=== PATIENT | female | born 1950 | race Caucasian/White ===

== ENCOUNTER 2019-08-09 09:20 | Outpatient (CLI) | payer MEDICARE, SELFPAY ==
[2019-08-09 09:38] LABS: Basophils Absolute Auto 0.03 K/mm3 (0.00-0.10); Basophils Percent Auto 0.5 % (0.0-1.0); Eosinophils Percent Auto 3.5 % (1.0-6.0); Hematocrit 44.1 % (35.0-42.0); Hemoglobin 14.9 g/dL (11.7-13.8); Immature Granulocyte Absolute 0.01 K/mm3 (0.00-0.00); Immature Granulocyte Percent A 0.2 % (0.0-0.0); Lymphocytes Absolute Auto 1.32 K/mm3 (1.10-4.50); Lymphocytes Percent Auto 23.1 % (18.0-42.0); Mean Corpuscular HGB Conc 33.8 g/dL (32.0-36.0); Mean Corpuscular Hemoglobin 31.4 pg (27.0-31.0); Mean Platelet Volume 10.7 fl (9.2-11.8); Monocytes Absolute Auto 0.48 K/mm3 (0.10-0.90); Monocytes Percent Auto 8.4 % (2.0-11.0); Neutrophils Absolute Auto 3.7 K/mm3 (1.7-7.2); Neutrophils Percent Auto 64.3 % (50.0-70.0); Platelet Count Result 196 K/mm3 (150-420); Red Blood Count 4.74 M/mm3 (4.20-5.40); Red Cell Distribution Width 12.4 % (11.6-14.4); White Blood Count 5.7 K/mm3 (4.8-10.8)
[2019-08-09 10:41] LABS: Hemoglobin A1C 6.8 % (<5.7)
[2019-08-09 10:43] LABS: Alanine Aminotransferase 29 U/L (14-59); Albumin Level 3.7 g/dL (3.4-5.0); Alkaline Phosphatase 60 U/L (46-116); Anion Gap 13.5 mmol/L (7-16); Aspartate Amino Transferase 19 U/L (15-37); Bilirubin,Total 0.6 mg/dL (0.00-1.00); Blood Urea Nitrogen 28 mg/dL (7-18); Calcium 10.7 mg/dL (8.5-10.1); Carbon Dioxide 28 mmol/L (21-32); Chloride 104 mmol/L (98-108); Cholesterol 241 mg/dL (0-200); Estimated Glomerular Filt Rate > 60; Glucose 186 mg/dL (70-99); HDL Direct 49 mg/dL (40-60); LDL Cholesterol Calculated 151 mg/dL (<130); Osmolality Calculated 302 mOsm/kg (285-295); Potassium 4.5 mmol/L (3.5-5.1); Sodium 141 mmol/L (136-145); Thyroid Stimulating Hormone 1.72 uIU/mL (0.36-3.74); Total Protein 7.3 g/dL (6.4-8.2); Triglycerides 206 mg/dL (0-150)
[2019-08-09 11:09] LABS: Add Urine Microscopic? YES; Appearance Urine Clear (Clear); Bilirubin Urine Negative (Negative); Blood Urine Negative (Negative); Color Urine Yellow (Yellow); Glucose Urine UA Negative (Negative); Ketones Urine Negative (Negative); Leukocyte Esterase Ur 2+ (Negative); Nitrate Urine Positive (Negative); Protein Urine Negative (Negative); Specific Grav Ur 1.025 (1.010-1.020); Urobilinogen Urine 0.2 mg/dL (0.2-1.0)
[2019-08-09 11:15] LABS: RBC Urine 0-2 /hpf (0-2); Squamous Epithelial Cell Urine Rare /hpf (Few); WBC Urine 31-50 /hpf (0-3)
[2019-08-09 11:16] LABS: Bacteria Urine 4+ /hpf
== END 2019-08-09 09:21 | disposition home or self-care (01) ==
PROVIDERS: PCP Internal Medicine; Visit Provider Internal Medicine
DX: E78.2 Mixed hyperlipidemia (principal); E11.9 Type 2 diabetes mellitus without complications
CPT/HCPCS: 36415; 80053; 80061; 81001; 83036; 84443; 85025

== ENCOUNTER 2020-01-22 08:45 | Outpatient (CLI) | payer MEDICARE, SELFPAY ==
[2020-01-22 08:57] LABS: Basophils Absolute Auto 0.04 K/mm3 (0.00-0.10); Basophils Percent Auto 0.8 % (0.0-1.0); Eosinophils Absolute Auto 0.17 K/mm3 (0.02-0.50); Eosinophils Percent Auto 3.3 % (1.0-6.0); Hematocrit 42.6 % (35.0-42.0); Hemoglobin 14.2 g/dL (11.7-13.8); Immature Granulocyte Absolute 0.02 K/mm3 (0.00-0.00); Immature Granulocyte Percent A 0.4 % (0.0-0.0); Lymphocytes Absolute Auto 1.36 K/mm3 (1.10-4.50); Lymphocytes Percent Auto 26.1 % (18.0-42.0); Mean Corpuscular HGB Conc 33.3 g/dL (32.0-36.0); Mean Corpuscular Hemoglobin 30.9 pg (27.0-31.0); Mean Corpuscular Volume 92.8 fL (78.0-102.0); Mean Platelet Volume 11.2 fl (9.2-11.8); Monocytes Absolute Auto 0.51 K/mm3 (0.10-0.90); Monocytes Percent Auto 9.8 % (2.0-11.0); Neutrophils Absolute Auto 3.1 K/mm3 (1.7-7.2); Neutrophils Percent Auto 59.6 % (50.0-70.0); Platelet Count Result 203 K/mm3 (150-420); Red Blood Count 4.59 M/mm3 (4.20-5.40); Red Cell Distribution Width 12.4 % (11.6-14.4); White Blood Count 5.2 K/mm3 (4.8-10.8)
[2020-01-22 09:28] LABS: Hemoglobin A1C 7.9 % (<5.7)
[2020-01-22 10:19] LABS: Alanine Aminotransferase 21 U/L (14-59); Albumin Level 3.8 g/dL (3.4-5.0); Alkaline Phosphatase 71 U/L (46-116); Anion Gap 8 mmol/L (8-16); Aspartate Amino Transferase 21 U/L (15-37); Bilirubin,Total 0.6 mg/dL (0.00-1.00); Blood Urea Nitrogen 20 mg/dL (7-18); Calcium 10.8 mg/dL (8.5-10.1); Carbon Dioxide 28 mmol/L (21-32); Chloride 104 mmol/L (98-108); Cholesterol 227 mg/dL (0-200); Estimated Glomerular Filt Rate > 60; Glucose 206 mg/dL (70-99); HDL Direct 52 mg/dL (40-60); LDL Cholesterol Calculated 143 mg/dL (<130); Osmolality Calculated 298 mOsm/kg (285-295); Potassium 4.1 mmol/L (3.5-5.1); Sodium 140 mmol/L (136-145); Thyroid Stimulating Hormone 1.81 uIU/mL (0.36-3.74); Total Protein 8.1 g/dL (6.4-8.2); Triglycerides 158 mg/dL (0-150)
[2020-01-22 11:26] LABS: Creatinine Urine 192.17 mg/dL (40-278); MALB Creatinine Ratio 39.2 mg/g (0-30); Microalbumin Urine Random 75.4 mg/L
== END 2020-01-22 08:46 | disposition home or self-care (01) ==
LOC: CHSLAB 08:47
PROVIDERS: PCP Internal Medicine; Visit Provider Internal Medicine
DX: E78.5 Hyperlipidemia, unspecified (principal); E11.9 Type 2 diabetes mellitus without complications; I10 Essential (primary) hypertension
CPT/HCPCS: 36415; 80053; 80061; 82043; 83036; 84443; 85025

== ENCOUNTER 2020-06-13 09:00 | Outpatient (CLI) | payer MEDICARE, SELFPAY ==
[2020-06-13 09:16] LABS: Basophils Absolute Auto 0.05 K/mm3 (0.00-0.10); Basophils Percent Auto 0.9 % (0.0-1.0); Eosinophils Absolute Auto 0.16 K/mm3 (0.02-0.50); Eosinophils Percent Auto 2.8 % (1.0-6.0); Hematocrit 43.2 % (35.0-42.0); Hemoglobin 14.3 g/dL (11.7-13.8); Immature Granulocyte Absolute 0.01 K/mm3 (0.00-0.00); Immature Granulocyte Percent A 0.2 % (0.0-0.0); Lymphocytes Absolute Auto 1.21 K/mm3 (1.10-4.50); Lymphocytes Percent Auto 21.2 % (18.0-42.0); Mean Corpuscular HGB Conc 33.1 g/dL (32.0-36.0); Mean Corpuscular Hemoglobin 30.3 pg (27.0-31.0); Mean Corpuscular Volume 91.5 fL (78.0-102.0); Mean Platelet Volume 11.2 fl (9.2-11.8); Monocytes Absolute Auto 0.44 K/mm3 (0.10-0.90); Monocytes Percent Auto 7.7 % (2.0-11.0); Neutrophils Absolute Auto 3.9 K/mm3 (1.7-7.2); Neutrophils Percent Auto 67.2 % (50.0-70.0); Platelet Count Result 201 K/mm3 (150-420); Red Blood Count 4.72 M/mm3 (4.20-5.40); Red Cell Distribution Width 12.5 % (11.6-14.4); White Blood Count 5.7 K/mm3 (4.8-10.8)
[2020-06-13 09:26] LABS: Hemoglobin A1C 7.8 % (<5.7)
[2020-06-13 10:07] LABS: Alanine Aminotransferase 27 U/L (14-59); Albumin Level 3.8 g/dL (3.4-5.0); Alkaline Phosphatase 84 U/L (46-116); Anion Gap 9 mmol/L (8-16); Aspartate Amino Transferase 13 U/L (15-37); Bilirubin,Total 0.5 mg/dL (0.00-1.00); Blood Urea Nitrogen 24 mg/dL (7-18); Calcium 10.5 mg/dL (8.5-10.1); Carbon Dioxide 25 mmol/L (21-32); Chloride 103 mmol/L (98-108); Cholesterol 196 mg/dL (0-200); Estimated Glomerular Filt Rate 59; Glucose 251 mg/dL (70-99); HDL Direct 53 mg/dL (40-60); LDL Cholesterol Calculated 119 mg/dL (<130); Osmolality Calculated 296 mOsm/kg (285-295); Potassium 4.2 mmol/L (3.5-5.1); Sodium 137 mmol/L (136-145); Total Protein 7.3 g/dL (6.4-8.2); Triglycerides 122 mg/dL (0-150)
== END 2020-06-13 09:01 | disposition home or self-care (01) ==
PROVIDERS: PCP Internal Medicine; Visit Provider Internal Medicine
DX: E11.9 Type 2 diabetes mellitus without complications (principal); I10 Essential (primary) hypertension
CPT/HCPCS: 36415; 80053; 80061; 83036; 85025

== ENCOUNTER 2020-06-24 15:24 | Outpatient (CLI) | payer MEDICARE, SELFPAY ==
--- NOTE | ~2020-06-24 | US_ITS ---
EXAMINATION: US arterial ankle brachial ind DATE: 06/24/2020 16:06 INDICATION: Peripheral arterial disease. Diabetes. Hyperlipidemia. Hypertension. TECHNIQUE: Segmental pressures and plethysmographic and Doppler waveforms of the brachial and lower e xtremity arteries were obtained. COMPARISON: None. FINDINGS: Right and left brachial artery pressures of 152 mm Hg and 148 mm Hg, respectively, are concordant (no rmal difference <= 30 mmHg). The right ankle-brachial index (BREEZY) is 1.09 (normal >= 0.9-1.0 Arterial Doppler waveforms are biphas ic. The left BREEZY is 1.22. Arterial Doppler waveforms are biphasic. IMPRESSION: Normal bilateral BREEZY Reviewed, dictated and finalized at [facility]. Reviewed, dictated and finalized at location [facility]. IMPRESSION: Normal bilateral BREEZY
== END 2020-06-24 15:25 | disposition home or self-care (01) ==
LOC: CHSIMG 15:26
PROVIDERS: PCP Internal Medicine; Visit Provider Internal Medicine
DX: I73.9 Peripheral vascular disease, unspecified (principal)
CPT/HCPCS: 93922

== ENCOUNTER 2020-12-19 08:33 | Outpatient (CLI) | payer MEDICARE, SELFPAY ==
[2020-12-19 08:45] LABS: Basophils Absolute Auto 0.04 K/mm3 (0.00-0.10); Basophils Percent Auto 0.6 % (0.0-1.0); Eosinophils Absolute Auto 0.19 K/mm3 (0.02-0.50); Hemoglobin 14.5 g/dL (11.7-13.8); Immature Granulocyte Absolute 0.01 K/mm3 (0.00-0.00); Immature Granulocyte Percent A 0.2 % (0.0-0.0); Lymphocytes Absolute Auto 1.45 K/mm3 (1.10-4.50); Lymphocytes Percent Auto 22.8 % (18.0-42.0); Mean Corpuscular Hemoglobin 30.7 pg (27.0-31.0); Mean Platelet Volume 11.2 fl (9.2-11.8); Monocytes Absolute Auto 0.48 K/mm3 (0.10-0.90); Monocytes Percent Auto 7.5 % (2.0-11.0); Neutrophils Absolute Auto 4.2 K/mm3 (1.7-7.2); Neutrophils Percent Auto 65.9 % (50.0-70.0); Platelet Count Result 206 K/mm3 (150-420); Red Blood Count 4.73 M/mm3 (4.20-5.40); Red Cell Distribution Width 12.9 % (11.6-14.4); White Blood Count 6.4 K/mm3 (4.8-10.8)
[2020-12-19 08:54] LABS: Hemoglobin A1C 7.8 % (<5.7)
[2020-12-19 10:09] LABS: Alanine Aminotransferase 27 U/L (14-59); Alkaline Phosphatase 61 U/L (46-116); Anion Gap 8 mmol/L (8-16); Aspartate Amino Transferase 14 U/L (15-37); Bilirubin,Total 0.7 mg/dL (0.00-1.00); Blood Urea Nitrogen 21 mg/dL (7-18); Carbon Dioxide 29 mmol/L (21-32); Chloride 105 mmol/L (98-108); Cholesterol 216 mg/dL (0-200); Estimated Glomerular Filt Rate > 60; Glucose 176 mg/dL (70-99); HDL Direct 52 mg/dL (40-60); LDL Cholesterol Calculated 132 mg/dL (<130); Osmolality Calculated 301 mOsm/kg (285-295); Potassium 4.4 mmol/L (3.5-5.1); Sodium 142 mmol/L (136-145); Thyroid Stimulating Hormone 1.23 uIU/mL (0.36-3.74); Total Protein 7.6 g/dL (6.4-8.2); Triglycerides 160 mg/dL (0-150)
== END 2020-12-19 08:34 | disposition home or self-care (01) ==
LOC: CHSLAB 08:35
PROVIDERS: PCP Internal Medicine; Visit Provider Internal Medicine
DX: E11.9 Type 2 diabetes mellitus without complications (principal); E78.5 Hyperlipidemia, unspecified
CPT/HCPCS: 36415; 80053; 80061; 83036; 84443; 85025

== ENCOUNTER 2020-12-25 14:10 | Outpatient (CLI) | payer MEDICARE, SELFPAY ==
--- NOTE | ~2020-12-25 | XR_ITS ---
EXAMINATION: XR hand LT min 3V INDICATION: Left hand pain, initial encounter TECHNIQUE: Three views of the left hand are obtained. COMPARISON: None available FINDINGS: There is an acute, traumatic, closed, oblique fracture in the distal shaft of the fifth met acarpal. There is one shaft width of lateral displacement of the distal fracture fragment. No additio nal acute osseous abnormality is identified. There is mild polyarticular osteoarthritis. Soft tissue swelling surrounds the fracture. IMPRESSION: 1. Acute fracture in the distal shaft of the fifth metacarpal. Reviewed, dictated and finalized at location [facility].
== END 2020-12-25 14:11 | disposition home or self-care (01) ==
LOC: CHSIMG 14:48
PROVIDERS: PCP Internal Medicine; Visit Provider Internal Medicine
DX: S69.92XA Unspecified injury of left wrist, hand and finger(s), initial encounter (principal); S62.357A Nondisplaced fracture of shaft of fifth metacarpal bone, left hand, initial encounter for closed fracture
CPT/HCPCS: 73130

== ENCOUNTER 2021-06-17 10:01 | Outpatient (CLI) | payer MEDICARE, SELFPAY ==
[2021-06-17 10:18] LABS: Basophils Absolute Auto 0.04 K/mm3 (0.00-0.10); Basophils Percent Auto 0.7 % (0.0-1.0); Eosinophils Absolute Auto 0.18 K/mm3 (0.02-0.50); Eosinophils Percent Auto 2.9 % (1.0-6.0); Hematocrit 42.5 % (35.0-42.0); Immature Granulocyte Absolute 0.02 K/mm3 (0.00-0.00); Immature Granulocyte Percent A 0.3 % (0.0-0.0); Lymphocytes Absolute Auto 1.27 K/mm3 (1.10-4.50); Lymphocytes Percent Auto 20.7 % (18.0-42.0); Mean Corpuscular HGB Conc 32.9 g/dL (32.0-36.0); Mean Corpuscular Hemoglobin 30.7 pg (27.0-31.0); Mean Corpuscular Volume 93.2 fL (78.0-102.0); Mean Platelet Volume 11.4 fl (9.2-11.8); Monocytes Absolute Auto 0.45 K/mm3 (0.10-0.90); Monocytes Percent Auto 7.3 % (2.0-11.0); Neutrophils Absolute Auto 4.2 K/mm3 (1.7-7.2); Neutrophils Percent Auto 68.1 % (50.0-70.0); Platelet Count Result 207 K/mm3 (150-420); Red Blood Count 4.56 M/mm3 (4.20-5.40); Red Cell Distribution Width 12.6 % (11.6-14.4); White Blood Count 6.1 K/mm3 (4.8-10.8)
[2021-06-17 10:45] LABS: Hemoglobin A1C 8.6 % (<5.7)
[2021-06-17 10:59] LABS: Alanine Aminotransferase 19 U/L (14-59); Albumin Level 3.7 g/dL (3.4-5.0); Alkaline Phosphatase 72 U/L (46-116); Anion Gap 11 mmol/L (8-16); Aspartate Amino Transferase 13 U/L (15-37); Bilirubin,Total 0.4 mg/dL (0.00-1.00); Blood Urea Nitrogen 27 mg/dL (7-18); Calcium 10.3 mg/dL (8.5-10.1); Carbon Dioxide 26 mmol/L (21-32); Chloride 104 mmol/L (98-108); Cholesterol 203 mg/dL (0-200); Estimated Glomerular Filt Rate 54; Glucose 214 mg/dL (70-99); HDL Direct 46 mg/dL (40-60); LDL Cholesterol Calculated 119 mg/dL (<130); Osmolality Calculated 303 mOsm/kg (285-295); Potassium 4.5 mmol/L (3.5-5.1); Sodium 141 mmol/L (136-145); Total Protein 7.2 g/dL (6.4-8.2); Triglycerides 190 mg/dL (0-150)
== END 2021-06-17 10:02 | disposition home or self-care (01) ==
LOC: CHSLAB 10:03
PROVIDERS: PCP Internal Medicine; Visit Provider Internal Medicine
DX: E78.5 Hyperlipidemia, unspecified (principal); I10 Essential (primary) hypertension; E11.9 Type 2 diabetes mellitus without complications
CPT/HCPCS: 36415; 80053; 80061; 83036; 84443; 85025

== ENCOUNTER 2023-07-04 04:48 | Inpatient (IN) | payer MEDICARE, SELFPAY ==
[2023-07-04] VITALS (13 sets, daily range): BP systolic 105–188; BP diastolic 49–117; PULSE 74–118; RESP 16–24; TEMP 36.4–37.1; O2SAT 94–99; BMI 22.4
--- NOTE | ~2023-07-04 | CT_ITS ---
EXAMINATION: CT brain wo con DATE: 07/04/2023 15:48 INDICATION: AMS . TECHNIQUE: Computed tomography (CT) of the head was performed without intravenous contrast. The mA wa s adjusted according to patient size. Iterative reconstruction technique was employed. The dose-lengt h product was 1286.33 mGy-cm. COMPARISON: None. FINDINGS: No acute intracranial hemorrhage or extra-axial fluid collection. No hydrocephalus, mass, or herniation. No acute ischemic infarct. Unremarkable dural venous sinus attenuation. No acute osseous abnormality. The aerated spaces are clear. Moderate atrophy and chronic white matter change. Atherosclerotic intracranial calcification. Bilater al lens replacements. IMPRESSION: No acute intracranial process. Reviewed, dictated and finalized at location [facility].
--- NOTE | ~2023-07-04 | XR_ITS ---
XR chest 1V portable 07/04/2023 05:27 Indication: Confusion Procedure: AP portable chest Comparison: No prior studies for comparison. Findings: Heart size normal. No focal air space disease, pulmonary edema, pleural effusion or suspect ed pneumothorax. No acute osseous abnormality. Impression: 1: No acute cardiopulmonary disease. Reviewed, dictated and finalized at location [facility]. Impression: 1: No acute cardiopulmonary disease.
--- NOTE | 2023-07-04 05:11 | ED.GENADULT ---
HPI - General Adult General Chief complaint: Altered Mental Status <Vahid Jones MD - Last Filed: 08/04/23 13:32> Stated complaint: Altered Mental Status <Vahid Jones MD - Last Filed: 08/04/23 13:32> Time Seen by Provider: 07/04/23 04:50 <Vahid Jones MD - Last Filed: 08/04/23 13:32> Source: family and EMS <Vahid Jones MD - Last Filed: 08/04/23 13:32> Mode of arrival: EMS <Vahid Jones MD - Last Filed: 08/04/23 13:32> Limitations: altered mental status <Vahid Jones MD - Last Filed: 08/04/23 13:32> History of Present Illness HPI narrative: Patient is a 72-year-old female with significant past medical history that presents today for confusion. Patient presents by EMS, EMS went to her house and was called by the because of confusion. He states this is not her normal mental status that she is more coherent. Currently she is very confused and has altered mental status. EMS states that her urine smelled very foul in the entire house smelled like urine. The states that she is normally more with it than this but history of last few days. He states she has not had any medical care in a while now. He is not sure the last time that she saw a physician. She does have a history of diabetes as well. Patient will need to be placed in four-point restraints soft restraints, she is pulling out her IV lines. <Vahid Jones MD - Last Filed: 08/04/23 13:32> Onset (ago): day(s) <Vahid Jones MD - Last Filed: 08/04/23 13:32> Relieving factors: none <Vahid Jones MD - Last Filed: 08/04/23 13:32> Exacerbating factors: none <Vahid Jones MD - Last Filed: 08/04/23 13:32> Associated symptoms: confusion <Vahid Jones MD - Last Filed: 08/04/23 13:32> Treatments prior to arrival: none <Vahid Jones MD - Last Filed: 08/04/23 13:32> Related Data Home medications: Home Medications Medication Instructions Recorded Confirmed duloxetine 30 mg capsule,delayed 30 mg PO DAILY 07/04/23 07/04/23 release glimepiride 2 mg tablet 2 - 4 mg PO BID 07/04/23 07/04/23 irbesartan 150 mg tablet 150 mg PO HS 07/04/23 07/04/23 meloxicam 15 mg tablet 15 mg PO DAILY 07/04/23 07/04/23 metformin 1,000 mg tablet,extended 1,000 mg PO QPM 07/04/23 07/04/23 release 24hr (osmotic) oxybutynin chloride 5 mg tablet 5 mg PO HS 07/04/23 07/04/23 oxybutynin chloride 5 mg tablet 10 mg PO DAILY 07/04/23 07/04/23 pravastatin 20 mg tablet 20 mg PO HS 07/04/23 07/04/23 <Vahid Jones MD - Last Filed: 08/04/23 13:32> Allergies/adverse reactions: Allergies Allergy/AdvReac Type Severity Reaction Status Date / Time No Known Allergies Allergy Verified 07/07/23 09:13 <Vahid Jones MD - Last Filed: 08/04/23 13:32> Review of Systems Review of Systems: ROS unobtainable: Yes unobtainable due to mental status <Vahid Jones MD - Last Filed: 08/04/23 13:32> Constitutional: Constitutional: Reports as per HPI <Vahid Jones MD - Last Filed: 08/04/23 13:32> Eyes: Eyes: Reports as per HPI <Vahid Jones MD - Last Filed: 08/04/23 13:32> ENT: Reports as per HPI <Vahid Jones MD - Last Filed: 08/04/23 13:32> Cardiovascular: Cardiovascular: Reports as per HPI <Vahid Jones MD - Last Filed: 08/04/23 13:32> Respiratory: Respiratory: Reports as per HPI <Vahid Jones MD - Last Filed: 08/04/23 13:32> Gastrointestinal: Gastrointestinal: Reports as per HPI <Vahid Jones MD - Last Filed: 08/04/23 13:32> Genitourinary: Genitourinary: Reports as per HPI <Vahid Jones MD - Last Filed: 08/04/23 13:32> Musculoskeletal: Musculoskeletal: Reports as per HPI <Vahid Jones MD - Last Filed: 08/04/23 13:32> Integumentary/Breasts: Skin/Breast: Reports as per HPI <Vahid Jones MD - Last Filed: 08/04/23 13:32> Neurologic: Reports as per HPI <Vahid Jones MD - Last Filed: 08/04/23 13:32> Ps
--- NOTE | 2023-07-04 05:15 | ECG_ITS ---
Measurements Intervals [place] Rate: 79 P: 73 MI: 130 QRS: 24 QRSD: 78 T: 48 QT: 379 QTc: 435 Interpretive Statements SINUS RHYTHM BASELINE ARTIFACT- I, II, III, AVR, AVL, AVF, V1-V6 NORMAL ECG NO PREVIOUS ECG AVAILABLE FOR COMPARISON Electronically Signed On 07-04-2023 7:52:41 CDT by Curtis Frederick D.O.
[2023-07-04 05:38] LABS: Basophils Absolute Auto 0.04 K/mm3 (0.00-0.10); Basophils Percent Auto 0.3 % (0.0-1.0); Eosinophils Absolute Auto 0.01 K/mm3 (0.02-0.50); Eosinophils Percent Auto 0.1 % (1.0-6.0); Hematocrit 40.7 % (35.0-42.0); Hemoglobin 13.4 g/dL (11.7-13.8); Immature Granulocyte Absolute 0.03 K/mm3 (0.00-0.00); Immature Granulocyte Percent A 0.3 % (0.0-0.0); Lymphocytes Absolute Auto 0.71 K/mm3 (1.10-4.50); Lymphocytes Percent Auto 6.2 % (18.0-42.0); Mean Corpuscular HGB Conc 32.9 g/dL (32-36); Mean Corpuscular Hemoglobin 29.5 pg (27.0-31.0); Mean Corpuscular Volume 89.5 fL (78.0-102.0); Mean Platelet Volume 11.2 fl (9.2-11.8); Monocytes Absolute Auto 0.91 K/mm3 (0.10-0.90); Neutrophils Absolute Auto 9.73 K/mm3 (1.70-7.20); Neutrophils Percent Auto 85.1 % (50.0-70.0); Platelet Count Result 306 K/mm3 (150-420); Red Blood Count 4.55 M/mm3 (4.20-5.40); Red Cell Distribution Width 12.7 % (11.6-14.4); White Blood Count 11.4 K/mm3 (4.8-10.8)
[2023-07-04 05:40] LABS: Bilirubin Urine Negative (Negative); Blood Urine 2+ (Negative); Color Urine Light Yellow (Yellow); Glucose Urine UA 1+ (Negative); Ketones Urine 1+ (Negative); Leukocyte Esterase Ur Trace LEU/UL (Negative); Nitrate Urine Negative (Negative); Protein Urine 2+ (Negative); Specific Grav Ur 1.025 (1.010-1.020); pH Urine 7.5 (5.0-8.0)
[2023-07-04] MEDS: LORazepam INJ (*CRX) 2 MG/ML VIAL IV PUSH (05:40)
[2023-07-04 05:45] LABS: Glucose Point of Care 224 mg/dl (65-105)
[2023-07-04 05:47] LABS: Add Urine Microscopic? YES; Appearance Urine Cloudy (Clear); Squamous Epithelial Cell Urine Occasional /hpf (Few)
[2023-07-04 05:48] LABS: Bacteria Urine 4+ /hpf
[2023-07-04 05:54] LABS: Alanine Aminotransferase 21 U/L (14-59); Albumin Level 3.8 g/dL (3.4-5.0); Alkaline Phosphatase 82 U/L (46-116); Anion Gap 12 mmol/L (8-16); Aspartate Amino Transferase 30 U/L (15-37); Bilirubin,Total 0.9 mg/dL (0.00-1.00); Blood Urea Nitrogen 21 mg/dL (7-18); Calcium 10.7 mg/dL (8.5-10.1); Carbon Dioxide 28 mmol/L (21-32); Chloride 101 mmol/L (98-108); Estimated Glomerular Filt Rate 39; Glucose 231 mg/dL (70-99); Osmolality Calculated 302 mOsm/kg (285-295); Potassium 3.8 mmol/L (3.5-5.1); Sodium 141 mmol/L (136-145); Total Protein 7.7 g/dL (6.4-8.2)
--- NOTE | 2023-07-04 06:00 | PC.NURSE ---
Pt continues to remain under close observation, she has restraint in place to her Rt wrist because she wants to pull at lines and tubing. Pt repositioned in bed, catheter in place draining to gravity, IVF continue to infuse. Elevated BP addressed by ERP Dr Jones.
[2023-07-04] MEDS: SODIUM CHLORIDE 0.9% IV 1,000 ML 999 ML IV CONT (06:15)
[2023-07-04] MEDS: LABETALOL HCL INJ 100 MG/20 ML VIAL 20 MG IV PUSH (06:57)
--- NOTE | 2023-07-04 07:16 | PC.NURSE ---
Report to Vera Romero
[2023-07-04] MEDS: PIPERACILLN/TAZ 3.375GM/NS50ML 3.375 GM/50 ML BAG IVPB (07:28)
--- NOTE | 2023-07-04 07:56 | PC.NURSE ---
0755 right wrist soft restraint released pt resting quietly pt going upstairs for admission nurse to nurse report given
--- NOTE | 2023-07-04 08:10 | ADMGEN ---
This patient, Praveena Michael, was admitted to 2nd Floor Room 206-1. Patient disoriented, unable to orient to floor. Family left from ER. Patient has ID bracelet on and bed alarms activated. Call bed Information on how to activate the Rapid Response Team has been discussed. Patient/Family are encouraged to report perceived risks to care and to ask questions if they do not understand what they are told or what they should do.
--- NOTE | 2023-07-04 08:10 | ADMGEN ---
Addendum entered by Heidi Perry RN 07/04/23 08:32: Patient alert to self only. Will responds to question at times, does not always respond appropriatly. Original Note: This patient, Praveena Michael, was admitted to 2nd Floor Room 206-1 with UTI/AMS. Patient disoriented, unable to orient to policy and procedures. Family left from ER. ID bracelet on, bed alarms activated, call medellin at side. Patient placed in room 206 to monitor closely. Patient resting quietly in bed at this time, patient does fidget some when care being given but settles down quickly.
--- NOTE | 2023-07-04 13:36 | PM.IMHP ---
H&P: HPI History of Present Illness Date/Time: 07/04/23 13:36 Chief Complaint: altered mental status Narrative: This is a 72-year-old female with a significant past medical history of hypertension, hyperlipidemia, type 2 DM, depression who presented to the hospital for evaluation of altered mental status. History of presenting symptoms has been obtained through the EMR as patient is still quite confused and there is no family at the bedside. EMS was called last night by her due to her increased confusion. He stated that she is normally alert oriented x4 and over the past few days she has been getting more and more confused. is not a good historian on her medical care. He states that she has not been to the doctor in quite some time and he is usually not involved with her medical problems. Workup in the hospital included a chest x-ray which was negative for any acute cardiopulmonary disease. Labs were obtained and showed a white blood cell count of 11.4, BUN 21, creatinine 1.32, EGFR 39, serum osmolarity 302, calcium 10.7. UA was obtained which shown a specific gravity of 1.025, 2+ urine protein, 1+ urine glucose, 1+ urine ketones, 2+ urine blood, trace leukocytes, 11-20 urine RBCs, 10-15 urine wbc's, 4+ bacteria. Blood and urine cultures were obtained and are pending. EKG was performed showing normal sinus rhythm with a rate of 79, QTC 435. Patient was given 2 L of normal saline, Ativan, labetalol, Zosyn and Rocephin while in the ED. while in the ED patient was picking and pulling at her lines and very restless is why she received the Ativan. They also placed her in 4 point restraints due to the agitation however she is now much more calm and restraints were discontinued. on exam patient is minimally interactive. She will open her eyes to voice and will follow some simple commands but then drifts right back off to sleep. Review of systems is postponed at this time. She does have is noted to bilateral feet, appears fungal. Patient initially meeting sepsis criteria due to increased respiratory rate, increased heart rate, and known source of infection. Review of Systems Review of Systems: ROS unobtainable: Yes unobtainable due to mental status PMFSH Past Medical History Medical History (Updated 07/04/23 @ 15:07 by Sivan Puentes, CHAIR MENDER) Depression Hyperlipidemia Hypertension Overactive bladder Type 2 diabetes mellitus Social History Social History Alcohol intake: never Substance use: never Spiritual care concerns: No Comments unable to obtain surgical history, family history, social history due to her altered mental status. Will try an update as her mental status improves Meds Home Medications and Allergies Home Medications Medication Instructions Recorded Confirmed Type duloxetine 30 mg capsule,delayed 30 mg PO DAILY 07/04/23 07/04/23 History release glimepiride 2 mg tablet 2 - 4 mg PO BID 07/04/23 07/04/23 History irbesartan 150 mg tablet 150 mg PO HS 07/04/23 07/04/23 History meloxicam 15 mg tablet 15 mg PO DAILY 07/04/23 07/04/23 History metformin 1,000 mg tablet,extended 1,000 mg PO QPM 07/04/23 07/04/23 History release 24hr (osmotic) oxybutynin chloride 5 mg tablet 5 mg PO HS 07/04/23 07/04/23 History oxybutynin chloride 5 mg tablet 10 mg PO DAILY 07/04/23 07/04/23 History pravastatin 20 mg tablet 20 mg PO HS 07/04/23 07/04/23 History Allergies Allergy/AdvReac Type Severity Reaction Status Date / Time No Known Allergies Allergy Verified 07/04/23 05:27 Vital Signs Vital Signs - 24 hr 07/04/23 05:17 07/04/23 05:10 07/04/23 04:50 Temperature Pulse Rate 118 H 110 H Respiratory Rate 24 H 18 Blood Pressure 188/117 H Pulse Oximetry 98 96 Oxygen Delivery 07/04/23 04:50 07/04/23 07:10 07/04/23 07:15 Temperature 98.8 F Pulse Rate 110 H 76 74 Respiratory Rate 20 20 Blood Pressure 188/117 H 178/
[2023-07-04 16:52] LABS: Glucose Point of Care 120 mg/dl (65-105)
[2023-07-04] MEDS: PRAVASTATIN SODIUM 20 MG TABLET PO (20:44)
[2023-07-04] MEDS: oxyBUTYnin CHLORIDE 5 MG TABLET PO (20:44)
[2023-07-04] MEDS: IRBESARTAN 150 MG TABLET PO (20:44)
[2023-07-04 20:48] LABS: Glucose Point of Care 111 mg/dl (65-105)
[2023-07-05] VITALS: BP 126/53; PULSE 78; RESP 16; TEMP 36.6; O2SAT 96
--- NOTE | 2023-07-05 01:28 | PC.NURSE ---
Patient resting quietly. Awakens easily when her name is called. Answering questions appropriately. Able to state where she was and year. Call light and belonginings within reach.
--- NOTE | 2023-07-05 01:52 | PC.NURSE ---
Patient alert and cooperative. No threat to self or others made. No attempts to get out of bed.
--- NOTE | 2023-07-05 02:09 | PC.NURSE ---
Resting quietly. Mcdonald cath intact. Call light and belongings within reach.
[2023-07-05] MEDS: ACETAMINOPHEN 325 MG TABLET 650 MG PO ×3 (04:47→20:49)
[2023-07-05 06:09] LABS: Basophils Absolute Auto 0.05 K/mm3 (0.00-0.10); Basophils Percent Auto 0.7 % (0.0-1.0); Eosinophils Percent Auto 2.8 % (1.0-6.0); Hematocrit 33.9 % (35.0-42.0); Hemoglobin 10.8 g/dL (11.7-13.8); Immature Granulocyte Absolute 0.02 K/mm3 (0.00-0.00); Immature Granulocyte Percent A 0.3 % (0.0-0.0); Lymphocytes Absolute Auto 1.14 K/mm3 (1.10-4.50); Lymphocytes Percent Auto 15.7 % (18.0-42.0); Mean Corpuscular HGB Conc 31.9 g/dL (32-36); Mean Corpuscular Hemoglobin 29.2 pg (27.0-31.0); Mean Corpuscular Volume 91.6 fL (78.0-102.0); Mean Platelet Volume 11.2 fl (9.2-11.8); Monocytes Absolute Auto 0.54 K/mm3 (0.10-0.90); Monocytes Percent Auto 7.4 % (2.0-11.0); Neutrophils Absolute Auto 5.31 K/mm3 (1.70-7.20); Neutrophils Percent Auto 73.1 % (50.0-70.0); Platelet Count Result 233 K/mm3 (150-420); Red Cell Distribution Width 13.1 % (11.6-14.4); White Blood Count 7.3 K/mm3 (4.8-10.8)
[2023-07-05 06:21] LABS: Hemoglobin A1C 6.5 % (<5.7)
[2023-07-05 06:32] LABS: Alanine Aminotransferase 27 U/L (14-59); Albumin Level 3.1 g/dL (3.4-5.0); Alkaline Phosphatase 58 U/L (46-116); Anion Gap 10 mmol/L (8-16); Aspartate Amino Transferase 32 U/L (15-37); Bilirubin,Total 0.8 mg/dL (0.00-1.00); Blood Urea Nitrogen 20 mg/dL (7-18); Calcium 9.7 mg/dL (8.5-10.1); Carbon Dioxide 27 mmol/L (21-32); Chloride 105 mmol/L (98-108); Estimated CRCL calculation 33 ml/min; Estimated Glomerular Filt Rate 47; Glucose 145 mg/dL (70-99); Magnesium 1.7 mg/dL (1.8-2.4); Osmolality Calculated 299 mOsm/kg (285-295); Potassium 3.4 mmol/L (3.5-5.1); Sodium 142 mmol/L (136-145); Thyroid Stimulating Hormone 0.88 uIU/mL (0.36-3.74); Total Protein 6.4 g/dL (6.4-8.2)
[2023-07-05 07:40] VITALS: BP 144/59; PULSE 73; RESP 16; TEMP 36.2; O2SAT 97
--- NOTE | 2023-07-05 07:48 | P.PNIM_ITS ---
Progress Note: A&P Assessment and Plan (1) Sepsis: Qualifiers: Sepsis acute organ dysfunction status: unspecified Sepsis type: sepsis due to unspecified organism Qualified Code(s): A41.9 - Sepsis, unspecified o rganism Code(s): A41.9 - Sepsis, unspecified organism Status: Acute Assessment and Plan: 07/04/23: * patient initially meeting sepsis criteria with Altered mental status,tachycardia, tachypnea, and known source of infection/ UTI. * sepsis likely due to urinary tract infection * blood and urine cultures were obtained and are pending * patient was given a dose of Zosyn and Rocephin in the ED. we will DC the Zosyn and continue with Rocephin while awaiting cultures * chest x-ray was negative for any acute cardiopulmonary process * white blood cell count 11.4 * vital signs are stable, she is afebrile, she is currently on room air 07/05/23: * white blood cell count down to 7.3 * head CT was negative for any acute intracranial process * blood cultures are showing no growth to date * urine culture still pending * continue with Rocephin * she remains afebrile, currently on room air, vital signs are stable (2) Acute UTI: Code(s): N39.0 - Urinary tract infection, site not specified Status: Acute Assessment and Plan: 07/04/23: * UA showing a urine specific gravity of 1.025, 2+ urine protein, 1+ urine glucose, 1+ urine ketones, 2+ urine blood, trace leukocytes, 11-20 urine RBCs, 10-15 urine wbc's, 4+ urine bacteria * urine culture was obtained and is pending * continue with Rocephin 07/05/23: * urine culture still pending * blood culture showing no growth today * continue with Rocephin (3) RANGEL (acute kidney injury): Code(s): N17.9 - Acute kidney failure, unspecified Status: Acute Assessment and Plan: 07/04/23: * creatinine increased to 1.32, baseline creatinine 1.0 * EGFR 39, baseline EGFR 54 07/05/23: * creatinine 1.14, EGFR 47 * continue to trend (4) Altered mental status: Code(s): R41.82 - Altered mental status, unspecified Status: Acute Assessment and Plan: 07/04/23: * patient remains confused which is likely due to her sepsis and urinary tract infection * continue neuro checks * patient was agitated and restless pulling at lines, she was placed in wrist restraints and given Ativan 2 times while in the ED * now that she is more calm we will go ahead and get a CT of her head to rule out any other issues * patient does have history of falls however was not certain if she hit her head or not 07/05/23: * head CT negative for any acute intracranial process, only showed age-related changes * continue neuro checks * continue Mcdonald catheter today while she is still confused, will DC Mcdonald catheter tomorrow (5) Depression: Code(s): F32.A - Depression, unspecified Status: Acute Assessment and Plan: 07/04/23: * continue Cymbalta 07/05/23: * continue with current treatment plan (6) Type 2 diabetes mellitus: Code(s): E11.9 - Type 2 diabetes mellitus without complications Status: Acute Assessment and Plan: 07/04/23: * blood glucose ranging 224-231 * last hemoglobin A1c on 06/17/2021 was 8.6, we will repeat hemoglobin A1c in the morning * Accu-Cheks AC and HS * hypoglycemic protocol in place * continue sliding scale insulin, moderate dose * will hold glimepiride and metformin 07/05/23: * Blood sugars ranging 111-145 * hemoglobin A1c 6.5
--- NOTE | 2023-07-05 07:48 | PM.IMPN ---
Progress Note: A&P Assessment and Plan (1) Sepsis: Qualifiers: Sepsis acute organ dysfunction status: unspecified Sepsis type: sepsis due to unspecified organism Qualified Code(s): A41.9 - Sepsis, unspecified organism Code(s): A41.9 - Sepsis, unspecified organism Status: Acute Assessment and Plan: 07/04/23: patient initially meeting sepsis criteria with Altered mental status,tachycardia, tachypnea, and known source of infection/ UTI. sepsis likely due to urinary tract infection blood and urine cultures were obtained and are pending patient was given a dose of Zosyn and Rocephin in the ED. we will DC the Zosyn and continue with Rocephin while awaiting cultures chest x-ray was negative for any acute cardiopulmonary process white blood cell count 11.4 vital signs are stable, she is afebrile, she is currently on room air 07/05/23: white blood cell count down to 7.[address] was negative for any acute intracranial process blood cultures are showing no growth to date urine culture still pending continue with Rocephin she remains afebrile, currently on room air, vital signs are stable (2) Acute UTI: Code(s): N39.0 - Urinary tract infection, site not specified Status: Acute Assessment and Plan: 07/04/23: UA showing a urine specific gravity of 1.025, 2+ urine protein, 1+ urine glucose, 1+ urine ketones, 2+ urine blood, trace leukocytes, 11-20 urine RBCs, 10-15 urine wbc's, 4+ urine bacteria urine culture was obtained and is pending continue with Rocephin 07/05/23: urine culture still pending blood culture showing no growth today continue with Rocephin (3) RANGEL (acute kidney injury): Code(s): N17.9 - Acute kidney failure, unspecified Status: Acute Assessment and Plan: 07/04/23: creatinine increased to 1.32, baseline creatinine 1.0 EGFR 39, baseline EGFR 54 07/05/23: creatinine 1.14, EGFR 47 continue to trend (4) Altered mental status: Code(s): R41.82 - Altered mental status, unspecified Status: Acute Assessment and Plan: 07/04/23: patient remains confused which is likely due to her sepsis and urinary tract infection continue neuro checks patient was agitated and restless pulling at lines, she was placed in wrist restraints and given Ativan 2 times while in the ED now that she is more calm we will go ahead and get a CT of her head to rule out any other issues patient does have history of falls however was not certain if she hit her head or not 07/05/23: head CT negative for any acute intracranial process, only showed age-related changes continue neuro checks continue Mcdonald catheter today while she is still confused, will DC Mcdonald catheter tomorrow (5) Depression: Code(s): F32.A - Depression, unspecified Status: Acute Assessment and Plan: 07/04/23: continue Cymbalta 07/05/23: continue with current treatment plan (6) Type 2 diabetes mellitus: Code(s): E11.9 - Type 2 diabetes mellitus without complications Status: Acute Assessment and Plan: 07/04/23: blood glucose ranging 224-231 last hemoglobin A1c on 06/17/2021 was 8.6, we will repeat hemoglobin A1c in the morning Accu-Cheks AC and HS hypoglycemic protocol in place continue sliding scale insulin, moderate dose will hold glimepiride and metformin 07/05/23: Blood sugars ranging 111-145 hemoglobin A1c 6.5 continue with current treatment plan (7) Hyperlipidemia: Code(s): E78.5 - Hyperlipidemia, unspecified Status: Acute Assessment and Plan: 07/04/23: continue pravastatin 07/05/23: continue with current treatment plan (8) Hypertension: Code(s): I10 - Essential (primary) hypertension Status: Acute Assessment and Plan: 07/04/23: blood pressure ranging 125/64 to 140/73 continue Avapro 150 mg at night 07/05/23: con
[2023-07-05 08:25] VITALS: O2SAT 97
--- NOTE | 2023-07-05 10:06 | PC.NURSE ---
Patient changed to IP.
[2023-07-05] MEDS: ENOXAPARIN 40 MG/0.4 ML SYRINGE SUB-Q (10:11)
[2023-07-05] MEDS: POTASSIUM CHLORIDE 20 MEQ ER TABLET 40 MEQ PO (10:11)
[2023-07-05] MEDS: oxyBUTYnin CHLORIDE 5 MG TABLET 10 MG PO (10:12)
[2023-07-05] MEDS: DULoxetine HCL 30 MG CAPSULE.DR PO (10:12)
[2023-07-05] MEDS: MAGNESIUM SULF 2 GM/WATER 50ML 2 GM/50 ML BAG IVPB (10:25)
[2023-07-05 12:05] LABS: Glucose Point of Care 181 mg/dl (65-105)
[2023-07-05 16:00] VITALS: BP 130/64; PULSE 74; RESP 18; TEMP 36.4; O2SAT 97
[2023-07-05] MEDS: DICLOFENAC SODIUM 1% 100 GM GEL (*BKC) 1 APPLIC TOPICAL ×2 (16:58→20:47)
[2023-07-05] MEDS: INSULIN HUMAN LISPRO (*BKC) 1,000 UNITS/10 ML VIAL SUB-Q (16:59)
[2023-07-05] MEDS: IRBESARTAN 150 MG TABLET PO (20:48)
[2023-07-05] MEDS: PRAVASTATIN SODIUM 20 MG TABLET PO (20:48)
[2023-07-05] MEDS: oxyBUTYnin CHLORIDE 5 MG TABLET PO (20:50)
--- NOTE | 2023-07-05 20:53 | PC.NURSE ---
Patient stated she needed some medication for depression. Told her she has dulexetine scheduled for morning. Her responses to the [place] indicated the need for hand-outs on suicide prevention. Gave her the brochure [employer], [employer] that are used in [employer] at [facility], and a suicide prevention handout.
[2023-07-05 21:07] LABS: Glucose Point of Care 167 mg/dl (65-105)
[2023-07-06] VITALS: BP 130/69; PULSE 84; RESP 16; TEMP 36.4; O2SAT 98
--- NOTE | 2023-07-06 00:43 | PC.NURSE ---
Entered patients room to alarm sounding. Patient stated she needed to use the bathroom. Asked if she needed to have a bm, and stated no. She stated she needed to pee. This nurse reminded her that she has a catheter. She was ok with that and this nurse helped patient get comfortable in bed. Also noted that patient is having a very hard time sleeping and states she has a hard time sleeping at home often. Was made aware that she had the issue of not being able to sleep the previous night also.
[2023-07-06] MEDS: MIRTAZAPINE 7.5 MG TABLET PO ×2 (01:48→20:53)
--- NOTE | 2023-07-06 04:33 | PC.NURSE ---
Patient was seated in a chair near the bed when the shift began. Patient had visited with her family ( and two sons) today. Patient was concerned about receiving her home medications, and specifically asked about her depression medication and the baclofen she receives at bedtime. PATIENT ASSESSMENT COORDINATOR scheduled the antidepressant for tomorrow morning, and did not order baclofen, as she was concerned about the patient's mental status. Patient took her medications with applesauce, and went to bed shortly after HS medications. Patient had a difficult time going to sleep, and tossed and turned in bed. PATIENT ASSESSMENT COORDINATOR was notified, and ordered a one time dose of 7.5 mg of mirtazapine in an effort to help her go to sleep. Patient was able to sleep after the mirtazapine was given. Patient's wang is still patent and draining, with stat-lock attached. Patient's urine is dark, and she has low output. Vitals are WNL.
[2023-07-06 05:45] LABS: Basophils Absolute Auto 0.05 K/mm3 (0.00-0.10); Basophils Percent Auto 0.8 % (0.0-1.0); Eosinophils Absolute Auto 0.27 K/mm3 (0.02-0.50); Eosinophils Percent Auto 4.4 % (1.0-6.0); Hematocrit 34.9 % (35.0-42.0); Hemoglobin 11.1 g/dL (11.7-13.8); Immature Granulocyte Absolute 0.02 K/mm3 (0.00-0.00); Immature Granulocyte Percent A 0.3 % (0.0-0.0); Lymphocytes Absolute Auto 1.55 K/mm3 (1.10-4.50); Lymphocytes Percent Auto 25.4 % (18.0-42.0); Mean Corpuscular HGB Conc 31.8 g/dL (32-36); Mean Corpuscular Hemoglobin 29.4 pg (27.0-31.0); Mean Corpuscular Volume 92.6 fL (78.0-102.0); Mean Platelet Volume 12.1 fl (9.2-11.8); Monocytes Absolute Auto 0.51 K/mm3 (0.10-0.90); Monocytes Percent Auto 8.3 % (2.0-11.0); Neutrophils Absolute Auto 3.71 K/mm3 (1.70-7.20); Neutrophils Percent Auto 60.8 % (50.0-70.0); Platelet Count Result 229 K/mm3 (150-420); Red Blood Count 3.77 M/mm3 (4.20-5.40); Red Cell Distribution Width 13.1 % (11.6-14.4); White Blood Count 6.1 K/mm3 (4.8-10.8)
[2023-07-06 06:05] LABS: Alanine Aminotransferase 23 U/L (14-59); Albumin Level 2.9 g/dL (3.4-5.0); Alkaline Phosphatase 64 U/L (46-116); Anion Gap 9 mmol/L (8-16); Aspartate Amino Transferase 29 U/L (15-37); Bilirubin,Total 0.5 mg/dL (0.00-1.00); Blood Urea Nitrogen 20 mg/dL (7-18); Calcium 9.7 mg/dL (8.5-10.1); Carbon Dioxide 26 mmol/L (21-32); Chloride 107 mmol/L (98-108); Estimated CRCL calculation 34 ml/min; Estimated Glomerular Filt Rate 48; Glucose 143 mg/dL (70-99); Osmolality Calculated 298 mOsm/kg (285-295); Potassium 3.9 mmol/L (3.5-5.1); Sodium 142 mmol/L (136-145); Total Protein 6.2 g/dL (6.4-8.2)
[2023-07-06 08:00] VITALS: BP 148/76; PULSE 70; RESP 18; TEMP 36.1; O2SAT 96
[2023-07-06 08:07] LABS: Glucose Point of Care 109 mg/dl (65-105)
[2023-07-06] MEDS: oxyBUTYnin CHLORIDE 5 MG TABLET 10 MG PO (09:11)
[2023-07-06] MEDS: DICLOFENAC SODIUM 1% 100 GM GEL (*BKC) 1 APPLIC TOPICAL ×4 (09:12→20:53)
[2023-07-06] MEDS: ENOXAPARIN 40 MG/0.4 ML SYRINGE SUB-Q (09:12)
[2023-07-06] MEDS: DULoxetine HCL 30 MG CAPSULE.DR PO (09:12)
--- NOTE | 2023-07-06 09:33 | P.PNIM_ITS ---
Progress Note: A&P Assessment and Plan (1) Sepsis: Qualifiers: Sepsis acute organ dysfunction status: unspecified Sepsis type: sepsis due to unspecified organism Qualified Code(s): A41.9 - Sepsis, unspecified o rganism Code(s): A41.9 - Sepsis, unspecified organism Status: Acute Assessment and Plan: 07/04/23: * patient initially meeting sepsis criteria with Altered mental status,tachycardia, tachypnea, and known source of infection/ UTI. * sepsis likely due to urinary tract infection * blood and urine cultures were obtained and are pending * patient was given a dose of Zosyn and Rocephin in the ED. we will DC the Zosyn and continue with Rocephin while awaiting cultures * chest x-ray was negative for any acute cardiopulmonary process * white blood cell count 11.4 * vital signs are stable, she is afebrile, she is currently on room air 07/05/23: * white blood cell count down to 7.3 * head CT was negative for any acute intracranial process * blood cultures are showing no growth to date * urine culture still pending * continue with Rocephin * she remains afebrile, currently on room air, vital signs are stable 07/06/2023: * blood culture showing no growth on preliminary read * urine culture showing Gram-negative bacilli isolated on preliminary read. We will await final read and sensitivities. * Continue with Rocephin (2) Acute UTI: Code(s): N39.0 - Urinary tract infection, site not specified Status: Acute Assessment and Plan: 07/04/23: * UA showing a urine specific gravity of 1.025, 2+ urine protein, 1+ urine glucose, 1+ urine ketones, 2+ urine blood, trace leukocytes, 11-20 urine RBCs, 10-15 urine wbc's, 4+ urine bacteria * urine culture was obtained and is pending * continue with Rocephin 07/05/23: * urine culture still pending * blood culture showing no growth today * continue with Rocephin 07/06/2023: * urine culture showing Gram-negative bacilli isolated on preliminary read. We will weight on final culture and sensitivities. * Blood culture showing no growth to date on preliminary read * continue with Rocephin (3) RANGEL (acute kidney injury): Code(s): N17.9 - Acute kidney failure, unspecified Status: Acute Assessment and Plan: 07/04/23: * creatinine increased to 1.32, baseline creatinine 1.0 * EGFR 39, baseline EGFR 54 07/05/23: * creatinine 1.14, EGFR 47 * continue to trend 07/06/2023: * creatinine 1.12, EGFR 48 * continue to trend (4) Altered mental status: Code(s): R41.82 - Altered mental status, unspecified Status: Acute Assessment and Plan: 07/04/23: * patient remains confused which is likely due to her sepsis and urinary tract infection * continue neuro checks * patient was agitated and restless pulling at lines, she was placed in wrist restraints and given Ativan 2 times while in the ED * now that she is more calm we will go ahead and get a CT of her head to rule out any other issues * patient does have history of falls however was not certain if she hit her head or not 07/05/23: * head CT negative for any acute intracranial process, only showed age-related changes * continue neuro checks * continue Mcdonald catheter today while she is still confused, will DC Mcdonald catheter tomorrow 07/06/2023: * continue neuro checks * patient is alert and oriented x3 * will continue to hold baclofen as she is not having any muscle spasms or pain. the use of this medication can
--- NOTE | 2023-07-06 09:33 | PM.IMPN ---
Progress Note: A&P Assessment and Plan (1) Sepsis: Qualifiers: Sepsis acute organ dysfunction status: unspecified Sepsis type: sepsis due to unspecified organism Qualified Code(s): A41.9 - Sepsis, unspecified organism Code(s): A41.9 - Sepsis, unspecified organism Status: Acute Assessment and Plan: 07/04/23: patient initially meeting sepsis criteria with Altered mental status,tachycardia, tachypnea, and known source of infection/ UTI. sepsis likely due to urinary tract infection blood and urine cultures were obtained and are pending patient was given a dose of Zosyn and Rocephin in the ED. we will DC the Zosyn and continue with Rocephin while awaiting cultures chest x-ray was negative for any acute cardiopulmonary process white blood cell count 11.4 vital signs are stable, she is afebrile, she is currently on room air 07/05/23: white blood cell count down to 7.[address] was negative for any acute intracranial process blood cultures are showing no growth to date urine culture still pending continue with Rocephin she remains afebrile, currently on room air, vital signs are stable 07/06/2023: blood culture showing no growth on preliminary read urine culture showing Gram-negative bacilli isolated on preliminary read. We will await final read and sensitivities. Continue with Rocephin (2) Acute UTI: Code(s): N39.0 - Urinary tract infection, site not specified Status: Acute Assessment and Plan: 07/04/23: UA showing a urine specific gravity of 1.025, 2+ urine protein, 1+ urine glucose, 1+ urine ketones, 2+ urine blood, trace leukocytes, 11-20 urine RBCs, 10-15 urine wbc's, 4+ urine bacteria urine culture was obtained and is pending continue with Rocephin 07/05/23: urine culture still pending blood culture showing no growth today continue with Rocephin 07/06/2023: urine culture showing Gram-negative bacilli isolated on preliminary read. We will weight on final culture and sensitivities. Blood culture showing no growth to date on preliminary read continue with Rocephin (3) RANGEL (acute kidney injury): Code(s): N17.9 - Acute kidney failure, unspecified Status: Acute Assessment and Plan: 07/04/23: creatinine increased to 1.32, baseline creatinine 1.0 EGFR 39, baseline EGFR 54 07/05/23: creatinine 1.14, EGFR 47 continue to trend 07/06/2023: creatinine 1.12, EGFR 48 continue to trend (4) Altered mental status: Code(s): R41.82 - Altered mental status, unspecified Status: Acute Assessment and Plan: 07/04/23: patient remains confused which is likely due to her sepsis and urinary tract infection continue neuro checks patient was agitated and restless pulling at lines, she was placed in wrist restraints and given Ativan 2 times while in the ED now that she is more calm we will go ahead and get a CT of her head to rule out any other issues patient does have history of falls however was not certain if she hit her head or not 07/05/23: head CT negative for any acute intracranial process, only showed age-related changes continue neuro checks continue Mcdonald catheter today while she is still confused, will DC Mcdonald catheter tomorrow 07/06/2023: continue neuro checks patient is alert and oriented x3 will continue to hold baclofen as she is not having any muscle spasms or pain. the use of this medication can increase confusion. DC Mcdonald catheter (5) Depression: Code(s): F32.A - Depression, unspecified Status: Acute Assessment and Plan: 07/04/23: continue Cymbalta 07/05/23: continue with current treatment plan (6) Type 2 diabetes mellitus: Code(s): E11.9 - Type 2 diabetes mellitus without complications Status: Acute Assessment and Plan: 07/04/23: blood glucose ranging 224-231 last hemoglobin A1c on
[2023-07-06 12:00] LABS: Glucose Point of Care 179 mg/dl (65-105)
[2023-07-06 15:27] VITALS: BP 161/79; PULSE 91; RESP 16; TEMP 36.4; O2SAT 94
--- NOTE | 2023-07-06 15:31 | PC.NURSE ---
and family are in room visiting, pt sitting up at bedside, no needs at this time, call light in reach
[2023-07-06 16:37] LABS: Glucose Point of Care 202 mg/dl (65-105)
[2023-07-06] MEDS: INSULIN HUMAN LISPRO (*BKC) 1,000 UNITS/10 ML VIAL SUB-Q (16:56)
[2023-07-06] MEDS: amLODIPine BESYLATE 5 MG TABLET PO (19:03)
[2023-07-06] MEDS: PRAVASTATIN SODIUM 20 MG TABLET PO (20:53)
[2023-07-06] MEDS: oxyBUTYnin CHLORIDE 5 MG TABLET PO (20:54)
[2023-07-06] MEDS: IRBESARTAN 150 MG TABLET PO (20:54)
[2023-07-06 21:11] LABS: Glucose Point of Care 126 mg/dl (65-105)
[2023-07-07] VITALS: BP 136/67; PULSE 85; RESP 16; TEMP 36.6; O2SAT 98
[2023-07-07] MEDS: ACETAMINOPHEN 325 MG TABLET 650 MG PO (01:58)
--- NOTE | 2023-07-07 05:08 | PC.NURSE ---
Patient was resting in bed, watching TV at the beginning of the shift. She stated she was not having any pain, and had recently used the commode. Patient speaks in a very slow, and slightly slurred voice. She is able to communicate effectively with nursing staff, given the time to do so. Patient took her medications with apple sauce, and her blood sugar was 126 at HS. Patient's vitals were WNL. Patient's foleyw as discontinued today, and she was able to urinate with no difficulty. Patient has a UTI, with Klebsiella Oxytoca found in her urine. Blood culture has not had any growth to date. Patient had a great deal of difficulty falling asleep, even though she had mirtazipine 7.5 PO at HS. Patient did not fall asleep until after 0300. Patient was confused, and attempted to get out of bed numerous times, for various reasons. Patient was incontinent one time, and used the commode 2 times. Patient is sometimes able to transfer with GB, WW, and assist of one, but frequently needs to use the Erlinda Stedy.
--- NOTE | 2023-07-07 05:28 | PC.NURSE ---
lab staff in room with pt for daily draw at this time. pt tolerated well.
[2023-07-07 05:59] LABS: Basophils Absolute Auto 0.06 K/mm3 (0.00-0.10); Eosinophils Absolute Auto 0.29 K/mm3 (0.02-0.50); Eosinophils Percent Auto 5.1 % (1.0-6.0); Hematocrit 34.7 % (35.0-42.0); Hemoglobin 10.8 g/dL (11.7-13.8); Immature Granulocyte Absolute 0.01 K/mm3 (0.00-0.00); Immature Granulocyte Percent A 0.2 % (0.0-0.0); Lymphocytes Absolute Auto 1.66 K/mm3 (1.10-4.50); Mean Corpuscular HGB Conc 31.1 g/dL (32-36); Mean Corpuscular Hemoglobin 29.5 pg (27.0-31.0); Mean Corpuscular Volume 94.8 fL (78.0-102.0); Mean Platelet Volume 12.2 fl (9.2-11.8); Monocytes Absolute Auto 0.47 K/mm3 (0.10-0.90); Monocytes Percent Auto 8.2 % (2.0-11.0); Neutrophils Absolute Auto 3.24 K/mm3 (1.70-7.20); Neutrophils Percent Auto 56.5 % (50.0-70.0); Platelet Count Result 232 K/mm3 (150-420); Red Blood Count 3.66 M/mm3 (4.20-5.40); Red Cell Distribution Width 13.1 % (11.6-14.4); White Blood Count 5.7 K/mm3 (4.8-10.8)
[2023-07-07 06:24] LABS: Alanine Aminotransferase 21 U/L (14-59); Albumin Level 2.9 g/dL (3.4-5.0); Alkaline Phosphatase 72 U/L (46-116); Anion Gap 8 mmol/L (4-12); Aspartate Amino Transferase 21 U/L (15-37); Bilirubin,Total 0.4 mg/dL (0.00-1.00); Blood Urea Nitrogen 19 mg/dL (7-18); Calcium 10.2 mg/dL (8.5-10.1); Carbon Dioxide 27 mmol/L (21-32); Chloride 106 mmol/L (98-108); Estimated CRCL calculation 38 ml/min; Estimated Glomerular Filt Rate 55; Glucose 147 mg/dL (70-99); Osmolality Calculated 297 mOsm/kg (285-295); Potassium 4.3 mmol/L (3.5-5.1); Sodium 141 mmol/L (136-145); Total Protein 5.8 g/dL (6.4-8.2)
[2023-07-07 07:18] LABS: Glucose Point of Care 118 mg/dl (65-105)
[2023-07-07 07:37] VITALS: BP 150/74; PULSE 84; RESP 18; TEMP 36.9; O2SAT 95
[2023-07-07] MEDS: amLODIPine BESYLATE 5 MG TABLET PO (08:26)
[2023-07-07] MEDS: DULoxetine HCL 30 MG CAPSULE.DR PO (08:26)
[2023-07-07] MEDS: ENOXAPARIN 40 MG/0.4 ML SYRINGE SUB-Q (08:26)
[2023-07-07] MEDS: oxyBUTYnin CHLORIDE 5 MG TABLET 10 MG PO (08:26)
[2023-07-07] MEDS: DICLOFENAC SODIUM 1% 100 GM GEL (*BKC) 1 APPLIC TOPICAL ×4 (08:27→20:48)
--- NOTE | 2023-07-07 09:57 | PM.IMPN ---
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 Status: Acute Assessment and Plan: - we will treat symptom - Ensure that patient is getting her Baclofen - encourage fluid intake (3) Hypertension: Code(s): I10 - Essential (primary) hypertension Status: Acute Assessment and Plan: - monitor vitals and give oral medication - continue home medication - Give home medication (4) Type 2 diabetes mellitus: Code(s): E11.9 - Type 2 diabetes mellitus without complications Status: Acute Assessment and Plan: - continue to monitor blood sugars - address per insulin sliding scale (5) Acute UTI: Code(s): N39.0 - Urinary tract infection, site not specified Status: Acute Assessment and Plan: - Change from IV antibiotic to oral antibioitic - encourage oral intake - monitor labs - monitor vitals (6) Sepsis: Qualifiers: Sepsis acute organ dysfunction status: unspecified Sepsis type: sepsis due to unspecified organism Qualified Code(s): A41.9 - Sepsis, unspecified organism Code(s): A41.9 - Sepsis, unspecified organism Status: Acute Assessment and Plan: - resolved (7) Weak: Code(s): R53.1 - Weakness Status: Acute Assessment and Plan: - Physical therapy -OCCupational therapy - Use walker and 1 assist Subjective Date/time seen: 07/07/23 09:57 Interval history: Spoke with Infectious disease Pharmacist and we will switch patient from IV antibioitics to oral and see how she tolerates the medication. Patient has been afebrile and we will monitor labs in the morning. Patient is afebrile and her WBC are wnl. She is not drinking enough fluids at this time. She has been encouraged to increase her intake. Patient is not ambulating well and will need to go to a long-term on discharge. We will continue to monitor to ensure that there are no adverse reaction and have therapy see her today. I would anticipate that she would need more therapy on discharge. Exam Narrative: General: In no acute distress Head: atraumatic, no encephalopathy Eyes: EOMI, PERRLA, sclera clear ENT: moist mucous membranes, nasal passages clear Neck: supple, no JVD, no adenopathy, trachea midline Cardiac: Normal S1 and S2. RRR, No murmur, gallops or friction rubs, peripheral pulses intact. Respiratory: Lungs clear to auscultation, no adventitious lung sounds, currently on room air Gastrointestinal: soft, non-distended, non-tender, normoactive bowel sounds. : catheter in place draining clear yellow urine Extremities: moves all extremities well, no edema, weakness on the left upper extremity left lower extremity Skin: bilateral feet with redness and warmth Neuro: Alert to voice And oriented x2, she is able to tell me that she is at [facility] and that the president is Dannie bailey however she is confused with date year and time. Psych: More interactive today with eye contact. Objective Data Vital Signs Vital Signs: Vital Signs - 24 hr 07/06/23 15:27 07/07/23 00:00 07/07/23 07:37 Temperature 97.5 F L 97.8 F 98.4 F Pulse Rate 91 85 84 Respiratory Rate 16 16 18 Blood Pressure 161/79 H 136/67 150/74 H Pulse Oximetry 94 98 95 Oxygen Delivery Room Air Room Air Room Air Intake/Output Intake/Output: Intake & Output 07/04/23 07/05/23 07/06/23 07/07/23 23:59 23:59 23:59 23:59 Intake Total 1440 970 815 930 Output Total 616 161 6422 Balance 940 670 -535 930 Meds/Results Medications: Active Medications Generic Name Dose Route Start Last Admin Trade Name Freq PRN Reason Stop Dose Admin Acetaminophen 650 mg 07/04/23 10:59 07/07/23 01:58 Acetaminophen 325 Mg Tablet PO 650 mg Q4H PRN Administr
[2023-07-07] MEDS: AMOXICILLIN/CLAVULANATE K 875-125 MG TAB 1 TABLET PO ×2 (10:43→20:46)
[2023-07-07 11:21] LABS: Glucose Point of Care 154 mg/dl (65-105)
[2023-07-07] MEDS: BACLOFEN 10 MG TABLET PO ×2 (14:05→21:00)
[2023-07-07 15:46] VITALS: BP 145/78; PULSE 86; RESP 18; O2SAT 96
[2023-07-07 16:48] LABS: Glucose Point of Care 152 mg/dl (65-105)
[2023-07-07] MEDS: PRAVASTATIN SODIUM 20 MG TABLET PO (20:45)
[2023-07-07] MEDS: IRBESARTAN 150 MG TABLET PO (20:45)
[2023-07-07 20:46] LABS: Glucose Point of Care 207 mg/dl (65-105)
[2023-07-07] MEDS: MIRTAZAPINE 7.5 MG TABLET PO (20:46)
[2023-07-07] MEDS: oxyBUTYnin CHLORIDE 5 MG TABLET PO (20:47)
[2023-07-08] VITALS: BP 153/74; PULSE 65; RESP 20; TEMP 36.4; O2SAT 95
[2023-07-08] MEDS: BACLOFEN 10 MG TABLET PO (05:01)
[2023-07-08 05:33] LABS: Basophils Absolute Auto 0.05 K/mm3 (0.00-0.10); Basophils Percent Auto 0.9 % (0.0-1.0); Eosinophils Absolute Auto 0.32 K/mm3 (0.02-0.50); Hematocrit 38.2 % (35.0-42.0); Hemoglobin 11.4 g/dL (11.7-13.8); Immature Granulocyte Absolute 0.01 K/mm3 (0.00-0.00); Immature Granulocyte Percent A 0.2 % (0.0-0.0); Lymphocytes Absolute Auto 1.74 K/mm3 (1.10-4.50); Lymphocytes Percent Auto 32.5 % (18.0-42.0); Mean Corpuscular HGB Conc 29.8 g/dL (32-36); Mean Corpuscular Hemoglobin 28.5 pg (27.0-31.0); Mean Corpuscular Volume 95.5 fL (78.0-102.0); Mean Platelet Volume 11.9 fl (9.2-11.8); Monocytes Absolute Auto 0.51 K/mm3 (0.10-0.90); Monocytes Percent Auto 9.5 % (2.0-11.0); Neutrophils Absolute Auto 2.73 K/mm3 (1.70-7.20); Neutrophils Percent Auto 50.9 % (50.0-70.0); Platelet Count Result 257 K/mm3 (150-420); Red Cell Distribution Width 13.3 % (11.6-14.4); White Blood Count 5.4 K/mm3 (4.8-10.8)
[2023-07-08 05:49] LABS: Alanine Aminotransferase 23 U/L (14-59); Albumin Level 2.8 g/dL (3.4-5.0); Alkaline Phosphatase 67 U/L (46-116); Anion Gap 7 mmol/L (4-12); Aspartate Amino Transferase 21 U/L (15-37); Bilirubin,Total 0.4 mg/dL (0.00-1.00); Blood Urea Nitrogen 19 mg/dL (7-18); Calcium 10.1 mg/dL (8.5-10.1); Carbon Dioxide 29 mmol/L (21-32); Chloride 107 mmol/L (98-108); Estimated CRCL calculation 35 ml/min; Estimated Glomerular Filt Rate 49; Glucose 146 mg/dL (70-99); Osmolality Calculated 301 mOsm/kg (285-295); Sodium 143 mmol/L (136-145)
[2023-07-08 08:00] VITALS: BP 143/77; PULSE 82; RESP 16; TEMP 36.2; O2SAT 96
[2023-07-08] MEDS: DICLOFENAC SODIUM 1% 100 GM GEL (*BKC) 1 APPLIC TOPICAL ×2 (09:48→12:05)
[2023-07-08] MEDS: ENOXAPARIN 40 MG/0.4 ML SYRINGE SUB-Q (09:48)
[2023-07-08] MEDS: oxyBUTYnin CHLORIDE 5 MG TABLET 10 MG PO (09:49)
[2023-07-08] MEDS: DULoxetine HCL 30 MG CAPSULE.DR PO (09:49)
[2023-07-08] MEDS: amLODIPine BESYLATE 5 MG TABLET PO (09:49)
[2023-07-08] MEDS: AMOXICILLIN/CLAVULANATE K 875-125 MG TAB 1 TABLET PO (09:49)
--- NOTE | 2023-07-08 09:49 | PM.DS ---
DS: Admitting Diagnosis Discharge Date 07/08/23 Admitting Diagnosis Sepsis RANGEL AMS Acute UTI depression type 2 DM hyperlipidemia hypertension overactive bladder DS: Discharge Diagnosis Discharge Diagnosis (1) Sepsis: Qualifiers: Sepsis acute organ dysfunction status: unspecified Sepsis type: sepsis due to unspecified organism Qualified Code(s): A41.9 - Sepsis, unspecified organism Code(s): A41.9 - Sepsis, unspecified organism Status: Acute (2) Acute UTI: Code(s): N39.0 - Urinary tract infection, site not specified Status: Acute (3) RANGEL (acute kidney injury): Code(s): N17.9 - Acute kidney failure, unspecified Status: Acute (4) Altered mental status: Code(s): R41.82 - Altered mental status, unspecified Status: Acute (5) Depression: Code(s): F32.A - Depression, unspecified Status: Acute (6) Type 2 diabetes mellitus: Code(s): E11.9 - Type 2 diabetes mellitus without complications Status: Acute (7) Hyperlipidemia: Code(s): E78.5 - Hyperlipidemia, unspecified Status: Acute (8) Hypertension: Code(s): I10 - Essential (primary) hypertension Status: Acute (9) Overactive bladder: Code(s): N32.81 - Overactive bladder Status: Acute (10) 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 History of presenting symptoms has been obtained through the EMR as patient is still quite confused and there is no family at the bedside.? EMS was called last night by her due to her increased confusion.? He stated that she is normally alert oriented x4 and over the past few days she has been getting more and more confused.? is not? a good historian on her medical care.? He states that she has not been to the doctor in quite some time and he is usually not involved with her medical problems. Workup in the hospital included a chest x-ray which was negative for any acute cardiopulmonary disease.? Labs were obtained and showed a white blood cell count of 11.4, BUN 21, creatinine 1.32, EGFR 39, serum osmolarity 302, calcium 10.7.? UA was obtained which shown a specific gravity of 1.025, 2+ urine protein, 1+ urine glucose, 1+ urine ketones, 2+ urine blood, trace leukocytes, 11-20 urine RBCs, 10-15 urine wbc's, 4+ bacteria.? Blood and urine cultures were obtained and are pending.? EKG was performed showing normal sinus rhythm with a rate of 79, QTC 435.? Patient was given 2 L of normal saline, Ativan, labetalol, Zosyn and Rocephin while in the ED. while in the ED patient was picking and pulling at her lines and very restless is why she received the Ativan.? They also placed her in 4 point restraints due to the agitation however she is now much more calm and restraints were discontinued.? on exam patient is minimally interactive.? She will open her eyes to voice and will follow some simple commands but then drifts right back off to sleep.? Review of systems is postponed at this time.? She does have is noted to bilateral feet, appears fungal. Patient initially meeting sepsis criteria due to increased respiratory rate, increased heart rate, and known source of infection. 07/05/23: On examination today patient is alert and oriented x2, lying in the bed.? She is able to tell me that she has had [facility] and that the president is Dannie bailey, ? However she was confused with the month or the the year.? She denies an
[2023-07-08 12:01] LABS: Glucose Point of Care 221 mg/dl (65-105)
[2023-07-08] MEDS: INSULIN HUMAN LISPRO (*BKC) 1,000 UNITS/10 ML VIAL SUB-Q (12:04)
--- NOTE | 2023-07-08 15:19 | PC.NURSE ---
Pt transported by [facility] staff via wheelchair to [facility].
--- NOTE | 2023-07-13 07:52 | PC.NURSE ---
No questions regarding dc instructions per [facility]
== END 2023-07-08 13:35 | DRG 872 ==
LOC: CHSED 07:20 → CHS2ND 07-05 08:52
PROVIDERS: Family Medicine; Nurse Practitioner Acute Care; Admitting Provider Internal Medicine; Emergency Provider Emergency Medicine; PCP Internal Medicine; Visit Provider Internal Medicine
DX: A41.9 Sepsis, unspecified organism (principal); N39.0 Urinary tract infection, site not specified; N17.9 Acute kidney failure, unspecified; G12.23 Primary lateral sclerosis; I10 Essential (primary) hypertension; E78.5 Hyperlipidemia, unspecified; E11.9 Type 2 diabetes mellitus without complications; N32.81 Overactive bladder; G47.00 Insomnia, unspecified; F32.A Depression, unspecified
CPT/HCPCS: 36415; 70450; 71045; 80053; 81001; 82948; 83036; 83605; 83735; 84443; 85025; 87040; 87077; 87086; 87088; 87186; 93005; 96361; 96365; 96375; 97110; 97161; 97162; 97166; 97530; 97535; 99285; A9270; G0378; J0696; J1650; J1815; J2060; J2543; J3475; J7030

== ENCOUNTER 2023-08-05 12:26 | Outpatient (CLI) | payer OTHER, MEDICARE, SELFPAY ==
--- NOTE | ~2023-08-05 | US_ITS ---
EXAMINATION: US soft tissue lower back DATE: 08/05/2023 12:52 INDICATION: Soft tissue mass of lumbar region. TECHNIQUE: Multiple grayscale and Doppler ultrasound images of the lower back were obtained. COMPARISON: MR spine MRI 06/18/2012 FINDINGS: There is a sacral decubitus ulcer. No drainable fluid is identified. IMPRESSION: 1. Sacral decubitus ulcer. No drainable fluid identified. Reviewed, dictated and finalized at location E.
== END 2023-08-05 12:27 | disposition home or self-care (01) ==
LOC: CHSIMG 12:27
PROVIDERS: PCP Internal Medicine; Visit Provider Internal Medicine
DX: R22.9 Localized swelling, mass and lump, unspecified (principal); L89.159 Pressure ulcer of sacral region, unspecified stage
CPT/HCPCS: 76705

== ENCOUNTER 2023-08-09 06:40 | Outpatient (NON) | payer OTHER, MEDICARE, SELFPAY ==
[2023-08-09 07:24] LABS: Basophils Absolute Auto 0.06 K/mm3 (0.00-0.10); Basophils Percent Auto 0.7 % (0.0-1.0); Hematocrit 32.9 % (35.0-42.0); Hemoglobin 10.4 g/dL (11.7-13.8); Immature Granulocyte Absolute 0.09 K/mm3 (0.00-0.00); Immature Granulocyte Percent A 1.1 % (0.0-0.0); Lymphocytes Absolute Auto 1.57 K/mm3 (1.10-4.50); Lymphocytes Percent Auto 18.4 % (18.0-42.0); Mean Corpuscular HGB Conc 31.6 g/dL (32-36); Mean Corpuscular Hemoglobin 29.6 pg (27.0-31.0); Mean Corpuscular Volume 93.7 fL (78.0-102.0); Mean Platelet Volume 11.5 fl (9.2-11.8); Monocytes Absolute Auto 0.79 K/mm3 (0.10-0.90); Monocytes Percent Auto 9.3 % (2.0-11.0); Neutrophils Absolute Auto 5.43 K/mm3 (1.70-7.20); Neutrophils Percent Auto 63.5 % (50.0-70.0); Platelet Count Result 365 K/mm3 (150-420); Red Blood Count 3.51 M/mm3 (4.20-5.40); Red Cell Distribution Width 13.7 % (11.6-14.4); White Blood Count 8.5 K/mm3 (4.8-10.8)
[2023-08-09 07:42] LABS: Alanine Aminotransferase 34 U/L (14-59); Albumin Level 2.8 g/dL (3.4-5.0); Alkaline Phosphatase 84 U/L (46-116); Anion Gap 9 mmol/L (4-12); Aspartate Amino Transferase 19 U/L (15-37); Bilirubin,Total 0.2 mg/dL (0.00-1.00); Blood Urea Nitrogen 33 mg/dL (7-18); Calcium 10.1 mg/dL (8.5-10.1); Carbon Dioxide 28 mmol/L (21-32); Chloride 103 mmol/L (98-108); Estimated Glomerular Filt Rate 32; Glucose 162 mg/dL (70-99); Osmolality Calculated 301 mOsm/kg (285-295); Potassium 4.8 mmol/L (3.5-5.1); Sodium 140 mmol/L (136-145); Total Protein 6.2 g/dL (6.4-8.2)
== END 2023-08-09 06:41 | disposition home or self-care (01) ==
LOC: CHSLAB 06:43
PROVIDERS: Visit Provider Nurse Practitioner Family
DX: D72.829 Elevated white blood cell count, unspecified (principal); E87.1 Hypo-osmolality and hyponatremia; L89.159 Pressure ulcer of sacral region, unspecified stage
CPT/HCPCS: 36415; 80053; 85025

== ENCOUNTER 2023-11-04 10:08 | Outpatient (CLI) | payer MEDICARE, SELFPAY ==
[2023-11-04 10:31] LABS: Hematocrit 37.1 % (35.0-42.0); Mean Corpuscular HGB Conc 32.3 g/dL (32-36); Mean Corpuscular Hemoglobin 29.3 pg (27.0-31.0); Mean Corpuscular Volume 90.7 fL (78.0-102.0); Mean Platelet Volume 10.7 fl (9.2-11.8); Platelet Count Result 265 K/mm3 (150-420); Red Blood Count 4.09 M/mm3 (4.20-5.40); Red Cell Distribution Width 13.7 % (11.6-14.4); White Blood Count 6.9 K/mm3 (4.8-10.8)
[2023-11-04 10:40] LABS: Hemoglobin A1C 7.5 % (<5.7)
[2023-11-04 11:04] LABS: Alanine Aminotransferase 19 U/L (14-59); Albumin Level 3.6 g/dL (3.4-5.0); Alkaline Phosphatase 76 U/L (46-116); Anion Gap 10 mmol/L (4-12); Aspartate Amino Transferase 18 U/L (15-37); Bilirubin,Total 0.4 mg/dL (0.00-1.00); Blood Urea Nitrogen 32 mg/dL (7-18); Calcium 10.4 mg/dL (8.5-10.1); Carbon Dioxide 25 mmol/L (21-32); Chloride 103 mmol/L (98-108); Estimated Glomerular Filt Rate 33; Glucose 123 mg/dL (70-99); Osmolality Calculated 293 mOsm/kg (285-295); Phosphorus 3.7 mg/dL (2.6-4.7); Potassium 4.5 mmol/L (3.5-5.1); Sodium 138 mmol/L (136-145); Total Protein 7.4 g/dL (6.4-8.2)
[2023-11-05 14:13] LABS: Parathyroid Intact 80 pg/mL (16-77)
[2023-11-06 04:10] LABS: Vitamin D 25 Hydroxy 31 ng/mL (30-100)
== END 2023-11-04 10:09 | disposition home or self-care (01) ==
LOC: CHSLAB 10:10
PROVIDERS: PCP Internal Medicine; Visit Provider Internal Medicine
DX: I10 Essential (primary) hypertension (principal); E11.9 Type 2 diabetes mellitus without complications; M62.81 Muscle weakness (generalized); G12.23 Primary lateral sclerosis; Z79.899 Other long term (current) drug therapy
CPT/HCPCS: 36415; 80053; 82306; 83036; 83735; 83970; 84100; 85027

== ENCOUNTER 2024-10-26 07:48 | Outpatient (CLI) | payer MEDICARE, SELFPAY ==
--- NOTE | ~2024-10-26 | US_ITS ---
US soft tissue buttock RT 10/26/2024 08:08 Indication: Palpable abnormality Midline superior to tailbone. Pain. Procedure: High-resolution Limited ultrasound of the right buttocks soft tissues Comparison: Ultrasound dated 08/04/ Findings: There is a complex hypoechoic area of soft tissue measuring 2.8 x 2.8 x 1.7 cm with interna l vascularity. This soft tissue extends to the skin surface. Impression: 1: Complex hypoechoic soft tissue described above, midline superior to the tailbone in the area of pa lpable concern. Findings compatible with abscess with cellulitis cannot exclude underlying fistula. N eoplasm is less favored, although not excluded. Also considered is foreign body reaction granuloma. M RI may be useful for better tissue characterization and extent. Consider aspiration. Reviewed, dictated and finalized at location A. Impression: 1: Complex hypoechoic soft tissue described above, midline superior to the tail bone in the area of palpable concern. Findings compatible with abscess with mary alice lulitis cannot exclude underlying fistula. Neoplasm is less favored, although n ot excluded. Also considered is foreign body reaction granuloma. MRI may be use ful for better tissue characterization and extent. Consider aspiration.
--- OUTSIDE RECORDS SUMMARY | 2024-10-26 07:52 | XMS_ITS | Clinical Summary ---
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 Gender Identity Not on file Sexual Orientation Not on file Plan of Treatment Health Maintenance Due Date Last Done Comments Colorectal Cancer Screening Colonoscopy (10 Years) 1948 Hepatitis C 1966 DTaP, Tdap and Td Vaccines ( 1 - Tdap) 12/29/1967 Pneumococcal Vaccine: 50+ Ye ars (1 of 1 - PCV) 1998 Zoster Vaccines (1 of 2) 1998 Dexa Scan (General) 2013 COVID-19 Vaccine ( - 2023-2 5 season) 2023 RSV Immunization or 60+ Years (1 - 1-dose 75+ series) 12/29/2023 Meningococcal B Vaccine Aged Out No l onger eligible based on patient's age to complete this topic Meningococcal Vaccine Aged Out No lesli unique eligible based on patient's age to complete this topic RSV Immunizations Under 20 Months Aged Out No longer eligible based on patient's age to complete this topic
--- OUTSIDE RECORDS SUMMARY | 2024-10-26 07:52 | XMS_ITS | Referral Summary ---
Author Organization [facility] Address [address] [place] [address] Care Team Providers Care Mash Tub Cooker Name Role Phone Yoav Mosley MD Primary Care Provider [phone] Allergies Active Allergy Reactions Criticality Noted Date Comments Lisinopril Medications carbidopa-levod opa (SINEMET) 25-100 mg per tabletIndicatio ns:Parkinsonism TAKE 2 TABLETS 3 TIMES DAILY. 09/03/2016 Active magnesium gluconate 200 mg tabletIndicatio ns:hypomagnesem ia TAKE 1 TABLET DAILY. Active meloxicam (MOBIC) 15 mg tablet TAKE 1 TABLET DAILY. Active metFORMIN (GLUCOPHAGE) 500 mg tablet TAKE 1 TABLET EVERY EVENING. Active oxybutynin (DITROPAN) 5 mg tablet TAKE 1 TABLET TWICE DAILY. Active oxyCODONE-aceta minophen (PERCOCET) 5-325 mg per tabletIndicatio ns:Pain TAKE 1 TABLET BY MOUTH 4 TIMES DAILY. 0 02/04/2018 Active b complex vitamins capsule TAKE 1 CAPSULE DAILY. Active cholecalciferol (VITAMIN D-3) 2,000 unit capsule TAKE 1 CAPSULE EVERY EVENING. Active naproxen (ALEVE) 220 mg tablet TAKE 1 TABLET DIRECTED. Active TRUE METRIX GLUCOSE TEST STRIP strip USE TO TEST BS BID 0 10/14/2018 Active TRUE METRIX GLUCOSE METER misc USE TO TEST BS 0 10/14/2018 Active glimepiride (AMARYL) 2 mg tablet TK 1 TO 2 TS PO BID 0 10/14/2018 Active ULTRA THIN LANCETS 30 gauge misc USE TO TEST BS BID 0 10/14/[address] (CYMBALTA) 60 mg capsule 09/04/2018 Active pravastatin (PRAVACHOL) 20 mg tablet 09/22/2018 Active irbesartan (AVAPRO) 150 mg tablet 03/03/2019 Active baclofen (LIORESAL) 20 mg tabletIndicatio ns:Primary lateral sclerosis (HCC) TAKE 1 TABLET BY MOUTH 3 TIMES DAILY 90 tablet 02/11/2021 Active Active Problems Problem Noted Date Diagnosed Date Primary lateral sclerosis 11/04/2018 Hypertension 04/01/2012 Diabetes mellitus 04/01/2012 Social History Tobacco Use Types Packs/Day Years Used Date Smoking Tobacco: Never Personal Safety Answer Date Recorded Getting School Help Needed Not on file 06/25 Comments Unknown Sex and Gender Information Value Date Recorded Sex Assigned at Not on file 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 Gender Identity Not on file Sexual Orientation Not on file Last Filed Vital Signs Vital Sign Reading Time Taken Comments Blood Pressure 140/84 10/31/2019 1:21 PM CDT Pulse 108 10/31/2019 1:21 PM CDT Temperature - - Respiratory Rate - - Oxygen Saturation - - Inhaled Oxygen Concentration - - Weight 76.7 kg (169 lb) 10/31/2019 1:21 PM CDT Height 167.6 cm (5' 6) 10/31/2019 1:21 PM CDT Body Mass Index 27.28 10/31/2019 1:21 PM CDT Plan of Treatment Not on [place] [address] [facility] MEDICARE [facility] Address: [address] [place] [address] Care Teams Mash Tub Cooker Relationship Specialty Start Date End Date Yoav Mosley MD PCP - General 08/06/16
--- OUTSIDE RECORDS SUMMARY | 2024-10-26 07:52 | XMS_ITS ---
Author Organization [facility] Care Team Providers Care Media Planner / Buyer Name Role Phone Leslie Amador Unavailable Unavailable Cristiano Garcia Unavailable Unavailable Yoav Mosley Unavailable Unavailable Allergies and adverse reactions No Known Allergies Care Team Name Role Address Phone Organization Dates Yoav Mosley PCP [address] [place], [address], [place] States (Office): : [facility] 07/08/2023 - 08/16/2023 Leslie Amador [place], [address], [place] (Cell): [facility] 07/08/2023 - 08/16/2023 Cristiano Garcia [address], [place], [address], [place] (Office): [facility] 07/08/2023 - 08/16/2023 Immunizations Immunization Status Vaccine Details Vaccine Code CodeSystem Date Notes TB 1 Step Mantoux (PPD) completed tuberculin skin test; unspecified formulation lotNumber: [id number] expiry: 08/07/2026 Given 0.1 ml Left Forearm intradermally 98 CVX created date: 08/08/2023 consent date: 08/08/2023 administere d date: 08/05/2023 TB 1 Step Mantoux (PPD) completed tuberculin skin test; unspecified formulation lotNumber: [id number] expiry: 07/11/2026 Mfg: Tubersol Purified Protein Given 0.1 ml Left Forearm intradermally 98 CVX created date: 08/06/2023 consent date: 08/06/2023 administere d date: 08/04/2023 Prevnar 20 completed Pneumococcal conjugate vaccine 20-valent (PCV20), polysaccharide ACE752 conjugate, adjuvant, preservative free lotNumber: [id number] expiry: 10/09/2024 Given 0.5 ml Left Deltoid intramuscularly 216 CVX created date: 07/29/2023 consent date: 07/29/2023 administere d date: 07/29/2023 Mental Status Section Date Assessment Total Score Description 08/16/2023 CAM 0 No delirium ind icated 07/14/2023 BIMS 10 moderate cognit yaneli impairment CAM 0 No delirium ind icated PHQ-9 08 mild depression Problems Problem # Description Date of onset Resolved Date Code CodeSystem Concern Status 1 ALTERED MENTAL STATUS, UNSPECIFIED 07/08/[address] active 2 DEPRESSION, UNSPECIFIED 07/08/[address] active 3 ESSENTIAL (PRIMARY) HYPERTENSION 07/08/[address] active 4 HYPERLIPIDEMIA, UNSPECIFIED 07/08/[address] active 5 OVERACTIVE BLADDER 07/08/2023 954328568 SNOMED C T active 6 SEPSIS, UNSPECIFIED ORGANISM 07/08/[address] active 7 TYPE 2 DIABETES MELLITUS WITHOUT COMPLICATIONS 07/08/[address] active 8 URINARY TRACT INFECTION, SITE NOT SPECIFIED 07/08/[address] active Reason for Referral No Reasons for Referral Entered Social History Social History Observation Description Start Date End Date Code Code System Current Smoking Status Tobacco smoking consumption unknown 431525725 SNOMED CT Sex Assigned At Female 1950 85212-0 [facility] Gender Identity Vital Signs Code Code System Vitals Name Values and Units Timing Information 9279-1 LOINC Respiratory Rate Value=20.0 Units=/m in 08/16/2023 8462-4 LOINC Blood Pressure-Diastolic Value=76 Un its=mmHg 08/16/2023 8480-6 LOINC Blood Pressure-Systolic Gqhce=271 Un its=mmHg 08/16/2023 8310-5 [facility] Body Temperature Value=98.1 Units= F 08/16/2023 8867-4 [facility] Heart rate Value=68.0 Units=/min 09/2023 49377-9 [facility] O2 % BldC Oximetry Value=97.0 Units= % 08/16/2023 70815-1 [facility] Pain Level Value=0.0 08/16/2023 94798-3 [facility] Weight Lpxpn=461.0 Units=Lbs 8302-2 [facility] Height Value=65.0 Units=Inches 07/08/2023
--- OUTSIDE RECORDS SUMMARY | 2024-10-26 07:52 | XMS_ITS | Clinical Summary ---
Author Organization [facility] Address [address] [place] [address] Care Team Providers Care Supervisor Sanding Name Role Phone Yoav Mosley MD Primary Care Provider [phone] Allergies Active Allergy Reactions Criticality Noted Date [...] sclerosis 11/04/2018 Hypertension 04/01/2012 Diabetes mellitus 04/01/2012 Surgical History Surgery Date Site/Laterality Comments BREAST LUMPECTOMY Medical History Medical History Date Comments Hypertension Hyperlipidemia Cancer (HCC) Diabetes mellitus (HCC) Family History Medical History Relation Name Comments Stroke Father Diabetes Mother Relation Name Status Comments Father Mother Social History Tobacco Use Types Packs/Day Years Used Date Smoking Tobacco: Never Personal Safety Answer Date Recorded Getting School Help Needed Not on file 06/25 Comments Unknown Sex and Gender Information Value Date Recorded Sex Assigned at Not on file 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
== END 2024-10-26 07:49 | disposition home or self-care (01) ==
LOC: CHSIMG 07:50
PROVIDERS: PCP Internal Medicine; Visit Provider Internal Medicine
DX: E11.9 Type 2 diabetes mellitus without complications (principal); N18.30 Chronic kidney disease, stage 3 unspecified; E83.52 Hypercalcemia; R22.41 Localized swelling, mass and lump, right lower limb
CPT/HCPCS: 76705

== ENCOUNTER 2024-11-14 15:47 | Inpatient (IN) | payer MEDICARE, SELFPAY ==
--- NOTE | ~2024-11-14 | CT_ITS ---
CLINICAL INDICATION: Right buttock wound in a patient with diabetes and primary lateral sclerosis whi ch manifests as left lower extremity weakness. COMPARISON: None. Secondary to technical difficulties, no prior imaging could be used for comparison. TECHNIQUE: Multiple contiguous axial images of the abdomen and pelvis were performed following the ad ministration of with 100 mL Omnipaque-350 intravenous contrast The dose-length product (DLP) was 336.09 mGy-cm. Automated exposure control and iterative reconstruction technique were employed. FINDINGS/OBSERVATIONS: Visualized lower thorax: Trace right basilar atelectasis. The remainder of the bilateral lung de santiago are clear. The heart is of normal size, without pericardial effusion. Liver: The liver demonstrates homogeneous enhancement and is not enlarged. Gallbladder and biliary system: The gallbladder is only minimally distended, and otherwise unremarkable. Pancreas: The pancreas enhances homogeneously without ductal dilatation. Spleen: The spleen enhances homogeneously and is not enlarged . Kidneys: Subcentimeter focus of fluid attenuation within the upper pole of the left kidney, too small to characterize. The remainder of the bilateral kidneys otherwise enhance symmetrically without hydronephrosis or angelica l calculi. Adrenal glands: Unremarkable. Gastrointestinal tract: Adjacent to the rectum is a rim-enhancing fluid collection measuring 4 x 3.5 x 3.6 cm. Along the late ral margin of this collection is the tip of a lead which originates in the superficial soft tissues o f the right buttock and extends through the neural foramen of S2 prior to ending in the left hemipelv is. Induration of the adjacent soft tissues surrounding this transmitter and to the right of the altamirano slator are without a discrete rim-enhancing fluid collection. Appendix: The air-filled appendix is of normal caliber (axial series, images 100 through 117) Vasculature: Unremarkable. Lymph nodes: No pathologically enlarged or morphologically suspicious lymph nodes within the retroperitoneum or at the root of the mesentery. Pelvic structures: The bladder is only minimally distended, and otherwise unremarkable. The uterus is anteverted and anteflexed. Body wall and musculoskeletal: Bilateral fat-containing inguinal hernias. Age-appropriate degenerative disease within the lower thoracic and lumbosacral spines. IMPRESSION: Rim-enhancing fluid collection within the left hemipelvis, likely related to the stimulator device wi thin the soft tissues of the right buttock, as detailed above. Reviewed, dictated and finalized at location A. IMPRESSION: Rim-enhancing fluid collection within the left hemipelvis, likely related to th e stimulator device within the soft tissues of the right buttock, as detailed makenzie nixon.
--- NOTE | ~2024-11-14 | CT_ITS ---
EXAMINATION: CT abdomen pelvis w con DATE: 11/22/2024 11:50 INDICATION: Pelvic abscess follow-up TECHNIQUE: Computed tomography (CT) of the abdomen and pelvis was performed with 100 mL Omnipaque-350 intravenous contrast. Automated exposure control and iterative reconstruction technique were employe d. The dose-length product was 1313.76 mGy-cm. COMPARISON: 11/14/2024 FINDINGS: Small right pleural effusion. Linear and bandlike discoid atelectasis in the basilar right middle and lower lobes. Visualized portion of the left lower lung is clear with no pleural effusion. Heart size is normal. No pericardial or pleural effusion. Liver, gallbladder, spleen, pancreas, right kidney an d bilateral adrenal glands are normal. 1.4 cm left renal cyst. Bladder, anteverted uterus and bilater al ovaries are unremarkable. 5.5 cm ball of stool at the rectum. Small bowel and appendix are normal. Left transgluteal pelvic abscess drainage catheter to the left of the stool-filled rectum with interv al decompression of the previously seen abscess at this location. There are couple additional small p eripherally enhancing abscesses in the pelvis, one slightly anterior to the drain along the anterior margin of rectum and small amount of gas and fluid measuring 2.0 x 1.4 cm. A second slightly more ant erior and on the right slightly inferior to the right ovary measures 2.3 x 1.6 cm and finally there i s a third 1.9 x 1.5 cm collection more cephalad anterior to L5-S1. No pathologically enlarged abdomin al or pelvic lymphadenopathy. Interval explantation of a prior left sacral nerve root stimulator with small amount of gas and likely some packing material at the residual subcutaneous cavity for the exp ansion device at the right buttock as well as a second suggesting some ulceration posterior to the sa roshan. Mild lumbar levocurvature with moderate spondylosis. IMPRESSION: 1. Interval decompression of a prior left perirectal abscess cavity post placement of a left transglu teal retains abscess drain. There are 3 additional small abscesses in the pelvis, likely communicatin g to the initial abscess cavity, which are not readily amenable to additional percutaneous drainage d ue to both their locations and small size. 2. Interval explantation of the prior left sacral nerve root stimulator. 3. Small right pleural effusion. Reviewed, dictated and finalized at location A. IMPRESSION: 1. Interval decompression of a prior left perirectal abscess cavity post placem ent of a left transgluteal retains abscess drain. There are 3 additional small abscesses in the pelvis, likely communicating to the initial abscess cavity, wh ich are not readily amenable to additional percutaneous drainage due to both th eir locations and small size. 2. Interval explantation of the prior left sacral nerve root stimulator. 3. Small right pleural effusion.
--- NOTE | ~2024-11-14 | CT_ITS ---
EXAMINATION: CT guide absc cath placement DATE: 11/16/2024 11:04 INDICATION: Perirectal abscess TECHNIQUE: The procedure including the risks and benefits was discussed with the patient and the hamlet ent's son and power of patent prosecution attorney. Risks discussed included bleeding and infection. The patient underst ood the risks and benefits and agreed to proceed. The patient was confirmed to be receiving appropria te antibiotic coverage. The skin overlying the medial aspect of the left buttock was prepped and yari ped in usual sterile fashion. Conscious sedation was provided with 1 mg Versed and 100 mcg fentanyl I V. Anesthetic was administered with 1% lidocaine subcutaneously. Utilizing CT guidance an 18-gauge t rochar needle was inserted left presacral fluid collection. The inner stylette was removed and a J-wi re advanced into the fluid collection with position confirmed by CT. Needle was removed and utilizing Seldinger technique the tract was serially dilated over the wire to 9 Fr. A 8.5 Fr pigtail catheter was then placed and the loop formed and locked with position confirmed by CT. The catheter was stitch ed to the skin with suture. Antibiotic ointment and a sterile dressing were applied. The dose-length product was 545.47 mGy-cm. There were no immediate complications. FINDINGS: CT images demonstrate the catheter within the left presacral abscess cavity. 10 mL of purul ent appearing opaque pinkish hazel-colored fluid was aspirated for testing. A sacral nerve root stimula tor seen extending to the left S3 neural foramen with the distal tip positioned along the posterior m argin of the abscess cavity cephalad to the drainage catheter. IMPRESSION: 1. Successful CT-guided left presacral abscess drainage. 2. 10 mL fluid was sent for aerobic and anaerobic cultures. 3. The catheter will be managed by Dr. Kemp. Reviewed, dictated and finalized at location A.
--- NOTE | ~2024-11-14 | XR_ITS ---
CHEST RADIOGRAPH CLINICAL HISTORY: sepsis . COMPARISON: 07/04/2023 TECHNIQUE: Single portable view of the chest. FINDINGS The cardiomediastinal silhouette is unremarkable. The lungs are clear. IMPRESSION: No focal infiltrate or effusion. Reviewed, dictated and finalized at location A.
[2024-11-14 15:48] VITALS: BP 129/67; PULSE 86; RESP 14; TEMP 36.4; O2SAT 100
--- OUTSIDE RECORDS SUMMARY | 2024-11-14 15:49 | XMS_ITS | Clinical Summary ---
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
--- OUTSIDE RECORDS SUMMARY | 2024-11-14 15:49 | XMS_ITS | Clinical Summary ---
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
--- OUTSIDE RECORDS SUMMARY | 2024-11-14 15:50 | XMS_ITS | Referral Summary ---
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
[2024-11-14 16:00] VITALS: BP 118/80; PULSE 85; RESP 18; TEMP 36.7; O2SAT 98
--- NOTE | 2024-11-14 16:16 | ECG_ITS ---
Test Date: 2024-11-14 16:32:10 Measurements Intervals [place] Rate: 74 P: 66 SD: 125 QRS: 2 QRSD: 82 T: 37 QT: 395 QTc: 440 Interpretive Statements SINUS RHYTHM POSSIBLE LEFT ATRIAL ENLARGEMENT CONSIDER INFERIOR INFARCT, AGE INDETERMINATE BASELINE ARTIFACT- I, II, III, AVR, AVL, AVF, V1-V6 ABNORMAL ECG No previous ECG available for comparison Electronically Signed On 11-14-2024 17:31:56 CDT by Curtis Frederick D.O.
[2024-11-14 16:20] LABS: Hematocrit 45.3 % (37.0-47.0); Hemoglobin 14.7 g/dL (12.0-15.0); Immature Granulocyte Percent A 0.5 % (0-0.5); Lymphocytes Absolute Auto 1.10 K/mm3 (0.9-3.2); Mean Corpuscular HGB Conc 32.5 g/dl (32-36); Mean Corpuscular Hemoglobin 29.2 pg (26-34); Mean Corpuscular Volume 89.9 fl (80-100); Nucleated Red Blood Cells Absolute Auto 0.000 K/mm3 (0.0-0.012); Nucleated Red Blood Cells Perc 0.0 % (0.0-0.2); Platelet Count Result 321 k/mm3 (150-375); Red Blood Count 5.04 M/mm3 (4.2-5.4); White Blood Count 11.6 K/mm3 (4.5-10.0)
[2024-11-14 16:42] LABS: Alanine Aminotransferase 17 U/L (6-35); Albumin Level 4.1 g/dL (3.5-5.1); Alkaline Phosphatase 140 U/L (38-126); Anion Gap 14 mmol/L (4-12); Aspartate Amino Transferase 24 U/L (14-36); Bilirubin,Total 0.6 mg/dL (0.2-1.3); Blood Urea Nitrogen 26 mg/dL (7-17); Calcium 11.1 mg/dL (8.4-10.2); Carbon Dioxide 20 mmol/L (22-30); Chloride 94 mmol/L (98-107); Estimated CRCL calculation 32 ml/min; Estimated Glomerular Filt Rate 41; Glucose 517 mg/dL (65-110); Potassium 4.3 mmol/L (3.4-5.0); Sodium 128 mmol/L (137-145); Total Protein 8.5 g/dL (6.3-8.2)
[2024-11-14 16:56] LABS: INR 1.0; Partial Thromboplastin Time 26.4 Seconds (22.3-36.8); Prothrombin Time 13.2 Seconds (11.1-14.7)
--- NOTE | 2024-11-14 17:00 | PC.NURSE ---
Multiple staff members unable to obtain 2nd set of blood cultures. CHELY Morton notified and phlebotomy called to bedside.
--- NOTE | 2024-11-14 17:14 | PC.NURSE ---
Pt. has round abcess to R. hip. Red and hazel drainage from site. Pt. bottom, perineal area, and labia are red with red circular dots. White d/c in vagina. Pt. denies any pain or itching. States she does not treat the rash with any medication.
--- OUTSIDE RECORDS SUMMARY | 2024-11-14 17:16 | XMS_ITS | Clinical Summary ---
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
--- OUTSIDE RECORDS SUMMARY | 2024-11-14 17:17 | XMS_ITS | Clinical Summary ---
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 TRADITIONAL MEDICARE [facility] Care Teams Chief Payroll Clerk Relationship Specialty Start Date End Date Yoav Mosley MD PCP - General 08/06/16
--- OUTSIDE RECORDS SUMMARY | 2024-11-14 17:17 | XMS_ITS | Referral Summary ---
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
[2024-11-14 17:20] VITALS: BP 123/64; PULSE 73; RESP 20; O2SAT 98
--- NOTE | 2024-11-14 17:25 | PC.NURSE ---
Pt. to CT.
[2024-11-14 17:44] LABS: Add Urine Microscopic? YES; Appearance Urine Cloudy (Clear); Glucose Urine UA 3+ mg/dL (Negative); Leukocyte Esterase Ur Negative LEU/UL (Negative); Need Manual Microscopic Reviewed; Nitrate Urine Negative (Negative); Non Pathogenic Casts 0-2; Specific Grav Ur 1.037 (1.001-1.035)
--- NOTE | 2024-11-14 19:23 | ED_ITS ---
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 Patient reports that is painful lump about 3 weeks ago and has been getting larger and starting to drain purulent fluid. Patient lives at home with her . She is bedbound. She is denying fevers, headache, neck pain chest pain difficulty breathing abdominal pain urinary symptoms. Related Data Home Medications ?Medication ?Instructions ?Recorded ?Confirmed ?Last Taken ?Type duloxetine 30 mg capsule,delayed 30 mg PO DAILY 07/04/23 11/14/24 Unknown History release glimepiride 2 mg tablet 2 - 4 mg PO BID 07/04/23 11/14/24 Unknown History irbesartan 150 mg tablet 150 mg PO HS 07/04/23 11/14/24 Unknown History meloxicam 15 mg tablet 15 mg PO DAILY 07/04/23 11/14/24 Unknown History metformin 1,000 mg tablet,extended 1,000 mg PO QPM 07/04/23 11/14/24 Unknown History release 24hr (osmotic) oxybutynin chloride 5 mg tablet 5 mg PO HS 07/04/23 11/14/24 Unknown History oxybutynin chloride 5 mg tablet 10 mg PO DAILY 07/04/23 11/14/24 Unknown History pravastatin 20 mg tablet 20 mg PO HS 07/04/23 11/14/24 Unknown History Allergies Allergy/AdvReac Type Severity Reaction Status Date / Time No Known Allergies Allergy Verified 11/14/24 16:00 [facility] Past Medical History Medical History Insomnia Primary lateral sclerosis Overactive bladder Hypertension Depression Type 2 diabetes mellitus Hyperlipidemia Social History Social History Smoking status: Never smoker Alcohol intake: never Substance use: never Spiritual care concerns: No Exam 2 Narrative: APPEARANCE: No apparent distress. Head: atraumatic. EYES: EOMI, NOSE: Atraumatic NECK: Trachea midline RESPIRATORY: No increased rate of breathing, clear to auscultation CARDIOVASCULAR: RRR, no peripheral edema +2 pulses in all extremities ABDOMINAL: Non-distended MUSCULOSKELETAl: No obvious deformities NEURO: Alert, upper motor neuron deficits the upper lower extremities including spasticity, weakness. Sensation intact SKIN:: Two draining wounds, 1 over the right buttocks and 1 over the left glute/sacral area, candidal infection of the glutes/groin/vulva PSYCHIATRIC: Normal affect Course Vital Signs Vital signs: Vital Signs Temperature 97.6 F 11/14/24 15:48 Pulse Rate 86 11/14/24 15:48 Respiratory Rate 14 11/14/24 15:48 Blood Pressure 129/67 11/14/24 15:48 Pulse Oximetry 100 11/14/24 15:48 Temperature 98.1 F 11/14/24 16:00 Pulse Rate 87 11/14/24 19:53 Respiratory Rate 20 11/14/24 19:53 Blood Pressure 128/94 H 11/14/24 19:53 Pulse Oximetry 100 11/14/24 19:53 Oxygen Delivery Room Air 11/14/24 16:00 Medical Decision Making [facility] Narrative Medical decision making narrative: -Course: 73-year-old female presenting to ED with 2 wounds draining purulent fluid.. Full sepsis workup obtained. Wound cultures obtained. CT abdomen pelvis showed a perirectal abscess that comes in contact with the lead from her bladder stimulator. The 2 draining wounds correspond with her bladder generator and part of the lead going near the gluteal cleft. It is unclear if the bladder stimulator seeded the perirectal abscess or the other way around. Neither the patient nor her know who installed but it appears to have been at least 20 years ago. Case has been discussed with Urology and General surgery. Patient will be made NPO at midnight. Patient has been given 30 cc/kilogram fluid bolus and started on broad-spectrum antibiotics. Miconazole for her yeast infection. Patient will be admitted the hospital management. -DDX includes but is not limited to: Abscess, and checking her stimulator, perirectal abscess, Vital Signs Vital Signs: Vital Signs Temperature 97.6 F 11/14/24 15:48 Pulse Rate 86 11/14/24 15:48 Respiratory Rate 14 11/14/24 15:48 Blood Pressure 129/67 11/14/24 15:48 Pulse Oximetry 100 11/14/24 15:48 Temperature 98.1 F 11/14/24 16:00 Pulse Rate 87 11/14/24 19:53 Respiratory Rate 20 11/14/24 19:53 Blood Pressure 128/94 H 11/14/24 19:53 Pulse Oximetry 100 11/14/24 19:53 Oxygen Delivery Room Air 11/14/24 16:00 Lab Data 11/14/24 16:13 11/14/24 16:13 Labs: Lab Results 11/14/24 11/14/24 11/14/24 Range/Units 16:13 17:23 20:56 WBC 11.6 H (4.5-10.0) K/mm3 RBC 5.04 (4.2-5.4) M/mm3 Hgb 14.7 (12.0-15.0) g/dL Hct 45.3 (37.0-47.0) % MCV 89.9 (80-100) fl MCH 29.2 (26-34) pg MCHC 32.5 (32-36) g/dl RDW 13.3 (11.5-14.5) % Plt Count 321 (150-375) k/mm3 MPV 12.6 H (7.4-10.4) fl Immature Gran % (Auto) 0.5 (0-0.5) % Neut % (Auto) 84.1 H (45.5-73.1) % Lymph % (Auto) 9.5 L (18.3-44.2) % [place] % (Auto) 5.1 (2.6-8.5) % Eos % (Auto) 0.3 (0-4.4) % Baso % (Auto) 0.5 (0.2-1.2) % Lymph # (Auto) 1.10 (0.9-3.2) K/mm3 [place] # (Auto) 0.6 (0.1-0.6) K/mm3 Eos # (Auto) 0.0 (0-0.3) K/mm3 Baso # (Auto) 0.1 (0.0-0.1) K/mm3 Abs Immat Gran (auto) 0.06 H (0.00-0.031) K/mm3 Absolute Neuts (auto) 9.7 H (1.3-6.7) K/mm3 Absolute Nucleated RBC 0.000 (0.0-0.012) K/mm3 Nucleated RBC % 0.0 (0.0-0.2) % PT 13.2 (11.1-14.7) Seconds INR 1.0 APTT 26.4 (22.3-36.8) Seconds Sodium 128 L (137-145) mmol/L Potassium 4.3 (3.4-5.0) mmol/L Chloride 94 L (98-107) mmol/L Carbon Dioxide 20 L (22-30) mmol/L Anion Gap 14 H (4-12) mmol/L BUN 26 H (7-17) mg/dL Creatinine 1.27 H (0.7-1.0) mg/dL Estim Creat Clear Calc 32 ml/min Estimated GFR 41 L (59 - ) Glucose 517 H* (65-110) mg/dL POC Capillary Glucose 320 H (65-105) mg/dl Lactic Acid 1.4 (0.7-2.0) mmol/L Calcium 11.1 H (8.4-10.2) mg/dL Total Bilirubin 0.6 (0.2-1.3) mg/dL AST 24 (14-36) U/L ALT 17 (6-35) U/L Alkaline Phosphatase 140 H (38-126) U/L Total Protein 8.5 H (6.3-8.2) g/dL Albumin 4.1 (3.5-5.1) g/dL Urine Color Yellow (Yellow) Urine Appearance Cloudy H (Clear) Urine pH 5.5 (5.0-9.0) Ur Specific [place] 1.037 H (1.001-1.035) Urine Protein Negative (Negative) mg/dL Urine Glucose (UA) 3+ H (Negative) mg/dL Urine Ketones Trace H (Negative) mg/dL Ur Blood (Man) Negative (Negative) Urine Nitrate Negative (Negative) Urine Bilirubin Negative (Negative) Urine Urobilinogen 0.2 (<2.0) mg/dL Add Ur Microanalysis Reviewed Leukocyte Esterase Rfl Negative (Negative) JESSICA/UL Urine RBC 0-2 (0-2) /hpf Urine WBC 6-10 H (0-3) /hpf Ur Squamous Epith Cells None seen (Few) /hpf Urine Bacteria 4+ H /hpf Urine Casts 0-2 Discharge Plan Discharge Clinical Impression: Abscess, perirectal, Infection associated with urinary electronic stimulator device Patient Disposition: Still a Patient Condition: Stable Patient Language: [place] Leonean Prescriptions: No Action meloxicam 15 mg Tablet 15 mg PO DAILY glimepiride 2 mg Tablet 2 - 4 mg PO BID pravastatin 20 mg Tablet 20 mg PO HS irbesartan 150 mg Tablet 150 mg PO HS oxybutynin chloride 5 mg Tablet 5 mg PO HS oxybutynin chloride 5 mg Tablet 10 mg PO DAILY metformin 1,000 mg Tablet Extended Release 24 Hr 1,000 mg PO QPM duloxetine 30 mg Capsule,Delayed Release(Dr/Ec) 30 mg PO DAILY mirtazapine [Remeron] 15 mg Tablet 7.5 mg PO HS Qty: 30 0RF amoxicillin-pot clavulanate 875-125 mg tablet 1 tablet PO Q12H Qty: 10 0RF amlodipine [Norvasc] 5 mg Tablet 5 mg PO QAM Qty: 30 0RF Follow-up/Referrals: Yoav Mosley MD [Primary Care Provider] -
[2024-11-14 19:53] VITALS: BP 128/94; PULSE 87; RESP 20; O2SAT 100
--- NOTE | 2024-11-14 19:53 | PC.NURSE ---
Pt. and pt. updated by Dr. Villegas at bedside.
[2024-11-14] MEDS: SODIUM CHLORIDE 0.9% IV 1,000 ML 999 ML IV CONT (19:55)
[2024-11-14] MEDS: PIPERACILLIN/TAZOBACTAM SOD 3.375 GM in SODIUM CHLORIDE 0.9% IV 50 ML 100 ML IVPB (19:59)
--- NOTE | 2024-11-14 21:04 | P.HP_ITS ---
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 Per provider note the patient developed painful lump about 3 weeks ago that had been getting larger and had started to drain purulent fluid. She cannot and that recall exactly when the wound started but she states it is been there for a long time. She denies having any fevers or chills. She reports that her appetite is stable. Her primary care physician had referred the patient to Dr. Call for evaluation. In the office the patient was noted to have a 5.5 cm to deep tunneling wound on the right buttock draining robi purulence. Patient was afebrile on arrival to the ER and was not tachycardic or tachypneic. She reports that she sleeps in a recliner and can ambulate a short distance with her walker. Her provides the majority of her care. She is able to ambulate minimally with a walker. Patient's glucoses were noted to be markedly elevated in the ER. The patient does not check her blood glucoses at home in his non compliant with her diabetic regimen according to nursing staff. Patient does have a stimulator present in the right buttock but she cannot recall when it was placed or what the reason for the stimulator is. Despite being alert oriented x3 the patient is a poor historian. She has a rash to her groin as she reports has been there for a very long time. She reports that does itch mildly. ER Labs also demonstrated a mild leukocytosis and stable creatinine. Urine demonstrated 3+ good close trace ketones elevated specific gravity and 4+ bacteria. Patient had a stat CT of the abdomen and pelvis which demonstrated rim enhancing fluid collection within the left hemipelvis likely related to the patient's stimulator wire from her bladder stimulator in the right buttock. There is noted skin ulceration the imaging overlying the stimulator site. The patient was treated with 30 mL/kilos fluid bolus normal saline and started on Zosyn and vancomycin after blood cultures urine cultures and wound cultures were obtained Review of Systems 2 Review of Systems: She reports that she has a bowel movement every 2 or 3 days and denies hematochezia or melena. She has chronic urinary incontinence. [facility] Past Medical History Medical History (Updated 11/14/24 @ 21:35 by Rylie Tuttle DO) Chronic kidney disease, stage 3b With baseline creatinine around 1.5 since 2023 Bilateral inguinal hernia Fat containing Insomnia Primary lateral sclerosis Overactive bladder Hypertension Depression Type 2 diabetes mellitus Hyperlipidemia Surgical History Surgical History (Updated 11/15/24 @ 00:25 by Rylie Tuttle DO) Status post cataract extraction of both eyes with insertion of intraocular lens S/P implantation of urinary electronic stimulator device Family History Family History (Updated 11/15/24 @ 00:23 by Rylie Tuttle DO) Other Unknown family medical history Social History Social History (Updated 11/15/24 @ 00:23 by Rylie Tuttle DO) Social History: Patient has been for 32 years. She has 2 sons. She is a lifelong nonsmoker and does not drink alcohol. She is a retired banker. They have a small terrier at home. Code status: DNR/DNI Surrogate decision maker: Smoking status: Never smoker Alcohol intake: never Substance use: never Lack of Transportation: No Lack of Food: Never True Current Housing: I Have Housing Concerned About Future Housing: No Difficulty Paying Gas/Electric Bills: No Difficulty Paying for Meds: No Currently Unemployed: No Education: High School Diploma/GED Difficulty w/ Childcare or Family Care: No Spiritual care concerns: No Meds Home Medications and Allergies Home Medications ?Medication ?Instructions ?Recorded ?Confirmed ?Type duloxetine 30 mg capsule,delayed 30 mg PO DAILY 07/04/23 11/14/24 History release glimepiride 2 mg tablet 2 - 4 mg PO BID 07/04/23 11/14/24 History irbesartan 150 mg tablet 150 mg PO HS 07/04/23 11/14/24 History oxybutynin chloride 5 mg tablet 5 mg PO HS 07/04/23 11/14/24 History oxybutynin chloride 5 mg tablet 10 mg PO DAILY 07/04/23 11/14/24 History pravastatin 20 mg tablet 20 mg PO HS 07/04/23 11/14/24 History amlodipine 5 mg tablet (Norvasc) 5 mg PO QAM #30 tabs 07/08/23 11/14/24 Rx mirtazapine 15 mg tablet (Remeron) 7.5 mg (1/2 x 15 mg) PO HS #30 tabs 07/08/23 11/14/24 Rx famotidine 40 mg tablet 40 mg PO DAILY 11/14/24 11/14/24 History metformin 500 mg tablet,extended 1,000 mg PO DAILY 11/14/24 11/14/24 History release 24 hr Allergies Allergy/AdvReac Type Severity Reaction Status Date / Time No Known Allergies Allergy Verified 11/14/24 16:00 Vital Signs Vital Signs - 24 hr 11/14/24 15:48 11/14/24 16:00 11/14/24 17:20 Temperature 97.6 F 98.1 F Pulse Rate 86 85 73 Respiratory Rate 14 18 20 Blood Pressure 129/67 118/80 123/64 Pulse Oximetry 100 98 98 Oxygen Delivery Room Air 11/14/24 19:53 Temperature Pulse Rate 87 Respiratory Rate 20 Blood Pressure 128/94 H Pulse Oximetry 100 Oxygen Delivery Exam 2 Narrative: Weight 67.2 kg BMI 23.9 Const: Other: Chronically ill-appearing, debilitated but well-nourished HENMT: Other: Mucous membranes are moist, good dentition, no oral pharyngeal erythema Eyes: Other: No scleral icterus, no conjunctival pallor, bilateral lens implants noted Neck: Other: No lymphadenopathy, no JVD Resp: Other: Clear to auscultation bilaterally, no increased work of breathing Cardio: Other: Regular rate, regular rhythm, 2+ bilateral radial and pedal pulses, no JVD, no murmur GI: Other: Soft, nontender, nondistended, normoactive bowel sounds : Other: Pure wick catheter in place, erythematous moist rash in the groin and inguinal folds Back/Spine/Pelvis: Other: Erythema to the right lateral buttock about the size of a softball with 2 open ulcerations that tunnel please see nursing documentation for measurements and positioning, at the time my evaluation wounds or only draining serosanguineous fluid Skin: Other: Generalized pallor, non jaundice, Neuro: Other: Alert oriented times 4, speech is slow delayed but not slurred, difficulty with fine motor control Extrem: Other: No clubbing, no cyanosis, edema nonpitting to lower extremities Psych: Other: Appropriate mood and affect, pleasant and cooperative, judgment and insight intact H&P: Results Labs Labs: Laboratory Tests 11/14/24 16:13 11/14/24 16:13 11/14/24 11/14/24 11/14/24 16:13 17:23 20:56 WBC 11.6 H RBC 5.04 Hgb 14.7 Hct 45.3 MCV 89.9 MCH 29.2 MCHC 32.5 RDW 13.3 Plt Count 321 MPV 12.6 H Immature Gran % (Auto) 0.5 Neut % (Auto) 84.1 H Lymph % (Auto) 9.5 L Candler % (Auto) 5.1 Eos % (Auto) 0.3 Baso % (Auto) 0.5 Lymph # (Auto) 1.10 Candler # (Auto) 0.6 Eos # (Auto) 0.0 Baso # (Auto) 0.1 Abs Immat Gran (auto) 0.06 H Absolute Neuts (auto) 9.7 H Absolute Nucleated RBC 0.000 Nucleated RBC % 0.0 PT 13.2 INR 1.0 APTT 26.4 Sodium 128 L Potassium 4.3 Chloride 94 L Carbon Dioxide 20 L Anion Gap 14 H BUN 26 H Creatinine 1.27 H Estim Creat Clear Calc 32 Estimated GFR 41 L Glucose 517 H* POC Capillary Glucose 320 H Lactic Acid 1.4 Calcium 11.1 H Total Bilirubin 0.6 AST 24 ALT 17 Alkaline Phosphatase 140 H Total Protein 8.5 H Albumin 4.1 Urine Color Yellow Urine Appearance Cloudy H Urine pH 5.5 Ur Specific Makanda 1.037 H Urine Protein Negative Urine Glucose (UA) 3+ H Urine Ketones Trace H Ur Blood (Man) Negative Urine Nitrate Negative Urine Bilirubin Negative Urine Urobilinogen 0.2 Add Ur Microanalysis Reviewed Leukocyte Esterase Rfl Negative Urine RBC 0-2 Urine WBC 6-10 H Ur Squamous Epith Cells None seen Urine Bacteria 4+ H Urine Casts 0-2 Impressions Chest X-Ray 11/14/24 16:42 IMPRESSION: No focal infiltrate or effusion. Abdomen/Pelvis CT 11/14/24 18:20 IMPRESSION: Rim-enhancing fluid collection within the left hemipelvis, likely related to the stimulator device within the soft tissues of the right buttock, as detailed above. EKG:Test Date: 2024-11-14 16:32:10 Measurements Intervals Pioneer Rate: 74 P: 66 MS: 125 QRS: 2 QRSD: 82 T: 37 QT: 395 QTc: 440 Interpretive Statements SINUS RHYTHM POSSIBLE LEFT ATRIAL ENLARGEMENT CONSIDER INFERIOR INFARCT, AGE INDETERMINATE BASELINE ARTIFACT- I, II, III, AVR, AVL, AVF, V1-V6 ABNORMAL ECG No previous ECG available for comparison Assessment and Plan Assessment and plan (1) Infection associated with urinary electronic stimulator device: Code(s): T83.590A - Infection and inflammatory reaction due to implanted urinary neurostimulation device, initial encounter Status: Acute (2) Abscess, perirectal: Code(s): K61.1 - Rectal abscess Status: Acute (3) Abscess of right buttock: Code(s): L02.31 - Cutaneous abscess of buttock Status: Acute (4) Primary lateral sclerosis: Code(s): G12.23 - Primary lateral sclerosis Status: Acute (5) Type 2 diabetes mellitus with hyperglycemia, without long-term current use of insulin: Code(s): E11.65 - Type 2 diabetes mellitus with hyperglycemia Status: Acute (6) Pseudohyponatremia: Code(s): R79.89 - Other specified abnormal findings of blood chemistry Status: Acute (7) Dehydration: Code(s): E86.0 - Dehydration Status: Acute (8) Candidiasis of perineum: Code(s): B37.49 - Other urogenital candidiasis Status: Acute Plan Patient has perirectal abscess an open wound to the right buttock. Is unclear if the patient's infection started with a perirectal abscess that then tunneled out along the guidewire of the bladder stimulator in subsequently opening subcutaneously in the right buttock or if the patient may have developed a decubitus ulcer in the right buttock that then tunneled downward and infected the hardware subsequently creating a perirectal abscess. Locally the patient does not meet 6 to this criteria and is hemodynamically stable. Blood cultures, urine culture and wound cultures have been obtained in the ER. Patient been started empiric antibiotic therapy with Zosyn and vancomycin. General surgery and Urology have been consulted from the ER. The patient is markedly hyperglycemic with history of diabetes not on insulin at home. Patient's glucoses decreased from the 500s down to 300 with IV fluid hydration. Will place patient on a high-dose sliding scale insulin with Accu-Cheks and hypoglycemia protocol as needed. Will check A1c with a.m. labs. Patient does have some pseudo hyponatremia due to hyperglycemia. Patient does also appear to be dehydrated/intervascular volume depleted given that she has ketones in her urine elevated specific gravity and hypercalcemia. This may be playing a component in the patient's hyponatremia as well. Will continue maintenance IV fluids and repeat electrolyte panel in a.m. given the patient's degree of candidiasis and buttock wounds with abscess patient would benefit from catheter to reduce contamination of wound. Will trial pure wick. The patient's postvoid residual was 88. MEDICAL DECISION MAKING NARRATIVE -Spoke with the ED provider in detail regarding patient's evaluation, workup and management -Patient seen and examined at bedside -Collaborated with patient's nurse at the bedside in detail and addressed all concerns -Labs, electrolytes, radiology, investigations and test results reviewed -ED/Consult/Nursing/Ancilliary notes on the chart reviewed and appreciated -Spoke with patient/family at the bedside plan. Plan was discussed and all are in agreement. Quality VTE Prophylaxis VTE prophylaxis: pharmacologic ordered (Lovenox 40 mg subQ daily.) Hospitalist [facility] Advance Care Plan I have confirmed that the patient's Advanced Care Plan is present, code status is documented, or surrogate decision maker is listed in patient medical record.: Yes Medication Reconciliation I have utilized all available resources to obtain, update and review the patients current medications (includes all prescriptions, OTC, herbals, cannabis, and nutritional supplements).: Yes
[2024-11-14 21:40] VITALS: BP 144/66; PULSE 77; RESP 13; O2SAT 99
[2024-11-14] MEDS: VANCOMYCIN 1,250 MG/NS 250 ML 1,250 MG/250 ML BAG 166.67 MG IVPB (21:42)
--- NOTE | 2024-11-14 22:00 | PC.NURSE ---
1st liter of ordered bolus still infusing. Pt. is a difficulty stick and only has 1 IV in her R. AC. Pt. Pt. continuously bends arm. This RN reminds pt. to keep arm straight.
--- NOTE | 2024-11-14 22:32 | PC.NURSE ---
at bedside given pt. room number. Pt. states he is going home and will return tomorrow.
[2024-11-14 22:35] VITALS: BMI 25.3
--- NOTE | 2024-11-14 22:36 | ADMGEN ---
This patient, Praveena Michael, was admitted to Medical Room 258-. Patient/family oriented to hospital policies and general routines including ID bracelet, bed and alarms, visiting hours, pain management, procedures, bathroom and other care routines, personal items, smoking policy, room service/diet, and visiting hours. Information on how to activate the Rapid Response Team has been discussed. Patient/Family are encouraged to report perceived risks to care and to ask questions if they do not understand what they are told or what they should do.
[2024-11-14 22:49] VITALS: BP 117/57; PULSE 84; RESP 20; TEMP 36.7; O2SAT 98
[2024-11-14] MEDS: HYDROcodone/acetaminophen (*CRX) 5-325 MG TABLET 1 TAB PO (22:57)
[2024-11-15] MEDS: INSULIN ASPART (*BKC) 100 UNITS/ML SUB-Q ×2 (00:29→18:31)
[2024-11-15] MEDS: SODIUM CHLORIDE 0.9% IV 1,000 ML 999 ML IV CONT (00:29)
[2024-11-15] MEDS: PIPERACILLIN/TAZOBACTAM SOD 2.25 GM in SODIUM CHLORIDE 0.9% IV 50 ML 100 ML IVPB ×4 (01:32→20:35)
[2024-11-15] MEDS: SODIUM CHLORIDE 0.9% IV 100 ML 999 ML IV CONT (02:34)
[2024-11-15] MEDS: SODIUM CHLORIDE 0.9% IV 1,000 ML 100 ML IV CONT (02:46)
[2024-11-15 04:50] VITALS: BP 102/52; PULSE 70; RESP 20; TEMP 36.2; O2SAT 94
[2024-11-15 05:05] LABS: Hematocrit 37.2 % (37.0-47.0); Hemoglobin 11.5 g/dL (12.0-15.0); Immature Granulocyte Percent A 0.3 % (0-0.5); Lymphocytes Absolute Auto 2.13 K/mm3 (0.9-3.2); Mean Corpuscular HGB Conc 30.9 g/dl (32-36); Mean Corpuscular Hemoglobin 29.0 pg (26-34); Mean Corpuscular Volume 93.7 fl (80-100); Nucleated Red Blood Cells Absolute Auto 0.000 K/mm3 (0.0-0.012); Nucleated Red Blood Cells Perc 0.0 % (0.0-0.2); Platelet Count Result 283 k/mm3 (150-375); Red Blood Count 3.97 M/mm3 (4.2-5.4); White Blood Count 11.9 K/mm3 (4.5-10.0)
[2024-11-15 05:26] LABS: Hemoglobin A1C 13.8 % (<5.7)
[2024-11-15 05:43] LABS: Anion Gap 6 mmol/L (4-12); Blood Urea Nitrogen 20 mg/dL (7-17); CRP 4.6 mg/dL (<1.0); Calcium 9.7 mg/dL (8.4-10.2); Carbon Dioxide 24 mmol/L (22-30); Chloride 105 mmol/L (98-107); Estimated CRCL calculation 34 ml/min; Estimated Glomerular Filt Rate 45; Glucose 127 mg/dL (65-110); Potassium 3.5 mmol/L (3.4-5.0); Sodium 135 mmol/L (137-145)
--- NOTE | 2024-11-15 08:43 | P.PNIM_ITS ---
Progress Note: A&P Assessment and Plan (1) Infection associated with urinary electronic stimulator device: Code(s): T83.590A - Infection and inflammatory reaction due to implanted urinary neurostimulation device, initial encounter Status: Acute Assessment and Plan: Is unclear if the patient's infection started with a perirectal abscess that then tunneled out along the guidewire of the bladder stimulator in subsequently opening subcutaneously in the right buttock or if the patient may have developed a decubitus ulcer in the right buttock that then tunneled downward and infected the hardware subsequently creating a perirectal abscess. Blood cultures pending Wound cultures pending Antibiotics: Zosyn and vancomycin started on 11/14 CT abdomen/pelvis: Rim-enhancing fluid collection within the left hemipelvis, likely related to the stimulator device within the soft tissues of the right buttock General surgery consulted Removal of bladder stimulator, will need wound debridement/drainage, cont local wound care and abx for now, may also need perc drainage Urology consulted Continue broad-spectrum antibiotics Discuss with IR, percutaneous drainage of abscess will be performed today. W Will subsequently move forward with InterStim explant, tentatively scheduled for 11/17/2024. (2) Abscess, perirectal: Code(s): K61.1 - Rectal abscess Status: Acute Assessment and Plan: See plan above (3) Urinary tract infection: Code(s): N39.0 - Urinary tract infection, site not specified Status: Acute Assessment and Plan: - UA: cloudy appearance with elevated specific gravity, 3+ glucose, trace ketones, negative nitrates, negative leukocytes, 6-10 WBC, 4+ bacteria and no squamous cells. - UC obtained on 11/14: pending - previous micro reviewed klebsiella oxytoca 07/04/23 resistant to keflex - started on zosyn and vancomycin for cocurrent abscess (4) Candidiasis of perineum: Code(s): B37.49 - Other urogenital candidiasis Status: Acute Assessment and Plan: Continue fluconazole 100 mg daily, started on 11/15 Continue antifungal barrier cream and keep area dry (5) Pseudohyponatremia: Code(s): R79.89 - Other specified abnormal findings of blood chemistry Status: Acute Assessment and Plan: Patient with pseudo hyponatremia due to hyperglycemia on admission. Patient does also appear to be dehydrated/intervascular volume depleted given that she has ketones in her urine elevated specific gravity and hypercalcemia. This may be playing a component in the patient's hyponatremia as well. Continue maintenance IV fluids 100 ml/hr Na 135 on am labs (6) Type 2 diabetes mellitus with hyperglycemia, without long-term current use of insulin: Code(s): E11.65 - Type 2 diabetes mellitus with hyperglycemia Status: Acute Assessment and Plan: The patient was markedly hyperglycemic on admission with history of diabetes not on insulin at home. Patient's glucoses decreased from the 500s down to 300 with IV fluid hydration. - hypoglycemia protocol - POC blood glucose ACHS - home medication - metformin 1000 mg daily, glimepiride 2-4 mg BID - correct regimen ordered - high dose SSI - A1C 13.8 Random glucose elevated at 517 on admission. Remains elevated on am labs at 127 and 177 at lunch. Will start on a low dose lantus of 11 units. 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 Patient is pleasant lying comfortably in bed. She endorses slight discomfort to her buttock region but has no other complaints denying any chest pain, palpitations, nausea/vomiting, abdominal pain, or UTI like symptoms. Review of Systems Review of Systems: All systems reviewed & are unremarkable except as noted in HPI and below Exam Narrative: AF General: well nourished, well-developed female in no acute respiratory distress who is nontoxic appearing, lying semi recumbent in bed. HEENT: Normocephalic. Atraumatic. Pupils equal round reactive to light. Extraocular movement intact. Sclera clear and anicteric. Nares patent. No oral lesions. Moist mucous membranes. Tongue is midline. Palate isabel symmetrically. No facial asymmetry. Neck: Neck was supple. No dominant adenopathy, thyromegaly or masses. 2+ carotid upstrokes without bruits. Chest: Lungs are clear to auscultation bilaterlly. No wheezes or crackles. CV: Heart was regular rate and rhythm. S1-S2. No murmurs, gallops, or rubs. Abd: Abdomen was soft. Nontender. Nondistended. Postive bowel sounds. No organomegaly or masses. Ext: No clubbing, cyanosis, or edema. 2+ DP pulses bilaterally. Neuro: Patient is alert and oriented x4. Strenth is 5/5 in both upper and lower extremities. Cranial nerves 2-12 are intact. Speech is clear. Psych: Normal nood and affect. Patient is pleasant and cooperative. Skin: Warm and dry. No rashes noted. Objective Data Vital Signs Vital Signs: Vital Signs - 24 hr 11/14/24 15:48 11/14/24 16:00 11/14/24 17:20 Temperature 97.6 F 98.1 F Pulse Rate 86 85 73 Respiratory Rate 14 18 20 Blood Pressure 129/67 118/80 123/64 Pulse Oximetry 100 98 98 Oxygen Delivery Room Air 11/14/24 19:53 11/14/24 21:40 11/14/24 22:49 Temperature 98.1 F Pulse Rate 87 77 84 Respiratory Rate 20 13 20 Blood Pressure 128/94 H 144/66 H 117/57 L Pulse Oximetry 100 99 98 Oxygen Delivery 11/15/24 04:50 Temperature 97.2 F L Pulse Rate 70 Respiratory Rate 20 Blood Pressure 102/52 L Pulse Oximetry 94 Oxygen Delivery Intake/Output Intake/Output: Intake & Output 11/12/24 11/13/24 11/14/24 11/15/24 23:59 23:59 23:59 23:59 Intake Total 50 200 Output Total 250 0 Balance -200 200 Meds/Results Medications: Active Medications Generic Name Dose Route Start Last Admin Trade Name Freq PRN Reason Stop Dose Admin Acetaminophen 500 mg 11/14/24 22:47 Acetaminophen 500 Mg Tablet PO Q4H PRN Mild Pain (1-3) or Fever Hydrocodone Bitart/Acetaminophen 1 tab 11/14/24 22:47 11/14/24 22:57 Hydrocodone/Acetaminophen (*Crx) 5-325 Mg Tablet PO 1 tab Q6H PRN Administration Pain Rated 4-10 Amlodipine Besylate 5 mg 11/15/24 09:00 Amlodipine Besylate 5 Mg Tablet PO QAM [facility] [place] Dextrose 12.5 gm 11/14/24 21:03 Dextrose 50% 25 Gm/50 Ml Syringe IV PUSH PRN PRN Hypoglycemia Protocol Duloxetine HCl 30 mg 11/15/24 09:00 Duloxetine Hcl 30 Mg Capsule.Dr PO DAILY [facility] Enoxaparin Sodium 40 mg 11/15/24 09:00 Enoxaparin 40 Mg/0.4 Ml Syringe SUB-Q DAILY [facility] [place] Famotidine 40 mg 11/15/24 09:00 Famotidine 20 Mg Tablet PO DAILY [facility] [place] Fluconazole 100 mg 11/15/24 09:00 Fluconazole 100 Mg Tablet PO QAM [facility] [place] Glucagon 1 mg 11/14/24 21:03 Glucagon For Inj 1 Mg Vial IM PRN PRN Hypoglycemia Protocol Glucose 15 gm 11/14/24 21:03 Glucose Oral Gel 15 Gm Of Glucse In 37.5 Gm Tube PO PRN PRN Hypoglycemia Protocol Piperacillin Sod/Tazobactam 50 mls @ 100 mls/hr 11/15/24 02:00 11/15/24 01:32 Sod 2.25 gm/ Sodium Chloride IVPB 100 mls/hr Q6H [facility] Administration Dextrose 1,000 mls @ 100 mls/hr 11/14/24 21:03 Dextrose 5% 1,000 Ml IVPB PRN PRN Hypoglycemia Protocol Vancomycin HCl 1,250 mg in 250 mls @ 166.667 mls/hr 11/16/24 09:00 Vancomycin 1,250 Mg/Ns 250 Ml IVPB Q36H [facility] Sodium Chloride 1,000 mls @ 100 mls/hr 11/15/24 00:25 11/15/24 02:46 Normal Saline Iv IV CONT 11/15/24 10:24 100 mls/hr .Q10H [facility] Administration Insulin Aspart 4 - 8 units 11/15/24 00:00 11/15/24 00:29 Insulin Aspart (*Bkc) 100 Units/Ml SUB-Q 5 units Q6HR [facility] Administration Protocol Irbesartan 150 mg 11/15/24 21:00 Irbesartan [address] [facility] Miconazole Nitrate 1 applic 11/15/24 09:00 Miconazole Nitrate 2% Cream 30 Gm Tube TOPICAL Q12HR [facility] [place] Mirtazapine 7.5 mg 11/15/24 21:00 Mirtazapine 7.5 Mg Tablet PO HS [facility] [place] Miscellaneous Information 0 each 11/14/24 22:00 Miconazole Cream- Please Indicate Application Site: XX 12/14/24 21:59 CLARIFY [facility] [place] Morphine Sulfate 2 mg 11/14/24 22:47 Morphine Sulfate (*Crx) 2 Mg/Ml Inj IV PUSH Q4H PRN Breakthrough Pain Oxybutynin Chloride 5 mg 11/15/24 00:20 11/15/24 00:29 Oxybutynin Chloride 5 Mg Tablet PO 5 mg HS [facility] Administration Oxybutynin Chloride 10 mg 11/15/24 09:00 Oxybutynin Chloride 5 Mg Tablet PO DAILY [facility] [place] Radiology Results: ITS Impressions Chest X-Ray 11/14/24 16:42 IMPRESSION: No focal infiltrate or effusion. Abdomen/Pelvis CT 11/14/24 18:20 IMPRESSION: Rim-enhancing fluid collection within the left hemipelvis, likely related to the stimulator device within the soft tissues of the right buttock, as detailed above. Labs Labs: Laboratory Results - last 24 hr 11/14/24 11/14/24 11/14/24 16:13 17:23 20:56 WBC 11.6 H RBC 5.04 Hgb 14.7 Hct 45.3 MCV 89.9 MCH 29.2 MCHC 32.5 RDW 13.3 Plt Count 321 MPV 12.6 H Immature Gran % (Auto) 0.5 Neut % (Auto) 84.1 H Lymph % (Auto) 9.5 L [place] % (Auto) 5.1 Eos % (Auto) 0.3 Baso % (Auto) 0.5 Lymph # (Auto) 1.10 [place] # (Auto) 0.6 Eos # (Auto) 0.0 Baso # (Auto) 0.1 Abs Immat Gran (auto) 0.06 H Absolute Neuts (auto) 9.7 H Absolute Nucleated RBC 0.000 Nucleated RBC % 0.0 PT 13.2 INR 1.0 APTT 26.4 Sodium 128 L Potassium 4.3 Chloride 94 L Carbon Dioxide 20 L Anion Gap 14 H BUN 26 H Creatinine 1.27 H Estim Creat Clear Calc 32 Estimated GFR 41 L Glucose 517 H* POC Capillary Glucose 320 H Hemoglobin A1c Lactic Acid 1.4 Calcium 11.1 H Total Bilirubin 0.6 AST 24 ALT 17 Alkaline Phosphatase 140 H C-Reactive Protein Total Protein 8.5 H Albumin 4.1 Urine Color Yellow Urine Appearance Cloudy H Urine pH 5.5 Ur Specific [place] 1.037 H Urine Protein Negative Urine Glucose (UA) 3+ H Urine Ketones Trace H Ur Blood (Man) Negative Urine Nitrate Negative Urine Bilirubin Negative Urine Urobilinogen 0.2 Add Ur Microanalysis Reviewed Leukocyte Esterase Rfl Negative Urine RBC 0-2 Urine WBC 6-10 H Ur Squamous Epith Cells None seen Urine Bacteria 4+ H Urine Casts 0-2 11/14/24 11/14/24 11/15/24 21:45 22:46 04:24 WBC 11.9 H RBC 3.97 L Hgb 11.5 L D Hct 37.2 MCV 93.7 MCH 29.0 MCHC 30.9 L RDW 13.3 Plt Count 283 MPV 12.9 H Immature Gran % (Auto) 0.3 Neut % (Auto) 72.7 Lymph % (Auto) 17.9 L [place] % (Auto) 7.4 Eos % (Auto) 1.2 Baso % (Auto) 0.5 Lymph # (Auto) 2.13 Fleming # (Auto) 0.9 H Eos # (Auto) 0.1 Baso # (Auto) 0.1 Abs Immat Gran (auto) 0.04 H Absolute Neuts (auto) 8.6 H Absolute Nucleated RBC 0.000 Nucleated RBC % 0.0 PT INR APTT Sodium 135 L Potassium 3.5 Chloride 105 Carbon Dioxide 24 Anion Gap 6 BUN 20 H Creatinine 1.18 H Estim Creat Clear Calc 34 Estimated GFR 45 L Glucose 127 H POC Capillary Glucose 331 H 290 H Hemoglobin A1c 13.8 H Lactic Acid Calcium 9.7 Total Bilirubin AST ALT Alkaline Phosphatase C-Reactive Protein 4.6 H Total Protein Albumin Urine Color Urine Appearance Urine pH Ur Specific [place] Urine Protein Urine Glucose (UA) Urine Ketones Ur Blood (Man) Urine Nitrate Urine Bilirubin Urine Urobilinogen Add Ur Microanalysis Leukocyte Esterase Rfl Urine RBC Urine WBC Ur Squamous Epith Cells Urine Bacteria Urine Casts 11/15/24 06:14 WBC RBC Hgb Hct MCV MCH MCHC RDW Plt Count MPV Immature Gran % (Auto) Neut % (Auto) Lymph % (Auto) [place] % (Auto) Eos % (Auto) Baso % (Auto) Lymph # (Auto) [place] # (Auto) Eos # (Auto) Baso # (Auto) Abs Immat Gran (auto) Absolute Neuts (auto) Absolute Nucleated RBC Nucleated RBC % PT INR APTT Sodium Potassium Chloride Carbon Dioxide Anion Gap BUN Creatinine Estim Creat Clear Calc Estimated GFR Glucose POC Capillary Glucose 99 Hemoglobin A1c Lactic Acid Calcium Total Bilirubin AST ALT Alkaline Phosphatase C-Reactive Protein Total Protein Albumin Urine Color Urine Appearance Urine pH Ur Specific [place] Urine Protein Urine Glucose (UA) Urine Ketones Ur Blood (Man) Urine Nitrate Urine Bilirubin Urine Urobilinogen Add Ur Microanalysis Leukocyte Esterase Rfl Urine RBC Urine WBC Ur Squamous Epith Cells Urine Bacteria Urine Casts Quality VTE Prophylaxis VTE prophylaxis: pharmacologic ordered (Lovenox 40 mg subQ daily.)
[2024-11-15] MEDS: MICONAZOLE NITRATE 2% CREAM 30 GM TUBE 1 APPLIC TOPICAL ×2 (09:07→20:35)
[2024-11-15 09:55] VITALS: O2SAT 95
--- NOTE | 2024-11-15 10:03 | P.CONGS_ITS ---
Assessment and Plan Assessment and plan (1) Abscess, perirectal: Code(s): K61.1 - Rectal abscess Status: Acute Assessment and Plan: * Patient appears to have an infected bladder stimulator with purulent drainage coming from 3 small wounds on the right and left buttocks that tunnel towards the device. CT scan also shows a 4 cm abscess in the left hemipelvis situated between the rectum and the tip of the lead to the stimulator. Continue broad- spectrum IV antibiotics. Will keep her NPO for now. She will need the implanted device removed and the abscess drained, but will discuss the case with Dr. Kemp and Urology to decide on next steps for surgical management. (2) Infection associated with urinary electronic stimulator device: Code(s): T83.590A - Infection and inflammatory reaction due to implanted urinary neurostimulation device, initial encounter Status: Acute Assessment and Plan: * Her implanted device is suspected to be a bladder stimulator. Urology consulted. Dr. Kemp will call and speak with Urology to coordinate care. (3) Type 2 diabetes mellitus with hyperglycemia, without long-term current use of insulin: Code(s): E11.65 - Type 2 diabetes mellitus with hyperglycemia Status: Acute Assessment and Plan: * Uncontrolled diabetic. Hgb A1C 13.8. Management per Hospitalist. Glycemic control will be imperative in the setting of her infection and to promote eventually healing. (4) Dehydration: Code(s): E86.0 - Dehydration Status: Acute Assessment and Plan: * Continue IV fluids, improving, trend labs (5) Candidiasis of perineum: Code(s): B37.49 - Other urogenital candidiasis Status: Acute Assessment and Plan: * Continue antifungal barrier cream and keep area dry. Currently the pure wick seems to be keeping her clean without any urine soiling this area, but may need to consider a catheter if there are issues with urinary incontinence. (6) Decreased functional mobility: Code(s): R26.89 - Other abnormalities of gait and mobility Status: Acute Assessment and Plan: * Decreased mobility d/t primary lateral sclerosis. Patient is able to slowly ambulate with a walker, but is reportedly immobile throughout the day. She spends all day in her recliner or her bed. Plan I have discussed the patient's case and plan of care with Dr. Kemp. History of Present Illness Consult details Consult date: 08/06/25 Reason for consult: other ( Perirectal abscess) Requesting physician: Rylie Tuttle DO Narrative: This is a 73-year-old woman with a history of overactive bladder with bladder stimulator, type 2 DM, significant decreased mobility d/t primary lateral sclerosis, and multiple other medical problems, who was seen in office by Dr. Kemp yesterday as a new patient referred by her PCP for evaluation of a right buttock wound. Patient is a poor historian. She was initially unaware of what device was implanted in her buttock. She was unable to provide any medical history or significant contributing information when asking her details of her history. Therefore, majority of the information is obtained by review of the EMR. She is apparently noticed swelling and drainage for the past 3 weeks. She is typically confined to the bed and spends most of the day in her recliner. She lives with her , who reportedly is her caregiver. When evaluated in the office yesterday, she was directed to the ED for concerns of an acute active infection of the implanted device. In the ED, [place] [address], sodium 128, chloride 94, carbon dioxide 20, anion gap 14, glucose 517, lactic acid 1.4, BUN 26, creatinine 1.27. Hemoglobin A1c 13.8. Chest x-ray negative. CT scan of the abdomen and pelvis showed a rim enhancing fluid collection within the left hemipelvis measuring 4 x 3.5 x 3.6 cm and is position between the rectum and the tip of the lead from the implanted device. There was also induration of the adjacent soft tissue surrounding the transmitter without discrete rim enhancing fluid collection. She was admitted to the hospitalist service. Started on IV Zosyn and Vancomycin. They found that the implanted device is likely a bladder stimulator. Urology has thus been consulted. Review of Systems 2 Review of Systems: All systems reviewed & are unremarkable except as noted in HPI and below PMFSH Past Medical History Medical History Chronic kidney disease, stage 3b With baseline creatinine around 1.5 since 2023 Bilateral inguinal hernia Fat containing Insomnia Primary lateral sclerosis Overactive bladder Hypertension Depression Type 2 diabetes mellitus Hyperlipidemia Surgical History Surgical History Status post cataract extraction of both eyes with insertion of intraocular lens S/P implantation of urinary electronic stimulator device Family History Family History Other Unknown family medical history Social History Social History Social History: Patient has been for 32 years. She has 2 sons. She is a lifelong nonsmoker and does not drink alcohol. She is a retired banker. They have a small terrier at home. Code status: DNR/DNI Surrogate decision maker: Smoking status: Never smoker Alcohol intake: never Substance use: never Lack of Transportation: No Lack of Food: Never True Current Housing: I Have Housing Concerned About Future Housing: No Difficulty Paying Gas/Electric Bills: No Difficulty Paying for Meds: No Currently Unemployed: No Education: High School Diploma/GED Difficulty w/ Childcare or Family Care: No Spiritual care concerns: No Meds Home Medications and Allergies Home Medications ?Medication ?Instructions ?Recorded ?Confirmed ?Type duloxetine 30 mg capsule,delayed 30 mg PO DAILY 07/04/23 11/14/24 History release glimepiride 2 mg tablet 2 - 4 mg PO BID 07/04/23 11/14/24 History irbesartan 150 mg tablet 150 mg PO HS 07/04/23 11/14/24 History oxybutynin chloride 5 mg tablet 5 mg PO HS 07/04/23 11/14/24 History oxybutynin chloride 5 mg tablet 10 mg PO DAILY 07/04/23 11/14/24 History pravastatin 20 mg tablet 20 mg PO HS 07/04/23 11/14/24 History amlodipine 5 mg tablet (Norvasc) 5 mg PO QAM #30 tabs 07/08/23 11/14/24 Rx mirtazapine 15 mg tablet (Remeron) 7.5 mg (1/2 x 15 mg) PO HS #30 tabs 07/08/23 11/14/24 Rx famotidine 40 mg tablet 40 mg PO DAILY 11/14/24 11/14/24 History metformin 500 mg tablet,extended 1,000 mg PO DAILY 11/14/24 11/14/24 History release 24 hr Allergies Allergy/AdvReac Type Severity Reaction Status Date / Time No Known Allergies Allergy Verified 11/14/24 16:00 Vital Signs Vital Signs - 24 hr 11/14/24 15:48 11/14/24 16:00 11/14/24 17:20 Temperature 97.6 F 98.1 F Pulse Rate 86 85 73 Respiratory Rate 14 18 20 Blood Pressure 129/67 118/80 123/64 Pulse Oximetry 100 98 98 Oxygen Delivery Room Air 11/14/24 19:53 11/14/24 21:40 11/14/24 22:49 Temperature 98.1 F Pulse Rate 87 77 84 Respiratory Rate 20 13 20 Blood Pressure 128/94 H 144/66 H 117/57 L Pulse Oximetry 100 99 98 Oxygen Delivery 11/15/24 04:50 11/15/24 09:55 Temperature 97.2 F L Pulse Rate 70 Respiratory Rate 20 Blood Pressure 102/52 L Pulse Oximetry 94 95 Oxygen Delivery Room Air Exam 2 Const: General: no acute distress and ill appearing chronically Nutritional Appearance: average body habitus Orientation/consciousness: patient oriented x3 HENMT: Head: normocephalic and atraumatic Ears: hearing grossly normal bilaterally Eyes: General: appearance normal, both eyes and all related structures P upils: Equal, round and reactive pupils present Neck: Neck: normal visual inspection and full ROM Resp: Effort & Inspection: no respiratory distress Auscultation: clear to auscultation bilaterally Cardio: Rate: regular rate Rhythm: regular rhythm Heart sounds: S1 normal heart sound present and S2 normal heart sound present GI: Inspection: non-distended GI Palp: Yes Soft to palpation, No Tenderness to palpation present (GI), No Guarding due to palpation present (GI), Yes No hepatosplenomegaly present and No Rebound tenderness present Auscultation: n ormal bowel sounds Back/Spine/Pelvis: Back/spine/pelvis image: 1. Small 0.5 x 0.5 cm wound that initially appears dry with a hazel soft eschar, upon probing this immediately drained thick yellow/hazel purulent drainage and tunneled about 9 cm medially towards the other wounds 2. Wounds 2 and 3 are small circular ope n wounds with surrounding erythema and a skin bridge between the two that is fluctuant and thin, when probed coming from wound #3 it tunnels to the wound #2 and medially towards the implanted device. These wounds have erythema and induration around them and are very tender with purulent drainage coming from both openings. 3. Skin: Other: Severe erythema and maceration of her bilateral groin and labia majora, with appearance consistent with nmoi dermatitis Neuro: General: moves all extremities (weak but moves extremities equal bilaterally) and no focal motor deficits Speech: Other speech findings present (Neuro) (slightly delayed but normal) Gait exam (Neuro): Unable to assess gait Extrem: General: pedal edema bilaterally (with small scabs noted to bilateral dorsal feet) non-pitting and 1+ Psych: Insight: Fair insight present (Psych) Judgement: Fair judgement present (Psych) Results Labs 11/15/24 04:24 11/15/24 04:24 Labs: Abnormal lab results 11/14/24 11/14/24 11/14/24 Range/Units 16:13 17:23 20:56 WBC 11.6 H (4.5-10.0) K/mm3 RBC (4.2-5.4) M/mm3 Hgb (12.0-15.0) g/dL MCHC (32-36) g/dl MPV 12.6 H (7.4-10.4) fl Neut % (Auto) 84.1 H (45.5-73.1) % Lymph % (Auto) 9.5 L (18.3-44.2) % [place] # (Auto) (0.1-0.6) K/mm3 Abs Immat Gran (auto) 0.06 H (0.00-0.031) K/mm3 Absolute Neuts (auto) 9.7 H (1.3-6.7) K/mm3 Sodium 128 L (137-145) mmol/L Chloride 94 L (98-107) mmol/L Carbon Dioxide 20 L (22-30) mmol/L Anion Gap 14 H (4-12) mmol/L BUN 26 H (7-17) mg/dL Creatinine 1.27 H (0.7-1.0) mg/dL Estimated GFR 41 L (59 - ) Glucose 517 H* (65-110) mg/dL POC Capillary Glucose 320 H (65-105) mg/dl Hemoglobin A1c (<5.7) % Calcium 11.1 H (8.4-10.2) mg/dL Alkaline Phosphatase 140 H (38-126) U/L C-Reactive Protein (<1.0) mg/dL Total Protein 8.5 H (6.3-8.2) g/dL Urine Appearance Cloudy H (Clear) Ur Specific [place] 1.037 H (1.001-1.035) Urine Glucose (UA) 3+ H (Negative) mg/dL Urine Ketones Trace H (Negative) mg/dL Urine WBC 6-10 H (0-3) /hpf Urine Bacteria 4+ H /hpf 11/14/24 11/14/24 11/15/24 Range/Units 21:45 22:46 04:24 WBC 11.9 H (4.5-10.0) K/mm3 RBC 3.97 L (4.2-5.4) M/mm3 Hgb 11.5 L D (12.0-15.0) g/dL MCHC 30.9 L (32-36) g/dl MPV 12.9 H (7.4-10.4) fl Neut % (Auto) (45.5-73.1) % Lymph % (Auto) 17.9 L (18.3-44.2) % [place] # (Auto) 0.9 H (0.1-0.6) K/mm3 Abs Immat Gran (auto) 0.04 H (0.00-0.031) K/mm3 Absolute Neuts (auto) 8.6 H (1.3-6.7) K/mm3 Sodium 135 L (137-145) mmol/L Chloride (98-107) mmol/L Carbon Dioxide (22-30) mmol/L Anion Gap (4-12) mmol/L BUN 20 H (7-17) mg/dL Creatinine 1.18 H (0.7-1.0) mg/dL Estimated GFR 45 L (59 - ) Glucose 127 H (65-110) mg/dL POC Capillary Glucose 331 H 290 H (65-105) mg/dl Hemoglobin A1c 13.8 H (<5.7) % Calcium (8.4-10.2) mg/dL Alkaline Phosphatase (38-126) U/L C-Reactive Protein 4.6 H (<1.0) mg/dL Total Protein (6.3-8.2) g/dL Urine Appearance (Clear) Ur Specific [place] (1.001-1.035) Urine Glucose (UA) (Negative) mg/dL Urine Ketones (Negative) mg/dL Urine WBC (0-3) /hpf Urine Bacteria /hpf Diabetes panel 11/14/24 11/15/24 Range/Units 16:13 04:24 Sodium 128 L 135 L (137-145) mmol/L Potassium 4.3 3.5 (3.4-5.0) mmol/L Chloride 94 L 105 (98-107) mmol/L Carbon Dioxide 20 L 24 (22-30) mmol/L BUN 26 H 20 H (7-17) mg/dL Creatinine 1.27 H 1.18 H (0.7-1.0) mg/dL Glucose 517 H* 127 H (65-110) mg/dL Hemoglobin A1c 13.8 H (<5.7) % Calcium 11.1 H 9.7 (8.4-10.2) mg/dL AST 24 (14-36) U/L ALT 17 (6-35) U/L Alkaline Phosphatase 140 H (38-126) U/L Total Protein 8.5 H (6.3-8.2) g/dL Albumin 4.1 (3.5-5.1) g/dL Calcium panel 11/14/24 11/15/24 Range/Units 16:13 04:24 Calcium 11.1 H 9.7 (8.4-10.2) mg/dL Albumin 4.1 (3.5-5.1) g/dL Pituitary panel 11/14/24 11/15/24 Range/Units 16:13 04:24 Sodium 128 L 135 L (137-145) mmol/L Potassium 4.3 3.5 (3.4-5.0) mmol/L Chloride 94 L 105 (98-107) mmol/L Carbon Dioxide 20 L 24 (22-30) mmol/L BUN 26 H 20 H (7-17) mg/dL Creatinine 1.27 H 1.18 H (0.7-1.0) mg/dL Glucose 517 H* 127 H (65-110) mg/dL Calcium 11.1 H 9.7 (8.4-10.2) mg/dL Adrenal panel 11/14/24 11/15/24 Range/Units 16:13 04:24 Sodium 128 L 135 L (137-145) mmol/L Potassium 4.3 3.5 (3.4-5.0) mmol/L Chloride 94 L 105 (98-107) mmol/L Carbon Dioxide 20 L 24 (22-30) mmol/L BUN 26 H 20 H (7-17) mg/dL Creatinine 1.27 H 1.18 H (0.7-1.0) mg/dL Glucose 517 H* 127 H (65-110) mg/dL Calcium 11.1 H 9.7 (8.4-10.2) mg/dL Total Bilirubin 0.6 (0.2-1.3) mg/dL AST 24 (14-36) U/L ALT 17 (6-35) U/L Alkaline Phosphatase 140 H (38-126) U/L Total Protein 8.5 H (6.3-8.2) g/dL Albumin 4.1 (3.5-5.1) g/dL All other labs normal. Imaging Additional studies: ITS Impressions Chest X-Ray 11/14/24 16:42 IMPRESSION: No focal infiltrate or effusion. Abdomen/Pelvis CT 11/14/24 18:20 IMPRESSION: Rim-enhancing fluid collection within the left hemipelvis, likely related to the stimulator device within the soft tissues of the right buttock, as detailed above.
--- NOTE | 2024-11-15 13:38 | WPDURCON ---
Assessment and Plan Assessment and plan (1) Abscess, perirectal: Code(s): K61.1 - Rectal abscess Status: Acute Plan 73 year old frail lady with history of implanted InterStim in 2013. She was last seen in our office in 2015. She appears to have an infected InterStim device with associated perirectal 4 cm abscess case discussed with Dr. Kemp and Dr. Dillard. -- Continue broad-spectrum antibiotics -- Discuss with Interventional Radiology, percutaneous drainage of abscess will be performed today. will subsequently move forward with InterStim explant, tentatively scheduled for 11/17/2024. Urology Consult Note HPI Date Seen: 11/15/24 Requesting Physician: Rylie Tuttle DO Primary Care Provider: Yoav Msoley MD Consult Narrative Narrative: This is a 73-year-old woman with a history of overactive bladder with Interstim placed in 2013. She has type 2 DM, significant decreased mobility d/t primary lateral sclerosis, and multiple other medical problems, who was seen in office by Dr. Kemp yesterday as a new patient referred by her PCP for evaluation of a right buttock wound. Patient is a poor historian. Patient sent to ER for evaluation from the clinic. CT scan of the abdomen and pelvis showed a rim enhancing fluid collection within the left hemipelvis measuring 4 x 3.5 x 3.6 cm and is position between the rectum and the tip of the lead from the implanted device. There was also induration of the adjacent soft tissue surrounding the transmitter without discrete rim enhancing fluid collection. She was admitted to the hospitalist service. Started on IV Zosyn and Vancomycin. [facility] Past Medical History Medical History Chronic kidney disease, stage 3b With baseline creatinine around 1.5 since 2023 Bilateral inguinal hernia Fat containing Insomnia Primary lateral sclerosis Overactive bladder Hypertension Depression Type 2 diabetes mellitus Hyperlipidemia Surgical History Surgical History Status post cataract extraction of both eyes with insertion of intraocular lens S/P implantation of urinary electronic stimulator device Family History Family History Other Unknown family medical history Social History Social History Social History: Patient has been for 32 years. She has 2 sons. She is a lifelong nonsmoker and does not drink alcohol. She is a retired banker. They have a small terrier at home. Code status: DNR/DNI Surrogate decision maker: Smoking status: Never smoker Alcohol intake: never Substance use: never Lack of Transportation: No Lack of Food: Never True Current Housing: I Have Housing Concerned About Future Housing: No Difficulty Paying Gas/Electric Bills: No Difficulty Paying for Meds: No Currently Unemployed: No Education: High School Diploma/GED Difficulty w/ Childcare or Family Care: No Spiritual care concerns: No Meds Home Medications and Allergies Home Medications ?Medication ?Instructions ?Recorded ?Confirmed ?Type duloxetine 30 mg capsule,delayed 30 mg PO DAILY 07/04/23 11/14/24 History release glimepiride 2 mg tablet 2 - 4 mg PO BID 07/04/23 11/14/24 History irbesartan 150 mg tablet 150 mg PO HS 07/04/23 11/14/24 History oxybutynin chloride 5 mg tablet 5 mg PO HS 07/04/23 11/14/24 History oxybutynin chloride 5 mg tablet 10 mg PO DAILY 07/04/23 11/14/24 History pravastatin 20 mg tablet 20 mg PO HS 07/04/23 11/14/24 History amlodipine 5 mg tablet (Norvasc) 5 mg PO QAM #30 tabs 07/08/23 11/14/24 Rx mirtazapine 15 mg tablet (Remeron) 7.5 mg (1/2 x 15 mg) PO HS #30 tabs 07/08/23 11/14/24 Rx famotidine 40 mg tablet 40 mg PO DAILY 11/14/24 11/14/24 History metformin 500 mg tablet,extended 1,000 mg PO DAILY 11/14/24 11/14/24 History release 24 hr Allergies Allergy/AdvReac Type Severity Reaction Status Date / Time No Known Allergies Allergy Verified 11/14/24 16:00 Vital Signs Vital Signs - 24 hr 11/14/24 15:48 11/14/24 16:00 11/14/24 17:20 Temperature 36.4 C 36.7 C Pulse Rate 86 85 73 Respiratory Rate 14 18 20 Blood Pressure 129/67 118/80 123/64 Pulse Oximetry 100 98 98 Oxygen Delivery Room Air 11/14/24 19:53 11/14/24 21:40 11/14/24 22:49 Temperature 36.7 C Pulse Rate 87 77 84 Respiratory Rate 20 13 20 Blood Pressure 128/94 H 144/66 H 117/57 L Pulse Oximetry 100 99 98 Oxygen Delivery 11/15/24 04:50 11/15/24 09:55 Temperature 36.2 C L Pulse Rate 70 Respiratory Rate 20 Blood Pressure 102/52 L Pulse Oximetry 94 95 Oxygen Delivery Room Air Exam Narrative: patient is awake and alert. She has in no acute distress. Her breathing is unlabored. Abdomen soft nontender nondistended. There are 2 open wounds in the low back corresponding to areas on CT scan at area of InterStim battery and lead are Results Labs 11/15/24 04:24 11/15/24 04:24 Labs: Short CBC 11/14/24 11/15/24 Range/Units 16:13 04:24 WBC 11.6 H 11.9 H (4.5-10.0) K/mm3 Hgb 14.7 11.5 L D (12.0-15.0) g/dL Hct 45.3 37.2 (37.0-47.0) % Plt Count 321 283 (150-375) k/mm3 BMP 11/14/24 11/15/24 16:13 04:24 Sodium 128 L 135 L Potassium 4.3 3.5 Chloride 94 L 105 Carbon Dioxide 20 L 24 BUN 26 H 20 H Creatinine 1.27 H 1.18 H Glucose 517 H* 127 H Calcium 11.1 H 9.7 Liver Function 11/14/24 Range/Units 16:13 Total Bilirubin 0.6 (0.2-1.3) mg/dL AST 24 (14-36) U/L ALT 17 (6-35) U/L Alkaline Phosphatase 140 H (38-126) U/L Albumin 4.1 (3.5-5.1) g/dL Urine 11/14/24 Range/Units 17:23 Urine Color Yellow (Yellow) Urine Appearance Cloudy H (Clear) Urine pH 5.5 (5.0-9.0) Ur Specific [place] 1.037 H (1.001-1.035) Urine Protein Negative (Negative) mg/dL Urine Glucose (UA) 3+ H (Negative) mg/dL
[2024-11-15 14:00] VITALS: BP 127/71; PULSE 94; RESP 17; TEMP 36.4; O2SAT 98
[2024-11-15] MEDS: MORPHINE SULFATE (*CRX) 2 MG/ML INJ IV PUSH ×2 (14:04→20:36)
--- NOTE | 2024-11-15 14:38 | PC.NURSE ---
Pt taken to CT for guided drain placement with sedation. Pt unable to answer questions. tissue recovery technician came to floor to seek assistance from floor staff RE: Consent. recently left hospital while she was gone to the procedure for couple of hours. Attempt to call , no answer. Attempted to call son, Jayjay, also no answer. Procedure held for now.
--- NOTE | 2024-11-15 15:25 | PC.NURSE ---
Notified Peggy Hanley that radiology unable to perform drain placement d/t patient can't answer orientation questions & also unable to reach or son by phone to obtain consent.
--- NOTE | 2024-11-15 15:39 | PC.NURSE ---
Reached son Daniel by phone. He will drive to his father's house to ask him to call the hospital in order to provide consent for patient procedure, as she is unable to give consent.
[2024-11-15 16:00] VITALS: BP 128/68; PULSE 94; RESP 17; TEMP 36.4; O2SAT 98
--- NOTE | 2024-11-15 16:25 | PC.NURSE ---
Per Rosie Hanley, scottay to hold Lovenox for today in anticipation of invasive procedure tomorrow morning.
--- NOTE | 2024-11-15 16:26 | PC.NURSE ---
Notified CT department that patient's family was finally reached after at least 10 phone calls to obtain consent for the CT guided abscess catheter placement left pelvis by Dr Young. Son, Jarett, listed in the chart states he will bring POA paperwork & he also gave consent for the procedure as patient's was unable to be reached by his home telephone & he wasn't home when the son drove there to have him call the hospital. states they can do the procedure tomorrow at 0900.
[2024-11-15] MEDS: INSULIN GLARGINE (*BKC) 100 UNITS/ML 11 UNITS SUB-Q (20:35)
[2024-11-15] MEDS: IRBESARTAN 150 MG TABLET PO (20:35)
[2024-11-15] MEDS: MIRTAZAPINE 7.5 MG TABLET PO (20:35)
[2024-11-15 21:15] VITALS: BP 133/55; PULSE 102; RESP 10; TEMP 36.8; O2SAT 97
[2024-11-15] MEDS: [UNRECOGNIZED DRUG - OTHER] XX (22:03)
[2024-11-15] MEDS: MICONAZOLE XX (22:03)
[2024-11-16] VITALS (18 sets, daily range): BP systolic 108–171; BP diastolic 53–115; PULSE 83–111; RESP 11–18; TEMP 36.5–36.9; O2SAT 94–100
[2024-11-16] MEDS: INSULIN ASPART (*BKC) 100 UNITS/ML SUB-Q ×3 (00:13→17:29)
[2024-11-16] MEDS: PIPERACILLIN/TAZOBACTAM SOD 2.25 GM in SODIUM CHLORIDE 0.9% IV 50 ML 100 ML IVPB ×4 (02:25→20:25)
[2024-11-16 05:45] LABS: Estimated CRCL calculation 30 ml/min; Estimated Glomerular Filt Rate 39
--- NOTE | 2024-11-16 06:49 | P.PNUR_ITS ---
Progress Note: A&P Assessment and Plan (1) Infection associated with urinary electronic stimulator device: Code(s): T83.590A - Infection and inflammatory reaction due to implanted urinary neurostimulation device, initial encounter Status: Acute (2) Abscess, perirectal: Code(s): K61.1 - Rectal abscess Status: Acute Assessment and Plan: See plan above (3) Urinary tract infection: Code(s): N39.0 - Urinary tract infection, site not specified Status: Acute Assessment and Plan: * Placement pelvic drain deferred until today d/t radiology scheduling. * Removal infected InterStim tomorrow Time Spent With Patient Time with patient: 25 - 35 minutes Subjective Subjective Date/Time Seen: 11/16/24 06:49 Interval history: Seems confused - ? baseline. Comfortable, no complaints Review of Systems Review of Systems: ROS unobtainable: Yes unobtainable due to mental status Exam Const: General: no acute distress Resp: Effort & Inspection: normal respiratory effort GI: Inspection: non-distended GI Palp: No abdominal tenderness and No Guarding due to palpation present (GI) Auscultation: normal bowel sounds Objective Data Vital Signs Vital Signs: Vital Signs - 24 hr 11/15/24 08:00 11/15/24 09:55 11/15/24 14:00 Temperature 97.6 F Pulse Rate 94 Respiratory Rate 17 Blood Pressure 127/71 Pulse Oximetry 95 98 Oxygen Delivery Room Air Room Air 11/15/24 16:00 11/15/24 20:30 11/15/24 21:15 Temperature 97.6 F 98.2 F Pulse Rate 94 102 H Respiratory Rate 17 10 L Blood Pressure 128/68 133/55 L Pulse Oximetry 98 97 Oxygen Delivery Room Air 11/16/24 05:00 Temperature 98.4 F Pulse Rate 95 Respiratory Rate 16 Blood Pressure 108/97 H Pulse Oximetry 100 Oxygen Delivery Intake/Output Intake/Output: Intake & Output 11/13/24 11/14/24 11/15/24 11/16/24 23:59 23:59 23:59 23:59 Intake Total 50 820 Output Total 250 250 200 Balance -200 570 -200 Meds/Results Medications: Active Medications Generic Name Dose Route Start Last Admin Trade Name Freq PRN Reason Stop Dose Admin Acetaminophen 500 mg 11/14/24 22:47 Acetaminophen 500 Mg Tablet PO Q4H PRN Mild Pain (1-3) or Fever Hydrocodone Bitart/Acetaminophen 1 tab 11/14/24 22:47 11/14/24 22:57 Hydrocodone/Acetaminophen (*Crx) 5-325 Mg Tablet PO 1 tab Q6H PRN Administration Pain Rated 4-10 Amlodipine Besylate 5 mg 11/15/24 09:00 11/15/24 16:08 Amlodipine Besylate 5 Mg Tablet PO Not Given QAM [facility] Dextrose 12.5 gm 11/14/24 21:03 Dextrose 50% 25 Gm/50 Ml Syringe IV PUSH PRN PRN Hypoglycemia Protocol Duloxetine HCl 30 mg 11/15/24 09:00 11/15/24 16:08 Duloxetine Hcl 30 Mg Capsule.Dr PO Not Given DAILY [facility] Enoxaparin Sodium 40 mg 11/15/24 09:00 11/15/24 16:34 Enoxaparin 40 Mg/0.4 Ml Syringe SUB-Q Not Given DAILY [facility] Famotidine 40 mg 11/15/24 09:00 11/15/24 16:09 Famotidine 20 Mg Tablet PO Not Given DAILY [facility] Fluconazole 100 mg 11/15/24 09:00 11/15/24 16:09 Fluconazole 100 Mg Tablet PO Not Given QAM [facility] Glucagon 1 mg 11/14/24 21:03 Glucagon For Inj 1 Mg Vial IM PRN PRN Hypoglycemia Protocol Glucose 15 gm 11/14/24 21:03 Glucose Oral Gel 15 Gm Of Glucse In 37.5 Gm Tube PO PRN PRN Hypoglycemia Protocol Piperacillin Sod/Tazobactam 50 mls @ 100 mls/hr 11/15/24 02:00 11/16/24 02:25 Sod 2.25 gm/ Sodium Chloride IVPB 100 mls/hr Q6H [facility] Administration Dextrose 1,000 mls @ 100 mls/hr 11/14/24 21:03 Dextrose 5% 1,000 Ml IVPB PRN PRN Hypoglycemia Protocol Vancomycin HCl 1,250 mg in 250 mls @ 166.667 mls/hr 11/16/24 09:00 Vancomycin 1,250 Mg/Ns 250 Ml IVPB Q36H [facility] Insulin Aspart 4 - 8 units 11/15/24 00:00 11/16/24 06:32 Insulin Aspart (*Bkc) 100 Units/Ml SUB-Q 4 units Q6HR [facility] Administration Protocol Insulin Glargine 11 units 11/15/24 21:00 11/15/24 20:35 Insulin Glargine (*Bkc) 100 Units/Ml 0.15 units/kg (11 units) 11 units SUB-Q Administration HS [facility] Irbesartan 150 mg 11/15/24 21:00 11/15/24 20:35 Irbesartan 150 Mg Tablet PO 150 mg HS [facility] Administration Miconazole Nitrate 1 applic 11/15/24 09:00 11/15/24 20:35 Miconazole Nitrate 2% Cream 30 Gm Tube TOPICAL 1 applic Q12HR [facility] Administration Mirtazapine 7.5 mg 11/15/24 21:00 11/15/24 20:35 Mirtazapine 7.5 Mg Tablet PO 7.5 mg HS [facility] Administration Miscellaneous Information 0 each 11/14/24 22:00 11/15/24 22:03 Miconazole Cream- Please Indicate Application Site: XX 12/14/24 21:59 1 each CLARIFY [facility] Administration Morphine Sulfate 2 mg 11/14/24 22:47 11/15/24 20:36 Morphine Sulfate (*Crx) 2 Mg/Ml Inj IV PUSH 2 mg Q4H PRN Administration Breakthrough Pain Oxybutynin Chloride 5 mg 11/15/24 00:20 11/15/24 20:35 Oxybutynin Chloride 5 Mg Tablet PO 5 mg HS [facility] Administration Oxybutynin Chloride 10 mg 11/15/24 09:00 11/15/24 16:09 Oxybutynin Chloride 5 Mg Tablet PO Not Given DAILY [facility] Radiology Results: ITS Impressions Chest X-Ray 11/14/24 16:42 IMPRESSION: No focal infiltrate or effusion. Abdomen/Pelvis CT 11/14/24 18:20 IMPRESSION: Rim-enhancing fluid collection within the left hemipelvis, likely related to the stimulator device within the soft tissues of the right buttock, as detailed above. Labs Labs: Laboratory Results - last 24 hr 11/15/24 11/15/24 11/16/24 12:03 16:51 00:00 Creatinine Estim Creat Clear Calc Estimated GFR POC Capillary Glucose 177 H 214 H 278 H 11/16/24 11/16/24 04:32 05:59 Creatinine 1.34 H Estim Creat Clear Calc 30 Estimated GFR 39 L POC Capillary Glucose 208 H
--- NOTE | 2024-11-16 07:10 | P.PNIM_ITS ---
Progress Note: A&P Assessment and Plan (1) Infection associated with urinary electronic stimulator device: Code(s): T83.590A - Infection and inflammatory reaction due to implanted urinary neurostimulation device, initial encounter Status: Acute Assessment and Plan: Is unclear if the patient's infection started with a perirectal abscess that then tunneled out along the guidewire of the bladder stimulator in subsequently opening subcutaneously in the right buttock or if the patient may have developed a decubitus ulcer in the right buttock that then tunneled downward and infected the hardware subsequently creating a perirectal abscess. Blood cultures pending Wound cultures: preliminary gram stain - mod wbc with many gram positive cocci and few gram negative rods Antibiotics: Zosyn and vancomycin started on 11/14 CT abdomen/pelvis: Rim-enhancing fluid collection within the left hemipelvis, likely related to the stimulator device within the soft tissues of the right buttock General surgery consulted Removal of bladder stimulator, will need wound debridement/drainage, cont local wound care and abx for now, may also need perc drainage Urology consulted Continue broad-spectrum antibiotics S/p drain placement per IR on 11/16 InterStim explant, scheduled for 11/17/2024. (2) Abscess, perirectal: Code(s): K61.1 - Rectal abscess Status: Acute Assessment and Plan: See plan above (3) Urinary tract infection: Code(s): N39.0 - Urinary tract infection, site not specified Status: Acute Assessment and Plan: - UA: cloudy appearance with elevated specific gravity, 3+ glucose, trace ketones, negative nitrates, negative leukocytes, 6-10 WBC, 4+ bacteria and no squamous cells. - UC obtained on 11/14: pending - previous micro reviewed klebsiella oxytoca 07/04/23 resistant to keflex - started on zosyn and vancomycin for cocurrent abscess (4) Candidiasis of perineum: Code(s): B37.49 - Other urogenital candidiasis Status: Acute Assessment and Plan: Continue fluconazole 100 mg daily, started on 11/15 Continue antifungal barrier cream and keep area dry (5) Pseudohyponatremia: Code(s): R79.89 - Other specified abnormal findings of blood chemistry Status: Acute Assessment and Plan: Patient with pseudo hyponatremia due to hyperglycemia on admission. Patient does also appear to be dehydrated/intervascular volume depleted given that she has ketones in her urine elevated specific gravity and hypercalcemia. This may be playing a component in the patient's hyponatremia as well. Resolved. (6) Type 2 diabetes mellitus with hyperglycemia, without long-term current use of insulin: Code(s): E11.65 - Type 2 diabetes mellitus with hyperglycemia Status: Acute Assessment and Plan: The patient was markedly hyperglycemic on admission with history of diabetes not on insulin at home. Patient's glucoses decreased from the 500s down to 300 with IV fluid hydration. - hypoglycemia protocol - POC blood glucose ACHS - home medication - metformin 1000 mg daily, glimepiride 2-4 mg BID - correct regimen ordered - high dose SSI - A1C 13.8 Random glucose elevated at 517 on admission. Remains elevated on am labs and POC glucose despite started low dose lantus 11 units. Increased lantus to 14 units. Prior to discharge patient will require diabetes education given new insulin requirement (7) Hypertension: Code(s): I10 - Essential (primary) hypertension Status: Acute Assessment and Plan: Chronic, continue home medication - irbesartan 150 mg daily - amlodipine 5 mg daily - blood pressure stable, continue to monitor Time Spent With Patient Time with patient: 25 - 35 minutes Subjective Date/time seen: 11/16/24 07:10 Interval history: 73-year-old female with a past medical medical history of depression, essential hypertension, overactive bladder with bladder stimulator, type 2 diabetes mellitus, chronic kidney disease stage 3 and 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 Patient is pleasant lying comfortably in bed. Upon assessment patient had just returned to her room following drain placement. She endorsed slight tenderness/discomfort in relation to the drain insertion side and the wounds to the right buttock. She had no other complaints denying chest pain, palpitations, shortness of breath, nausea/vomiting and abdominal pain. Review of Systems Review of Systems: All systems reviewed & are unremarkable except as noted in HPI and below Exam Narrative: AF HR 108 RR 17 Spo2 99 BP 161/83 General: female in no acute respiratory distress who is nontoxic appearing, lying semi recumbent in bed. HEENT: Normocephalic. Atraumatic. Extraocular movement intact. Sclera clear and anicteric. No facial asymmetry. Chest: Lungs are clear to auscultation bilaterally. No wheezes or crackles. CV: Heart was regular rate and rhythm. Abd: Abdomen was soft. Nontender. Nondistended. Positive bowel sounds. Ext: No clubbing, cyanosis, or edema. DP pulses bilaterally. Neuro: Patient is alert. Speech is clear. Skin: Small wound with slight purulent drainage to the left upper buttock and two small wounds to the right upper buttock with erythema surrounding and purulent drainage. Drain placed to left buttock region, slight bloody drainage. Objective Data Vital Signs Vital Signs: Vital Signs - 24 hr 11/15/24 08:00 11/15/24 09:55 11/15/24 14:00 Temperature 97.6 F Pulse Rate 94 Respiratory Rate 17 Blood Pressure 127/71 Pulse Oximetry 95 98 Oxygen Delivery Room Air Room Air 11/15/24 16:00 11/15/24 20:30 11/15/24 21:15 Temperature 97.6 F 98.2 F Pulse Rate 94 102 H Respiratory Rate 17 10 L Blood Pressure 128/68 133/55 L Pulse Oximetry 98 97 Oxygen Delivery Room Air 11/16/24 05:00 Temperature 98.4 F Pulse Rate 95 Respiratory Rate 16 Blood Pressure 108/97 H Pulse Oximetry 100 Oxygen Delivery Intake/Output Intake/Output: Intake & Output 11/13/24 11/14/24 11/15/24 11/16/24 23:59 23:59 23:59 23:59 Intake Total 50 820 Output Total 250 250 200 Balance -200 570 -200 Meds/Results Medications: Active Medications Generic Name Dose Route Start Last Admin Trade Name Freq PRN Reason Stop Dose Admin Acetaminophen 500 mg 11/14/24 22:47 Acetaminophen 500 Mg Tablet PO Q4H PRN Mild Pain (1-3) or Fever Hydrocodone Bitart/Acetaminophen 1 tab 11/14/24 22:47 11/14/24 22:57 Hydrocodone/Acetaminophen (*Crx) 5-325 Mg Tablet PO 1 tab Q6H PRN Administration Pain Rated 4-10 Amlodipine Besylate 5 mg 11/15/24 09:00 11/15/24 16:08 Amlodipine Besylate 5 Mg Tablet PO Not Given QAM [facility] Dextrose 12.5 gm 11/14/24 21:03 Dextrose 50% 25 Gm/50 Ml Syringe IV PUSH PRN PRN Hypoglycemia Protocol Duloxetine HCl 30 mg 11/15/24 09:00 11/15/24 16:08 Duloxetine Hcl 30 Mg Capsule.Dr PO Not Given DAILY [facility] Enoxaparin Sodium 40 mg 11/15/24 09:00 11/15/24 16:34 Enoxaparin 40 Mg/0.4 Ml Syringe SUB-Q Not Given DAILY [facility] Famotidine 40 mg 11/15/24 09:00 11/15/24 16:09 Famotidine 20 Mg Tablet PO Not Given DAILY [facility] Fluconazole 100 mg 11/15/24 09:00 11/15/24 16:09 Fluconazole 100 Mg Tablet PO Not Given QAM [facility] Glucagon 1 mg 11/14/24 21:03 Glucagon For Inj 1 Mg Vial IM PRN PRN Hypoglycemia Protocol Glucose 15 gm 11/14/24 21:03 Glucose Oral Gel 15 Gm Of Glucse In 37.5 Gm Tube PO PRN PRN Hypoglycemia Protocol Piperacillin Sod/Tazobactam 50 mls @ 100 mls/hr 11/15/24 02:00 11/16/24 02:25 Sod 2.25 gm/ Sodium Chloride IVPB 100 mls/hr Q6H [facility] Administration Dextrose 1,000 mls @ 100 mls/hr 11/14/24 21:03 Dextrose 5% 1,000 Ml IVPB PRN PRN Hypoglycemia Protocol Vancomycin HCl 1,250 mg in 250 mls @ 166.667 mls/hr 11/16/24 09:00 Vancomycin 1,250 Mg/Ns 250 Ml IVPB Q36H [facility] Insulin Aspart 4 - 8 units 11/15/24 00:00 11/16/24 06:32 Insulin Aspart (*Bkc) 100 Units/Ml SUB-Q 4 units Q6HR [facility] Administration Protocol Insulin Glargine 11 units 11/15/24 21:00 11/15/24 20:35 Insulin Glargine (*Bkc) 100 Units/Ml 0.15 units/kg (11 units) 11 units SUB-Q Administration HS [facility] Irbesartan 150 mg 11/15/24 21:00 11/15/24 20:35 Irbesartan 150 Mg Tablet PO 150 mg HS [facility] Administration Miconazole Nitrate 1 applic 11/15/24 09:00 11/15/24 20:35 Miconazole Nitrate 2% Cream 30 Gm Tube TOPICAL 1 applic Q12HR [facility] Administration Mirtazapine 7.5 mg 11/15/24 21:00 11/15/24 20:35 Mirtazapine 7.5 Mg Tablet PO 7.5 mg HS [facility] Administration Miscellaneous Information 0 each 11/14/24 22:00 11/15/24 22:03 Miconazole Cream- Please Indicate Application Site: XX 12/14/24 21:59 1 each CLARIFY [facility] Administration Morphine Sulfate 2 mg 11/14/24 22:47 11/15/24 20:36 Morphine Sulfate (*Crx) 2 Mg/Ml Inj IV PUSH 2 mg Q4H PRN Administration Breakthrough Pain Oxybutynin Chloride 5 mg 11/15/24 00:20 11/15/24 20:35 Oxybutynin Chloride 5 Mg Tablet PO 5 mg HS [facility] Administration Oxybutynin Chloride 10 mg 11/15/24 09:00 11/15/24 16:09 Oxybutynin Chloride 5 Mg Tablet PO Not Given DAILY [facility] Radiology Results: ITS Impressions Chest X-Ray 11/14/24 16:42 IMPRESSION: No focal infiltrate or effusion. Abdomen/Pelvis CT 11/14/24 18:20 IMPRESSION: Rim-enhancing fluid collection within the left hemipelvis, likely related to the stimulator device within the soft tissues of the right buttock, as detailed above. Labs Labs: Laboratory Results - last 24 hr 11/15/24 11/15/24 11/16/24 12:03 16:51 00:00 Creatinine Estim Creat Clear Calc Estimated GFR POC Capillary Glucose 177 H 214 H 278 H 11/16/24 11/16/24 04:32 05:59 Creatinine 1.34 H Estim Creat Clear Calc 30 Estimated GFR 39 L POC Capillary Glucose 208 H Quality VTE Prophylaxis VTE prophylaxis: pharmacologic ordered (Lovenox 40 mg subQ daily.)
[2024-11-16 07:40] LABS: Hematocrit 38.4 % (37.0-47.0); Hemoglobin 12.1 g/dL (12.0-15.0); Mean Corpuscular HGB Conc 31.5 g/dl (32-36); Mean Corpuscular Hemoglobin 29.2 pg (26-34); Mean Corpuscular Volume 92.5 fl (80-100); Platelet Count Result 270 k/mm3 (150-375); Red Blood Count 4.15 M/mm3 (4.2-5.4); White Blood Count 11.7 K/mm3 (4.5-10.0)
[2024-11-16 07:43] LABS: Alanine Aminotransferase 14 U/L (6-35); Albumin Level 3.0 g/dL (3.5-5.1); Alkaline Phosphatase 98 U/L (38-126); Anion Gap 9 mmol/L (4-12); Aspartate Amino Transferase 24 U/L (14-36); Bilirubin,Total 0.3 mg/dL (0.2-1.3); Blood Urea Nitrogen 16 mg/dL (7-17); Calcium 9.6 mg/dL (8.4-10.2); Carbon Dioxide 20 mmol/L (22-30); Chloride 107 mmol/L (98-107); Glucose 205 mg/dL (65-110); Potassium 3.3 mmol/L (3.4-5.0); Sodium 136 mmol/L (137-145); Total Protein 6.4 g/dL (6.3-8.2)
[2024-11-16] MEDS: FLUCONAZOLE 100 MG TABLET PO (08:51)
[2024-11-16] MEDS: FAMOTIDINE 20 MG TABLET 40 MG PO (08:51)
[2024-11-16] MEDS: ENOXAPARIN 40 MG/0.4 ML SYRINGE SUB-Q (08:52)
[2024-11-16] MEDS: MICONAZOLE NITRATE 2% CREAM 30 GM TUBE 1 APPLIC TOPICAL ×2 (08:55→20:25)
--- NOTE | 2024-11-16 09:48 | WPDMODSED ---
Moderate Sedation Note-Pt Data Patient Data Diagnosis: pelvic abscess Present Complaint: pelvic abscess Procedure to be performed/Plan: percutaneous abscess drain placement Allergies Allergy/AdvReac Type Severity Reaction Status Date / Time No Known Allergies Allergy Verified 11/14/24 16:00 Home Medications ?Medication ?Instructions ?Recorded ?Confirmed ?Type duloxetine 30 mg capsule,delayed 30 mg PO DAILY 07/04/23 11/14/24 History release glimepiride 2 mg tablet 2 - 4 mg PO BID 07/04/23 11/14/24 History irbesartan 150 mg tablet 150 mg PO HS 07/04/23 11/14/24 History oxybutynin chloride 5 mg tablet 5 mg PO HS 07/04/23 11/14/24 History oxybutynin chloride 5 mg tablet 10 mg PO DAILY 07/04/23 11/14/24 History pravastatin 20 mg tablet 20 mg PO HS 07/04/23 11/14/24 History amlodipine 5 mg tablet (Norvasc) 5 mg PO QAM #30 tabs 07/08/23 11/14/24 Rx mirtazapine 15 mg tablet (Remeron) 7.5 mg (1/2 x 15 mg) PO HS #30 tabs 07/08/23 11/14/24 Rx famotidine 40 mg tablet 40 mg PO DAILY 11/14/24 11/14/24 History metformin 500 mg tablet,extended 1,000 mg PO DAILY 11/14/24 11/14/24 History release 24 hr Current Medications: Active Medications Acetaminophen (Acetaminophen 500 Mg Tablet) 500 mg PO Q4H PRN PRN Reason: Mild Pain (1-3) or Fever Hydrocodone Bitart/Acetaminophen (Hydrocodone/Acetaminophen (*Crx) 5-325 Mg Tablet) 1 tab PO Q6H PRN PRN Reason: Pain Rated 4-10 Last Admin: 11/14/24 22:57 Dose: 1 tab Amlodipine Besylate (Amlodipine Besylate 5 Mg Tablet) 5 mg PO QAM [facility] Last Admin: 11/16/24 08:51 Dose: 5 mg Dextrose (Dextrose 50% 25 Gm/50 Ml Syringe) 12.5 gm IV PUSH PRN PRN; Protocol PRN Reason: Hypoglycemia Duloxetine HCl (Duloxetine Hcl 30 Mg Capsule.Dr) 30 mg PO DAILY [facility] Last Admin: 11/16/24 08:51 Dose: 30 mg Enoxaparin Sodium (Enoxaparin 40 Mg/0.4 Ml Syringe) 40 mg SUB-Q DAILY [facility] Last Admin: 11/16/24 08:52 Dose: 40 mg Famotidine (Famotidine 20 Mg Tablet) 40 mg PO DAILY [facility] Last Admin: 11/16/24 08:51 Dose: 40 mg Fluconazole (Fluconazole 100 Mg Tablet) 100 mg PO QAM [facility] Last Admin: 11/16/24 08:51 Dose: 100 mg Glucagon (Glucagon For Inj 1 Mg Vial) 1 mg IM PRN PRN; Protocol PRN Reason: Hypoglycemia Glucose (Glucose Oral Gel 15 Gm Of Glucse In 37.5 Gm Tube) 15 gm PO PRN PRN; Protocol PRN Reason: Hypoglycemia Piperacillin Sod/Tazobactam (Sod 2.25 gm/ Sodium Chloride) 50 mls @ 100 mls/hr IVPB Q6H [facility] Last Admin: 11/16/24 08:52 Dose: 100 mls/hr Dextrose (Dextrose 5% 1,000 Ml) 1,000 mls @ 100 mls/hr IVPB PRN PRN; Protocol PRN Reason: Hypoglycemia Vancomycin HCl (Vancomycin 1,250 Mg/Ns 250 Ml) 1,250 mg in 250 mls @ 166.667 mls/hr IVPB Q36H [facility] Insulin Aspart (Insulin Aspart (*Bkc) 100 Units/Ml) 4 - 8 units SUB-Q Q6HR [facility]; Protocol Last Admin: 11/16/24 06:32 Dose: 4 units Insulin Glargine (Insulin Glargine (*Bkc) 100 Units/Ml) 11 units 0.15 units/kg (11 units) SUB-Q [facility] Last Admin: 11/15/24 20:35 Dose: 11 units Irbesartan (Irbesartan 150 Mg Tablet) 150 mg PO [facility] Last Admin: 11/15/24 20:35 Dose: 150 mg Miconazole Nitrate (Miconazole Nitrate 2% Cream 30 Gm Tube) 1 applic TOPICAL Q12HR [facility] Last Admin: 11/16/24 08:55 Dose: 1 applic Mirtazapine (Mirtazapine 7.5 Mg Tablet) 7.5 mg PO [facility] Last Admin: 11/15/24 20:35 Dose: 7.5 mg Miscellaneous Information (Miconazole Cream- Please Indicate Application Site:) 0 each XX CL[facility]IFY [facility] Stop: 12/14/24 21:59 Last Admin: 11/16/24 07:26 Dose: Not Given Morphine Sulfate (Morphine Sulfate (*Crx) 2 Mg/Ml Inj) 2 mg IV PUSH Q4H PRN PRN Reason: Breakthrough Pain Last Admin: 11/15/24 20:36 Dose: 2 mg Oxybutynin Chloride (Oxybutynin Chloride 5 Mg Tablet) 5 mg PO HS [facility] Last Admin: 11/15/24 20:35 Dose: 5 mg Oxybutynin Chloride (Oxybutynin Chloride 5 Mg Tablet) 10 mg PO DAILY [facility] Last Admin: 11/16/24 08:51 Dose: 10 mg Sedation/Anesthesia: No previous sedation/anesthesia problems (including family history). [facility] Past Medical History Medical History Chronic kidney disease, stage 3b With baseline creatinine around 1.5 since 2023 Bilateral inguinal hernia Fat containing Insomnia Primary lateral sclerosis Overactive bladder Hypertension Depression Type 2 diabetes mellitus Hyperlipidemia Surgical History Surgical History Status post cataract extraction of both eyes with insertion of intraocular lens S/P implantation of urinary electronic stimulator device Family History Family History Other Unknown family medical history Social History Social History Social History: Patient has been for 32 years. She has 2 sons. She is a lifelong nonsmoker and does not drink alcohol. She is a retired banker. They have a small terrier at home. Code status: DNR/DNI Surrogate decision maker: Smoking status: Never smoker Alcohol intake: never Substance use: never Lack of Transportation: No Lack of Food: Never True Current Housing: I Have Housing Concerned About Future Housing: No Difficulty Paying Gas/Electric Bills: No Difficulty Paying for Meds: No Currently Unemployed: No Education: High School Diploma/GED Difficulty w/ Childcare or Family Care: No Spiritual care concerns: No Mod Sed Physical Exam Physical Exam Pre Procedural Exam: Normal: Throat, Lungs, Heart Rate and Heart Rhythm and Variation: Appearance (frail) Hours since solid foods: 12 Hours since liquid intake: 12 Mallampati Classification: class II Internal Medicine - PN: Obj Da Vital Signs Vital Signs: Vital Signs - 24 hr 11/15/24 09:55 11/15/24 14:00 11/15/24 16:00 Temperature 97.6 F 97.6 F Pulse Rate 94 94 Respiratory Rate 17 17 Blood Pressure 127/71 128/68 Pulse Oximetry 95 98 98 Oxygen Delivery Room Air 11/15/24 20:30 11/15/24 21:15 11/16/24 05:00 Temperature 98.2 F 98.4 F Pulse Rate 102 H 95 Respiratory Rate 10 L 16 Blood Pressure 133/55 L 108/97 H Pulse Oximetry 97 100 Oxygen Delivery Room Air Intake/Output Intake/Output: Intake & Output 11/13/24 11/14/24 11/15/24 11/16/24 23:59 23:59 23:59 23:59 Intake Total 50 820 50 Output Total 250 250 200 Balance -200 570 -150 Meds/Results Medications: Active Medications Generic Name Dose Route Start Last Admin Trade Name Freq PRN Reason Stop Dose Admin Acetaminophen 500 mg 11/14/24 22:47 Acetaminophen 500 Mg Tablet PO Q4H PRN Mild Pain (1-3) or Fever Hydrocodone Bitart/Acetaminophen 1 tab 11/14/24 22:47 11/14/24 22:57 Hydrocodone/Acetaminophen (*Crx) 5-325 Mg Tablet PO 1 tab Q6H PRN Administration Pain Rated 4-10 Amlodipine Besylate 5 mg 11/15/24 09:00 11/16/24 08:51 Amlodipine Besylate 5 Mg Tablet PO 5 mg QAM [facility] Administration Dextrose 12.5 gm 11/14/24 21:03 Dextrose 50% 25 Gm/50 Ml Syringe IV PUSH PRN PRN Hypoglycemia Protocol Duloxetine HCl 30 mg 11/15/24 09:00 11/16/24 08:51 Duloxetine Hcl 30 Mg Capsule.Dr PO 30 mg DAILY [facility] Administration Enoxaparin Sodium 40 mg 11/15/24 09:00 11/16/24 08:52 Enoxaparin 40 Mg/0.4 Ml Syringe SUB-Q 40 mg DAILY [facility] Administration Famotidine 40 mg 11/15/24 09:00 11/16/24 08:51 Famotidine 20 Mg Tablet PO 40 mg DAILY [facility] Administration Fluconazole 100 mg 11/15/24 09:00 11/16/24 08:51 Fluconazole 100 Mg Tablet PO 100 mg QAM [facility] Administration Glucagon 1 mg 11/14/24 21:03 Glucagon For Inj 1 Mg Vial IM PRN PRN Hypoglycemia Protocol Glucose 15 gm 11/14/24 21:03 Glucose Oral Gel 15 Gm Of Glucse In 37.5 Gm Tube PO PRN PRN Hypoglycemia Protocol Piperacillin Sod/Tazobactam 50 mls @ 100 mls/hr 11/15/24 02:00 11/16/24 08:52 Sod 2.25 gm/ Sodium Chloride IVPB 100 mls/hr Q6H [facility] Administration Dextrose 1,000 mls @ 100 mls/hr 11/14/24 21:03 Dextrose 5% 1,000 Ml IVPB PRN PRN Hypoglycemia Protocol Vancomycin HCl 1,250 mg in 250 mls @ 166.667 mls/hr 11/16/24 09:00 Vancomycin 1,250 Mg/Ns 250 Ml IVPB Q36H [facility] Insulin Aspart 4 - 8 units 11/15/24 00:00 11/16/24 06:32 Insulin Aspart (*Bkc) 100 Units/Ml SUB-Q 4 units Q6HR [facility] Administration Protocol Insulin Glargine 11 units 11/15/24 21:00 11/15/24 20:35 Insulin Glargine (*Bkc) 100 Units/Ml 0.15 units/kg (11 units) 11 units SUB-Q Administration [facility] Irbesartan 150 mg 11/15/24 21:00 11/15/24 20:35 Irbesartan 150 Mg Tablet PO 150 mg HS [facility] Administration Miconazole Nitrate 1 applic 11/15/24 09:00 11/16/24 08:55 Miconazole Nitrate 2% Cream 30 Gm Tube TOPICAL 1 applic Q12HR [facility] Administration Mirtazapine 7.5 mg 11/15/24 21:00 11/15/24 20:35 Mirtazapine 7.5 Mg Tablet PO 7.5 mg HS [facility] Administration Miscellaneous Information 0 each 11/14/24 22:00 11/16/24 07:26 Miconazole Cream- Please Indicate Application Site: XX 12/14/24 21:59 Not Given CL[facility]IFY [facility] Morphine Sulfate 2 mg 11/14/24 22:47 11/15/24 20:36 Morphine Sulfate (*Crx) 2 Mg/Ml Inj IV PUSH 2 mg Q4H PRN Administration Breakthrough Pain Oxybutynin Chloride 5 mg 11/15/24 00:20 11/15/24 20:35 Oxybutynin Chloride 5 Mg Tablet PO 5 mg HS [facility] Administration Oxybutynin Chloride 10 mg 11/15/24 09:00 11/16/24 08:51 Oxybutynin Chloride 5 Mg Tablet PO 10 mg DAILY [facility] Administration Radiology Results: ITS Impressions Chest X-Ray 11/14/24 16:42 IMPRESSION: No focal infiltrate or effusion. Abdomen/Pelvis CT 11/14/24 18:20 IMPRESSION: Rim-enhancing fluid collection within the left hemipelvis, likely related to the stimulator device within the soft tissues of the right buttock, as detailed above. Labs 11/16/24 04:32 11/16/24 04:32 Labs: Laboratory Results - last 24 hr 11/15/24 11/15/24 11/16/24 12:03 16:51 00:00 WBC RBC Hgb Hct MCV MCH MCHC RDW Plt Count MPV Sodium Potassium Chloride Carbon Dioxide Anion Gap BUN Creatinine Estim Creat Clear Calc Estimated GFR Glucose POC Capillary Glucose 177 H 214 H 278 H Calcium Total Bilirubin AST ALT Alkaline Phosphatase Total Protein Albumin 11/16/24 11/16/24 04:32 05:59 WBC 11.7 H RBC 4.15 L Hgb 12.1 Hct 38.4 MCV 92.5 MCH 29.2 MCHC 31.5 L RDW 13.9 Plt Count 270 MPV 12.9 H Sodium 136 L Potassium 3.3 L Chloride 107 Carbon Dioxide 20 L Anion Gap 9 BUN 16 Creatinine 1.34 H Estim Creat Clear Calc 30 Estimated GFR 39 L Glucose 205 H POC Capillary Glucose 208 H Calcium 9.6 Total Bilirubin 0.3 AST 24 ALT 14 Alkaline Phosphatase 98 Total Protein 6.4 Albumin 3.0 L ASA Classification/Sedation ASA Classification/Sedation ASA Class: III Emergent: No Risks: Risks, benefits and alternatives explained and patient/family accepted plan for sedation. Patient re-evaluated immediately prior to sedation.
[2024-11-16] MEDS: MIDAZOLAM HCL (*CRX) 2 MG/2 ML VIAL 1 MG IV PUSH (09:59)
[2024-11-16] MEDS: fentaNYL CITRATE INJ (*CRX) 100 MCG/2 ML VIAL IV PUSH (10:44)
[2024-11-16] MEDS: VANCOMYCIN 1,250 MG/NS 250 ML 1,250 MG/250 ML BAG 166.67 MG IVPB (11:37)
--- NOTE | 2024-11-16 14:03 | PM.PNGS ---
Progress Note: A&P Assessment and Plan (1) Infection associated with urinary electronic stimulator device: Code(s): T83.590A - Infection and inflammatory reaction due to implanted urinary neurostimulation device, initial encounter Status: Acute Assessment and Plan: plan for urology to take to OR tomorrow for removal, will be available if necessary for wound care support, perc drainage of pelvic abscess Subjective Subjective Date/Time Seen: 11/16/24 14:03 Interval history: no acute issues, feels ok Review of Systems Review of Systems: All systems reviewed & are unremarkable except as noted in HPI and below Exam Const: General: cooperative, no acute distress, ill appearing and uncomfortable Resp: Auscultation: diminished lung sounds Cardio: Rate: regular rate Rhythm: regular rhythm GI: Inspection: normal to inspection and non-distended GI Palp: Yes abdominal tenderness and Yes Soft to palpation Back/Spine/Pelvis: Other: wound as previously documented Objective Data Vital Signs Vital Signs: Vital Signs - 24 hr 11/15/24 16:00 11/15/24 20:30 11/15/24 21:15 Temperature 36.4 C 36.8 C Pulse Rate 94 102 H Respiratory Rate 17 10 L Blood Pressure 128/68 133/55 L Pulse Oximetry 98 97 Oxygen Delivery Room Air Oxygen Flow Rate 11/16/24 05:00 11/16/24 09:50 11/16/24 10:00 Temperature 36.9 C Pulse Rate 95 96 94 Respiratory Rate 16 16 12 Blood Pressure 108/97 H 158/109 H 153/109 H Pulse Oximetry 100 100 100 Oxygen Delivery Nasal Cannula Nasal Cannula Oxygen Flow Rate 2 2 11/16/24 10:05 11/16/24 10:10 11/16/24 10:15 Temperature Pulse Rate 87 83 92 Respiratory Rate 17 17 16 Blood Pressure 110/64 122/73 122/77 Pulse Oximetry 100 100 100 Oxygen Delivery Nasal Cannula Nasal Cannula Nasal Cannula Oxygen Flow Rate 2 2 2 11/16/24 10:20 11/16/24 10:25 11/16/24 10:30 Temperature Pulse Rate 92 87 92 Respiratory Rate 14 12 11 L Blood Pressure 127/77 135/107 H 154/105 H Pulse Oximetry 100 100 100 Oxygen Delivery Nasal Cannula Nasal Cannula Nasal Cannula Oxygen Flow Rate 2 2 2 11/16/24 10:35 11/16/24 10:40 11/16/24 10:45 Temperature Pulse Rate 105 H 105 H 104 H Respiratory Rate 16 18 13 Blood Pressure 144/115 H 156/110 H 167/102 H Pulse Oximetry 100 100 98 Oxygen Delivery Nasal Cannula Nasal Cannula Nasal Cannula Oxygen Flow Rate 2 2 2 11/16/24 10:50 11/16/24 10:55 11/16/24 11:00 Temperature Pulse Rate 105 H 110 H 111 H Respiratory Rate 14 16 15 Blood Pressure 159/115 H 168/109 H 171/94 H Pulse Oximetry 100 100 100 Oxygen Delivery Nasal Cannula Nasal Cannula Room Air Oxygen Flow Rate 2 2 11/16/24 11:15 Temperature Pulse Rate 108 H Respiratory Rate 17 Blood Pressure 161/83 H Pulse Oximetry 99 Oxygen Delivery Room Air Oxygen Flow Rate Intake/Output Intake/Output: Intake & Output 11/13/24 11/14/24 11/15/24 11/16/24 23:59 23:59 23:59 23:59 Intake Total 50 820 350 Output Total 250 250 200 Balance -200 570 150 Meds/Results Medications: Active Medications Generic Name Dose Route Start Last Admin Trade Name Freq PRN Reason Stop Dose Admin Acetaminophen 500 mg 11/14/24 22:47 Acetaminophen 500 Mg Tablet PO Q4H PRN Mild Pain (1-3) or Fever Hydrocodone Bitart/Acetaminophen 1 tab 11/14/24 22:47 11/14/24 22:57 Hydrocodone/Acetaminophen (*Crx) 5-325 Mg Tablet PO 1 tab Q6H PRN Administration Pain Rated 4-10 Amlodipine Besylate 5 mg 11/15/24 09:00 11/16/24 08:51 Amlodipine Besylate 5 Mg Tablet PO 5 mg QAM [facility] Administration Dextrose 12.5 gm 11/14/24 21:03 Dextrose 50% 25 Gm/50 Ml Syringe IV PUSH PRN PRN Hypoglycemia Protocol Duloxetine HCl 30 mg 11/15/24 09:00 11/16/24 08:51 Duloxetine Hcl 30 Mg Capsule.Dr PO 30 mg DAILY [facility] Administration Enoxaparin Sodium 40 mg 11/15/24 09:00 11/16/24 08:52 Enoxaparin 40 Mg/0.4 Ml Syringe SUB-Q 40 mg DAILY [facility] Administration Famotidine 40 mg 11/15/24 09:00 11/16/24 08:51 Famotidine 20 Mg Tablet PO 40 mg DAILY [facility] Administration Fluconazole 100 mg 11/15/24 09:00 11/16/24 08:51 Fluconazole 100 Mg Tablet PO 100 mg QAM [facility] Administration Glucagon 1 mg 11/14/24 21:03 Glucagon For Inj 1 Mg Vial IM PRN PRN Hypoglycemia Protocol Glucose 15 gm 11/14/24 21:03 Glucose Oral Gel 15 Gm Of Glucse In 37.5 Gm Tube PO PRN PRN Hypoglycemia Protocol Piperacillin Sod/Tazobactam 50 mls @ 100 mls/hr 11/15/24 02:00 11/16/24 13:35 Sod 2.25 gm/ Sodium Chloride IVPB 100 mls/hr Q6H [facility] Administration Dextrose 1,000 mls @ 100 mls/hr 11/14/24 21:03 Dextrose 5% 1,000 Ml IVPB PRN PRN Hypoglycemia Protocol Vancomycin HCl 1,250 mg in 250 mls @ 166.667 mls/hr 11/16/24 09:00 11/16/24 13:07 Vancomycin 1,250 Mg/Ns 250 Ml IVPB Infused Q36H [facility] Infusion Insulin Aspart 4 - 8 units 11/15/24 00:00 11/16/24 13:34 Insulin Aspart (*Bkc) 100 Units/Ml SUB-Q Not Given Q6HR [facility] Protocol Insulin Glargine 14 units 11/16/24 21:00 Insulin Glargine (*Bkc) 100 Units/Ml 0.2 units/kg (14 units) SUB-Q HS [facility] Irbesartan 150 mg 11/15/24 21:00 11/15/24 20:35 Irbesartan 150 Mg Tablet PO 150 mg HS [facility] Administration Miconazole Nitrate 1 applic 11/15/24 09:00 11/16/24 08:55 Miconazole Nitrate 2% Cream 30 Gm Tube TOPICAL 1 applic Q12HR [facility] Administration Mirtazapine 7.5 mg 11/15/24 21:00 11/15/24 20:35 Mirtazapine 7.5 Mg Tablet PO 7.5 mg HS [facility] Administration Miscellaneous Information 0 each 11/14/24 22:00 11/16/24 07:26 Miconazole Cream- Please Indicate Application Site: XX 12/14/24 21:59 Not Given [facility] Morphine Sulfate 2 mg 11/14/24 22:47 11/15/24 20:36 Morphine Sulfate (*Crx) 2 Mg/Ml Inj IV PUSH 2 mg Q4H PRN Administration Breakthrough Pain Oxybutynin Chloride 5 mg 11/15/24 00:20 11/15/24 20:35 Oxybutynin Chloride 5 Mg Tablet PO 5 mg HS [facility] Administration Oxybutynin Chloride 10 mg 11/15/24 09:00 11/16/24 08:51 Oxybutynin Chloride 5 Mg Tablet PO 10 mg DAILY [facility] Administration Radiology Results: ITS Impressions Chest X-Ray 11/14/24 16:42 IMPRESSION: No focal infiltrate or effusion. Abdomen/Pelvis CT 11/14/24 18:20 IMPRESSION: Rim-enhancing fluid collection within the left hemipelvis, likely related to the stimulator device within the soft tissues of the right buttock, as detailed above. Catheter Placement CT 11/16/24 12:36 IMPRESSION: 1. Successful CT-guided left presacral abscess drainage. 2. 10 mL fluid was sent for aerobic and anaerobic cultures. 3. The catheter will be managed by Dr. Kemp. Labs Labs: Laboratory Results - last 24 hr 11/15/24 11/16/24 11/16/24 16:51 00:00 04:32 WBC 11.7 H RBC 4.15 L Hgb 12.1 Hct 38.4 MCV 92.5 MCH 29.2 MCHC 31.5 L RDW 13.9 Plt Count 270 MPV 12.9 H Sodium 136 L Potassium 3.3 L Chloride 107 Carbon Dioxide 20 L Anion Gap 9 BUN 16 Creatinine 1.34 H Estim Creat Clear Calc 30 Estimated GFR 39 L Glucose 205 H POC Capillary Glucose 214 H 278 H Calcium 9.6 Total Bilirubin 0.3 AST 24 ALT 14 Alkaline Phosphatase 98 Total Protein 6.4 Albumin 3.0 L 11/16/24 11/16/24 05:59 11:55 WBC RBC Hgb Hct MCV MCH MCHC RDW Plt Count MPV Sodium Potassium Chloride Carbon Dioxide Anion Gap BUN Creatinine Estim Creat Clear Calc Estimated GFR Glucose POC Capillary Glucose 208 H 245 H Calcium Total Bilirubin AST ALT Alkaline Phosphatase Total Protein Albumin
[2024-11-16] MEDS: HYDROcodone/acetaminophen (*CRX) 5-325 MG TABLET 1 TAB PO (18:14)
[2024-11-16] MEDS: MIRTAZAPINE 7.5 MG TABLET PO (20:25)
[2024-11-16] MEDS: IRBESARTAN 150 MG TABLET PO (20:25)
[2024-11-16] MEDS: INSULIN GLARGINE (*BKC) 100 UNITS/ML 14 UNITS SUB-Q (20:29)
[2024-11-17] VITALS (13 sets, daily range): BP systolic 97–131; BP diastolic 47–69; PULSE 80–86; RESP 13–20; TEMP 36.4–36.8; O2SAT 94–98
[2024-11-17] MEDS: INSULIN ASPART (*BKC) 100 UNITS/ML SUB-Q ×2 (00:08→17:28)
[2024-11-17] MEDS: PIPERACILLIN/TAZOBACTAM SOD 2.25 GM in SODIUM CHLORIDE 0.9% IV 50 ML 100 ML IVPB ×4 (02:04→20:25)
[2024-11-17 05:10] LABS: Hematocrit 36.9 % (37.0-47.0); Hemoglobin 11.9 g/dL (12.0-15.0); Mean Corpuscular HGB Conc 32.2 g/dl (32-36); Mean Corpuscular Hemoglobin 29.3 pg (26-34); Mean Corpuscular Volume 90.9 fl (80-100); Platelet Count Result 256 k/mm3 (150-375); Red Blood Count 4.06 M/mm3 (4.2-5.4); White Blood Count 19.9 K/mm3 (4.5-10.0)
[2024-11-17 06:46] LABS: Alanine Aminotransferase 16 U/L (6-35); Albumin Level 2.8 g/dL (3.5-5.1); Alkaline Phosphatase 90 U/L (38-126); Anion Gap 9 mmol/L (4-12); Aspartate Amino Transferase 33 U/L (14-36); Bilirubin,Total 0.4 mg/dL (0.2-1.3); Blood Urea Nitrogen 13 mg/dL (7-17); Calcium 9.4 mg/dL (8.4-10.2); Carbon Dioxide 24 mmol/L (22-30); Chloride 105 mmol/L (98-107); Estimated CRCL calculation 34 ml/min; Estimated Glomerular Filt Rate 43; Glucose 172 mg/dL (65-110); Potassium 3.2 mmol/L (3.4-5.0); Sodium 138 mmol/L (137-145); Total Protein 6.2 g/dL (6.3-8.2)
--- NOTE | 2024-11-17 07:17 | WPDHPUPDATE1 ---
History and Physical Update Update Date/Time: 11/17/24 07:17 History and Physical has been reviewed, including an updated exam of the patient. There are NO changes in the patient's condition. Risks, benefits, and alternatives have been discussed and questions answered. Patient agrees to proceed with procedure.
--- NOTE | 2024-11-17 07:50 | P.PNIM_ITS ---
Progress Note: A&P Assessment and Plan (1) Infection associated with urinary electronic stimulator device: Code(s): T83.590A - Infection and inflammatory reaction due to implanted urinary neurostimulation device, initial encounter Status: Acute Assessment and Plan: Is unclear if the patient's infection started with a perirectal abscess that then tunneled out along the guidewire of the bladder stimulator in subsequently opening subcutaneously in the right buttock or if the patient may have developed a decubitus ulcer in the right buttock that then tunneled downward and infected the hardware subsequently creating a perirectal abscess. Blood cultures pending Wound cultures: preliminary gram stain - mod wbc with many gram positive cocci and few gram negative rods Antibiotics: Zosyn and vancomycin started on 11/14 CT abdomen/pelvis: Rim-enhancing fluid collection within the left hemipelvis, likely related to the stimulator device within the soft tissues of the right buttock General surgery consulted Continue perc drainage of pelvic abscess Urology consulted Continue broad-spectrum antibiotics S/p drain placement per IR on 11/16 InterStim explant planned for today with Dr. Dillard Worsening leukocytosis on am labs, possibly related to patients procedure yesterday. Remains hemodynamically stable. Continue to monitor. (2) Abscess, perirectal: Code(s): K61.1 - Rectal abscess Status: Acute Assessment and Plan: See plan above (3) Urinary tract infection: Code(s): N39.0 - Urinary tract infection, site not specified Status: Acute Assessment and Plan: - UA: cloudy appearance with elevated specific gravity, 3+ glucose, trace ketones, negative nitrates, negative leukocytes, 6-10 WBC, 4+ bacteria and no squamous cells. - UC obtained on 11/14: pending - previous micro reviewed klebsiella oxytoca 07/04/23 resistant to keflex - started on zosyn and vancomycin for cocurrent abscess (4) Candidiasis of perineum: Code(s): B37.49 - Other urogenital candidiasis Status: Acute Assessment and Plan: Continue fluconazole 100 mg daily, started on 11/15 Continue antifungal barrier cream and keep area dry (5) Type 2 diabetes mellitus with hyperglycemia, without long-term current use of insulin: Code(s): E11.65 - Type 2 diabetes mellitus with hyperglycemia Status: Acute Assessment and Plan: The patient was markedly hyperglycemic on admission with history of diabetes not on insulin at home. Patient's glucoses decreased from the 500s down to 300 with IV fluid hydration. - hypoglycemia protocol - POC blood glucose ACHS - home medication - metformin 1000 mg daily, glimepiride 2-4 mg BID - correct regimen ordered - high dose SSI - A1C 13.8 Random glucose elevated at 517 on admission. Continue Lantus 14 units. Patient requiring 4-5 units SSI with meals, started on 4 units aspart TIDWM Prior to discharge patient will require diabetes education given new insulin requirement (6) Pseudohyponatremia: Code(s): R79.89 - Other specified abnormal findings of blood chemistry Status: Acute Assessment and Plan: Patient with pseudo hyponatremia due to hyperglycemia on admission. Patient does also appear to be dehydrated/intervascular volume depleted given that she has ketones in her urine elevated specific gravity and hypercalcemia. This may be playing a component in the patient's hyponatremia as well. Resolved. 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 Patient is lying comfortably in bed. She endorses slight lower abdominal pain but denies associated nausea/vomiting. Patient states that she has not had a bowel movement in over a week noting that this is not common for her as this has been an ongoing issue for well over a year. She does states she is passing flatus. No concern of obstruction or impaction on prior abdominal pelvis CTs. Patient has no other concerns denying chest pain, shortness a breath, palpitations. She is scheduled to have the bladder stimulator removed today with Urology. Review of Systems Review of Systems: All systems reviewed & are unremarkable except as noted in HPI and below Exam Narrative: AF HR 85 RR 16 Spo2 97 BP 109/47 General: female in no acute respiratory distress who is nontoxic appearing, lying semi recumbent in bed. HEENT: Normocephalic. Atraumatic. Extraocular movement intact. Sclera clear and anicteric. No facial asymmetry. Chest: Lungs are clear to auscultation bilaterally. No wheezes or crackles. CV: Heart was regular rate and rhythm. Abd: Abdomen was soft. Mild tenderness to lower abdomen. Nondistended. Positive bowel sounds. Ext: No clubbing, cyanosis, or edema. DP pulses bilaterally. Neuro: Patient is alert. Speech is clear. Skin: Small wound with slight purulent drainage to the left upper buttock and two small wounds to the right upper buttock with erythema surrounding and purulent drainage. Drain placed to left buttock region, scant bloody drainage. Objective Data Vital Signs Vital Signs: Vital Signs - 24 hr 11/16/24 09:50 11/16/24 10:00 11/16/24 10:05 Temperature Pulse Rate 96 94 87 Respiratory Rate 16 12 17 Blood Pressure 158/109 H 153/109 H 110/64 Pulse Oximetry 100 100 100 Oxygen Delivery Nasal Cannula Nasal Cannula Nasal Cannula Oxygen Flow Rate 2 2 2 11/16/24 10:10 11/16/24 10:15 11/16/24 10:20 Temperature Pulse Rate 83 92 92 Respiratory Rate 17 16 14 Blood Pressure 122/73 122/77 127/77 Pulse Oximetry 100 100 100 Oxygen Delivery Nasal Cannula Nasal Cannula Nasal Cannula Oxygen Flow Rate 2 2 2 11/16/24 10:25 11/16/24 10:30 11/16/24 10:35 Temperature Pulse Rate 87 92 105 H Respiratory Rate 12 11 L 16 Blood Pressure 135/107 H 154/105 H 144/115 H Pulse Oximetry 100 100 100 Oxygen Delivery Nasal Cannula Nasal Cannula Nasal Cannula Oxygen Flow Rate 2 2 2 11/16/24 10:40 11/16/24 10:45 11/16/24 10:50 Temperature Pulse Rate 105 H 104 H 105 H Respiratory Rate 18 13 14 Blood Pressure 156/110 H 167/102 H 159/115 H Pulse Oximetry 100 98 100 Oxygen Delivery Nasal Cannula Nasal Cannula Nasal Cannula Oxygen Flow Rate 2 2 2 11/16/24 10:55 11/16/24 11:00 11/16/24 11:15 Temperature Pulse Rate 110 H 111 H 108 H Respiratory Rate 16 15 17 Blood Pressure 168/109 H 171/94 H 161/83 H Pulse Oximetry 100 100 99 Oxygen Delivery Nasal Cannula Room Air Room Air Oxygen Flow Rate 2 11/16/24 14:00 11/16/24 19:51 11/16/24 20:30 Temperature 97.7 F 98.0 F Pulse Rate 100 110 H Respiratory Rate 16 16 Blood Pressure 132/80 116/53 L Pulse Oximetry 100 94 Oxygen Delivery Room Air Oxygen Flow Rate 11/17/24 05:07 Temperature 98.2 F Pulse Rate 85 Respiratory Rate 16 Blood Pressure 109/47 L Pulse Oximetry 97 Oxygen Delivery Oxygen Flow Rate Intake/Output Intake/Output: Intake & Output 11/14/24 11/15/24 11/16/24 11/17/24 23:59 23:59 23:59 23:59 Intake Total 50 820 640 350 Output Total 250 250 850 250 Balance -200 570 -210 100 Meds/Results Medications: Active Medications Generic Name Dose Route Start Last Admin Trade Name Freq PRN Reason Stop Dose Admin Acetaminophen 500 mg 11/14/24 22:47 Acetaminophen 500 Mg Tablet PO Q4H PRN Mild Pain (1-3) or Fever Hydrocodone Bitart/Acetaminophen 1 tab 11/14/24 22:47 11/16/24 18:14 Hydrocodone/Acetaminophen (*Crx) 5-325 Mg Tablet PO 1 tab Q6H PRN Administration Pain Rated 4-10 Amlodipine Besylate 5 mg 11/15/24 09:00 11/16/24 08:51 Amlodipine Besylate 5 Mg Tablet PO 5 mg QAM INES Administration Dextrose 12.5 gm 11/14/24 21:03 Dextrose 50% 25 Gm/50 Ml Syringe IV PUSH PRN PRN Hypoglycemia Protocol Duloxetine HCl 30 mg 11/15/24 09:00 11/16/24 08:51 Duloxetine Hcl 30 Mg Capsule.Dr PO 30 mg DAILY INES Administration Enoxaparin Sodium 40 mg 11/15/24 09:00 11/16/24 08:52 Enoxaparin 40 Mg/0.4 Ml Syringe SUB-Q 40 mg DAILY INES Administration Famotidine 40 mg 11/15/24 09:00 11/16/24 08:51 Famotidine 20 Mg Tablet PO 40 mg DAILY INES Administration Fluconazole 100 mg 11/15/24 09:00 11/16/24 08:51 Fluconazole 100 Mg Tablet PO 100 mg QAM INES Administration Glucagon 1 mg 11/14/24 21:03 Glucagon For Inj 1 Mg Vial IM PRN PRN Hypoglycemia Protocol Glucose 15 gm 11/14/24 21:03 Glucose Oral Gel 15 Gm Of Glucse In 37.5 Gm Tube PO PRN PRN Hypoglycemia Protocol Piperacillin Sod/Tazobactam 50 mls @ 100 mls/hr 11/15/24 02:00 11/17/24 02:04 Sod 2.25 gm/ Sodium Chloride IVPB 100 mls/hr Q6H INES Administration Dextrose 1,000 mls @ 100 mls/hr 11/14/24 21:03 Dextrose 5% 1,000 Ml IVPB PRN PRN Hypoglycemia Protocol Vancomycin HCl 1,250 mg in 250 mls @ 166.667 mls/hr 11/16/24 09:00 11/16/24 13:07 Vancomycin 1,250 Mg/Ns 250 Ml IVPB Infused Q36H INES Infusion Insulin Aspart 4 - 8 units 11/15/24 00:00 11/17/24 05:39 Insulin Aspart (*Bkc) 100 Units/Ml SUB-Q Not Given Q6HR [facility] Protocol Insulin Glargine 14 units 11/16/24 21:00 11/16/24 20:29 Insulin Glargine (*Bkc) 100 Units/Ml 0.2 units/kg (14 units) 14 units SUB-Q Administration HS INES Irbesartan 150 mg 11/15/24 21:00 11/16/24 20:25 Irbesartan 150 Mg Tablet PO 150 mg HS INES Administration Miconazole Nitrate 1 applic 11/15/24 09:00 11/16/24 20:25 Miconazole Nitrate 2% Cream 30 Gm Tube TOPICAL 1 applic Q12HR INES Administration Mirtazapine 7.5 mg 11/15/24 21:00 11/16/24 20:25 Mirtazapine 7.5 Mg Tablet PO 7.5 mg HS INES Administration Miscellaneous Information 0 each 11/14/24 22:00 11/16/24 07:26 Miconazole Cream- Please Indicate Application Site: XX 12/14/24 21:59 Not Given CLARIFY INES Morphine Sulfate 2 mg 11/14/24 22:47 11/15/24 20:36 Morphine Sulfate (*Crx) 2 Mg/Ml Inj IV PUSH 2 mg Q4H PRN Administration Breakthrough Pain Oxybutynin Chloride 5 mg 11/15/24 00:20 11/16/24 20:25 Oxybutynin Chloride 5 Mg Tablet PO 5 mg HS INES Administration Oxybutynin Chloride 10 mg 11/15/24 09:00 11/16/24 08:51 Oxybutynin Chloride 5 Mg Tablet PO 10 mg DAILY INES Administration Radiology Results: ITS Impressions Chest X-Ray 11/14/24 16:42 IMPRESSION: No focal infiltrate or effusion. Abdomen/Pelvis CT 11/14/24 18:20 IMPRESSION: Rim-enhancing fluid collection within the left hemipelvis, likely related to the stimulator device within the soft tissues of the right buttock, as detailed above. Catheter Placement CT 11/16/24 12:36 IMPRESSION: 1. Successful CT-guided left presacral abscess drainage. 2. 10 mL fluid was sent for aerobic and anaerobic cultures. 3. The catheter will be managed by Dr. Kemp. Labs Labs: Laboratory Results - last 24 hr 11/16/24 11/16/24 11/16/24 11:55 17:10 23:45 WBC RBC Hgb Hct MCV MCH MCHC RDW Plt Count MPV Sodium Potassium Chloride Carbon Dioxide Anion Gap BUN Creatinine Estim Creat Clear Calc Estimated GFR Glucose POC Capillary Glucose 245 H 272 H 266 H Calcium Total Bilirubin AST ALT Alkaline Phosphatase Total Protein Albumin 11/17/24 11/17/24 04:37 05:38 WBC 19.9 H RBC 4.06 L Hgb 11.9 L Hct 36.9 L MCV 90.9 MCH 29.3 MCHC 32.2 RDW 14.2 Plt Count 256 MPV 12.6 H Sodium 138 Potassium 3.2 L Chloride 105 Carbon Dioxide 24 Anion Gap 9 BUN 13 Creatinine 1.21 H Estim Creat Clear Calc 34 Estimated GFR 43 L Glucose 172 H POC Capillary Glucose 168 H Calcium 9.4 Total Bilirubin 0.4 AST 33 ALT 16 Alkaline Phosphatase 90 Total Protein 6.2 L Albumin 2.8 L Quality VTE Prophylaxis VTE prophylaxis: pharmacologic ordered (Lovenox 40 mg subQ daily.)
[2024-11-17] MEDS: POTASSIUM CHLORIDE 20 MEQ ER TABLET 40 MEQ PO (08:35)
[2024-11-17] MEDS: ENOXAPARIN 40 MG/0.4 ML SYRINGE SUB-Q (08:36)
[2024-11-17] MEDS: MICONAZOLE NITRATE 2% CREAM 30 GM TUBE 1 APPLIC TOPICAL ×2 (08:36→20:26)
--- NOTE | 2024-11-17 09:43 | PM.PNGS ---
Progress Note: A&P Assessment and Plan (1) Infection associated with urinary electronic stimulator device: Code(s): T83.590A - Infection and inflammatory reaction due to implanted urinary neurostimulation device, initial encounter Status: Acute Assessment and Plan: Plan for urology to take to OR today for removal. Surgeon insurance consultant will be available if necessary for wound care support. Continue percutaneous drainage of pelvic abscess. Plan Discussed patient's case and plan of care with Dr. Kemp. Subjective Subjective Date/Time Seen: 11/17/24 09:43 Interval history: No new complaints from patient. Feeling tired. Compliant with surgery today. WBC up to 19.9 from 11.7. Afebrile. Patient does note that she has not had a bowel movement since prior to admission. Exam GI: Inspection: normal to inspection and non-distended GI Palp: Yes Soft to palpation and No Tenderness to palpation present (GI) Auscultation: abnormal bowel sounds (hypoactive) Back/Spine/Pelvis: Other: wound as previously described. Small wound with slight purulent drainage to the left upper buttock and two small wounds to the right upper buttock with erythema surrounding and purulent drainage. Drain placed to left buttock region, scant bloody drainage. Skin: Other: Severe erythema and maceration of her bilateral groin and labia majora, with appearance consistent with nomi dermatitis Objective Data Vital Signs Vital Signs: Vital Signs - 24 hr 11/16/24 09:50 11/16/24 10:00 11/16/24 10:05 Temperature Pulse Rate 96 94 87 Respiratory Rate 16 12 17 Blood Pressure 158/109 H 153/109 H 110/64 Pulse Oximetry 100 100 100 Oxygen Delivery Nasal Cannula Nasal Cannula Nasal Cannula Oxygen Flow Rate 2 2 2 11/16/24 10:10 11/16/24 10:15 11/16/24 10:20 Temperature Pulse Rate 83 92 92 Respiratory Rate 17 16 14 Blood Pressure 122/73 122/77 127/77 Pulse Oximetry 100 100 100 Oxygen Delivery Nasal Cannula Nasal Cannula Nasal Cannula Oxygen Flow Rate 2 2 2 11/16/24 10:25 11/16/24 10:30 11/16/24 10:35 Temperature Pulse Rate 87 92 105 H Respiratory Rate 12 11 L 16 Blood Pressure 135/107 H 154/105 H 144/115 H Pulse Oximetry 100 100 100 Oxygen Delivery Nasal Cannula Nasal Cannula Nasal Cannula Oxygen Flow Rate 2 2 2 11/16/24 10:40 11/16/24 10:45 11/16/24 10:50 Temperature Pulse Rate 105 H 104 H 105 H Respiratory Rate 18 13 14 Blood Pressure 156/110 H 167/102 H 159/115 H Pulse Oximetry 100 98 100 Oxygen Delivery Nasal Cannula Nasal Cannula Nasal Cannula Oxygen Flow Rate 2 2 2 11/16/24 10:55 11/16/24 11:00 11/16/24 11:15 Temperature Pulse Rate 110 H 111 H 108 H Respiratory Rate 16 15 17 Blood Pressure 168/109 H 171/94 H 161/83 H Pulse Oximetry 100 100 99 Oxygen Delivery Nasal Cannula Room Air Room Air Oxygen Flow Rate 2 11/16/24 14:00 11/16/24 19:51 11/16/24 20:30 Temperature 97.7 F 98.0 F Pulse Rate 100 110 H Respiratory Rate 16 16 Blood Pressure 132/80 116/53 L Pulse Oximetry 100 94 Oxygen Delivery Room Air Oxygen Flow Rate 11/17/24 05:07 Temperature 98.2 F Pulse Rate 85 Respiratory Rate 16 Blood Pressure 109/47 L Pulse Oximetry 97 Oxygen Delivery Oxygen Flow Rate Intake/Output Intake/Output: Intake & Output 11/14/24 11/15/24 11/16/24 11/17/24 23:59 23:59 23:59 23:59 Intake Total 50 820 640 400 Output Total 250 250 850 250 Balance -200 570 -210 150 Meds/Results Medications: Active Medications Generic Name Dose Route Start Last Admin Trade Name Freq PRN Reason Stop Dose Admin Acetaminophen 500 mg 11/14/24 22:47 Acetaminophen 500 Mg Tablet PO Q4H PRN Mild Pain (1-3) or Fever Hydrocodone Bitart/Acetaminophen 1 tab 11/14/24 22:47 11/16/24 18:14 Hydrocodone/Acetaminophen (*Crx) 5-325 Mg Tablet PO 1 tab Q6H PRN Administration Pain Rated 4-10 Amlodipine Besylate 5 mg 11/15/24 09:00 11/17/24 08:34 Amlodipine Besylate 5 Mg Tablet PO 5 mg QAM INES Administration Dextrose 12.5 gm 11/14/24 21:03 Dextrose 50% 25 Gm/50 Ml Syringe IV PUSH PRN PRN Hypoglycemia Protocol Duloxetine HCl 30 mg 11/15/24 09:00 11/17/24 08:36 Duloxetine Hcl 30 Mg Capsule.Dr PO Not Given DAILY INES Enoxaparin Sodium 40 mg 11/15/24 09:00 11/17/24 08:36 Enoxaparin 40 Mg/0.4 Ml Syringe SUB-Q 40 mg DAILY INES Administration Famotidine 40 mg 11/15/24 09:00 11/17/24 08:36 Famotidine 20 Mg Tablet PO Not Given DAILY INES Fluconazole 100 mg 11/15/24 09:00 11/17/24 08:36 Fluconazole 100 Mg Tablet PO Not Given QAM INES Glucagon 1 mg 11/14/24 21:03 Glucagon For Inj 1 Mg Vial IM PRN PRN Hypoglycemia Protocol Glucose 15 gm 11/14/24 21:03 Glucose Oral Gel 15 Gm Of Glucse In 37.5 Gm Tube PO PRN PRN Hypoglycemia Protocol Piperacillin Sod/Tazobactam 50 mls @ 100 mls/hr 11/15/24 02:00 11/17/24 08:36 Sod 2.25 gm/ Sodium Chloride IVPB 100 mls/hr Q6H INES Administration Dextrose 1,000 mls @ 100 mls/hr 11/14/24 21:03 Dextrose 5% 1,000 Ml IVPB PRN PRN Hypoglycemia Protocol Vancomycin HCl 1,250 mg in 250 mls @ 166.667 mls/hr 11/16/24 09:00 11/16/24 13:07 Vancomycin 1,250 Mg/Ns 250 Ml IVPB Infused Q36H INES Infusion Insulin Aspart 4 units 11/17/24 08:00 11/17/24 08:35 Insulin Aspart (*Bkc) 100 Units/Ml 0.05 units/kg (4 units) Not Given SUB-Q TIDWM [facility] Insulin Aspart 3 - 6 units 11/17/24 08:00 11/17/24 08:36 Insulin Aspart (*Bkc) 100 Units/Ml SUB-Q Not Given TIDWM [facility] Protocol Insulin Glargine 14 units 11/16/24 21:00 11/16/24 20:29 Insulin Glargine (*Bkc) 100 Units/Ml 0.2 units/kg (14 units) 14 units SUB-Q Administration HS INES Irbesartan 150 mg 11/15/24 21:00 11/16/24 20:25 Irbesartan 150 Mg Tablet PO 150 mg HS [facility] Administration Miconazole Nitrate 1 applic 11/15/24 09:00 11/17/24 08:36 Miconazole Nitrate 2% Cream 30 Gm Tube TOPICAL 1 applic Q12HR INES Administration Mirtazapine 7.5 mg 11/15/24 21:00 11/16/24 20:25 Mirtazapine 7.5 Mg Tablet PO 7.5 mg HS INES Administration Miscellaneous Information 0 each 11/14/24 22:00 11/17/24 08:35 Miconazole Cream- Please Indicate Application Site: XX 12/14/24 21:59 Not Given CLARIFY [facility] Morphine Sulfate 2 mg 11/14/24 22:47 11/15/24 20:36 Morphine Sulfate (*Crx) 2 Mg/Ml Inj IV PUSH 2 mg Q4H PRN Administration Breakthrough Pain Oxybutynin Chloride 5 mg 11/15/24 00:20 11/16/24 20:25 Oxybutynin Chloride 5 Mg Tablet PO 5 mg HS INES Administration Oxybutynin Chloride 10 mg 11/15/24 09:00 11/17/24 08:36 Oxybutynin Chloride 5 Mg Tablet PO Not Given DAILY [facility] Radiology Results: ITS Impressions Chest X-Ray 11/14/24 16:42 IMPRESSION: No focal infiltrate or effusion. Abdomen/Pelvis CT 11/14/24 18:20 IMPRESSION: Rim-enhancing fluid collection within the left hemipelvis, likely related to the stimulator device within the soft tissues of the right buttock, as detailed above. Catheter Placement CT 11/16/24 12:36 IMPRESSION: 1. Successful CT-guided left presacral abscess drainage. 2. 10 mL fluid was sent for aerobic and anaerobic cultures. 3. The catheter will be managed by Dr. Kemp. Labs Labs: Laboratory Results - last 24 hr 11/16/24 11/16/24 11/16/24 11:55 17:10 23:45 WBC RBC Hgb Hct MCV MCH MCHC RDW Plt Count MPV Sodium Potassium Chloride Carbon Dioxide Anion Gap BUN Creatinine Estim Creat Clear Calc Estimated GFR Glucose POC Capillary Glucose 245 H 272 H 266 H Calcium Total Bilirubin AST ALT Alkaline Phosphatase Total Protein Albumin 11/17/24 11/17/24 04:37 05:38 WBC 19.9 H RBC 4.06 L Hgb 11.9 L Hct 36.9 L MCV 90.9 MCH 29.3 MCHC 32.2 RDW 14.2 Plt Count 256 MPV 12.6 H Sodium 138 Potassium 3.2 L Chloride 105 Carbon Dioxide 24 Anion Gap 9 BUN 13 Creatinine 1.21 H Estim Creat Clear Calc 34 Estimated GFR 43 L Glucose 172 H POC Capillary Glucose 168 H Calcium 9.4 Total Bilirubin 0.4 AST 33 ALT 16 Alkaline Phosphatase 90 Total Protein 6.2 L Albumin 2.8 L
--- NOTE | 2024-11-17 10:25 | P.PNAN_ITS ---
Anes - Initial Pre Proc Eval Procedure: Operation Date: 11/17/24 12:00 Proposed Procedures p Removal of Infected Interstim Device - Fransisco Dillard MD Date/Time: 11/17/24 10:25 Surgeon: Gilma Pre Op Diagnosis: Infected stimulator w/perirectal abscess Patient Data Age: 73 Gender: F Height: 1.68 m Weight: 71.2 kg Last Vital Signs Temp 36.8 C 11/17/24 05:07 Pulse 85 11/17/24 05:07 Resp 16 11/17/24 05:07 BP 109/47 L 11/17/24 05:07 Pulse Ox 97 11/17/24 05:07 O2 Del Method Room Air 11/16/24 20:30 O2 Flow Rate 2 11/16/24 10:55 Allergies Allergy/AdvReac Type Severity Reaction Status Date / Time No Known Allergies Allergy Verified 11/14/24 16:00 Home Medications ?Medication ?Instructions ?Recorded ?Confirmed ?Type duloxetine 30 mg capsule,delayed 30 mg PO DAILY 07/04/23 11/14/24 History release glimepiride 2 mg tablet 2 - 4 mg PO BID 07/04/23 11/14/24 History irbesartan 150 mg tablet 150 mg PO HS 07/04/23 11/14/24 History oxybutynin chloride 5 mg tablet 5 mg PO HS 07/04/23 11/14/24 History oxybutynin chloride 5 mg tablet 10 mg PO DAILY 07/04/23 11/14/24 History pravastatin 20 mg tablet 20 mg PO HS 07/04/23 11/14/24 History amlodipine 5 mg tablet (Norvasc) 5 mg PO QAM #30 tabs 07/08/23 11/14/24 Rx mirtazapine 15 mg tablet (Remeron) 7.5 mg (1/2 x 15 mg) PO HS #30 tabs 07/08/23 11/14/24 Rx famotidine 40 mg tablet 40 mg PO DAILY 11/14/24 11/14/24 History metformin 500 mg tablet,extended 1,000 mg PO DAILY 11/14/24 11/14/24 History release 24 hr Laboratory Tests 11/16/24 11/16/24 11/16/24 11:55 17:10 23:45 WBC RBC Hgb Hct MCV MCH MCHC RDW Plt Count MPV Sodium Potassium Chloride Carbon Dioxide Anion Gap BUN Creatinine Estim Creat Clear Calc Estimated GFR Glucose POC Capillary Glucose 245 H mg/dl 272 H mg/dl 266 H mg/dl (65-105) (65-105) (65-105) Calcium Total Bilirubin AST ALT Alkaline Phosphatase Total Protein Albumin 11/17/24 11/17/24 04:37 05:38 WBC 19.9 H K/mm3 (4.5-10.0) RBC 4.06 L M/mm3 (4.2-5.4) Hgb 11.9 L g/dL (12.0-15.0) Hct 36.9 L % (37.0-47.0) MCV 90.9 fl (80-100) MCH 29.3 pg (26-34) MCHC 32.2 g/dl (32-36) RDW 14.2 % (11.5-14.5) Plt Count 256 k/mm3 (150-375) MPV 12.6 H fl (7.4-10.4) Sodium 138 mmol/L (137-145) Potassium 3.2 L mmol/L (3.4-5.0) Chloride 105 mmol/L (98-107) Carbon Dioxide 24 mmol/L (22-30) Anion Gap 9 mmol/L (4-12) BUN 13 mg/dL (7-17) Creatinine 1.21 H mg/dL (0.7-1.0) Estim Creat Clear Calc 34 ml/min Estimated GFR 43 L (59 - ) Glucose 172 H mg/dL (65-110) POC Capillary Glucose 168 H mg/dl (65-105) Calcium 9.4 mg/dL (8.4-10.2) Total Bilirubin 0.4 mg/dL (0.2-1.3) AST 33 U/L (14-36) ALT 16 U/L (6-35) Alkaline Phosphatase 90 U/L (38-126) Total Protein 6.2 L g/dL (6.3-8.2) Albumin 2.8 L g/dL (3.5-5.1) Patient hx anesthesia problems: none Family hx anesthesia problems: none Results Review: All pre-operative results and documents have been reviewed as part of the pre- operative evaluation. [facility] Past Medical History Medical History Chronic kidney disease, stage 3b With baseline creatinine around 1.5 since 2023 Bilateral inguinal hernia Fat containing Insomnia Primary lateral sclerosis Overactive bladder Hypertension Depression Type 2 diabetes mellitus Hyperlipidemia Surgical History Surgical History Status post cataract extraction of both eyes with insertion of intraocular lens S/P implantation of urinary electronic stimulator device Family History Family History Other Unknown family medical history Social History Social History Social History: Patient has been for 32 years. She has 2 sons. She is a lifelong nonsmoker and does not drink alcohol. She is a retired banker. They have a small terrier at home. Code status: DNR/DNI Surrogate decision maker: Smoking status: Never smoker Alcohol intake: never Substance use: never Lack of Transportation: No Lack of Food: Never True Current Housing: I Have Housing Concerned About Future Housing: No Difficulty Paying Gas/Electric Bills: No Difficulty Paying for Meds: No Currently Unemployed: No Education: High School Diploma/GED Difficulty w/ Childcare or Family Care: No Spiritual care concerns: No Anes - Eval Final PreProcedure Day of Procedure 11/17/24 10:25 Patient weight: overweight Heart: regular rate and rhythm Lungs: clear to auscultation Airway: Mallampati scale class II Neurological: alert and oriented Last oral intake: >/= 8 hours ASA classification: IV Emergent: no Anesthetic plan: proceed Anesthesia type and monitoring: general GIVS and standard monitoring Results Review: All pre-operative results and documents have been reviewed as part of the pre- operative evaluation. Informed Consent: The patient's anesthetic plan and its attendant risks and benefits were discussed with the patient/family/POA. Questions were solicited and answers provided to the satisfaction of the patient/family/POA.
--- NOTE | 2024-11-17 12:32 | W.PM.PROC2 ---
Procedure Note - Detailed Date of Procedure 11/17/24 Pre-op Diagnosis Infected stimulator w/perirectal abscess Post-op Diagnosis Same Procedure Performed Removal of sacral stimulator battery, removal of sacral stimulator lead Surgeon Fransisco Dillard MD Anesthesia MAC and Local Indications She has a sacral neural stimulator placed in 2013. I have not seen her since 2015. She is now largely bed-bound due to progressive neurologic disease. She has a pelvic abscess as well as an eroded battery from sacral neurostimulator. At this point it is impossible to know whether the pelvic abscess started perirectally and then infected the neurostimulator or vice versa. She has a pelvic drain in place. I am going to remove her sacral stimulator today. Description of Procedure She is correctly identified. Informed consent obtained. From the operating room. She was placed in prone position while awake. She was given monitored anesthesia care. I prepped and draped the surgical area. The skin was open over the sacral neurostimulator. There was also an area of opening in the skin over the lead insertion site. I anesthetized both areas. I was able to bluntly open the skin further over this neurostimulator battery. I located the battery and grasped it with a clamp. I gently pulled on the sacral neurostimulator battery and was able to explant the battery the lead came along with it. The device was completely removed. There was minimal purulence at either skin opening. I opened the incision over the lead insertion site in order to ensure there was no additional purulence. There was not. I probed the area bluntly. There was no communication to the pelvic abscess.. There was healthy-appearing tissue without necrosis.. I irrigated out that wounds copiously. There was no additional purulence or necrosis. Both wounds were packed. The sacral lead insertion site was packed with iodoform gauze. The battery site was packed with Kerlix. Sterile dressings applied. Will get wound care consult. will continue to drain. Continue antibiotics Estimated Blood Loss 1 Packing Yes Pathology None sent Complications No immediate complications Condition Stable Disposition PACU
[2024-11-17] MEDS: LACTATED RINGERS 1,000 ML 30 ML IV CONT (12:33)
[2024-11-17] MEDS: BUPIVACAINE/EPINEPHRINE 0.5% 50 ML VIAL 30 ML INFILTRATE (12:43)
[2024-11-17] MEDS: HYDROcodone/acetaminophen (*CRX) 5-325 MG TABLET 1 TAB PO (17:28)
[2024-11-17] MEDS: SENNA/DOCUSATE SODIUM TABLET 1 TAB PO (20:25)
[2024-11-17] MEDS: MIRTAZAPINE 7.5 MG TABLET PO (20:25)
[2024-11-17] MEDS: IRBESARTAN 150 MG TABLET PO (20:25)
[2024-11-17] MEDS: INSULIN GLARGINE (*BKC) 100 UNITS/ML 14 UNITS SUB-Q (20:26)
[2024-11-17] MEDS: VANCOMYCIN 1,250 MG/NS 250 ML 1,250 MG/250 ML BAG 166.67 MG IVPB (22:15)
[2024-11-18] MEDS: PIPERACILLIN/TAZOBACTAM SOD 2.25 GM in SODIUM CHLORIDE 0.9% IV 50 ML 100 ML IVPB ×4 (02:50→21:04)
[2024-11-18 05:13] VITALS: BP 121/51; PULSE 93; RESP 16; TEMP 36.9; O2SAT 94
[2024-11-18 05:18] LABS: Hematocrit 35.2 % (37.0-47.0); Hemoglobin 11.2 g/dL (12.0-15.0); Mean Corpuscular HGB Conc 31.8 g/dl (32-36); Mean Corpuscular Hemoglobin 29.2 pg (26-34); Mean Corpuscular Volume 91.7 fl (80-100); Platelet Count Result 238 k/mm3 (150-375); Red Blood Count 3.84 M/mm3 (4.2-5.4); White Blood Count 16.0 K/mm3 (4.5-10.0)
[2024-11-18 05:28] LABS: Alanine Aminotransferase 13 U/L (6-35); Albumin Level 2.8 g/dL (3.5-5.1); Alkaline Phosphatase 96 U/L (38-126); Anion Gap 7 mmol/L (4-12); Aspartate Amino Transferase 24 U/L (14-36); Bilirubin,Total 0.5 mg/dL (0.2-1.3); Blood Urea Nitrogen 16 mg/dL (7-17); Calcium 8.9 mg/dL (8.4-10.2); Carbon Dioxide 22 mmol/L (22-30); Chloride 106 mmol/L (98-107); Estimated CRCL calculation 32 ml/min; Estimated Glomerular Filt Rate 41; Glucose 195 mg/dL (65-110); Potassium 3.5 mmol/L (3.4-5.0); Sodium 135 mmol/L (137-145); Total Protein 6.1 g/dL (6.3-8.2)
--- NOTE | 2024-11-18 06:46 | PM.IMPN ---
Progress Note: A&P Assessment and Plan (1) Infection associated with urinary electronic stimulator device: Code(s): T83.590A - Infection and inflammatory reaction due to implanted urinary neurostimulation device, initial encounter Status: Acute Assessment and Plan: Is unclear if the patient's infection started with a perirectal abscess that then tunneled out along the guidewire of the bladder stimulator in subsequently opening subcutaneously in the right buttock or if the patient may have developed a decubitus ulcer in the right buttock that then tunneled downward and infected the hardware subsequently creating a perirectal abscess. Blood cultures: NGTD Wound cultures 11/14: gram stain - mod wbc with many gram positive cocci and few gram negative rods. Abscess culture 11/16: gram stain - few gram positive cocci Antibiotics: Zosyn and vancomycin started on 11/14 CT abdomen/pelvis: Rim-enhancing fluid collection within the left hemipelvis, likely related to the stimulator device within the soft tissues of the right buttock General surgery consulted Continue perc drainage of pelvic abscess Urology consulted Continue broad-spectrum antibiotics S/p drain placement per IR on 11/16 S/p removal of sacral stimulator battery and lead on 11/[address] Dillard (2) Abscess, perirectal: Code(s): K61.1 - Rectal abscess Status: Acute Assessment and Plan: See plan above (3) Urinary tract infection: Code(s): N39.0 - Urinary tract infection, site not specified Status: Acute Assessment and Plan: - UA: cloudy appearance with elevated specific gravity, 3+ glucose, trace ketones, negative nitrates, negative leukocytes, 6-10 WBC, 4+ bacteria and no squamous cells. - UC obtained on 11/14: Ecoli with sensitivities pending - previous micro reviewed klebsiella oxytoca 07/04/23 resistant to keflex - started on zosyn and vancomycin for cocurrent abscess Denies UTI like symptoms including dysuria, burning and increased frequency/urgency. (4) Candidiasis of perineum: Code(s): B37.49 - Other urogenital candidiasis Status: Acute Assessment and Plan: Continue fluconazole 100 mg daily, started on 11/16 Continue antifungal barrier cream and keep area dry (5) Type 2 diabetes mellitus with hyperglycemia, without long-term current use of insulin: Code(s): E11.65 - Type 2 diabetes mellitus with hyperglycemia Status: Acute Assessment and Plan: The patient was markedly hyperglycemic on admission with history of diabetes not on insulin at home. Patient's glucoses decreased from the 500s down to 300 with IV fluid hydration. - hypoglycemia protocol - POC blood glucose ACHS - home medication - metformin 1000 mg daily, glimepiride 2-4 mg BID - A1C 13.8 Random glucose elevated at 517 on admission. Continue Lantus 14 units. Patient requiring 4-5 units SSI with meals, started on 4 units aspart TIDWM Glucose levels showing improvement, continue to monitor Prior to discharge patient will require diabetes education given new insulin requirement (6) Pseudohyponatremia: Code(s): R79.89 - Other specified abnormal findings of blood chemistry Status: Acute Assessment and Plan: Patient with pseudo hyponatremia due to hyperglycemia on admission. Patient does also appear to be dehydrated/intervascular volume depleted given that she has ketones in her urine elevated specific gravity and hypercalcemia. This may be playing a component in the patient's hyponatremia as well. Resolved. (7) Hypertension: Code(s): I10 - Essential (primary) hypertension Status: Acute Assessment and Plan: Chronic, continue home medication - irbesartan 150 mg daily - amlodipine 5 mg daily - blood pressure stable, continue to monitor Time Spent With Patient Time with patient: 25 - 35 minutes Subjective Date/time seen: 11/18/24 06:46 Interval history: 73-year-old female with a past medical medical history of depression, essential hypertension, overactive bladder with bladder stimulator, type 2 diabetes mellitus, chronic kidney disease stage 3 and 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 Patient is pleasant lying comfortably in bed. She endorses increased pain/tenderness to her lower back/buttock region where surgery was performed yesterday. She has no other complaints denying chest pain, palpitations, shortness of breath, nausea/vomiting and abdominal pain. Patient did have a bowel movement yesterday afternoon. Denies UTI like symptoms including dysuria, burning and increased frequency/urgency. Review of Systems Review of Systems: All systems reviewed & are unremarkable except as noted in HPI and below Exam Narrative: AF HR 93 RR 16 SpO2 94 BP 121/55 General: female in no acute respiratory distress who is nontoxic appearing, lying semirecumbent in bed. HEENT: Normocephalic. Atraumatic. Extraocular movement intact. Sclera clear and anicteric. No facial asymmetry. Chest: Lungs are clear to auscultation bilaterally. No wheezes or crackles. CV: Heart was regular rate and rhythm. Abd: Abdomen was soft. Mild tenderness to lower abdomen. Nondistended. Positive bowel sounds. Ext: No clubbing, cyanosis, or edema. DP pulses bilaterally. Neuro: Patient is alert. Speech is clear. Skin: Dressings placed over the wounds with slight bloody drainage. Drain placed to left buttock region, scant bloody drainage. Objective Data Vital Signs Vital Signs: Vital Signs - 24 hr 11/17/24 12:33 11/17/24 12:45 11/17/24 13:00 Temperature 97.6 F Pulse Rate 81 82 85 Respiratory Rate 13 20 20 Blood Pressure 97/58 L 97/65 L 108/62 Pulse Oximetry 96 95 95 Oxygen Delivery Room Air Room Air Room Air Oxygen Flow Rate 11/17/24 13:15 11/17/24 13:30 11/17/24 13:45 Temperature Pulse Rate 84 80 80 Respiratory Rate 20 20 18 Blood Pressure 112/69 114/65 112/60 Pulse Oximetry 94 95 98 Oxygen Delivery Room Air Nasal Cannula Nasal Cannula Oxygen Flow Rate 2 2 11/17/24 14:15 11/17/24 14:30 11/17/24 15:00 Temperature 97.5 F L 97.9 F 98 F Pulse Rate 80 83 85 Respiratory Rate 18 16 16 Blood Pressure 131/65 120/62 101/56 L Pulse Oximetry 98 94 96 Oxygen Delivery Oxygen Flow Rate 11/17/24 16:00 11/17/24 20:20 11/17/24 21:34 Temperature 97.8 F 98.1 F Pulse Rate 86 86 Respiratory Rate 16 16 Blood Pressure 115/66 126/56 L Pulse Oximetry 97 96 Oxygen Delivery Room Air Oxygen Flow Rate 11/17/24 21:53 11/18/24 05:13 Temperature 98.5 F Pulse Rate 93 Respiratory Rate 16 Blood Pressure 121/51 L Pulse Oximetry 96 94 Oxygen Delivery Room Air Oxygen Flow Rate Intake/Output Intake/Output: Intake & Output 11/15/24 11/16/24 11/17/24 11/18/24 23:59 23:59 23:59 23:59 Intake Total 574 230 3965 300 Output Total 250 850 850 500 Balance 570 -210 440 -200 Meds/Results Medications: Active Medications Generic Name Dose Route Start Last Admin Trade Name Freq PRN Reason Stop Dose Admin Acetaminophen 500 mg 11/14/24 22:47 Acetaminophen 500 Mg Tablet PO Q4H PRN Mild Pain (1-3) or Fever Hydrocodone Bitart/Acetaminophen 1 tab 11/14/24 22:47 11/17/24 17:28 Hydrocodone/Acetaminophen (*Crx) 5-325 Mg Tablet PO 1 tab Q6H PRN Administration Pain Rated 4-10 Amlodipine Besylate 5 mg 11/15/24 09:00 11/17/24 08:34 Amlodipine Besylate 5 Mg Tablet PO 5 mg QAM INES Administration Dextrose 12.5 gm 11/14/24 21:03 Dextrose 50% 25 Gm/50 Ml Syringe IV PUSH PRN PRN Hypoglycemia Protocol Duloxetine HCl 30 mg 11/15/24 09:00 11/17/24 08:36 Duloxetine Hcl 30 Mg Capsule.Dr PO Not Given DAILY INES Enoxaparin Sodium 40 mg 11/15/24 09:00 11/17/24 08:36 Enoxaparin 40 Mg/0.4 Ml Syringe SUB-Q 40 mg DAILY INES Administration Famotidine 40 mg 11/15/24 09:00 11/17/24 08:36 Famotidine 20 Mg Tablet PO Not Given DAILY INES Fluconazole 100 mg 11/15/24 09:00 11/17/24 08:36 Fluconazole 100 Mg Tablet PO Not Given QAM INES Glucagon 1 mg 11/14/24 21:03 Glucagon For Inj 1 Mg Vial IM PRN PRN Hypoglycemia Protocol Glucose 15 gm 11/14/24 21:03 Glucose Oral Gel 15 Gm Of Glucse In 37.5 Gm Tube PO PRN PRN Hypoglycemia Protocol Piperacillin Sod/Tazobactam 50 mls @ 100 mls/hr 11/15/24 02:00 11/18/24 02:50 Sod 2.25 gm/ Sodium Chloride IVPB 100 mls/hr Q6H INES Administration Dextrose 1,000 mls @ 100 mls/hr 11/14/24 21:03 Dextrose 5% 1,000 Ml IVPB PRN PRN Hypoglycemia Protocol Vancomycin HCl 1,250 mg in 250 mls @ 166.667 mls/hr 11/17/24 22:00 11/17/24 22:15 Vancomycin 1,250 Mg/Ns 250 Ml IVPB 166.67 mls/hr Q24H INES Administration Insulin Aspart 4 units 11/17/24 08:00 11/17/24 17:28 Insulin Aspart (*Bkc) 100 Units/Ml 0.05 units/kg (4 units) 4 units SUB-Q Administration TIDWM [facility] Insulin Aspart 3 - 6 units 11/17/24 08:00 11/17/24 17:13 Insulin Aspart (*Bkc) 100 Units/Ml SUB-Q Not Given TIDWM [facility] Protocol Insulin Glargine 14 units 11/16/24 21:00 11/17/24 20:26 Insulin Glargine (*Bkc) 100 Units/Ml 0.2 units/kg (14 units) 14 units SUB-Q Administration [facility] Irbesartan 150 mg 11/15/24 21:00 11/17/24 20:25 Irbesartan 150 Mg Tablet PO 150 mg HS [facility] Administration Miconazole Nitrate 1 applic 11/15/24 09:00 11/17/24 20:26 Miconazole Nitrate 2% Cream 30 Gm Tube TOPICAL 1 applic Q12HR [facility] Administration Mirtazapine 7.5 mg 11/15/24 21:00 11/17/24 20:25 Mirtazapine 7.5 Mg Tablet PO 7.5 mg HS [facility] Administration Miscellaneous Information 0 each 11/14/24 22:00 11/17/24 08:35 Miconazole Cream- Please Indicate Application Site: XX 12/14/24 21:59 Not Given CLARIFY [facility] Morphine Sulfate 2 mg 11/14/24 22:47 11/15/24 20:36 Morphine Sulfate (*Crx) 2 Mg/Ml Inj IV PUSH 2 mg Q4H PRN Administration [facility] Oxybutynin Chloride 5 mg 11/15/24 00:20 11/17/24 20:25 Oxybutynin Chloride 5 Mg Tablet PO 5 mg HS [facility] Administration Oxybutynin Chloride 10 mg 11/15/24 09:00 11/17/24 08:36 Oxybutynin Chloride 5 Mg Tablet PO Not Given DAILY INES Senna/Docusate Sodium 1 tab 11/17/24 21:00 11/17/24 20:25 Senna/Docusate Sodium Tablet PO 1 tab HS [facility] Administration Radiology Results: ITS Impressions Chest X-Ray 11/14/24 16:42 IMPRESSION: No focal infiltrate or effusion. Abdomen/Pelvis CT 11/14/24 18:20 IMPRESSION: Rim-enhancing fluid collection within the left hemipelvis, likely related to the stimulator device within the soft tissues of the right buttock, as detailed above. Catheter Placement CT 11/16/24 12:36 IMPRESSION: 1. Successful CT-guided left presacral abscess drainage. 2. 10 mL fluid was sent for aerobic and anaerobic cultures. 3. The catheter will be managed by Dr. Kemp. Labs Labs: Laboratory Results - last 24 hr 11/17/24 11/17/24 11/17/24 04:37 17:05 20:01 WBC RBC Hgb Hct MCV MCH MCHC RDW Plt Count MPV Sodium 138 Potassium 3.2 L Chloride 105 Carbon Dioxide 24 Anion Gap 9 BUN 13 Creatinine 1.21 H Estim Creat Clear Calc 34 Estimated GFR 43 L Glucose 172 H POC Capillary Glucose 177 H Calcium 9.4 Total Bilirubin 0.4 AST 33 ALT 16 Alkaline Phosphatase 90 Total Protein 6.2 L Albumin 2.8 L Vancomycin Trough 10.0 11/17/24 11/18/24 11/18/24 21:33 00:00 04:29 WBC 16.0 H RBC 3.84 L Hgb 11.2 L Hct 35.2 L MCV 91.7 MCH 29.2 MCHC 31.8 L RDW 14.6 H Plt Count 238 MPV 12.8 H Sodium 135 L Potassium 3.5 Chloride 106 Carbon Dioxide 22 Anion Gap 7 BUN 16 Creatinine 1.26 H Estim Creat Clear Calc 32 Estimated GFR 41 L Glucose 195 H POC Capillary Glucose 205 H 198 H Calcium 8.9 Total Bilirubin 0.5 AST 24 ALT 13 Alkaline Phosphatase 96 Total Protein 6.1 L Albumin 2.8 L Vancomycin Trough 11/18/24 06:22 WBC RBC Hgb Hct MCV MCH MCHC RDW Plt Count MPV Sodium Potassium Chloride Carbon Dioxide Anion Gap BUN Creatinine Estim Creat Clear Calc Estimated GFR Glucose POC Capillary Glucose 180 H Calcium Total Bilirubin AST ALT Alkaline Phosphatase Total Protein Albumin Vancomycin Trough Quality VTE Prophylaxis VTE prophylaxis: pharmacologic ordered (Lovenox 40 mg subQ daily.)
--- NOTE | 2024-11-18 07:18 | P.PNUR_ITS ---
Progress Note: A&P Assessment and Plan (1) Infection associated with urinary electronic stimulator device: Code(s): T83.590A - Infection and inflammatory reaction due to implanted urinary neurostimulation device, initial encounter Status: Acute Assessment and Plan: It remains unclear if the patient's infection started with a perirectal abscess that then tunneled out along the guidewire of the bladder stimulator in subsequently opening subcutaneously in the right buttock or if the patient may have developed a decubitus ulcer in the right buttock that then tunneled downward and infected the hardware subsequently creating a perirectal abscess. Regardless, the source control plan involves managing the abscess, removing the device, and wound care. IR drain addressing abscess, urology has removed the device, wound care consult placed. Continue broad-spectrum antibiotics, tailor to culture results S/p drain placement per IR on 11/16, management by Gen Surg S/p removal of sacral stimulator battery and lead on 11/[address] Dillard -- no further planned urologic interventions Continue Wound care Subjective Subjective Date/Time Seen: 11/18/24 07:18 Interval history: s/p Interstim Explant WBC down to 16k from 19k Wound care consult placed for decub/wound care Exam Narrative: No acute distress; resting comfortably Objective Data Vital Signs Vital Signs: Vital Signs - 24 hr 11/17/24 12:33 11/17/24 12:45 11/17/24 13:00 Temperature 36.4 C Pulse Rate 81 82 85 Respiratory Rate 13 20 20 Blood Pressure 97/58 L 97/65 L 108/62 Pulse Oximetry 96 95 95 Oxygen Delivery Room Air Room Air Room Air Oxygen Flow Rate 11/17/24 13:15 11/17/24 13:30 11/17/24 13:45 Temperature Pulse Rate 84 80 80 Respiratory Rate 20 20 18 Blood Pressure 112/69 114/65 112/60 Pulse Oximetry 94 95 98 Oxygen Delivery Room Air Nasal Cannula Nasal Cannula Oxygen Flow Rate 2 2 11/17/24 14:15 11/17/24 14:30 11/17/24 15:00 Temperature 36.4 C L 36.6 C 36.6 C Pulse Rate 80 83 85 Respiratory Rate 18 16 16 Blood Pressure 131/65 120/62 101/56 L Pulse Oximetry 98 94 96 Oxygen Delivery Oxygen Flow Rate 11/17/24 16:00 11/17/24 20:20 11/17/24 21:34 Temperature 36.6 C 36.7 C Pulse Rate 86 86 Respiratory Rate 16 16 Blood Pressure 115/66 126/56 L Pulse Oximetry 97 96 Oxygen Delivery Room Air Oxygen Flow Rate 11/17/24 21:53 11/18/24 05:13 Temperature 36.9 C Pulse Rate 93 Respiratory Rate 16 Blood Pressure 121/51 L Pulse Oximetry 96 94 Oxygen Delivery Room Air Oxygen Flow Rate Intake/Output Intake/Output: Intake & Output 11/15/24 11/16/24 11/17/24 11/18/24 23:59 23:59 23:59 23:59 Intake Total 608 007 7085 300 Output Total 250 850 850 500 Balance 570 -210 440 -200 Meds/Results Medications: Active Medications Generic Name Dose Route Start Last Admin Trade Name Freq PRN Reason Stop Dose Admin Acetaminophen 500 mg 11/14/24 22:47 Acetaminophen 500 Mg Tablet PO Q4H PRN Mild Pain (1-3) or Fever Hydrocodone Bitart/Acetaminophen 1 tab 11/14/24 22:47 11/17/24 17:28 Hydrocodone/Acetaminophen (*Crx) 5-325 Mg Tablet PO 1 tab Q6H PRN Administration Pain Rated 4-10 Amlodipine Besylate 5 mg 11/15/24 09:00 11/17/24 08:34 Amlodipine Besylate 5 Mg Tablet PO 5 mg QAM INES Administration Dextrose 12.5 gm 11/14/24 21:03 Dextrose 50% 25 Gm/50 Ml Syringe IV PUSH PRN PRN Hypoglycemia Protocol Duloxetine HCl 30 mg 11/15/24 09:00 11/17/24 08:36 Duloxetine Hcl 30 Mg Capsule.Dr PO Not Given DAILY INES Enoxaparin Sodium 40 mg 11/15/24 09:00 11/17/24 08:36 Enoxaparin 40 Mg/0.4 Ml Syringe SUB-Q 40 mg DAILY INES Administration Famotidine 40 mg 11/15/24 09:00 11/17/24 08:36 Famotidine 20 Mg Tablet PO Not Given DAILY INES Fluconazole 100 mg 11/15/24 09:00 11/17/24 08:36 Fluconazole 100 Mg Tablet PO Not Given QAM INES Glucagon 1 mg 11/14/24 21:03 Glucagon For Inj 1 Mg Vial IM PRN PRN Hypoglycemia Protocol Glucose 15 gm 11/14/24 21:03 Glucose Oral Gel 15 Gm Of Glucse In 37.5 Gm Tube PO PRN PRN Hypoglycemia Protocol Piperacillin Sod/Tazobactam 50 mls @ 100 mls/hr 11/15/24 02:00 11/18/24 02:50 Sod 2.25 gm/ Sodium Chloride IVPB 100 mls/hr Q6H INES Administration Dextrose 1,000 mls @ 100 mls/hr 11/14/24 21:03 Dextrose 5% 1,000 Ml IVPB PRN PRN Hypoglycemia Protocol Vancomycin HCl 1,250 mg in 250 mls @ 166.667 mls/hr 11/17/24 22:00 11/17/24 22:15 Vancomycin 1,250 Mg/Ns 250 Ml IVPB 166.67 mls/hr Q24H INES Administration Insulin Aspart 4 units 11/17/24 08:00 11/17/24 17:28 Insulin Aspart (*Bkc) 100 Units/Ml 0.05 units/kg (4 units) 4 units SUB-Q Administration TIDWM [facility] Insulin Aspart 3 - 6 units 11/17/24 08:00 11/17/24 17:13 Insulin Aspart (*Bkc) 100 Units/Ml SUB-Q Not Given TIDWM [facility] Protocol Insulin Glargine 14 units 11/16/24 21:00 11/17/24 20:26 Insulin Glargine (*Bkc) 100 Units/Ml 0.2 units/kg (14 units) 14 units SUB-Q Administration [facility] Irbesartan 150 mg 11/15/24 21:00 11/17/24 20:25 Irbesartan 150 Mg Tablet PO 150 mg HS [facility] Administration Miconazole Nitrate 1 applic 11/15/24 09:00 11/17/24 20:26 Miconazole Nitrate 2% Cream 30 Gm Tube TOPICAL 1 applic Q12HR INES Administration Mirtazapine 7.5 mg 11/15/24 21:00 11/17/24 20:25 Mirtazapine 7.5 Mg Tablet PO 7.5 mg HS INES Administration Miscellaneous Information 0 each 11/14/24 22:00 11/17/24 08:35 Miconazole Cream- Please Indicate Application Site: XX 12/14/24 21:59 Not Given CLARIFY [facility] Morphine Sulfate 2 mg 11/14/24 22:47 11/15/24 20:36 Morphine Sulfate (*Crx) 2 Mg/Ml Inj IV PUSH 2 mg Q4H PRN Administration Breakthrough Pain Oxybutynin Chloride 5 mg 11/15/24 00:20 11/17/24 20:25 Oxybutynin Chloride 5 Mg Tablet PO 5 mg HS INES Administration Oxybutynin Chloride 10 mg 11/15/24 09:00 11/17/24 08:36 Oxybutynin Chloride 5 Mg Tablet PO Not Given DAILY INES Senna/Docusate Sodium 1 tab 11/17/24 21:00 11/17/24 20:25 Senna/Docusate Sodium Tablet PO 1 tab HS INES Administration Radiology Results: ITS Impressions Chest X-Ray 11/14/24 16:42 IMPRESSION: No focal infiltrate or effusion. Abdomen/Pelvis CT 11/14/24 18:20 IMPRESSION: Rim-enhancing fluid collection within the left hemipelvis, likely related to the stimulator device within the soft tissues of the right buttock, as detailed above. Catheter Placement CT 11/16/24 12:36 IMPRESSION: 1. Successful CT-guided left presacral abscess drainage. 2. 10 mL fluid was sent for aerobic and anaerobic cultures. 3. The catheter will be managed by Dr. Kemp. Labs Labs: Laboratory Results - last 24 hr 11/17/24 11/17/24 11/17/24 17:05 20:01 21:33 WBC RBC Hgb Hct MCV MCH MCHC RDW Plt Count MPV Sodium Potassium Chloride Carbon Dioxide Anion Gap BUN Creatinine Estim Creat Clear Calc Estimated GFR Glucose POC Capillary Glucose 177 H 205 H Calcium Total Bilirubin AST ALT Alkaline Phosphatase Total Protein Albumin Vancomycin Trough 10.0 11/18/24 11/18/24 11/18/24 00:00 04:29 06:22 WBC 16.0 H RBC 3.84 L Hgb 11.2 L Hct 35.2 L MCV 91.7 MCH 29.2 MCHC 31.8 L RDW 14.6 H Plt Count 238 MPV 12.8 H Sodium 135 L Potassium 3.5 Chloride 106 Carbon Dioxide 22 Anion Gap 7 BUN 16 Creatinine 1.26 H Estim Creat Clear Calc 32 Estimated GFR 41 L Glucose 195 H POC Capillary Glucose 198 H 180 H Calcium 8.9 Total Bilirubin 0.5 AST 24 ALT 13 Alkaline Phosphatase 96 Total Protein 6.1 L Albumin 2.8 L Vancomycin Trough
[2024-11-18] MEDS: ENOXAPARIN 40 MG/0.4 ML SYRINGE SUB-Q (09:18)
[2024-11-18] MEDS: FLUCONAZOLE 100 MG TABLET PO (09:19)
[2024-11-18] MEDS: FAMOTIDINE 20 MG TABLET 40 MG PO (09:19)
[2024-11-18] MEDS: MICONAZOLE NITRATE 2% CREAM 30 GM TUBE 1 APPLIC TOPICAL ×2 (09:20→21:03)
[2024-11-18] MEDS: INSULIN ASPART (*BKC) 100 UNITS/ML SUB-Q ×3 (09:21→17:19)
[2024-11-18 14:00] VITALS: BP 107/53; PULSE 90; RESP 16; TEMP 36.6; O2SAT 97
[2024-11-18] MEDS: HYDROcodone/acetaminophen (*CRX) 5-325 MG TABLET 1 TAB PO (14:30)
[2024-11-18 20:00] VITALS: O2SAT 97
[2024-11-18] MEDS: SENNA/DOCUSATE SODIUM TABLET 1 TAB PO (21:01)
[2024-11-18] MEDS: IRBESARTAN 150 MG TABLET PO (21:02)
[2024-11-18] MEDS: MIRTAZAPINE 7.5 MG TABLET PO (21:02)
[2024-11-18] MEDS: INSULIN GLARGINE (*BKC) 100 UNITS/ML 14 UNITS SUB-Q (21:03)
[2024-11-18 21:14] VITALS: BP 128/59; PULSE 93; RESP 16; TEMP 36.9; O2SAT 96
[2024-11-18] MEDS: VANCOMYCIN 1,250 MG/NS 250 ML 1,250 MG/250 ML BAG 166.67 MG IVPB (21:53)
[2024-11-18 22:18] VITALS: O2SAT 97
[2024-11-19] MEDS: PIPERACILLIN/TAZOBACTAM SOD 2.25 GM in SODIUM CHLORIDE 0.9% IV 50 ML 100 ML IVPB ×4 (03:27→20:08)
[2024-11-19 05:26] LABS: Hematocrit 34.0 % (37.0-47.0); Hemoglobin 10.2 g/dL (12.0-15.0); Mean Corpuscular HGB Conc 30.0 g/dl (32-36); Mean Corpuscular Hemoglobin 29.1 pg (26-34); Mean Corpuscular Volume 97.1 fl (80-100); Platelet Count Result 219 k/mm3 (150-375); Red Blood Count 3.50 M/mm3 (4.2-5.4); White Blood Count 11.2 K/mm3 (4.5-10.0)
[2024-11-19 05:39] VITALS: BP 115/59; PULSE 89; RESP 16; TEMP 36.4; O2SAT 95
[2024-11-19 05:45] LABS: Alanine Aminotransferase 11 U/L (6-35); Albumin Level 2.5 g/dL (3.5-5.1); Alkaline Phosphatase 91 U/L (38-126); Anion Gap 7 mmol/L (4-12); Aspartate Amino Transferase 20 U/L (14-36); Bilirubin,Total 0.4 mg/dL (0.2-1.3); Blood Urea Nitrogen 17 mg/dL (7-17); Calcium 8.6 mg/dL (8.4-10.2); Carbon Dioxide 21 mmol/L (22-30); Chloride 106 mmol/L (98-107); Estimated CRCL calculation 33 ml/min; Estimated Glomerular Filt Rate 43; Glucose 172 mg/dL (65-110); Potassium 3.2 mmol/L (3.4-5.0); Sodium 134 mmol/L (137-145); Total Protein 5.7 g/dL (6.3-8.2)
--- NOTE | 2024-11-19 07:35 | PM.IMPN ---
Progress Note: A&P Assessment and Plan (1) Infection associated with urinary electronic stimulator device: Code(s): T83.590A - Infection and inflammatory reaction due to implanted urinary neurostimulation device, initial encounter Status: Acute Assessment and Plan: Is unclear if the patient's infection started with a perirectal abscess that then tunneled out along the guidewire of the bladder stimulator in subsequently opening subcutaneously in the right buttock or if the patient may have developed a decubitus ulcer in the right buttock that then tunneled downward and infected the hardware subsequently creating a perirectal abscess. WBC continue to improve. Blood cultures: NGTD Wound cultures 11/14: gram stain - mod wbc with many gram positive cocci and few gram negative rods. Abscess culture 11/16: gram stain - few gram positive cocci Antibiotics: Zosyn and vancomycin started on 11/14 CT abdomen/pelvis: Rim-enhancing fluid collection within the left hemipelvis, likely related to the stimulator device within the soft tissues of the right buttock General surgery consulted Continue perc drainage of pelvic abscess Urology consulted Continue broad-spectrum antibiotics, tailor to culture results S/p drain placement per IR on 11/16, management per surgery S/p removal of sacral stimulator battery and lead on 11/[address] Dillard (2) Abscess, perirectal: Code(s): K61.1 - Rectal abscess Status: Acute Assessment and Plan: See plan above (3) Urinary tract infection: Code(s): N39.0 - Urinary tract infection, site not specified Status: Acute Assessment and Plan: - UA: cloudy appearance with elevated specific gravity, 3+ glucose, trace ketones, negative nitrates, negative leukocytes, 6-10 WBC, 4+ bacteria and no squamous cells. - UC obtained on 11/14: Ecoli with sensitivities pending - previous micro reviewed klebsiella oxytoca 07/04/23 resistant to keflex - started on zosyn and vancomycin for cocurrent abscess Continues to deny UTI like symptoms including dysuria, burning and increased frequency/urgency. (4) Candidiasis of perineum: Code(s): B37.49 - Other urogenital candidiasis Status: Acute Assessment and Plan: Continue fluconazole 100 mg daily, started on 11/16, course completed. Continue antifungal barrier cream and keep area dry (5) Type 2 diabetes mellitus with hyperglycemia, without long-term current use of insulin: Code(s): E11.65 - Type 2 diabetes mellitus with hyperglycemia Status: Acute Assessment and Plan: The patient was markedly hyperglycemic on admission with history of diabetes not on insulin at home. Patient's glucoses decreased from the 500s down to 300 with IV fluid hydration. - hypoglycemia protocol - POC blood glucose ACHS - home medication - metformin 1000 mg daily, glimepiride 2-4 mg BID - A1C 13.8 Random glucose elevated at 517 on admission. Continue Lantus 14 units. Patient requiring 4-5 units SSI with meals, started on 4 units aspart TIDWM Prior to discharge patient will require diabetes education given new insulin requirement (6) Pseudohyponatremia: Code(s): R79.89 - Other specified abnormal findings of blood chemistry Status: Acute Assessment and Plan: Patient with pseudo hyponatremia due to hyperglycemia on admission. Patient does also appear to be dehydrated/intervascular volume depleted given that she has ketones in her urine elevated specific gravity and hypercalcemia. This may be playing a component in the patient's hyponatremia as well. Resolved. 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 Patient is pleasant sitting up comfortably in bed. She states that pain is doing good today. She has no current complaints denying chest pain, palpitations, shortness of breath, nausea/vomiting and abdominal pain. Patient states that she is eating well. She notes that prior to admission she was able to ambulate throughout her house using a walker. Encouraged patient to get at least up to the chair today and informed her that PT/OT was consulted. Review of Systems Review of Systems: All systems reviewed & are unremarkable except as noted in HPI and below Exam Narrative: AF HR 89 RR 16 Spo2 95 BP 115/59 General: female in no acute respiratory distress who is nontoxic appearing, sitting up in bed eating breakfast HEENT: Normocephalic. Atraumatic. Extraocular movement intact. Sclera clear and anicteric. No facial asymmetry. Chest: Lungs are clear to auscultation bilaterally. No wheezes or crackles. CV: Heart was regular rate and rhythm. Abd: Abdomen was soft. Nontender. Nondistended. Positive bowel sounds. Ext: No clubbing, cyanosis, or edema. DP pulses bilaterally. Neuro: Patient is alert. Speech is clear. Skin: Dressings placed over the wounds. Drain placed to left buttock region. Objective Data Vital Signs Vital Signs: Vital Signs - 24 hr 11/18/24 08:00 11/18/24 14:00 11/18/24 20:00 Temperature 97.8 F Pulse Rate 90 Respiratory Rate 16 Blood Pressure 107/53 L Pulse Oximetry 97 97 Oxygen Delivery Room Air Room Air 11/18/24 21:14 11/18/24 22:18 11/19/24 05:39 Temperature 98.5 F 97.6 F Pulse Rate 93 89 Respiratory Rate 16 16 Blood Pressure 128/59 L 115/59 L Pulse Oximetry 96 97 95 Oxygen Delivery Room Air Intake/Output Intake/Output: Intake & Output 11/16/24 11/17/24 11/18/24 11/19/24 23:59 23:59 23:59 23:59 Intake Total 640 1540 1350 250 Output Total 850 850 500 100 Balance -210 690 850 150 Meds/Results Medications: Active Medications Generic Name Dose Route Start Last Admin Trade Name Freq PRN Reason Stop Dose Admin Acetaminophen 500 mg 11/14/24 22:47 Acetaminophen 500 Mg Tablet PO Q4H PRN Mild Pain (1-3) or Fever Hydrocodone Bitart/Acetaminophen 1 tab 11/14/24 22:47 11/18/24 14:30 Hydrocodone/Acetaminophen (*Crx) 5-325 Mg Tablet PO 1 tab Q6H PRN Administration Pain Rated 4-10 Amlodipine Besylate 5 mg 11/15/24 09:00 11/18/24 09:19 Amlodipine Besylate 5 Mg Tablet PO 5 mg QAM INES Administration Dextrose 12.5 gm 11/14/24 21:03 Dextrose 50% 25 Gm/50 Ml Syringe IV PUSH PRN PRN Hypoglycemia Protocol Duloxetine HCl 30 mg 11/15/24 09:00 11/18/24 09:19 Duloxetine Hcl 30 Mg Capsule. PO 30 mg DAILY INES Administration Enoxaparin Sodium 40 mg 11/15/24 09:00 11/18/24 09:18 Enoxaparin 40 Mg/0.4 Ml Syringe SUB-Q 40 mg DAILY INES Administration Famotidine 40 mg 11/15/24 09:00 11/18/24 09:19 Famotidine 20 Mg Tablet PO 40 mg DAILY INES Administration Fluconazole 100 mg 11/15/24 09:00 11/18/24 09:19 Fluconazole 100 Mg Tablet PO 100 mg QAM INES Administration Glucagon 1 mg 11/14/24 21:03 Glucagon For Inj 1 Mg Vial IM PRN PRN Hypoglycemia Protocol Glucose 15 gm 11/14/24 21:03 Glucose Oral Gel 15 Gm Of Glucse In 37.5 Gm Tube PO PRN PRN Hypoglycemia Protocol Piperacillin Sod/Tazobactam 50 mls @ 100 mls/hr 11/15/24 02:00 11/19/24 03:57 Sod 2.25 gm/ Sodium Chloride IVPB Infused Q6H INES Infusion Dextrose 1,000 mls @ 100 mls/hr 11/14/24 21:03 Dextrose 5% 1,000 Ml IVPB PRN PRN Hypoglycemia Protocol Vancomycin HCl 1,250 mg in 250 mls @ 166.667 mls/hr 11/17/24 22:00 11/18/24 23:23 Vancomycin 1,250 Mg/Ns 250 Ml IVPB Infused Q24H INES Infusion Insulin Aspart 4 units 11/17/24 08:00 11/18/24 17:19 Insulin Aspart (*Bkc) 100 Units/Ml 0.05 units/kg (4 units) 4 units SUB-Q Administration TIDWM [facility] Insulin Aspart 3 - 6 units 11/17/24 08:00 11/18/24 17:19 Insulin Aspart (*Bkc) 100 Units/Ml SUB-Q 3 units TIDWM [facility] Administration Protocol Insulin Glargine 14 units 11/16/24 21:00 11/18/24 21:03 Insulin Glargine (*Bkc) 100 Units/Ml 0.2 units/kg (14 units) 14 units SUB-Q Administration [facility] Irbesartan 150 mg 11/15/24 21:00 11/18/24 21:02 Irbesartan 150 Mg Tablet PO 150 mg HS INES Administration Miconazole Nitrate 1 applic 11/15/24 09:00 11/18/24 21:03 Miconazole Nitrate 2% Cream 30 Gm Tube TOPICAL 1 applic Q12HR INES Administration Mirtazapine 7.5 mg 11/15/24 21:00 11/18/24 21:02 Mirtazapine 7.5 Mg Tablet PO 7.5 mg HS INES Administration Miscellaneous Information 0 each 11/14/24 22:00 11/19/24 07:32 Miconazole Cream- Please Indicate Application Site: XX 12/14/24 21:59 Not Given CLARIFY INES Morphine Sulfate 2 mg 11/14/24 22:47 11/15/24 20:36 Morphine Sulfate (*Crx) 2 Mg/Ml Inj IV PUSH 2 mg Q4H PRN Administration Breakthrough Pain Oxybutynin Chloride 5 mg 11/15/24 00:20 11/18/24 21:02 Oxybutynin Chloride 5 Mg Tablet PO 5 mg HS INES Administration Oxybutynin Chloride 10 mg 11/15/24 09:00 11/18/24 09:19 Oxybutynin Chloride 5 Mg Tablet PO 10 mg DAILY INES Administration Senna/Docusate Sodium 1 tab 11/17/24 21:00 11/18/24 21:01 Senna/Docusate Sodium Tablet PO 1 tab HS INES Administration Radiology Results: ITS Impressions Chest X-Ray 11/14/24 16:42 IMPRESSION: No focal infiltrate or effusion. Abdomen/Pelvis CT 11/14/24 18:20 IMPRESSION: Rim-enhancing fluid collection within the left hemipelvis, likely related to the stimulator device within the soft tissues of the right buttock, as detailed above. Catheter Placement CT 11/16/24 12:36 IMPRESSION: 1. Successful CT-guided left presacral abscess drainage. 2. 10 mL fluid was sent for aerobic and anaerobic cultures. 3. The catheter will be managed by Dr. Kemp. Labs Labs: Laboratory Results - last 24 hr 11/18/24 11/18/24 11/18/24 12:54 17:14 21:13 WBC RBC Hgb Hct MCV MCH MCHC RDW Plt Count MPV Sodium Potassium Chloride Carbon Dioxide Anion Gap BUN Creatinine Estim Creat Clear Calc Estimated GFR Glucose POC Capillary Glucose 81 210 H 195 H Calcium Total Bilirubin AST ALT Alkaline Phosphatase Total Protein Albumin 11/19/24 05:08 WBC 11.2 H RBC 3.50 L Hgb 10.2 L Hct 34.0 L MCV 97.1 D MCH 29.1 MCHC 30.0 L RDW 14.8 H Plt Count 219 MPV 12.1 H Sodium 134 L Potassium 3.2 L Chloride 106 Carbon Dioxide 21 L Anion Gap 7 BUN 17 Creatinine 1.23 H Estim Creat Clear Calc 33 Estimated GFR 43 L Glucose 172 H POC Capillary Glucose Calcium 8.6 Total Bilirubin 0.4 AST 20 ALT 11 Alkaline Phosphatase 91 Total Protein 5.7 L Albumin 2.5 L Quality VTE Prophylaxis VTE prophylaxis: pharmacologic ordered (Lovenox 40 mg subQ daily.)
[2024-11-19] MEDS: POTASSIUM CHLORIDE 20 MEQ ER TABLET 40 MEQ PO (09:38)
[2024-11-19] MEDS: FAMOTIDINE 20 MG TABLET 40 MG PO (09:39)
[2024-11-19] MEDS: ENOXAPARIN 40 MG/0.4 ML SYRINGE SUB-Q (09:39)
[2024-11-19] MEDS: MICONAZOLE NITRATE 2% CREAM 30 GM TUBE 1 APPLIC TOPICAL ×2 (09:40→20:24)
[2024-11-19] MEDS: FLUCONAZOLE 100 MG TABLET PO (09:40)
[2024-11-19] MEDS: HYDROcodone/acetaminophen (*CRX) 5-325 MG TABLET 1 TAB PO (11:50)
[2024-11-19] MEDS: INSULIN ASPART (*BKC) 100 UNITS/ML SUB-Q ×4 (12:00→16:59)
--- NOTE | 2024-11-19 12:02 | WPDUROPN2 ---
Progress Note: A&P Assessment and Plan (1) Infection associated with urinary electronic stimulator device: Code(s): T83.590A - Infection and inflammatory reaction due to implanted urinary neurostimulation device, initial encounter Status: Acute Assessment and Plan: It remains unclear if the patient's infection started with a perirectal abscess that then tunneled out along the guidewire of the bladder stimulator in subsequently opening subcutaneously in the right buttock or if the patient may have developed a decubitus ulcer in the right buttock that then tunneled downward and infected the hardware subsequently creating a perirectal abscess. Regardless, the source control plan involves managing the abscess, removing the device, and wound care. IR drain addressing abscess, urology has removed the device, wound care consult placed. Continue broad-spectrum antibiotics, tailor to culture results S/p drain placement per IR on 11/16, management by Gen Surg S/p removal of sacral stimulator battery and lead on 11/[address] Dillard -- no further planned urologic interventions Continue Wound care Subjective Subjective Date/Time Seen: 11/19/24 12:02 Interval history: s/p Interstim Explant WBC down to 11k from 16k from 19k Review of Systems Review of Systems: All systems reviewed & are unremarkable except as noted in HPI and below Exam Narrative: No acute distress; resting comfortably Objective Data Vital Signs Vital Signs: Vital Signs - 24 hr 11/18/24 14:00 11/18/24 20:00 11/18/24 21:14 Temperature 36.6 C 36.9 C Pulse Rate 90 93 Respiratory Rate 16 16 Blood Pressure 107/53 L 128/59 L Pulse Oximetry 97 97 96 Oxygen Delivery Room Air 11/18/24 22:18 11/19/24 05:39 11/19/24 07:54 Temperature 36.4 C Pulse Rate 89 Respiratory Rate 16 Blood Pressure 115/59 L Pulse Oximetry 97 95 Oxygen Delivery Room Air Room Air Intake/Output Intake/Output: Intake & Output 11/16/24 11/17/24 11/18/24 11/19/24 23:59 23:59 23:59 23:59 Intake Total 640 1540 1350 540 Output Total 850 850 500 100 Balance -210 690 850 440 Meds/Results Medications: Active Medications Generic Name Dose Route Start Last Admin Trade Name Freq PRN Reason Stop Dose Admin Acetaminophen 500 mg 11/14/24 22:47 Acetaminophen 500 Mg Tablet PO Q4H PRN Mild Pain (1-3) or Fever Hydrocodone Bitart/Acetaminophen 1 tab 11/14/24 22:47 11/19/24 11:50 Hydrocodone/Acetaminophen (*Crx) 5-325 Mg Tablet PO 1 tab Q6H PRN Administration Pain Rated 4-10 Amlodipine Besylate 5 mg 11/15/24 09:00 11/19/24 09:39 Amlodipine Besylate 5 Mg Tablet PO 5 mg QAM INES Administration Dextrose 12.5 gm 11/14/24 21:03 Dextrose 50% 25 Gm/50 Ml Syringe IV PUSH PRN PRN Hypoglycemia Protocol Duloxetine HCl 30 mg 11/15/24 09:00 11/19/24 09:39 Duloxetine Hcl 30 Mg Capsule.Dr PO 30 mg DAILY INES Administration Enoxaparin Sodium 40 mg 11/15/24 09:00 11/19/24 09:39 Enoxaparin 40 Mg/0.4 Ml Syringe SUB-Q 40 mg DAILY INES Administration Famotidine 40 mg 11/15/24 09:00 11/19/24 09:39 Famotidine 20 Mg Tablet PO 40 mg DAILY INES Administration Fluconazole 100 mg 11/15/24 09:00 11/19/24 09:40 Fluconazole 100 Mg Tablet PO 100 mg QAM INES Administration Glucagon 1 mg 11/14/24 21:03 Glucagon For Inj 1 Mg Vial IM PRN PRN Hypoglycemia Protocol Glucose 15 gm 11/14/24 21:03 Glucose Oral Gel 15 Gm Of Glucse In 37.5 Gm Tube PO PRN PRN Hypoglycemia Protocol Piperacillin Sod/Tazobactam 50 mls @ 100 mls/hr 11/15/24 02:00 11/19/24 10:08 Sod 2.25 gm/ Sodium Chloride IVPB Infused Q6H INES Infusion Dextrose 1,000 mls @ 100 mls/hr 11/14/24 21:03 Dextrose 5% 1,000 Ml IVPB PRN PRN Hypoglycemia Protocol Vancomycin HCl 1,250 mg in 250 mls @ 166.667 mls/hr 11/17/24 22:00 11/18/24 23:23 Vancomycin 1,250 Mg/Ns 250 Ml IVPB Infused Q24H INES Infusion Insulin Aspart 4 units 11/17/24 08:00 11/19/24 12:00 Insulin Aspart (*Bkc) 100 Units/Ml 0.05 units/kg (4 units) 4 units SUB-Q Administration TIDWM [facility] Insulin Aspart 3 - 6 units 11/17/24 08:00 11/19/24 12:00 Insulin Aspart (*Bkc) 100 Units/Ml SUB-Q 4 units TIDWM [facility] Administration Protocol Insulin Glargine 14 units 11/16/24 21:00 11/18/24 21:03 Insulin Glargine (*Bkc) 100 Units/Ml 0.2 units/kg (14 units) 14 units SUB-Q Administration HS INES Irbesartan 150 mg 11/15/24 21:00 11/18/24 21:02 Irbesartan 150 Mg Tablet PO 150 mg HS [facility] Administration Miconazole Nitrate 1 applic 11/15/24 09:00 11/19/24 09:40 Miconazole Nitrate 2% Cream 30 Gm Tube TOPICAL 1 applic Q12HR INES Administration Mirtazapine 7.5 mg 11/15/24 21:00 11/18/24 21:02 Mirtazapine 7.5 Mg Tablet PO 7.5 mg HS INES Administration Miscellaneous Information 0 each 11/14/24 22:00 11/19/24 07:32 Miconazole Cream- Please Indicate Application Site: XX 12/14/24 21:59 Not Given CLARIFY [facility] Morphine Sulfate 2 mg 11/14/24 22:47 11/15/24 20:36 Morphine Sulfate (*Crx) 2 Mg/Ml Inj IV PUSH 2 mg Q4H PRN Administration Breakthrough Pain Oxybutynin Chloride 5 mg 11/15/24 00:20 11/18/24 21:02 Oxybutynin Chloride 5 Mg Tablet PO 5 mg HS [facility] Administration Oxybutynin Chloride 10 mg 11/15/24 09:00 11/19/24 09:39 Oxybutynin Chloride 5 Mg Tablet PO 10 mg DAILY INES Administration Senna/Docusate Sodium 1 tab 11/17/24 21:00 11/18/24 21:01 Senna/Docusate Sodium Tablet PO 1 tab HS [facility] Administration Radiology Results: ITS Impressions Chest X-Ray 11/14/24 16:42 IMPRESSION: No focal infiltrate or effusion. Abdomen/Pelvis CT 11/14/24 18:20 IMPRESSION: Rim-enhancing fluid collection within the left hemipelvis, likely related to the stimulator device within the soft tissues of the right buttock, as detailed above. Catheter Placement CT 11/16/24 12:36 IMPRESSION: 1. Successful CT-guided left presacral abscess drainage. 2. 10 mL fluid was sent for aerobic and anaerobic cultures. 3. The catheter will be managed by Dr. Kemp. Labs Labs: Laboratory Results - last 24 hr 11/18/24 11/18/24 11/18/24 12:54 17:14 21:13 WBC RBC Hgb Hct MCV MCH MCHC RDW Plt Count MPV Sodium Potassium Chloride Carbon Dioxide Anion Gap BUN Creatinine Estim Creat Clear Calc Estimated GFR Glucose POC Capillary Glucose 81 210 H 195 H Calcium Total Bilirubin AST ALT Alkaline Phosphatase Total Protein Albumin 11/19/24 11/19/24 11/19/24 05:08 08:10 11:54 WBC 11.2 H RBC 3.50 L Hgb 10.2 L Hct 34.0 L MCV 97.1 D MCH 29.1 MCHC 30.0 L RDW 14.8 H Plt Count 219 MPV 12.1 H Sodium 134 L Potassium 3.2 L Chloride 106 Carbon Dioxide 21 L Anion Gap 7 BUN 17 Creatinine 1.23 H Estim Creat Clear Calc 33 Estimated GFR 43 L Glucose 172 H POC Capillary Glucose 139 H 292 H Calcium 8.6 Total Bilirubin 0.4 AST 20 ALT 11 Alkaline Phosphatase 91 Total Protein 5.7 L Albumin 2.5 L
[2024-11-19 14:00] VITALS: BP 120/62; PULSE 78; RESP 16; TEMP 36.5; O2SAT 96
[2024-11-19 19:59] VITALS: BP 109/53; PULSE 61; RESP 16; TEMP 36.5; O2SAT 95
[2024-11-19] MEDS: MIRTAZAPINE 7.5 MG TABLET PO (20:08)
[2024-11-19] MEDS: IRBESARTAN 150 MG TABLET PO (20:08)
[2024-11-19] MEDS: SENNA/DOCUSATE SODIUM TABLET 1 TAB PO (20:08)
[2024-11-19] MEDS: INSULIN GLARGINE (*BKC) 100 UNITS/ML 14 UNITS SUB-Q (20:23)
[2024-11-19 21:28] VITALS: PULSE 82; RESP 20; O2SAT 97
[2024-11-19] MEDS: VANCOMYCIN 1,250 MG/NS 250 ML 1,250 MG/250 ML BAG 166.67 MG IVPB (22:03)
[2024-11-20] MEDS: PIPERACILLIN/TAZOBACTAM SOD 2.25 GM in SODIUM CHLORIDE 0.9% IV 50 ML 100 ML IVPB ×4 (02:14→20:54)
[2024-11-20 05:21] LABS: Hematocrit 35.3 % (37.0-47.0); Hemoglobin 11.3 g/dL (12.0-15.0); Mean Corpuscular HGB Conc 32.0 g/dl (32-36); Mean Corpuscular Hemoglobin 29.2 pg (26-34); Mean Corpuscular Volume 91.2 fl (80-100); Platelet Count Result 262 k/mm3 (150-375); Red Blood Count 3.87 M/mm3 (4.2-5.4); White Blood Count 9.6 K/mm3 (4.5-10.0)
[2024-11-20 06:01] VITALS: BP 106/50; PULSE 94; RESP 14; TEMP 37.2; O2SAT 96
[2024-11-20 06:41] LABS: Alanine Aminotransferase 17 U/L (6-35); Albumin Level 2.6 g/dL (3.5-5.1); Alkaline Phosphatase 126 U/L (38-126); Anion Gap 8 mmol/L (4-12); Aspartate Amino Transferase 24 U/L (14-36); Bilirubin,Total 0.3 mg/dL (0.2-1.3); Blood Urea Nitrogen 16 mg/dL (7-17); Calcium 9.0 mg/dL (8.4-10.2); Carbon Dioxide 20 mmol/L (22-30); Chloride 106 mmol/L (98-107); Estimated CRCL calculation 33 ml/min; Estimated Glomerular Filt Rate 42; Glucose 214 mg/dL (65-110); Potassium 3.6 mmol/L (3.4-5.0); Sodium 134 mmol/L (137-145); Total Protein 5.9 g/dL (6.3-8.2)
--- NOTE | 2024-11-20 07:22 | P.PNIM_ITS ---
Progress Note: A&P Assessment and Plan (1) Infection associated with urinary electronic stimulator device: Code(s): T83.590A - Infection and inflammatory reaction due to implanted urinary neurostimulation device, initial encounter Status: Acute Assessment and Plan: Is unclear if the patient's infection started with a perirectal abscess that then tunneled out along the guidewire of the bladder stimulator in subsequently opening subcutaneously in the right buttock or if the patient may have developed a decubitus ulcer in the right buttock that then tunneled downward and infected the hardware subsequently creating a perirectal abscess. WBC has returned to WNL. Blood cultures: NGTD Wound cultures 11/14: gram stain final - mod wbc with many gram positive cocci and few gram negative rods. final aerobic culture: Klebsiella oxytoca and MRSA sensitive to vancomycin and zosyn Abscess culture 11/16: gram stain final - few gram positive cocci Antibiotics: Zosyn and vancomycin started on 11/14 CT abdomen/pelvis: Rim-enhancing fluid collection within the left hemipelvis, likely related to the stimulator device within the soft tissues of the right buttock General surgery consulted Continue perc drainage of pelvic abscess Urology consulted Continue broad-spectrum antibiotics, tailor to culture results S/p drain placement per IR on 11/16, management per surgery S/p removal of sacral stimulator battery and lead on 11/[address] Dillard (2) Abscess, perirectal: Code(s): K61.1 - Rectal abscess Status: Acute Assessment and Plan: See plan above (3) Urinary tract infection: Code(s): N39.0 - Urinary tract infection, site not specified Status: Acute Assessment and Plan: - UA: cloudy appearance with elevated specific gravity, 3+ glucose, trace ketones, negative nitrates, negative leukocytes, 6-10 WBC, 4+ bacteria and no squamous cells. - UC obtained on 11/14: Ecoli with sensitivities pending - previous micro reviewed klebsiella oxytoca 07/04/23 resistant to keflex - started on zosyn and vancomycin for cocurrent abscess Continues to deny UTI like symptoms including dysuria, burning and increased frequency/urgency. Patient has completed antibiotic course for UTI. Remains on antibiotics only for #1. (4) Type 2 diabetes mellitus with hyperglycemia, without long-term current use of insulin: Code(s): E11.65 - Type 2 diabetes mellitus with hyperglycemia Status: Acute Assessment and Plan: The patient was markedly hyperglycemic on admission with history of diabetes not on insulin at home. Patient's glucoses decreased from the 500s down to 300 with IV fluid hydration. - hypoglycemia protocol - POC blood glucose ACHS - home medication - metformin 1000 mg daily, glimepiride 2-4 mg BID - A1C 13.8 Random glucose elevated at 517 on admission. Morning glucose continues to be elevated into the 200s despite the 14 units (0.2units/kg) lantus Increased Lantus 18 units (0.25units/kg). Patient requiring 4-5 units SSI with meals, remains on 4 units aspart TIDWM. Consider increasing meal time insulin if numbers remain elevated. clinical document improvement educator consulted given new insulin requirement (5) Candidiasis of perineum: Code(s): B37.49 - Other urogenital candidiasis Status: Acute Assessment and Plan: Continue fluconazole 100 mg daily, started on 11/16, course completed. Continue antifungal barrier cream and keep area dry (6) Pseudohyponatremia: Code(s): R79.89 - Other specified abnormal findings of blood chemistry Status: Acute Assessment and Plan: Patient with pseudo hyponatremia due to hyperglycemia on admission. Patient does also appear to be dehydrated/intervascular volume depleted given that she has ketones in her urine elevated specific gravity and hypercalcemia. This may be playing a component in the patient's hyponatremia as well. Resolved. 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 Patient is pleasant lying in bed. She is endorsing increased pain/pressure to her lower back around the surgical sites. She continues to have minimal drainage from her drain. She has no other complaints denying chest pain, palpitations, shortness of breath, nausea/vomiting and abdominal pain. Patient was evlauted by PT/OT who recommend SNF placement. Had a long discussion with patient and she is agreeable to SNF as this time. Review of Systems Review of Systems: All systems reviewed & are unremarkable except as noted in HPI and below Exam Narrative: AF HR 94 RR 14 Spo2 96 BP 106/50 General: female in no acute respiratory distress who is nontoxic appearing, lying semirecumbent in bed. HEENT: Normocephalic. Atraumatic. Extraocular movement intact. Sclera clear and anicteric. No facial asymmetry. Chest: Lungs are clear to auscultation bilaterally. No wheezes or crackles. CV: Heart was regular rate and rhythm. Abd: Abdomen was soft. Nontender. Nondistended. Positive bowel sounds. Ext: No clubbing, cyanosis, or edema. DP pulses bilaterally. Neuro: Patient is alert. Speech is clear. Skin: Packed wounds with no noted drainage. Drain placed to left buttock region with minimal drainage. Objective Data Vital Signs Vital Signs: Vital Signs - 24 hr 11/19/24 07:54 11/19/24 14:00 11/19/24 15:47 Temperature 97.7 F Pulse Rate 78 Respiratory Rate 16 Blood Pressure 120/62 Pulse Oximetry 96 Oxygen Delivery Room Air Room Air Fraction of Inspired Oxygen 11/19/24 19:59 11/19/24 20:00 11/19/24 21:28 Temperature 97.7 F Pulse Rate 61 82 Respiratory Rate 16 20 Blood Pressure 109/53 L Pulse Oximetry 95 97 Oxygen Delivery Room Air Room Air Fraction of Inspired Oxygen 21 11/20/24 06:01 Temperature 99.0 F Pulse Rate 94 Respiratory Rate 14 Blood Pressure 106/50 L Pulse Oximetry 96 Oxygen Delivery Fraction of Inspired Oxygen Intake/Output Intake/Output: Intake & Output 11/17/24 11/18/24 11/19/24 11/20/24 23:59 23:59 23:59 23:59 Intake Total 1540 1350 1370 50 Output Total 850 500 410 508 Balance 690 850 960 -458 Meds/Results Medications: Active Medications Generic Name Dose Route Start Last Admin Trade Name Freq PRN Reason Stop Dose Admin Acetaminophen 500 mg 11/14/24 22:47 Acetaminophen 500 Mg Tablet PO Q4H PRN Mild Pain (1-3) or Fever Hydrocodone Bitart/Acetaminophen 1 tab 11/14/24 22:47 11/19/24 11:50 Hydrocodone/Acetaminophen (*Crx) 5-325 Mg Tablet PO 1 tab Q6H PRN Administration Pain Rated 4-10 Amlodipine Besylate 5 mg 11/15/24 09:00 11/19/24 09:39 Amlodipine Besylate 5 Mg Tablet PO 5 mg QAM INES Administration Dextrose 12.5 gm 11/14/24 21:03 Dextrose 50% 25 Gm/50 Ml Syringe IV PUSH PRN PRN Hypoglycemia Protocol Duloxetine HCl 30 mg 11/15/24 09:00 11/19/24 09:39 Duloxetine Hcl 30 Mg Capsule.Dr PO 30 mg DAILY INES Administration Enoxaparin Sodium 40 mg 11/15/24 09:00 11/19/24 09:39 Enoxaparin 40 Mg/0.4 Ml Syringe SUB-Q 40 mg DAILY INES Administration Famotidine 40 mg 11/15/24 09:00 11/19/24 09:39 Famotidine 20 Mg Tablet PO 40 mg DAILY INES Administration Glucagon 1 mg 11/14/24 21:03 Glucagon For Inj 1 Mg Vial IM PRN PRN Hypoglycemia Protocol Glucose 15 gm 11/14/24 21:03 Glucose Oral Gel 15 Gm Of Glucse In 37.5 Gm Tube PO PRN PRN Hypoglycemia Protocol Piperacillin Sod/Tazobactam 50 mls @ 100 mls/hr 11/15/24 02:00 11/20/24 02:44 Sod 2.25 gm/ Sodium Chloride IVPB Infused Q6H INES Infusion Dextrose 1,000 mls @ 100 mls/hr 11/14/24 21:03 Dextrose 5% 1,000 Ml IVPB PRN PRN Hypoglycemia Protocol Vancomycin HCl 1,250 mg in 250 mls @ 166.667 mls/hr 11/17/24 22:00 11/19/24 23:33 Vancomycin 1,250 Mg/Ns 250 Ml IVPB Infused Q24H INES Infusion Insulin Aspart 4 units 11/17/24 08:00 11/19/24 16:59 Insulin Aspart (*Bkc) 100 Units/Ml 0.05 units/kg (4 units) 4 units SUB-Q Administration TIDWM INES Insulin Aspart 3 - 6 units 11/17/24 08:00 11/19/24 16:59 Insulin Aspart (*Bkc) 100 Units/Ml SUB-Q 3 units TIDWM ON LICENSE OF [facility] Administration Protocol Insulin Glargine 14 units 11/16/24 21:00 11/19/24 20:23 Insulin Glargine (*Bkc) 100 Units/Ml 0.2 units/kg (14 units) 14 units SUB-Q Administration HS ON [facility] OF [facility] Irbesartan 150 mg 11/15/24 21:00 11/19/24 20:08 Irbesartan 150 Mg Tablet PO 150 mg HS [facility] Administration Miconazole Nitrate 1 applic 11/15/24 09:00 11/19/24 20:24 Miconazole Nitrate 2% Cream 30 Gm Tube TOPICAL 1 applic Q12HR INES Administration Mirtazapine 7.5 mg 11/15/24 21:00 11/19/24 20:08 Mirtazapine 7.5 Mg Tablet PO 7.5 mg HS INES Administration Miscellaneous Information 0 each 11/14/24 22:00 11/20/24 01:55 Miconazole Cream- Please Indicate Application Site: XX 12/14/24 21:59 Not Given CLARIFY ON LICENSE OF [facility] Morphine Sulfate 2 mg 11/14/24 22:47 11/15/24 20:36 Morphine Sulfate (*Crx) 2 Mg/Ml Inj IV PUSH 2 mg Q4H PRN Administration Breakthrough Pain Oxybutynin Chloride 5 mg 11/15/24 00:20 11/19/24 20:08 Oxybutynin Chloride 5 Mg Tablet PO 5 mg HS [facility] Administration Oxybutynin Chloride 10 mg 11/15/24 09:00 11/19/24 09:39 Oxybutynin Chloride 5 Mg Tablet PO 10 mg DAILY [facility] OF [facility] Administration Senna/Docusate Sodium 1 tab 11/17/24 21:00 11/19/24 20:08 Senna/Docusate Sodium Tablet PO 1 tab HS [facility] Administration Radiology Results: ITS Impressions Chest X-Ray 11/14/24 16:42 IMPRESSION: No focal infiltrate or effusion. Abdomen/Pelvis CT 11/14/24 18:20 IMPRESSION: Rim-enhancing fluid collection within the left hemipelvis, likely related to the stimulator device within the soft tissues of the right buttock, as detailed above. Catheter Placement CT 11/16/24 12:36 IMPRESSION: 1. Successful CT-guided left presacral abscess drainage. 2. 10 mL fluid was sent for aerobic and anaerobic cultures. 3. The catheter will be managed by Dr. Kemp. Labs Labs: Laboratory Results - last 24 hr 11/19/24 11/19/24 11/19/24 08:10 11:54 16:31 WBC RBC Hgb Hct MCV MCH MCHC RDW Plt Count MPV Sodium Potassium Chloride Carbon Dioxide Anion Gap BUN Creatinine Estim Creat Clear Calc Estimated GFR Glucose POC Capillary Glucose 139 H 292 H 201 H Calcium Total Bilirubin AST ALT Alkaline Phosphatase Total Protein Albumin Vancomycin Trough 11/19/24 11/19/24 11/20/24 20:03 21:04 04:45 WBC 9.6 RBC 3.87 L Hgb 11.3 L Hct 35.3 L MCV 91.2 D MCH 29.2 MCHC 32.0 RDW 15.0 H Plt Count 262 MPV 12.0 H Sodium 134 L Potassium 3.6 Chloride 106 Carbon Dioxide 20 L Anion Gap 8 BUN 16 Creatinine 1.25 H Estim Creat Clear Calc 33 Estimated GFR 42 L Glucose 214 H POC Capillary Glucose 236 H Calcium 9.0 Total Bilirubin 0.3 AST 24 ALT 17 Alkaline Phosphatase 126 Total Protein 5.9 L Albumin 2.6 L Vancomycin Trough 16.3 Quality VTE Prophylaxis VTE prophylaxis: pharmacologic ordered (Lovenox 40 mg subQ daily.)
[2024-11-20] MEDS: FAMOTIDINE 20 MG TABLET 40 MG PO (08:31)
[2024-11-20] MEDS: INSULIN ASPART (*BKC) 100 UNITS/ML SUB-Q ×4 (08:32→17:05)
[2024-11-20] MEDS: MICONAZOLE NITRATE 2% CREAM 30 GM TUBE 1 APPLIC TOPICAL ×2 (08:32→21:00)
[2024-11-20] MEDS: ENOXAPARIN 40 MG/0.4 ML SYRINGE SUB-Q (08:39)
[2024-11-20] MEDS: HYDROcodone/acetaminophen (*CRX) 5-325 MG TABLET 1 TAB PO (09:26)
--- NOTE | 2024-11-20 10:39 | PCPTNOTE ---
Attempted to see patient for PT, however patient refused. Patient reported she just wants to rest and be left alone. Educated patient on the importance and benefits of therapy, patient continued to refuse.
[2024-11-20 11:05] VITALS: BMI 25.3
[2024-11-20 14:00] VITALS: BP 104/43; PULSE 73; RESP 16; TEMP 36.6; O2SAT 94
[2024-11-20] MEDS: INSULIN GLARGINE (*BKC) 100 UNITS/ML 16 UNITS SUB-Q (20:54)
[2024-11-20] MEDS: IRBESARTAN 150 MG TABLET PO (20:54)
[2024-11-20] MEDS: SENNA/DOCUSATE SODIUM TABLET 1 TAB PO (20:54)
[2024-11-20] MEDS: MIRTAZAPINE 7.5 MG TABLET PO (20:54)
[2024-11-20 21:43] VITALS: PULSE 82; RESP 20; O2SAT 97
[2024-11-20] MEDS: VANCOMYCIN 1,250 MG/NS 250 ML 1,250 MG/250 ML BAG 166.67 MG IVPB (21:59)
[2024-11-20 22:00] VITALS: BP 114/35; PULSE 90; RESP 18; TEMP 36.8; O2SAT 98
[2024-11-21] MEDS: MORPHINE SULFATE (*CRX) 2 MG/ML INJ IV PUSH ×2 (01:34→21:54)
[2024-11-21] MEDS: PIPERACILLIN/TAZOBACTAM SOD 2.25 GM in SODIUM CHLORIDE 0.9% IV 50 ML 100 ML IVPB ×4 (01:34→20:09)
[2024-11-21 05:24] LABS: Hematocrit 32.7 % (37.0-47.0); Hemoglobin 10.3 g/dL (12.0-15.0); Mean Corpuscular HGB Conc 31.5 g/dl (32-36); Mean Corpuscular Hemoglobin 28.5 pg (26-34); Mean Corpuscular Volume 90.6 fl (80-100); Platelet Count Result 296 k/mm3 (150-375); Red Blood Count 3.61 M/mm3 (4.2-5.4); White Blood Count 10.5 K/mm3 (4.5-10.0)
[2024-11-21 05:47] LABS: Alanine Aminotransferase 15 U/L (6-35); Albumin Level 2.4 g/dL (3.5-5.1); Alkaline Phosphatase 130 U/L (38-126); Anion Gap 2 mmol/L (4-12); Aspartate Amino Transferase 28 U/L (14-36); Bilirubin,Total 0.4 mg/dL (0.2-1.3); Blood Urea Nitrogen 12 mg/dL (7-17); Calcium 9.0 mg/dL (8.4-10.2); Carbon Dioxide 26 mmol/L (22-30); Chloride 107 mmol/L (98-107); Estimated CRCL calculation 37 ml/min; Estimated Glomerular Filt Rate 49; Glucose 138 mg/dL (65-110); Potassium 3.4 mmol/L (3.4-5.0); Sodium 135 mmol/L (137-145); Total Protein 5.7 g/dL (6.3-8.2)
[2024-11-21 06:00] VITALS: BP 121/57; PULSE 84; RESP 18; TEMP 36.5; O2SAT 93
--- NOTE | 2024-11-21 07:29 | PM.IMPN ---
Progress Note: A&P Assessment and Plan (1) Infection associated with urinary electronic stimulator device: Code(s): T83.590A - Infection and inflammatory reaction due to implanted urinary neurostimulation device, initial encounter Status: Acute Assessment and Plan: Is unclear if the patient's infection started with a perirectal abscess that then tunneled out along the guidewire of the bladder stimulator in subsequently opening subcutaneously in the right buttock or if the patient may have developed a decubitus ulcer in the right buttock that then tunneled downward and infected the hardware subsequently creating a perirectal abscess. Blood cultures: NGTD Wound cultures 11/14: gram stain final - mod wbc with many gram positive cocci and few gram negative rods. final aerobic culture: Klebsiella oxytoca and MRSA sensitive to vancomycin and zosyn Abscess culture 11/16: gram stain final - few gram positive cocci preliminary aerobic culture: staph aureus Antibiotics: Zosyn and vancomycin started on 11/14. Attempted to call urology to further discuss antibiotics, voicemail left. CT abdomen/pelvis: Rim-enhancing fluid collection within the left hemipelvis, likely related to the stimulator device within the soft tissues of the right buttock General surgery consulted Continue perc drainage of pelvic abscess Urology consulted Continue broad-spectrum antibiotics, tailor to culture results S/p drain placement per IR on 11/16, management per surgery S/p removal of sacral stimulator battery and lead on 11/[address] Dillard (2) Abscess, perirectal: Code(s): K61.1 - Rectal abscess Status: Acute Assessment and Plan: See plan above (3) Urinary tract infection: Code(s): N39.0 - Urinary tract infection, site not specified Status: Acute Assessment and Plan: - UA: cloudy appearance with elevated specific gravity, 3+ glucose, trace ketones, negative nitrates, negative leukocytes, 6-10 WBC, 4+ bacteria and no squamous cells. - UC obtained on 11/14: Ecoli with sensitivities pending - previous micro reviewed klebsiella oxytoca 07/04/23 resistant to keflex - started on zosyn and vancomycin for cocurrent abscess Continues to deny UTI like symptoms including dysuria, burning and increased frequency/urgency. Patient has completed antibiotic course for UTI. Remains on antibiotics only for #1. Resolved. (4) Type 2 diabetes mellitus with hyperglycemia, without long-term current use of insulin: Code(s): E11.65 - Type 2 diabetes mellitus with hyperglycemia Status: Acute Assessment and Plan: The patient was markedly hyperglycemic on admission with history of diabetes not on insulin at home. Patient's glucoses decreased from the 500s down to 300 with IV fluid hydration. - hypoglycemia protocol - POC blood glucose ACHS - home medication - metformin 1000 mg daily, glimepiride 2-4 mg BID - A1C 13.8 Random glucose elevated at 517 on admission. Lantus 16 units Patient requiring 4-5 units SSI with meals, remains on 4 units aspart TIDWM. clinical informatics educator consulted given new insulin requirement Glucose levels significantly improved. Continue to monitor. (5) Candidiasis of perineum: Code(s): B37.49 - Other urogenital candidiasis Status: Acute Assessment and Plan: Continue fluconazole 100 mg daily, started on 11/16, course completed. Continue antifungal barrier cream and keep area dry (6) Pseudohyponatremia: Code(s): R79.89 - Other specified abnormal findings of blood chemistry Status: Acute Assessment and Plan: Patient with pseudo hyponatremia due to hyperglycemia on admission. Patient does also appear to be dehydrated/intervascular volume depleted given that she has ketones in her urine elevated specific gravity and hypercalcemia. This may be playing a component in the patient's hyponatremia as well. Resolved. 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 Patient is pleasant lying comfortably in bed. She has no complaints at this time denying chest pain, shortness a breath, palpitations, nausea/vomiting, abdominal pain. Patient's white blood cell count remains stable. Attempted to call Urology to further discuss antibiotic regimen given the culture sensitivities have returned, voicemail left. Strongly encouraged patient to continue working with therapy. Care coordination continues to follow for SNF placed. Review of Systems Review of Systems: All systems reviewed & are unremarkable except as noted in HPI and below Exam Narrative: AF HR 99 RR 20 SPO2 99 BP 106/53 General: female in no acute respiratory distress who is nontoxic appearing, sitting up in chair HEENT: Normocephalic. Atraumatic. Extraocular movement intact. Sclera clear and anicteric. No facial asymmetry. Chest: Lungs are clear to auscultation bilaterally. No wheezes or crackles. CV: Heart was regular rate and rhythm. Abd: Abdomen was soft. Nontender. Nondistended. Positive bowel sounds. Ext: No clubbing, cyanosis, or edema. DP pulses bilaterally. Neuro: Patient is alert. Speech is clear. Skin: Packed wounds with no noted drainage. Drain placed to left buttock region with minimal drainage. Objective Data Vital Signs Vital Signs: Vital Signs - 24 hr 11/20/24 08:30 11/20/24 14:00 11/20/24 15:33 Temperature 97.8 F Pulse Rate 73 Respiratory Rate 16 Blood Pressure 104/43 L Pulse Oximetry 94 Oxygen Delivery Room Air Room Air Fraction of Inspired Oxygen 11/20/24 20:50 11/20/24 21:43 11/20/24 22:00 Temperature 98.2 F Pulse Rate 82 90 Respiratory Rate 20 18 Blood Pressure 114/35 L Pulse Oximetry 97 98 Oxygen Delivery Room Air Room Air Fraction of Inspired Oxygen 21 11/21/24 06:00 Temperature 97.7 F Pulse Rate 84 Respiratory Rate 18 Blood Pressure 121/57 L Pulse Oximetry 93 Oxygen Delivery Fraction of Inspired Oxygen Intake/Output Intake/Output: Intake & Output 11/18/24 11/19/24 11/20/24 11/21/24 23:59 23:59 23:59 23:59 Intake Total 1350 1370 1230 Output Total 599 381 2416 Balance 850 960 -278 Meds/Results Medications: Active Medications Generic Name Dose Route Start Last Admin Trade Name Freq PRN Reason Stop Dose Admin Acetaminophen 500 mg 11/14/24 22:47 Acetaminophen 500 Mg Tablet PO Q4H PRN Mild Pain (1-3) or Fever Hydrocodone Bitart/Acetaminophen 1 tab 11/14/24 22:47 11/20/24 09:26 Hydrocodone/Acetaminophen (*Crx) 5-325 Mg Tablet PO 1 tab Q6H PRN Administration Pain Rated 4-10 Amlodipine Besylate 5 mg 11/15/24 09:00 11/20/24 08:31 Amlodipine Besylate 5 Mg Tablet PO 5 mg QAM INES Administration Dextrose 12.5 gm 11/14/24 21:03 Dextrose 50% 25 Gm/50 Ml Syringe IV PUSH PRN PRN Hypoglycemia Protocol Duloxetine HCl 30 mg 11/15/24 09:00 11/20/24 08:31 Duloxetine Hcl 30 Mg Capsule.Dr PO 30 mg DAILY INES Administration Enoxaparin Sodium 40 mg 11/15/24 09:00 11/20/24 08:39 Enoxaparin 40 Mg/0.4 Ml Syringe SUB-Q 40 mg DAILY INES Administration Famotidine 40 mg 11/15/24 09:00 11/20/24 08:31 Famotidine 20 Mg Tablet PO 40 mg DAILY INES Administration Glucagon 1 mg 11/14/24 21:03 Glucagon For Inj 1 Mg Vial IM PRN PRN Hypoglycemia Protocol Glucose 15 gm 11/14/24 21:03 Glucose Oral Gel 15 Gm Of Glucse In 37.5 Gm Tube PO PRN PRN Hypoglycemia Protocol Piperacillin Sod/Tazobactam 50 mls @ 100 mls/hr 11/15/24 02:00 11/21/24 01:34 Sod 2.25 gm/ Sodium Chloride IVPB 100 mls/hr Q6H INES Administration Dextrose 1,000 mls @ 100 mls/hr 11/14/24 21:03 Dextrose 5% 1,000 Ml IVPB PRN PRN Hypoglycemia Protocol Vancomycin HCl 1,250 mg in 250 mls @ 166.667 mls/hr 11/17/24 22:00 11/20/24 21:59 Vancomycin 1,250 Mg/Ns 250 Ml IVPB 166.67 mls/hr Q24H INES Administration Insulin Aspart 4 units 11/17/24 08:00 11/20/24 17:05 Insulin Aspart (*Bkc) 100 Units/Ml 0.05 units/kg (4 units) 4 units SUB-Q Administration TIDWM [facility] Insulin Aspart 3 - 6 units 11/17/24 08:00 11/20/24 16:57 Insulin Aspart (*Bkc) 100 Units/Ml SUB-Q Not Given TIDWM [facility] Protocol Insulin Glargine 16 units 11/20/24 21:00 11/20/24 20:54 Insulin Glargine (*Bkc) 100 Units/Ml SUB-Q 16 units HS INES Administration Irbesartan 150 mg 11/15/24 21:00 11/20/24 20:54 Irbesartan 150 Mg Tablet PO 150 mg HS INES Administration Miconazole Nitrate 1 applic 11/15/24 09:00 11/20/24 21:00 Miconazole Nitrate 2% Cream 30 Gm Tube TOPICAL 1 applic Q12HR INES Administration Mirtazapine 7.5 mg 11/15/24 21:00 11/20/24 20:54 Mirtazapine 7.5 Mg Tablet PO 7.5 mg HS INES Administration Miscellaneous Information 0 each 11/14/24 22:00 11/20/24 01:55 Miconazole Cream- Please Indicate Application Site: XX 12/14/24 21:59 Not Given CLARIFY [facility] Morphine Sulfate 2 mg 11/14/24 22:47 11/21/24 01:34 Morphine Sulfate (*Crx) 2 Mg/Ml Inj IV PUSH 2 mg Q4H PRN Administration Breakthrough Pain Oxybutynin Chloride 5 mg 11/15/24 00:20 11/20/24 20:54 Oxybutynin Chloride 5 Mg Tablet PO 5 mg HS INES Administration Oxybutynin Chloride 10 mg 11/15/24 09:00 11/20/24 08:31 Oxybutynin Chloride 5 Mg Tablet PO 10 mg DAILY INES Administration Senna/Docusate Sodium 1 tab 11/17/24 21:00 11/20/24 20:54 Senna/Docusate Sodium Tablet PO 1 tab HS INES Administration Radiology Results: ITS Impressions Chest X-Ray 11/14/24 16:42 IMPRESSION: No focal infiltrate or effusion. Abdomen/Pelvis CT 11/14/24 18:20 IMPRESSION: Rim-enhancing fluid collection within the left hemipelvis, likely related to the stimulator device within the soft tissues of the right buttock, as detailed above. Catheter Placement CT 11/16/24 12:36 IMPRESSION: 1. Successful CT-guided left presacral abscess drainage. 2. 10 mL fluid was sent for aerobic and anaerobic cultures. 3. The catheter will be managed by Dr. Kemp. Labs Labs: Laboratory Results - last 24 hr 11/20/24 11/20/24 11/20/24 07:57 12:08 16:26 WBC RBC Hgb Hct MCV MCH MCHC RDW Plt Count MPV Sodium Potassium Chloride Carbon Dioxide Anion Gap BUN Creatinine Estim Creat Clear Calc Estimated GFR Glucose POC Capillary Glucose 188 H 203 H 106 H Calcium Total Bilirubin AST ALT Alkaline Phosphatase Total Protein Albumin 11/20/24 11/21/24 21:01 04:54 WBC 10.5 H RBC 3.61 L Hgb 10.3 L Hct 32.7 L MCV 90.6 MCH 28.5 MCHC 31.5 L RDW 15.0 H Plt Count 296 MPV 11.3 H Sodium 135 L Potassium 3.4 Chloride 107 Carbon Dioxide 26 Anion Gap 2 L BUN 12 Creatinine 1.09 H Estim Creat Clear Calc 37 Estimated GFR 49 L Glucose 138 H POC Capillary Glucose 177 H Calcium 9.0 Total Bilirubin 0.4 AST 28 ALT 15 Alkaline Phosphatase 130 H Total Protein 5.7 L Albumin 2.4 L Quality VTE Prophylaxis VTE prophylaxis: pharmacologic ordered (Lovenox 40 mg subQ daily.)
[2024-11-21] MEDS: FAMOTIDINE 20 MG TABLET 40 MG PO (08:38)
[2024-11-21] MEDS: INSULIN ASPART (*BKC) 100 UNITS/ML SUB-Q ×3 (08:39→17:27)
[2024-11-21] MEDS: MICONAZOLE NITRATE 2% CREAM 30 GM TUBE 1 APPLIC TOPICAL ×2 (08:40→20:22)
[2024-11-21] MEDS: HYDROcodone/acetaminophen (*CRX) 5-325 MG TABLET 1 TAB PO ×2 (08:41→20:48)
[2024-11-21] MEDS: ENOXAPARIN 40 MG/0.4 ML SYRINGE SUB-Q (08:42)
--- NOTE | 2024-11-21 11:25 | PCNWS ---
Weekly nutritional screen. Patient is tolerating current diet with adequate intake. She has been seen this admission by [facility]. No weight loss reported. No nutritional needs at this time.
[2024-11-21 14:00] VITALS: BP 106/53; PULSE 99; RESP 20; TEMP 36.5; O2SAT 99
[2024-11-21] MEDS: SENNA/DOCUSATE SODIUM TABLET 1 TAB PO (20:09)
[2024-11-21] MEDS: IRBESARTAN 150 MG TABLET PO (20:09)
[2024-11-21] MEDS: INSULIN GLARGINE (*BKC) 100 UNITS/ML 16 UNITS SUB-Q (20:09)
[2024-11-21] MEDS: MIRTAZAPINE 7.5 MG TABLET PO (20:09)
[2024-11-21 20:34] VITALS: BP 143/77; PULSE 101; RESP 20; TEMP 37.7; O2SAT 98
[2024-11-21] MEDS: VANCOMYCIN 1,250 MG/NS 250 ML 1,250 MG/250 ML BAG 166.67 MG IVPB (23:28)
[2024-11-22] MEDS: PIPERACILLIN/TAZOBACTAM SOD 2.25 GM in SODIUM CHLORIDE 0.9% IV 50 ML 100 ML IVPB ×2 (01:04→08:28)
[2024-11-22 06:00] VITALS: BP 177/70; PULSE 79; RESP 20; TEMP 36.8; O2SAT 96
[2024-11-22] MEDS: FAMOTIDINE 20 MG TABLET 40 MG PO (08:27)
[2024-11-22] MEDS: MICONAZOLE NITRATE 2% CREAM 30 GM TUBE 1 APPLIC TOPICAL ×2 (08:28→20:35)
[2024-11-22] MEDS: ENOXAPARIN 40 MG/0.4 ML SYRINGE SUB-Q (08:29)
[2024-11-22] MEDS: INSULIN ASPART (*BKC) 100 UNITS/ML SUB-Q ×3 (08:30→17:31)
--- NOTE | 2024-11-22 10:18 | PCOTNOTE ---
The patient treatment was not able to be completed patient is getting an IV placed. Will plan to continue treatment per plan of care.
[2024-11-22] MEDS: HYDROcodone/acetaminophen (*CRX) 5-325 MG TABLET 1 TAB PO ×2 (10:20→20:41)
--- NOTE | 2024-11-22 12:33 | WPDUROPN2 ---
Progress Note: A&P Assessment and Plan (1) Infection associated with urinary electronic stimulator device: Code(s): T83.590A - Infection and inflammatory reaction due to implanted urinary neurostimulation device, initial encounter Status: Acute Assessment and Plan: It remains unclear if the patient's infection started with a perirectal abscess that then tunneled out along the guidewire of the bladder stimulator in subsequently opening subcutaneously in the right buttock or if the patient may have developed a decubitus ulcer in the right buttock that then tunneled downward and infected the hardware subsequently creating a perirectal abscess. Regardless, the source control plan involves managing the abscess, removing the device, and wound care. IR drain addressing abscess, urology has removed the device, wound care consult placed. S/p drain placement per IR on 11/16, management by Gen Surg S/p removal of sacral stimulator battery and lead on 11/[address] Dillard -- no further planned urologic interventions Reviewed today's CT with Dr. Dillard. No changes from urology standpoint at this time. ID consult placed this morning. Appreciate recommendations on antibiotic and duration as well as drain management. Plan to follow-up in office in 2-3 weeks with LEONOR Martines for a wound check. She has not been seen in office since 2016 so please ensure she arrives 30minutes prior to scheduled appointment time to complete necessary patient information. Subjective Subjective Date/Time Seen: 11/22/24 12:33 Interval history: Patient is pleasant lying comfortably in bed. She has no complaints at this time denying chest pain, shortness a breath, palpitations, nausea/vomiting, abdominal pain. Patient's white blood cell count has been stable. no labs done today. Review of Systems Review of Systems: All systems reviewed & are unremarkable except as noted in HPI and below Exam Narrative: No acute distress; resting comfortably Const: General: no acute distress Resp: Effort & Inspection: normal respiratory effort GI: Inspection: non-distended Auscultation: normal bowel sounds Objective Data Vital Signs Vital Signs: Vital Signs - 24 hr 11/21/24 14:00 11/21/24 20:00 11/21/24 20:34 Temperature 97.7 F 99.9 F H Pulse Rate 99 101 H Respiratory Rate 20 20 Blood Pressure 106/53 L 143/77 H Pulse Oximetry 99 98 Oxygen Delivery Room Air 11/22/24 06:00 11/22/24 08:30 Temperature 98.2 F Pulse Rate 79 Respiratory Rate 20 Blood Pressure 177/70 H Pulse Oximetry 96 Oxygen Delivery Room Air Intake/Output Intake/Output: Intake & Output 11/19/24 11/20/24 11/21/24 11/22/24 23:59 23:59 23:59 23:59 Intake Total 1370 1230 1570 540 Output Total 410 1508 1700 500 Balance 960 -278 -130 40 Meds/Results Medications: Active Medications Generic Name Dose Route Start Last Admin Trade Name Freq PRN Reason Stop Dose Admin Acetaminophen 500 mg 11/14/24 22:47 Acetaminophen 500 Mg Tablet PO Q4H PRN Mild Pain (1-3) or Fever Hydrocodone Bitart/Acetaminophen 1 tab 11/14/24 22:47 11/22/24 10:20 Hydrocodone/Acetaminophen (*Crx) 5-325 Mg Tablet PO 1 tab Q6H PRN Administration Pain Rated 4-10 Amlodipine Besylate 5 mg 11/15/24 09:00 11/22/24 08:30 Amlodipine Besylate 5 Mg Tablet PO 5 mg QAM INES Administration Dextrose 12.5 gm 11/14/24 21:03 Dextrose 50% 25 Gm/50 Ml Syringe IV PUSH PRN PRN Hypoglycemia Protocol Duloxetine HCl 30 mg 11/15/24 09:00 11/22/24 08:27 Duloxetine Hcl 30 Mg Capsule.Dr PO 30 mg DAILY INES Administration Enoxaparin Sodium 40 mg 11/15/24 09:00 11/22/24 08:29 Enoxaparin 40 Mg/0.4 Ml Syringe SUB-Q 40 mg DAILY INES Administration Famotidine 40 mg 11/15/24 09:00 11/22/24 08:27 Famotidine 20 Mg Tablet PO 40 mg DAILY INES Administration Glucagon 1 mg 11/14/24 21:03 Glucagon For Inj 1 Mg Vial IM PRN PRN Hypoglycemia Protocol Glucose 15 gm 11/14/24 21:03 Glucose Oral Gel 15 Gm Of Glucse In 37.5 Gm Tube PO PRN PRN Hypoglycemia Protocol Piperacillin Sod/Tazobactam 50 mls @ 100 mls/hr 11/15/24 02:00 11/22/24 08:58 Sod 2.25 gm/ Sodium Chloride IVPB Infused Q6H INES Infusion Dextrose 1,000 mls @ 100 mls/hr 11/14/24 21:03 Dextrose 5% 1,000 Ml IVPB PRN PRN Hypoglycemia Protocol Vancomycin HCl 1,250 mg in 250 mls @ 166.667 mls/hr 11/21/24 23:00 11/21/24 23:28 Vancomycin 1,250 Mg/Ns 250 Ml IVPB 166.67 mls/hr Q24H INES Administration Insulin Aspart 4 units 11/17/24 08:00 11/22/24 12:30 Insulin Aspart (*Bkc) 100 Units/Ml 0.05 units/kg (4 units) 4 units SUB-Q Administration TIDWM [facility] Insulin Aspart 3 - 6 units 11/17/24 08:00 11/22/24 12:30 Insulin Aspart (*Bkc) 100 Units/Ml SUB-Q Not Given TIDWM [facility] Protocol Insulin Glargine 16 units 11/20/24 21:00 11/21/24 20:09 Insulin Glargine (*Bkc) 100 Units/Ml SUB-Q 16 units HS [facility] Administration Irbesartan 150 mg 11/15/24 21:00 11/21/24 20:09 Irbesartan 150 Mg Tablet PO 150 mg HS [facility] Administration Miconazole Nitrate 1 applic 11/15/24 09:00 11/22/24 08:28 Miconazole Nitrate 2% Cream 30 Gm Tube TOPICAL 1 applic Q12HR INES Administration Mirtazapine 7.5 mg 11/15/24 21:00 11/21/24 20:09 Mirtazapine 7.5 Mg Tablet PO 7.5 mg HS [facility] Administration Morphine Sulfate 2 mg 11/14/24 22:47 11/21/24 21:54 Morphine Sulfate (*Crx) 2 Mg/Ml Inj IV PUSH 2 mg Q4H PRN Administration Breakthrough Pain Oxybutynin Chloride 5 mg 11/15/24 00:20 11/21/24 20:09 Oxybutynin Chloride 5 Mg Tablet PO 5 mg HS [facility] Administration Oxybutynin Chloride 10 mg 11/15/24 09:00 11/22/24 08:27 Oxybutynin Chloride 5 Mg Tablet PO 10 mg DAILY INES Administration Senna/Docusate Sodium 1 tab 11/17/24 21:00 11/21/24 20:09 Senna/Docusate Sodium Tablet PO 1 tab HS INES Administration Radiology Results: ITS Impressions Chest X-Ray 11/14/24 16:42 IMPRESSION: No focal infiltrate or effusion. Catheter Placement CT 11/16/24 12:36 IMPRESSION: 1. Successful CT-guided left presacral abscess drainage. 2. 10 mL fluid was sent for aerobic and anaerobic cultures. 3. The catheter will be managed by Dr. Kemp. Labs Labs: Laboratory Results - last 24 hr 11/21/24 11/21/24 11/21/24 16:56 20:09 22:28 POC Capillary Glucose 150 H 164 H Vancomycin Trough 17.3 11/22/24 11/22/24 08:28 11:19 POC Capillary Glucose 139 H 177 H Vancomycin Trough
[2024-11-22 14:00] VITALS: BP 114/57; PULSE 88; RESP 20; TEMP 36.4; O2SAT 99
--- NOTE | 2024-11-22 14:27 | PM.IMPN ---
Progress Note: A&P Assessment and Plan (1) Infection associated with urinary electronic stimulator device: Code(s): T83.590A - Infection and inflammatory reaction due to implanted urinary neurostimulation device, initial encounter Status: Acute Assessment and Plan: Is unclear if the patient's infection started with a perirectal abscess that then tunneled out along the guidewire of the bladder stimulator in subsequently opening subcutaneously in the right buttock or if the patient may have developed a decubitus ulcer in the right buttock that then tunneled downward and infected the hardware subsequently creating a perirectal abscess. Blood cultures: NGTD Wound cultures 11/14: gram stain final - mod wbc with many gram positive cocci and few gram negative rods. final aerobic culture: Klebsiella oxytoca and MRSA sensitive to vancomycin and zosyn Abscess culture 11/16: gram stain final - few gram positive cocci preliminary aerobic culture: staph aureus Antibiotics: Zosyn and vancomycin started on 11/14. Attempted to call urology to further discuss antibiotics, voicemail left. CT abdomen/pelvis: Rim-enhancing fluid collection within the left hemipelvis, likely related to the stimulator device within the soft tissues of the right buttock General surgery consulted Continue perc drainage of pelvic abscess Urology consulted Continue broad-spectrum antibiotics, tailor to culture results S/p drain placement per IR on 11/16, management per surgery S/p removal of sacral stimulator battery and lead on 11/[address] Dillard bactrum ordered q12h po id is consulted and following (2) Abscess, perirectal: Code(s): K61.1 - Rectal abscess Status: Acute Assessment and Plan: See plan above (3) Urinary tract infection: Code(s): N39.0 - Urinary tract infection, site not specified Status: Acute Assessment and Plan: - UA: cloudy appearance with elevated specific gravity, 3+ glucose, trace ketones, negative nitrates, negative leukocytes, 6-10 WBC, 4+ bacteria and no squamous cells. - UC obtained on 11/14: Ecoli with sensitivities pending - previous micro reviewed klebsiella oxytoca 07/04/23 resistant to keflex - started on zosyn and vancomycin for cocurrent abscess Continues to deny UTI like symptoms including dysuria, burning and increased frequency/urgency. Patient has completed antibiotic course for UTI. Remains on antibiotics only for #1. Resolved. (4) Type 2 diabetes mellitus with hyperglycemia, without long-term current use of insulin: Code(s): E11.65 - Type 2 diabetes mellitus with hyperglycemia Status: Acute Assessment and Plan: The patient was markedly hyperglycemic on admission with history of diabetes not on insulin at home. Patient's glucoses decreased from the 500s down to 300 with IV fluid hydration. - hypoglycemia protocol - POC blood glucose ACHS - home medication - metformin 1000 mg daily, glimepiride 2-4 mg BID - A1C 13.8 Random glucose elevated at 517 on admission. Lantus 16 units Patient requiring 4-5 units SSI with meals, remains on 4 units aspart TIDWM. corporate event planner consulted given new insulin requirement Glucose levels significantly improved. Continue to monitor. (5) Candidiasis of perineum: Code(s): B37.49 - Other urogenital candidiasis Status: Acute Assessment and Plan: Continue fluconazole 100 mg daily, started on 11/16, course completed. Continue antifungal barrier cream and keep area dry (6) Pseudohyponatremia: Code(s): R79.89 - Other specified abnormal findings of blood chemistry Status: Acute Assessment and Plan: Patient with pseudo hyponatremia due to hyperglycemia on admission. Patient does also appear to be dehydrated/intervascular volume depleted given that she has ketones in her urine elevated specific gravity and hypercalcemia. This may be playing a component in the patient's hyponatremia as well. Resolved. 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 Assuming care. She has no complaints at this time denying chest pain, shortness a breath, palpitations, nausea/vomiting, abdominal pain. labs ordered. ID was consulted per urology-awaiting recommendations. Review of Systems Review of Systems: All systems reviewed & are unremarkable except as noted in HPI and below Exam Narrative: AF HR 99 RR 20 SPO2 99 BP 106/53 General: female in no acute respiratory distress who is nontoxic appearing, sitting up in chair HEENT: Normocephalic. Atraumatic. Extraocular movement intact. Sclera clear and anicteric. No facial asymmetry. Chest: Lungs are clear to auscultation bilaterally. No wheezes or crackles. CV: Heart was regular rate and rhythm. Abd: Abdomen was soft. Nontender. Nondistended. Positive bowel sounds. Ext: No clubbing, cyanosis, or edema. DP pulses bilaterally. Neuro: Patient is alert. Speech is clear. Skin: Packed wounds with no noted drainage. Drain placed to left buttock region with minimal drainage. Const: Other: Chronically ill-appearing, debilitated but well-nourished HENMT: Other: Mucous membranes are moist, good dentition, no oral pharyngeal erythema Eyes: Other: No scleral icterus, no conjunctival pallor, bilateral lens implants noted Neck: Other: No lymphadenopathy, no JVD Resp: Other: Clear to auscultation bilaterally, no increased work of breathing Cardio: Other: Regular rate, regular rhythm, 2+ bilateral radial and pedal pulses, no JVD, no murmur GI: Other: Soft, nontender, nondistended, normoactive bowel sounds : Other: Pure wick catheter in place, erythematous moist rash in the groin and inguinal folds Back/Spine/Pelvis: Other: Erythema to the right lateral buttock about the size of a softball with 2 open ulcerations that tunnel please see nursing documentation for measurements and positioning, at the time my evaluation wounds or only draining serosanguineous fluid Skin: Other: Generalized pallor, non jaundice, Neuro: Other: Alert oriented times 4, speech is slow delayed but not slurred, difficulty with fine motor control Extrem: Other: No clubbing, no cyanosis, edema nonpitting to lower extremities Psych: Other: Appropriate mood and affect, pleasant and cooperative, judgment and insight intact Objective Data Vital Signs Vital Signs: Vital Signs - 24 hr 08/12/25 20:00 11/21/24 20:34 11/22/24 06:00 Temperature 99.9 F H 98.2 F Pulse Rate 101 H 79 Respiratory Rate 20 20 Blood Pressure 143/77 H 177/70 H Pulse Oximetry 98 96 Oxygen Delivery Room Air 11/22/24 08:30 Temperature Pulse Rate Respiratory Rate Blood Pressure Pulse Oximetry Oxygen Delivery Room Air Intake/Output Intake/Output: Intake & Output 11/19/24 11/20/24 11/21/24 11/22/24 23:59 23:59 23:59 23:59 Intake Total 1370 1230 1570 780 Output Total 410 1508 1700 500 Balance 965 -777 -621 280 Meds/Results Medications: Active Medications Generic Name Dose Route Start Last Admin Trade Name Freq PRN Reason Stop Dose Admin Acetaminophen 500 mg 11/14/24 22:47 Acetaminophen 500 Mg Tablet PO Q4H PRN Mild Pain (1-3) or Fever Hydrocodone Bitart/Acetaminophen 1 tab 11/14/24 22:47 11/22/24 10:20 Hydrocodone/Acetaminophen (*Crx) 5-325 Mg Tablet PO 1 tab Q6H PRN Administration Pain Rated 4-10 Amlodipine Besylate 5 mg 11/15/24 09:00 11/22/24 08:30 Amlodipine Besylate 5 Mg Tablet PO 5 mg QAM INES Administration Dextrose 12.5 gm 11/14/24 21:03 Dextrose 50% 25 Gm/50 Ml Syringe IV PUSH PRN PRN Hypoglycemia Protocol Duloxetine HCl 30 mg 11/15/24 09:00 11/22/24 08:27 Duloxetine Hcl 30 Mg Capsule.Dr PO 30 mg DAILY INES Administration Enoxaparin Sodium 40 mg 11/15/24 09:00 11/22/24 08:29 Enoxaparin 40 Mg/0.4 Ml Syringe SUB-Q 40 mg DAILY INES Administration Famotidine 40 mg 11/15/24 09:00 11/22/24 08:27 Famotidine 20 Mg Tablet PO 40 mg DAILY INES Administration Glucagon 1 mg 11/14/24 21:03 Glucagon For Inj 1 Mg Vial IM PRN PRN Hypoglycemia Protocol Glucose 15 gm 11/14/24 21:03 Glucose Oral Gel 15 Gm Of Glucse In 37.5 Gm Tube PO PRN PRN Hypoglycemia Protocol Dextrose 1,000 mls @ 100 mls/hr 11/14/24 21:03 Dextrose 5% 1,000 Ml IVPB PRN PRN Hypoglycemia Protocol Insulin Aspart 4 units 11/17/24 08:00 11/22/24 12:30 Insulin Aspart (*Bkc) 100 Units/Ml 0.05 units/kg (4 units) 4 units SUB-Q Administration TIDWM [facility] Insulin Aspart 3 - 6 units 11/17/24 08:00 11/22/24 12:30 Insulin Aspart (*Bkc) 100 Units/Ml SUB-Q Not Given TIDWM [facility] Protocol Insulin Glargine 16 units 11/20/24 21:00 11/21/24 20:09 Insulin Glargine (*Bkc) 100 Units/Ml SUB-Q 16 units HS [facility] Administration Irbesartan 150 mg 11/15/24 21:00 11/21/24 20:09 Irbesartan 150 Mg Tablet PO 150 mg HS [facility] Administration Miconazole Nitrate 1 applic 11/15/24 09:00 11/22/24 08:28 Miconazole Nitrate 2% Cream 30 Gm Tube TOPICAL 1 applic Q12HR [facility] Administration Mirtazapine 7.5 mg 11/15/24 21:00 11/21/24 20:09 Mirtazapine 7.5 Mg Tablet PO 7.5 mg HS [facility] Administration Morphine Sulfate 2 mg 11/14/24 22:47 11/21/24 21:54 Morphine Sulfate (*Crx) 2 Mg/Ml Inj IV PUSH 2 mg Q4H PRN Administration Breakthrough Pain Oxybutynin Chloride 5 mg 11/15/24 00:20 11/21/24 20:09 Oxybutynin Chloride 5 Mg Tablet PO 5 mg HS [facility] Administration Oxybutynin Chloride 10 mg 11/15/24 09:00 11/22/24 08:27 Oxybutynin Chloride 5 Mg Tablet PO 10 mg DAILY [facility] Administration Senna/Docusate Sodium 1 tab 11/17/24 21:00 11/21/24 20:09 Senna/Docusate Sodium Tablet PO 1 tab HS [facility] Administration Trimethoprim/Sulfamethoxazole 1 tab 11/22/24 21:00 Sulfamethoxazole/Trimethoprim 800/160 Mg Ds Tablet PO Q12HR [facility] Radiology Results: ITS Impressions Chest X-Ray 11/14/24 16:42 IMPRESSION: No focal infiltrate or effusion. Catheter Placement CT 11/16/24 12:36 IMPRESSION: 1. Successful CT-guided left presacral abscess drainage. 2. 10 mL fluid was sent for aerobic and anaerobic cultures. 3. The catheter will be managed by Dr. Kemp. Abdomen/Pelvis CT 11/22/24 13:17 IMPRESSION: 1. Interval decompression of a prior left perirectal abscess cavity post placement of a left transgluteal retains abscess drain. There are 3 additional small abscesses in the pelvis, likely communicating to the initial abscess cavity, which are not readily amenable to additional percutaneous drainage due to both their locations and small size. 2. Interval explantation of the prior left sacral nerve root stimulator. 3. Small right pleural effusion. Labs Labs: Laboratory Results - last 24 hr 11/21/24 11/21/24 11/21/24 16:56 20:09 22:28 POC Capillary Glucose 150 H 164 H Vancomycin Trough 17.3 11/22/24 11/22/24 08:28 11:19 POC Capillary Glucose 139 H 177 H Vancomycin Trough Quality VTE Prophylaxis VTE prophylaxis: pharmacologic ordered (Lovenox 40 mg subQ daily.)
[2024-11-22] MEDS: SENNA/DOCUSATE SODIUM TABLET 1 TAB PO (20:34)
[2024-11-22 20:35] VITALS: PULSE 95; RESP 20; O2SAT 98
[2024-11-22] MEDS: INSULIN GLARGINE (*BKC) 100 UNITS/ML 16 UNITS SUB-Q (20:35)
[2024-11-22] MEDS: IRBESARTAN 150 MG TABLET PO (20:35)
[2024-11-22] MEDS: MIRTAZAPINE 7.5 MG TABLET PO (20:35)
[2024-11-22] MEDS: SULFAMETHOXAZOLE/TRIMETHOPRIM 800/160 MG DS TABLET 1 TAB PO (20:35)
--- NOTE | 2024-11-22 20:50 | WPDIDCN ---
Assessment and Plan Assessment and plan (1) Abscess, perirectal: Code(s): K61.1 - Rectal abscess Status: Acute (2) Abscess of right buttock: Code(s): L02.31 - Cutaneous abscess of buttock Status: Acute (3) Urinary tract infection: Code(s): N39.0 - Urinary tract infection, site not specified Status: Acute Plan # Abscess related to near in stimulator device. Status post removal on 11/17. Cultures Klebsiella and MRSA. Previous urine culture positive for E coli. All susceptible to Bactrim. No signs of ongoing sepsis. Plan: Will switch Zosyn and vancomycin to Bactrim alone. She also tolerates this overnight. I would anticipate 10 more days of Bactrim therapy starting from today. Drain management per surgery. Will follow up the patient tomorrow. Consult was done with the aid of telemedicine with audio and visual HIP[employer] protected interface. I performed the exam well in [facility]. Patient was in [facility] in [place], [place]. With consent HPI Data of Consult Date/Time: 11/22/24 20:50 Requesting Physician: Rylie Tuttle DO Primary Care Provider: Yoav Mosley MD Consult Narrative Reason for consult: Abscess related to bladder stimulator. MRSA. Klebsiella Narrative: Praveena Michael is a 73 year old female with a history of lateral sclerosis and history of overactive bladder. Had urine stimulator placement. Presenting with pain in the hip area. CT scan showing fluid pocket with ring enhancement around the area. Initial wound cultures with Klebsiella oxytoca +MRSA. Eventually had removal of the device on 11/17. Cultures with MRSA. Prior to that did have some cloudy urine. E coli cultured 11/14. Has been on Zosyn plus vancomycin. MRSA is susceptible to Bactrim but resistant to doxycycline/ tetracycline. Klebsiella and E coli both susceptible to Bactrim. Patient states she feels well. Less pain. Still has a drain in place from removal of the stimulator. No previous history of Bactrim or sulfa allergy. [facility] Past Medical History Medical History Chronic kidney disease, stage 3b With baseline creatinine around 1.5 since 2023 Bilateral inguinal hernia Fat containing Insomnia Primary lateral sclerosis Overactive bladder Hypertension Depression Type 2 diabetes mellitus Hyperlipidemia Surgical History Surgical History Status post cataract extraction of both eyes with insertion of intraocular lens S/P implantation of urinary electronic stimulator device Family History Family History Other Unknown family medical history Social History Social History Social History: Patient has been for 32 years. She has 2 sons. She is a lifelong nonsmoker and does not drink alcohol. She is a retired banker. They have a small terrier at home. Code status: DNR/DNI Surrogate decision maker: Smoking status: Never smoker Alcohol intake: never Substance use: never Lack of Transportation: No Lack of Food: Never True Current Housing: I Have Housing Concerned About Future Housing: No Difficulty Paying Gas/Electric Bills: No Difficulty Paying for Meds: No Currently Unemployed: No Education: High School Diploma/GED Difficulty w/ Childcare or Family Care: No Spiritual care concerns: No Meds Home Medications and Allergies Home Medications ?Medication ?Instructions ?Recorded ?Confirmed ?Type duloxetine 30 mg capsule,delayed 30 mg PO DAILY 07/04/23 11/14/24 History release glimepiride 2 mg tablet 2 - 4 mg PO BID 07/04/23 11/14/24 History irbesartan 150 mg tablet 150 mg PO HS 07/04/23 11/14/24 History oxybutynin chloride 5 mg tablet 5 mg PO HS 07/04/23 11/14/24 History oxybutynin chloride 5 mg tablet 10 mg PO DAILY 07/04/23 11/14/24 History pravastatin 20 mg tablet 20 mg PO HS 07/04/23 11/14/24 History amlodipine 5 mg tablet (Norvasc) 5 mg PO QAM #30 tabs 07/08/23 11/14/24 Rx mirtazapine 15 mg tablet (Remeron) 7.5 mg (1/2 x 15 mg) PO HS #30 tabs 07/08/23 11/14/24 Rx famotidine 40 mg tablet 40 mg PO DAILY 11/14/24 11/14/24 History metformin 500 mg tablet,extended 1,000 mg PO DAILY 11/14/24 11/14/24 History release 24 hr Allergies Allergy/AdvReac Type Severity Reaction Status Date / Time No Known Allergies Allergy Verified 11/17/24 12:24 Vital Signs Vital Signs - 24 hr 11/22/24 06:00 11/22/24 08:30 11/22/24 14:00 Temperature 36.8 C 36.4 C L Pulse Rate 79 88 Respiratory Rate 20 20 Blood Pressure 177/70 H 114/57 L Pulse Oximetry 96 99 Oxygen Delivery Room Air Exam Narrative: Exam with 8 of audio and visual telemedicine. Still has drain with an accordion drain device. Brownish fluid. Patient is alert oriented person place and time. Nonlabored breathing. No rash. Results Labs 11/21/24 04:54 11/21/24 04:54
[2024-11-22 22:00] VITALS: BP 129/52; PULSE 95; RESP 20; TEMP 36.7; O2SAT 98
[2024-11-23 00:34] VITALS: O2SAT 98
[2024-11-23 04:42] LABS: Hematocrit 31.5 % (37.0-47.0); Hemoglobin 10.0 g/dL (12.0-15.0); Mean Corpuscular HGB Conc 31.7 g/dl (32-36); Mean Corpuscular Hemoglobin 29.0 pg (26-34); Mean Corpuscular Volume 91.3 fl (80-100); Platelet Count Result 375 k/mm3 (150-375); Red Blood Count 3.45 M/mm3 (4.2-5.4); White Blood Count 10.2 K/mm3 (4.5-10.0)
[2024-11-23 05:00] LABS: Anion Gap 4 mmol/L (4-12); Blood Urea Nitrogen 10 mg/dL (7-17); Calcium 9.3 mg/dL (8.4-10.2); Carbon Dioxide 26 mmol/L (22-30); Chloride 104 mmol/L (98-107); Estimated CRCL calculation 36 ml/min; Estimated Glomerular Filt Rate 47; Glucose 105 mg/dL (65-110); Potassium 3.7 mmol/L (3.4-5.0); Sodium 134 mmol/L (137-145)
[2024-11-23 06:00] VITALS: BP 130/49; PULSE 82; RESP 20; TEMP 36.7; O2SAT 97
[2024-11-23] MEDS: FAMOTIDINE 20 MG TABLET 40 MG PO (09:23)
[2024-11-23] MEDS: ENOXAPARIN 40 MG/0.4 ML SYRINGE SUB-Q (09:23)
[2024-11-23] MEDS: MICONAZOLE NITRATE 2% CREAM 30 GM TUBE 1 APPLIC TOPICAL (09:23)
[2024-11-23] MEDS: SULFAMETHOXAZOLE/TRIMETHOPRIM 800/160 MG DS TABLET 1 TAB PO (09:23)
--- NOTE | 2024-11-23 10:20 | WPDUROPN2 ---
Progress Note: A&P Assessment and Plan (1) Infection associated with urinary electronic stimulator device: Code(s): T83.590A - Infection and inflammatory reaction due to implanted urinary neurostimulation device, initial encounter Status: Acute Assessment and Plan: It remains unclear if the patient's infection started with a perirectal abscess that then tunneled out along the guidewire of the bladder stimulator in subsequently opening subcutaneously in the right buttock or if the patient may have developed a decubitus ulcer in the right buttock that then tunneled downward and infected the hardware subsequently creating a perirectal abscess. Regardless, the source control plan involves managing the abscess, removing the device, and wound care. IR drain addressing abscess, urology has removed the device, wound care consult placed. S/p drain placement per IR on 11/16, management by Gen Surg S/p removal of sacral stimulator battery and lead on 11/[address] Dillard -- no further planned urologic interventions -No other surgical urologic intervention planned at this time. -Patient has been placed on bactrim per ID. Appreciate recs. -General surgery removed drain at bedside today. -WBC downtrending and is 10.2 today. -Plan to follow-up in office in 2-3 weeks with LEONOR Martines for a wound check. She has not been seen in office since 2016 so please ensure she arrives 30minutes prior to scheduled appointment time to complete necessary patient information. Subjective Subjective Date/Time Seen: 11/23/24 10:20 Interval history: Patient reports she is doing well. She is laying comfortably in bed. ID and general surgery has seen. Review of Systems Review of Systems: All systems reviewed & are unremarkable except as noted in HPI and below ROS unobtainable: Yes unobtainable due to mental status Exam Narrative: No acute distress; resting comfortably Const: General: no acute distress Resp: Effort & Inspection: normal respiratory effort GI: Inspection: non-distended Auscultation: normal bowel sounds Objective Data Vital Signs Vital Signs: Vital Signs - 24 hr 11/22/24 14:00 11/22/24 20:35 11/22/24 22:00 Temperature 97.5 F L 98.1 F Pulse Rate 88 95 95 Respiratory Rate 20 20 20 Blood Pressure 114/57 L 129/52 L Pulse Oximetry 99 98 98 Oxygen Delivery Room Air Fraction of Inspired Oxygen 21 11/23/24 00:34 11/23/24 06:00 Temperature 98.1 F Pulse Rate 82 Respiratory Rate 20 Blood Pressure 130/49 L Pulse Oximetry 98 97 Oxygen Delivery Room Air Fraction of Inspired Oxygen Intake/Output Intake/Output: Intake & Output 11/20/24 11/21/24 11/22/24 11/23/24 23:59 23:59 23:59 23:59 Intake Total 1230 1570 1570 Output Total 1508 1700 1150 600 Balance -278 -130 420 -600 Meds/Results Medications: Active Medications Generic Name Dose Route Start Last Admin Trade Name Freq PRN Reason Stop Dose Admin Acetaminophen 500 mg 11/14/24 22:47 Acetaminophen 500 Mg Tablet PO Q4H PRN Mild Pain (1-3) or Fever Hydrocodone Bitart/Acetaminophen 1 tab 11/14/24 22:47 11/22/24 20:41 Hydrocodone/Acetaminophen (*Crx) 5-325 Mg Tablet PO 1 tab Q6H PRN Administration Pain Rated 4-10 Amlodipine Besylate 5 mg 11/15/24 09:00 11/23/24 09:23 Amlodipine Besylate 5 Mg Tablet PO 5 mg QAM INES Administration Dextrose 12.5 gm 11/14/24 21:03 Dextrose 50% 25 Gm/50 Ml Syringe IV PUSH PRN PRN Hypoglycemia Protocol Duloxetine HCl 30 mg 11/15/24 09:00 11/23/24 09:23 Duloxetine Hcl 30 Mg Capsule.Dr PO 30 mg DAILY INES Administration Enoxaparin Sodium 40 mg 11/15/24 09:00 11/23/24 09:23 Enoxaparin 40 Mg/0.4 Ml Syringe SUB-Q 40 mg DAILY INES Administration Famotidine 40 mg 11/15/24 09:00 11/23/24 09:23 Famotidine 20 Mg Tablet PO 40 mg DAILY INES Administration Glucagon 1 mg 11/14/24 21:03 Glucagon For Inj 1 Mg Vial IM PRN PRN Hypoglycemia Protocol Glucose 15 gm 11/14/24 21:03 Glucose Oral Gel 15 Gm Of Glucse In 37.5 Gm Tube PO PRN PRN Hypoglycemia Protocol Dextrose 1,000 mls @ 100 mls/hr 11/14/24 21:03 Dextrose 5% 1,000 Ml IVPB PRN PRN Hypoglycemia Protocol Insulin Aspart 4 units 11/17/24 08:00 11/23/24 09:24 Insulin Aspart (*Bkc) 100 Units/Ml 0.05 units/kg (4 units) 4 units SUB-Q Administration TIDWM [facility] Insulin Aspart 3 - 6 units 11/17/24 08:00 11/23/24 09:11 Insulin Aspart (*Bkc) 100 Units/Ml SUB-Q Not Given TIDWM [facility] Protocol Insulin Glargine 16 units 11/20/24 21:00 11/22/24 20:35 Insulin Glargine (*Bkc) 100 Units/Ml SUB-Q 16 units HS [facility] Administration Irbesartan 150 mg 11/15/24 21:00 11/22/24 20:35 Irbesartan 150 Mg Tablet PO 150 mg HS [facility] Administration Miconazole Nitrate 1 applic 11/15/24 09:00 11/23/24 09:23 Miconazole Nitrate 2% Cream 30 Gm Tube TOPICAL 1 applic Q12HR [facility] Administration Mirtazapine 7.5 mg 11/15/24 21:00 11/22/24 20:35 Mirtazapine 7.5 Mg Tablet PO 7.5 mg HS [facility] Administration Morphine Sulfate 2 mg 11/14/24 22:47 11/21/24 21:54 Morphine Sulfate (*Crx) 2 Mg/Ml Inj IV PUSH 2 mg Q4H PRN Administration Breakthrough Pain Oxybutynin Chloride 5 mg 11/15/24 00:20 11/22/24 20:35 Oxybutynin Chloride 5 Mg Tablet PO 5 mg HS [facility] Administration Oxybutynin Chloride 10 mg 11/15/24 09:00 11/23/24 09:23 Oxybutynin Chloride 5 Mg Tablet PO 10 mg DAILY [facility] Administration Senna/Docusate Sodium 1 tab 11/17/24 21:00 11/22/24 20:34 Senna/Docusate Sodium Tablet PO 1 tab HS [facility] Administration Trimethoprim/Sulfamethoxazole 1 tab 11/22/24 21:00 11/23/24 09:23 Sulfamethoxazole/Trimethoprim 800/160 Mg Ds Tablet PO 1 tab Q12HR INES Administration Radiology Results: ITS Impressions Chest X-Ray 11/14/24 16:42 IMPRESSION: No focal infiltrate or effusion. Catheter Placement CT 11/16/24 12:36 IMPRESSION: 1. Successful CT-guided left presacral abscess drainage. 2. 10 mL fluid was sent for aerobic and anaerobic cultures. 3. The catheter will be managed by Dr. Kemp. Abdomen/Pelvis CT 11/22/24 13:17 IMPRESSION: 1. Interval decompression of a prior left perirectal abscess cavity post placement of a left transgluteal retains abscess drain. There are 3 additional small abscesses in the pelvis, likely communicating to the initial abscess cavity, which are not readily amenable to additional percutaneous drainage due to both their locations and small size. 2. Interval explantation of the prior left sacral nerve root stimulator. 3. Small right pleural effusion. Labs Labs: Laboratory Results - last 24 hr 11/22/24 11/22/24 11/22/24 11:19 16:27 20:32 WBC RBC Hgb Hct MCV MCH MCHC RDW Plt Count MPV Sodium Potassium Chloride Carbon Dioxide Anion Gap BUN Creatinine Estim Creat Clear Calc Estimated GFR Glucose POC Capillary Glucose 177 H 181 H 174 H Calcium 11/23/24 11/23/24 04:35 08:03 WBC 10.2 H RBC 3.45 L Hgb 10.0 L Hct 31.5 L MCV 91.3 MCH 29.0 MCHC 31.7 L RDW 15.0 H Plt Count 375 MPV 10.1 Sodium 134 L Potassium 3.7 Chloride 104 Carbon Dioxide 26 Anion Gap 4 BUN 10 Creatinine 1.13 H Estim Creat Clear Calc 36 Estimated GFR 47 L Glucose 105 POC Capillary Glucose 97 Calcium 9.3
--- NOTE | 2024-11-23 11:48 | P.CONGS_ITS ---
Assessment and Plan Assessment and plan (1) Abscess, perirectal: Code(s): K61.1 - Rectal abscess Status: Acute Assessment and Plan: * S/p percutaneous drainage in IR on 11/16. No output from the percutaneous drain for the last few days. Repeat CT ordered by Urology yesterday and showed resolution of the perirectal abscess, but a few small (2.3 cm or less) pelvic abscesses that would not be amenable to drainage. * Perc drain removed at bedside today * Okay to discharge from our standpoint with continued oral antibiotics and follow-up with Urology. Only f/u with general surgery as needed. (2) Infection associated with urinary electronic stimulator device: Code(s): T83.590A - Infection and inflammatory reaction due to implanted urinary neurostimulation device, initial encounter Status: Acute Assessment and Plan: * S/p removal by urology. Patient will continue to f/u with Urology as an outpatient. (3) Abscess of right buttock: Code(s): L02.31 - Cutaneous abscess of buttock Status: Acute Assessment and Plan: * Continue local wound care with daily iodoform packing dressing changes. Plan Discussed patient's case and plan of care with Dr. Kemp. History of Present Illness Consult details Consult date: 11/23/24 Reason for consult: other (Drain management) Requesting physician: Fransisco Dillard MD Narrative: This is a 73-year-old woman with multiple medical problems who is known to our service due to pelvic (situated between the rectum and stimulator lead) and buttock abscess related to an implanted bladder stimulator. She was admitted 9 days ago and has been treated with IV antibiotics, which had been switched to Bactrim. She underwent removal of sacral stimulator battery, removal of sacral stimulator lead by Dr. Dillard on 11/17/2024. She had percutaneous drainage of the left presacral abscess on 11/16/2024. She has been improving and receiving local wound care for the buttock wounds. Urology has been following. Infectious Disease was also consulted. Cultures have grown MRSA and Klebsiella. Review of Systems 2 Review of Systems: ROS unobtainable: Yes unobtainable due to mental status (poor historian) [facility] Past Medical History Medical History Chronic kidney disease, stage 3b With baseline creatinine around 1.5 since 2023 Bilateral inguinal hernia Fat containing Insomnia Primary lateral sclerosis Overactive bladder Hypertension Depression Type 2 diabetes mellitus Hyperlipidemia Surgical History Surgical History Status post cataract extraction of both eyes with insertion of intraocular lens S/P implantation of urinary electronic stimulator device Family History Family History Other Unknown family medical history Social History Social History Social History: Patient has been for 32 years. She has 2 sons. She is a lifelong nonsmoker and does not drink alcohol. She is a retired banker. They have a small terrier at home. Code status: DNR/DNI Surrogate decision maker: Smoking status: Never smoker Alcohol intake: never Substance use: never Lack of Transportation: No Lack of Food: Never True Current Housing: I Have Housing Concerned About Future Housing: No Difficulty Paying Gas/Electric Bills: No Difficulty Paying for Meds: No Currently Unemployed: No Education: High School Diploma/GED Difficulty w/ Childcare or Family Care: No Spiritual care concerns: No Meds Home Medications and Allergies Home Medications ?Medication ?Instructions ?Recorded ?Confirmed ?Type duloxetine 30 mg capsule,delayed 30 mg PO DAILY 07/04/23 11/14/24 History release glimepiride 2 mg tablet 2 - 4 mg PO BID 07/04/23 11/14/24 History irbesartan 150 mg tablet 150 mg PO HS 07/04/23 11/14/24 History oxybutynin chloride 5 mg tablet 5 mg PO HS 07/04/23 11/14/24 History oxybutynin chloride 5 mg tablet 10 mg PO DAILY 07/04/23 11/14/24 History pravastatin 20 mg tablet 20 mg PO HS 07/04/23 11/14/24 History amlodipine 5 mg tablet (Norvasc) 5 mg PO QAM #30 tabs 07/08/23 11/14/24 Rx mirtazapine 15 mg tablet (Remeron) 7.5 mg (1/2 x 15 mg) PO HS #30 tabs 07/08/23 11/14/24 Rx famotidine 40 mg tablet 40 mg PO DAILY 11/14/24 11/14/24 History metformin 500 mg tablet,extended 1,000 mg PO DAILY 11/14/24 11/14/24 History release 24 hr Allergies Allergy/AdvReac Type Severity Reaction Status Date / Time No Known Allergies Allergy Verified 11/17/24 12:24 Vital Signs Vital Signs - 24 hr 11/22/24 14:00 11/22/24 20:35 11/22/24 22:00 Temperature 97.5 F L 98.1 F Pulse Rate 88 95 95 Respiratory Rate 20 20 20 Blood Pressure 114/57 L 129/52 L Pulse Oximetry 99 98 98 Oxygen Delivery Room Air Fraction of Inspired Oxygen 21 11/23/24 00:34 11/23/24 06:00 11/23/24 09:30 Temperature 98.1 F Pulse Rate 82 Respiratory Rate 20 Blood Pressure 130/49 L Pulse Oximetry 98 97 Oxygen Delivery Room Air Room Air Fraction of Inspired Oxygen Exam 2 Const: General: no acute distress and ill appearing chronically Nutritional Appearance: average body habitus Orientation/consciousness: oriented to person, oriented to place and confusion HENMT: Head: normocephalic and atraumatic Ears: hearing grossly normal bilaterally Mouth: Yes moist mucous membranes Eyes: General: appearance normal, both eyes and all related structures P upils: Equal, round and reactive pupils present Neck: Neck: normal visual inspection and full ROM Resp: Effort & Inspection: no respiratory distress Auscultation: clear to auscultation bilaterally Cardio: Rate: regular rate Rhythm: regular rhythm Peripheral pulses: P eripheral pulses 2+ throughout GI: Inspection: non-distended GI Palp: Yes Soft to palpation, No Tenderness to palpation present (GI), No Guarding due to palpation present (GI) and No Rebound tenderness present Auscultation: normal bowel sounds Other: Left gluteal drain with no output in the bag, suture and drain removed at the bedside today. gauze dressing applied. Left and right buttock wounds are packed with iodoform gauze and covered by gauze dressings, the skin around the packing appears healthy without erythema or any remaining induration. Bilateral groin and labia dermatitis improving Skin: General skin exam: normal color Neuro: General: moves all extremities and no focal motor deficits Gait exam (Neuro): Unable to assess gait Extrem: General: normal to inspection and no edema Psych: Attitude: cooperative Insight: Fair insight present (Psych) J udgement: Fair judgement present (Psych) Results Labs 11/23/24 04:35 11/23/24 04:35 Labs: Abnormal lab results 11/22/24 11/22/24 11/23/24 Range/Units 16:27 20:32 04:35 WBC 10.2 H (4.5-10.0) K/mm3 RBC 3.45 L (4.2-5.4) M/mm3 Hgb 10.0 L (12.0-15.0) g/dL Hct 31.5 L (37.0-47.0) % MCHC 31.7 L (32-36) g/dl RDW 15.0 H (11.5-14.5) % Sodium 134 L (137-145) mmol/L Creatinine 1.13 H (0.7-1.0) mg/dL Estimated GFR 47 L (59 - ) POC Capillary Glucose 181 H 174 H (65-105) mg/dl Diabetes panel 11/23/24 Range/Units 04:35 Sodium 134 L (137-145) mmol/L Potassium 3.7 (3.4-5.0) mmol/L Chloride 104 (98-107) mmol/L Carbon Dioxide 26 (22-30) mmol/L BUN 10 (7-17) mg/dL Creatinine 1.13 H (0.7-1.0) mg/dL Glucose 105 (65-110) mg/dL Calcium 9.3 (8.4-10.2) mg/dL Calcium panel 11/23/24 Range/Units 04:35 Calcium 9.3 (8.4-10.2) mg/dL Pituitary panel 11/23/24 Range/Units 04:35 Sodium 134 L (137-145) mmol/L Potassium 3.7 (3.4-5.0) mmol/L Chloride 104 (98-107) mmol/L Carbon Dioxide 26 (22-30) mmol/L BUN 10 (7-17) mg/dL Creatinine 1.13 H (0.7-1.0) mg/dL Glucose 105 (65-110) mg/dL Calcium 9.3 (8.4-10.2) mg/dL Adrenal panel 11/23/24 Range/Units 04:35 Sodium 134 L (137-145) mmol/L Potassium 3.7 (3.4-5.0) mmol/L Chloride 104 (98-107) mmol/L Carbon Dioxide 26 (22-30) mmol/L BUN 10 (7-17) mg/dL Creatinine 1.13 H (0.7-1.0) mg/dL Glucose 105 (65-110) mg/dL Calcium 9.3 (8.4-10.2) mg/dL All other labs normal. Imaging Additional studies: ITS Impressions Chest X-Ray 11/14/24 16:42 IMPRESSION: No focal infiltrate or effusion. Abdomen/Pelvis CT 11/14/24 18:20 IMPRESSION: Rim-enhancing fluid collection within the left hemipelvis, likely related to the stimulator device within the soft tissues of the right buttock, as detailed above. Catheter Placement CT 11/16/24 12:36 IMPRESSION: 1. Successful CT-guided left presacral abscess drainage. 2. 10 mL fluid was sent for aerobic and anaerobic cultures. 3. The catheter will be managed by Dr. Kemp. Abdomen/Pelvis CT 11/22/24 13:17 IMPRESSION: 1. Interval decompression of a prior left perirectal abscess cavity post placement of a left transgluteal retains abscess drain. There are 3 additional small abscesses in the pelvis, likely communicating to the initial abscess cavity, which are not readily amenable to additional percutaneous drainage due to both their locations and small size. 2. Interval explantation of the prior left sacral nerve root stimulator. 3. Small right pleural effusion.
[2024-11-23] MEDS: INSULIN ASPART (*BKC) 100 UNITS/ML SUB-Q (12:31)
--- NOTE | 2024-11-23 12:37 | PM.IMPN ---
Progress Note: A&P Assessment and Plan (1) Infection associated with urinary electronic stimulator device: Code(s): T83.590A - Infection and inflammatory reaction due to implanted urinary neurostimulation device, initial encounter Status: Acute Assessment and Plan: Is unclear if the patient's infection started with a perirectal abscess that then tunneled out along the guidewire of the bladder stimulator in subsequently opening subcutaneously in the right buttock or if the patient may have developed a decubitus ulcer in the right buttock that then tunneled downward and infected the hardware subsequently creating a perirectal abscess. Blood cultures: NGTD Wound cultures 11/14: gram stain final - mod wbc with many gram positive cocci and few gram negative rods. final aerobic culture: Klebsiella oxytoca and MRSA sensitive to vancomycin and zosyn Abscess culture 11/16: gram stain final - few gram positive cocci preliminary aerobic culture: staph aureus Antibiotics: Zosyn and vancomycin started on 11/14. Attempted to call urology to further discuss antibiotics, voicemail left. CT abdomen/pelvis: Rim-enhancing fluid collection within the left hemipelvis, likely related to the stimulator device within the soft tissues of the right buttock General surgery consulted Continue perc drainage of pelvic abscess Urology consulted Continue broad-spectrum antibiotics, tailor to culture results S/p drain placement per IR on 11/16, management per surgery S/p removal of sacral stimulator battery and lead on 11/[address] Dillard bactrum ordered q12h po id is consulted and following 11/23 wbc trending down 10.2 today afebrile anticipate drain removal today- surgery re consulted anticipate discharge to rehab once placement is confirmed (2) Abscess, perirectal: Code(s): K61.1 - Rectal abscess Status: Acute Assessment and Plan: See plan above (3) Urinary tract infection: Code(s): N39.0 - Urinary tract infection, site not specified Status: Acute Assessment and Plan: - UA: cloudy appearance with elevated specific gravity, 3+ glucose, trace ketones, negative nitrates, negative leukocytes, 6-10 WBC, 4+ bacteria and no squamous cells. - UC obtained on 11/14: Ecoli with sensitivities pending - previous micro reviewed klebsiella oxytoca 07/04/23 resistant to keflex - started on zosyn and vancomycin for cocurrent abscess Continues to deny UTI like symptoms including dysuria, burning and increased frequency/urgency. Patient has completed antibiotic course for UTI. Remains on antibiotics only for #1. Resolved. (4) Type 2 diabetes mellitus with hyperglycemia, without long-term current use of insulin: Code(s): E11.65 - Type 2 diabetes mellitus with hyperglycemia Status: Acute Assessment and Plan: The patient was markedly hyperglycemic on admission with history of diabetes not on insulin at home. Patient's glucoses decreased from the 500s down to 300 with IV fluid hydration. - hypoglycemia protocol - POC blood glucose ACHS - home medication - metformin 1000 mg daily, glimepiride 2-4 mg BID - A1C 13.8 Random glucose elevated at 517 on admission. Lantus 16 units Patient requiring 4-5 units SSI with meals, remains on 4 units aspart TIDWM. nutrition educator consulted given new insulin requirement Glucose levels significantly improved. Continue to monitor. (5) Candidiasis of perineum: Code(s): B37.49 - Other urogenital candidiasis Status: Acute Assessment and Plan: Continue fluconazole 100 mg daily, started on 11/16, course completed. Continue antifungal barrier cream and keep area dry (6) Pseudohyponatremia: Code(s): R79.89 - Other specified abnormal findings of blood chemistry Status: Acute Assessment and Plan: Patient with pseudo hyponatremia due to hyperglycemia on admission. Patient does also appear to be dehydrated/intervascular volume depleted given that she has ketones in her urine elevated specific gravity and hypercalcemia. This may be playing a component in the patient's hyponatremia as well. Resolved. (7) Hypertension: Code(s): I10 - Essential (primary) hypertension Status: Acute Assessment and Plan: Chronic, continue home medication - irbesartan 150 mg daily - amlodipine 5 mg daily - blood pressure remains stable, continue to monitor Time Spent With Patient Time with patient: 25 - 35 minutes Subjective Date/time seen: 11/23/24 12:37 Interval history: 73-year-old female with a past medical medical history of depression, essential hypertension, overactive bladder with bladder stimulator, type 2 diabetes mellitus, chronic kidney disease stage 3 and 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 Assuming care. She has no complaints at this time denying chest pain, shortness a breath, palpitations, nausea/vomiting, abdominal pain. labs ordered. ID was consulted per urology-awaiting recommendations. 11/23 pt is seen and examined. She is up in a chair, reports pain is under control. drain has no outpt in few days. will re consult surgery for removal. ID on board fpr antibiotic mngmnt. care coordination working on placement. Review of Systems Review of Systems: All systems reviewed & are unremarkable except as noted in HPI and below Exam Narrative: General: female in no acute respiratory distress who is nontoxic appearing, sitting up in chair HEENT: Normocephalic. Atraumatic. Extraocular movement intact. Sclera clear and anicteric. No facial asymmetry. Chest: Lungs are clear to auscultation bilaterally. No wheezes or crackles. CV: Heart was regular rate and rhythm. Abd: Abdomen was soft. Nontender. Nondistended. Positive bowel sounds. Ext: No clubbing, cyanosis, or edema. DP pulses bilaterally. Neuro: Patient is alert. Speech is clear. Skin: Packed wounds with no noted drainage. Drain placed to left buttock region with minimal drainage. Const: General: comfortable Other: Chronically ill-appearing, debilitated but well-nourished HENMT: Other: Mucous membranes are moist, good dentition, no oral pharyngeal erythema Eyes: Other: No scleral icterus, no conjunctival pallor, bilateral lens implants noted Neck: Other: No lymphadenopathy, no JVD Resp: Other: Clear to auscultation bilaterally, no increased work of breathing Cardio: Other: Regular rate, regular rhythm, 2+ bilateral radial and pedal pulses, no JVD, no murmur GI: Other: Soft, nontender, nondistended, normoactive bowel sounds : Other: Pure wick catheter in place, erythematous moist rash in the groin and inguinal folds Back/Spine/Pelvis: Other: Erythema to the right lateral buttock about the size of a softball with 2 open ulcerations that tunnel please see nursing documentation for measurements and positioning, at the time my evaluation wounds or only draining serosanguineous fluid Skin: Other: Generalized pallor, non jaundice, Neuro: Other: Alert oriented times 4, speech is slow delayed but not slurred, difficulty with fine motor control Extrem: Other: No clubbing, no cyanosis, edema nonpitting to lower extremities Psych: Other: Appropriate mood and affect, pleasant and cooperative, judgment and insight intact Objective Data Vital Signs Vital Signs: Vital Signs - 24 hr 11/22/24 14:00 11/22/24 20:35 11/22/24 22:00 Temperature 97.5 F L 98.1 F Pulse Rate 88 95 95 Respiratory Rate 20 20 20 Blood Pressure 114/57 L 129/52 L Pulse Oximetry 99 98 98 Oxygen Delivery Room Air Fraction of Inspired Oxygen 21 11/23/24 00:34 11/23/24 06:00 11/23/24 09:30 Temperature 98.1 F Pulse Rate 82 Respiratory Rate 20 Blood Pressure 130/49 L Pulse Oximetry 98 97 Oxygen Delivery Room Air Room Air Fraction of Inspired Oxygen Intake/Output Intake/Output: Intake & Output 11/20/24 11/21/24 11/22/24 11/23/24 23:59 23:59 23:59 23:59 Intake Total 1230 1570 1570 240 Output Total 1508 1700 1150 600 Balance -278 -130 420 -360 Meds/Results Medications: Active Medications Generic Name Dose Route Start Last Admin Trade Name Freq PRN Reason Stop Dose Admin Acetaminophen 500 mg 11/14/24 22:47 Acetaminophen 500 Mg Tablet PO Q4H PRN Mild Pain (1-3) or Fever Hydrocodone Bitart/Acetaminophen 1 tab 11/14/24 22:47 11/22/24 20:41 Hydrocodone/Acetaminophen (*Crx) 5-325 Mg Tablet PO 1 tab Q6H PRN Administration Pain Rated 4-10 Amlodipine Besylate 5 mg 11/15/24 09:00 11/23/24 09:23 Amlodipine Besylate 5 Mg Tablet PO 5 mg QAM INES Administration Dextrose 12.5 gm 11/14/24 21:03 Dextrose 50% 25 Gm/50 Ml Syringe IV PUSH PRN PRN Hypoglycemia Protocol Duloxetine HCl 30 mg 11/15/24 09:00 11/23/24 09:23 Duloxetine Hcl 30 Mg Capsule.Dr PO 30 mg DAILY INES Administration Enoxaparin Sodium 40 mg 11/15/24 09:00 11/23/24 09:23 Enoxaparin 40 Mg/0.4 Ml Syringe SUB-Q 40 mg DAILY INES Administration Famotidine 40 mg 11/15/24 09:00 11/23/24 09:23 Famotidine 20 Mg Tablet PO 40 mg DAILY INES Administration Glucagon 1 mg 11/14/24 21:03 Glucagon For Inj 1 Mg Vial IM PRN PRN Hypoglycemia Protocol Glucose 15 gm 11/14/24 21:03 Glucose Oral Gel 15 Gm Of Glucse In 37.5 Gm Tube PO PRN PRN Hypoglycemia Protocol Dextrose 1,000 mls @ 100 mls/hr 11/14/24 21:03 Dextrose 5% 1,000 Ml IVPB PRN PRN Hypoglycemia Protocol Insulin Aspart 4 units 11/17/24 08:00 11/23/24 12:31 Insulin Aspart (*Bkc) 100 Units/Ml 0.05 units/kg (4 units) 4 units SUB-Q Administration TIDWM [facility] Insulin Aspart 3 - 6 units 11/17/24 08:00 11/23/24 12:12 Insulin Aspart (*Bkc) 100 Units/Ml SUB-Q Not Given TIDWM [facility] Protocol Insulin Glargine 16 units 11/20/24 21:00 11/22/24 20:35 Insulin Glargine (*Bkc) 100 Units/Ml SUB-Q 16 units HS INES Administration Irbesartan 150 mg 11/15/24 21:00 11/22/24 20:35 Irbesartan 150 Mg Tablet PO 150 mg HS INES Administration Miconazole Nitrate 1 applic 11/15/24 09:00 11/23/24 09:23 Miconazole Nitrate 2% Cream 30 Gm Tube TOPICAL 1 applic Q12HR INES Administration Mirtazapine 7.5 mg 11/15/24 21:00 11/22/24 20:35 Mirtazapine 7.5 Mg Tablet PO 7.5 mg HS INES Administration Morphine Sulfate 2 mg 11/14/24 22:47 11/21/24 21:54 Morphine Sulfate (*Crx) 2 Mg/Ml Inj IV PUSH 2 mg Q4H PRN Administration Breakthrough Pain Oxybutynin Chloride 5 mg 11/15/24 00:20 11/22/24 20:35 Oxybutynin Chloride 5 Mg Tablet PO 5 mg HS INES Administration Oxybutynin Chloride 10 mg 11/15/24 09:00 11/23/24 09:23 Oxybutynin Chloride 5 Mg Tablet PO 10 mg DAILY INES Administration Senna/Docusate Sodium 1 tab 11/17/24 21:00 11/22/24 20:34 Senna/Docusate Sodium Tablet PO 1 tab HS INES Administration Trimethoprim/Sulfamethoxazole 1 tab 11/22/24 21:00 11/23/24 09:23 Sulfamethoxazole/Trimethoprim 800/160 Mg Ds Tablet PO 1 tab Q12HR INES Administration Radiology Results: ITS Impressions Chest X-Ray 11/14/24 16:42 IMPRESSION: No focal infiltrate or effusion. Catheter Placement CT 11/16/24 12:36 IMPRESSION: 1. Successful CT-guided left presacral abscess drainage. 2. 10 mL fluid was sent for aerobic and anaerobic cultures. 3. The catheter will be managed by Dr. Kemp. Abdomen/Pelvis CT 11/22/24 13:17 IMPRESSION: 1. Interval decompression of a prior left perirectal abscess cavity post placement of a left transgluteal retains abscess drain. There are 3 additional small abscesses in the pelvis, likely communicating to the initial abscess cavity, which are not readily amenable to additional percutaneous drainage due to both their locations and small size. 2. Interval explantation of the prior left sacral nerve root stimulator. 3. Small right pleural effusion. Labs Labs: Laboratory Results - last 24 hr 11/22/24 11/22/24 11/23/24 16:27 20:32 04:35 WBC 10.2 H RBC 3.45 L Hgb 10.0 L Hct 31.5 L MCV 91.3 MCH 29.0 MCHC 31.7 L RDW 15.0 H Plt Count 375 MPV 10.1 Sodium 134 L Potassium 3.7 Chloride 104 Carbon Dioxide 26 Anion Gap 4 BUN 10 Creatinine 1.13 H Estim Creat Clear Calc 36 Estimated GFR 47 L Glucose 105 POC Capillary Glucose 181 H 174 H Calcium 9.3 11/23/24 11/23/24 08:03 11:56 WBC RBC Hgb Hct MCV MCH MCHC RDW Plt Count MPV Sodium Potassium Chloride Carbon Dioxide Anion Gap BUN Creatinine Estim Creat Clear Calc Estimated GFR Glucose POC Capillary Glucose 97 150 H Calcium Quality VTE Prophylaxis VTE prophylaxis: pharmacologic ordered (Lovenox 40 mg subQ daily.)
--- NOTE | 2024-11-23 12:59 | PM.DS ---
DS: Admitting Diagnosis Discharge Date 11/23 Admitting Diagnosis rt buttocks/perirectal abscess DS: Discharge Diagnosis Discharge Diagnosis (1) Infection associated with urinary electronic stimulator device: Code(s): T83.590A - Infection and inflammatory reaction due to implanted urinary neurostimulation device, initial encounter Status: Acute (2) Abscess, perirectal: Code(s): K61.1 - Rectal abscess Status: Acute (3) Urinary tract infection: Code(s): N39.0 - Urinary tract infection, site not specified Status: Acute (4) Type 2 diabetes mellitus with hyperglycemia, without long-term current use of insulin: Code(s): E11.65 - Type 2 diabetes mellitus with hyperglycemia Status: Acute (5) Candidiasis of perineum: Code(s): B37.49 - Other urogenital candidiasis Status: Acute (6) Pseudohyponatremia: Code(s): R79.89 - Other specified abnormal findings of blood chemistry Status: Acute (7) Hypertension: Code(s): I10 - Essential (primary) hypertension Status: Acute DS: Summary Hospital Course Hospital Course: 73-year-old female with a past medical medical history of depression, essential hypertension, overactive bladder with bladder stimulator, type 2 diabetes mellitus, chronic kidney disease stage 3 and markedly decreased mobility with mutliple issues with perirectal abscess. She had been follwoing with surgery due to pelvic (situated between the rectum and stimulator lead) and buttock abscess related to an implanted bladder stimulator. She was admitted 9 days ago and has been treated with IV antibiotics, which had been switched to Bactrim yesterday, 11/22. Urology and pharm ID was following. She underwent removal of sacral stimulator battery, removal of sacral stimulator lead by Dr. Dillard on 11/17/2024. She had percutaneous drainage of the left presacral abscess on 11/16/2024. She has been improving and receiving local wound care for the buttock wounds. Cultures have grown MRSA and Klebsiella. She had drain placement per IR on 11/16, management by Gen Surg, removed today, 11/23. Is unclear if the patient's infection started with a perirectal abscess that then tunneled out along the guidewire of the bladder stimulator in subsequently opening subcutaneously in the right buttock or if the patient may have developed a decubitus ulcer in the right buttock that then tunneled downward and infected the hardware subsequently creating a perirectal abscess. Blood cultures: NGTD Wound cultures 11/14: gram stain final - mod wbc with many gram positive cocci and few gram negative rods. final aerobic culture: Klebsiella oxytoca and MRSA sensitive to vancomycin and zosyn Abscess culture 11/16: gram stain final - few gram positive cocci preliminary aerobic culture: staph aureus Antibiotics: Zosyn and vancomycin started on 11/14. Bactrum started on 11/22 per ID recommendations. 10 more days starting 11/23- 20 total doses. already received a dose in am, next dose 11/23 9 pm 11/23 wbc trending down 10.2 today afebrile Care coordination arranged swing bed placement for [facility]. She had UTI based on her urine sample, UA: cloudy appearance with elevated specific gravity, 3+ glucose, trace ketones, negative nitrates, negative leukocytes, 6-10 WBC, 4+ bacteria and no squamous cells. UC obtained on 11/14: Ecoli with sensitivities pending - started on zosyn and vancomycin for cocurrent abscess. Continues to deny UTI like symptoms including dysuria, burning and increased frequency/urgency. # Type 2 diabetes mellitus with hyperglycemia, without long-term current use of insulin: The patient was markedly hyperglycemic on admission with history of diabetes not on insulin at home. Patient's glucoses decreased from the 500s down to 300 with IV fluid hydration. - POC blood glucose ACHS - home medication - metformin 1000 mg daily, glimepiride 2-4 mg BID - A1C 13.8 Random glucose elevated at 517 on admission. Started on Lantus 16 units 4-5 units SSI with meals, as well as 4 units aspart TIDWM. asthma educator consulted given new insulin requirement Glucose levels significantly improved. Will discharge with 16 units of lantus and SS meal insulin and titrate based on BS trend. Monitor closely. -will stop glimepiride and restart metformin # Candidiasis of perineum: Continue fluconazole 100 mg daily, started on 11/16, course completed. Continue antifungal barrier cream and keep area dry Status at Discharge Functional status at discharge: uses cane/walker Overall status at discharge: patient is progressing back to baseline Time Spent with Patient Time attestation: Total time spent providing and/or coordinating discharge services: Time spent: Greater than 30 minutes Exam Narrative: General: female in no acute respiratory distress who is nontoxic appearing, sitting up in chair HEENT: Normocephalic. Atraumatic. Extraocular movement intact. Sclera clear and anicteric. No facial asymmetry. Chest: Lungs are clear to auscultation bilaterally. No wheezes or crackles. CV: Heart was regular rate and rhythm. Abd: Abdomen was soft. Nontender. Nondistended. Positive bowel sounds. Ext: No clubbing, cyanosis, or edema. DP pulses bilaterally. Neuro: Patient is alert. Speech is clear. Skin: Packed wounds with no noted drainage. Drain placed to left buttock region with minimal drainage. Const: General: comfortable Other: Chronically ill-appearing, debilitated but well-nourished HENMT: Other: Mucous membranes are moist, good dentition, no oral pharyngeal erythema Eyes: Other: No scleral icterus, no conjunctival pallor, bilateral lens implants noted Neck: Other: No lymphadenopathy, no JVD Resp: Other: Clear to auscultation bilaterally, no increased work of breathing Cardio: Other: Regular rate, regular rhythm, 2+ bilateral radial and pedal pulses, no JVD, no murmur GI: Other: Soft, nontender, nondistended, normoactive bowel sounds : Other: Pure wick catheter in place, erythematous moist rash in the groin and inguinal folds Back/Spine/Pelvis: Other: Erythema to the right lateral buttock about the size of a softball with 2 open ulcerations that tunnel please see nursing documentation for measurements and positioning, at the time my evaluation wounds or only draining serosanguineous fluid Skin: Other: Generalized pallor, non jaundice, Neuro: Other: Alert oriented times 4, speech is slow delayed but not slurred, difficulty with fine motor control Extrem: Other: No clubbing, no cyanosis, edema nonpitting to lower extremities Psych: Other: Appropriate mood and affect, pleasant and cooperative, judgment and insight intact DS: Data Data Completed and Pending Labs on day of discharge: Labs from last 24 hours 11/23/24 11/23/24 11/23/24 11:56 08:03 04:35 WBC 10.2 H RBC 3.45 L Hgb 10.0 L Hct 31.5 L MCV 91.3 MCH 29.0 MCHC 31.7 L RDW 15.0 H Plt Count 375 MPV 10.1 Sodium 134 L Potassium 3.7 Chloride 104 Carbon Dioxide 26 Anion Gap 4 BUN 10 Creatinine 1.13 H Estim Creat Clear Calc 36 Estimated GFR 47 L Glucose 105 POC Capillary Glucose 150 H 97 Calcium 9.3 11/22/24 11/22/24 20:32 16:27 WBC RBC Hgb Hct MCV MCH MCHC RDW Plt Count MPV Sodium Potassium Chloride Carbon Dioxide Anion Gap BUN Creatinine Estim Creat Clear Calc Estimated GFR Glucose POC Capillary Glucose 174 H 181 H Calcium Preliminary micro results at discharge 11/14/24 19:37 Aerobic Culture - Preliminary Other Discharge Plan Discharge Attending physician on discharge: Kaela Zavala Consulting providers: Rosamaria Jim; Miguel Loera; Jono De La Paz; Nichelle Kemp Discharging Clinician: Nora Sands Patient Disposition: Hospital Swing Bed Activity: august shower Diet: diabetic Patient Instructions: Antibiotic Form Patient Language: Armenian Stand Alone Forms: General Discharge Information Follow-up/Referrals: Sandra Martines, FÉLIXC [Physician Telegraph Office Telephone Clerk] - Call for Appointment (Wound check in office in about 2-3 weeks) Discharge Medications: New insulin aspart U-100 [Novolog U-100 Insulin aspart] 100 unit/mL Solution 3 - 6 unit subcut TIDWM Qty: 10 0RF Protocol: Insulin Corrective Moderate-Dose Condition: glucose < 70 mg/dl Dose/Route: Follow hypoglycemia orders Condition: glucose 70-200 mg/dl Dose/Route: No additional insulin Condition: glucose 201-250 mg/dl Dose/Route: 3 units sub-Q Condition: glucose 251-300 mg/dl Dose/Route: 4 units sub-Q Condition: glucose 301-350 mg/dl Dose/Route: 5 units sub-Q Condition: glucose 351-400 mg/dl Dose/Route: 6 units sub-Q Condition: glucose > 400 mg/dl Dose/Route: Call MD Protocol Text: *No Correction Dose at Bedtime* insulin glargine [Lantus U-100 Insulin] 100 unit/mL Solution 16 unit subcut HS Qty: 10 0RF miconazole nitrate 2 % Cream 1 applic topical Q12HR Qty: 15 0RF hydrocodone-acetaminophen 5-325 mg Tablet 1 tablet PO Q6H PRN (Reason: Pain Rated 4-10) Qty: 5 0RF sennosides-docusate sodium [Senokot-S] 8.6-50 mg Tablet 1 tab-cap PO HS Qty: 7 0RF sulfamethoxazole-trimethoprim 800-160 mg Tablet 1 tab PO Q12HR Qty: 19 0RF Continued pravastatin 20 mg Tablet 20 mg PO HS irbesartan 150 mg Tablet 150 mg PO HS oxybutynin chloride 5 mg Tablet 5 mg PO HS oxybutynin chloride 5 mg Tablet 10 mg PO DAILY duloxetine 30 mg Capsule,Delayed Release(Dr/Ec) 30 mg PO DAILY mirtazapine [Remeron] 15 mg Tablet 7.5 mg PO HS Qty: 30 0RF amlodipine [Norvasc] 5 mg Tablet 5 mg PO QAM Qty: 30 0RF famotidine 40 mg tablet 40 mg PO DAILY metformin 500 mg tablet extended release 24 hr 1,000 mg PO DAILY Discontinued glimepiride 2 mg Tablet 2 - 4 mg PO BID Date of admission: 11/14/24 21:15 Primary Care Provider: Yoav Mosley Admitting Provider: Rylie Tuttle Attending physician on admission: Rylie Tuttle Condition: Stable Quality VTE Prophylaxis VTE prophylaxis: pharmacologic ordered (Lovenox 40 mg subQ daily.) Hospitalist MIPS Heart Failure (Exclusion) Patient has history of Heart Transplant or Left Ventricular Assistive Device?: No IF YES, STOP HERE Heart Failure (Qualifier) Patient has current or prior documentation of LVEF less than or equal to 40%, or mod/servere depressed LVSF?: No IF NO, STOP HERE
== END 2024-11-23 15:15 | disposition swing bed (61) | DRG 674 ==
LOC: ANHED 20:20 → ANH2MED 22:05
PROVIDERS: Family Medicine; Radiology Diagnostic Radiology; Student in an Organized Health Care Education/Training Program; Urology; Admitting Provider Internal Medicine; Emergency Provider Emergency Medicine; PCP Internal Medicine; Visit Provider Nurse Practitioner
PROC: 0W9H30Z Drainage of Retroperitoneum with Drainage Device, Percutaneous Approach (ICD-10-PCS; principal; 2024-11-16 09:00)
PROC: 00PU3MZ Removal of Neurostimulator Lead from Spinal Canal, Percutaneous Approach (ICD-10-PCS; CPT 64585; principal; 2024-11-17 12:00)
DX: T83.590A Infection and inflammatory reaction due to implanted urinary neurostimulation device, initial encounter (principal); B37.49 Other urogenital candidiasis; G12.23 Primary lateral sclerosis; K61.1 Rectal abscess; L02.31 Cutaneous abscess of buttock; I12.9 Hypertensive chronic kidney disease with stage 1 through stage 4 chronic kidney disease, or unspecified chronic kidney disease; N32.81 Overactive bladder; Z96.82 Presence of neurostimulator; B95.62 Methicillin resistant Staphylococcus aureus infection as the cause of diseases classified elsewhere; B96.1 Klebsiella pneumoniae [K. pneumoniae] as the cause of diseases classified elsewhere; B96.20 Unspecified Escherichia coli [E. coli] as the cause of diseases classified elsewhere; E11.65 Type 2 diabetes mellitus with hyperglycemia; E78.5 Hyperlipidemia, unspecified; E11.22 Type 2 diabetes mellitus with diabetic chronic kidney disease; E86.0 Dehydration; F32.A Depression, unspecified; N18.32 Chronic kidney disease, stage 3b; R21 Rash and other nonspecific skin eruption; Z66 Do not resuscitate; Z74.01 Bed confinement status; Z91.199 Patient's noncompliance with other medical treatment and regimen due to unspecified reason; Z98.41 Cataract extraction status, right eye; Z98.42 Cataract extraction status, left eye; Z96.1 Presence of intraocular lens; Z79.84 Long term (current) use of oral hypoglycemic drugs
CPT/HCPCS: 36415; 71045; 74177; 75989; 80048; 80053; 80202; 81001; 82565; 82948; 83036; 83605; 85025; 85027; 85610; 85730; 86140; 87040; 87070; 87075; 87086; 87205; 93005; 96365; 97110; 97162; 97166; 97530; 99285; A9270; C1729; C1769; J1650; J1815; J2003; J2250; J2270; J2543; J2704; J3010; J3373; J7030; J7040; J7120; Q9967

== ENCOUNTER 2024-11-23 16:14 | Inpatient (IN) | payer MEDICARE, SELFPAY ==
--- OUTSIDE RECORDS SUMMARY | 2024-11-23 16:22 | XMS_ITS | Clinical Summary ---
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
--- OUTSIDE RECORDS SUMMARY | 2024-11-23 16:22 | XMS_ITS | Clinical Summary ---
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
[2024-11-23 16:30] VITALS: BP 141/72; PULSE 89; RESP 17; TEMP 35.7; O2SAT 97
[2024-11-23 16:39] VITALS: BMI 24.7
--- NOTE | 2024-11-23 16:40 | ADMGEN ---
This patient, Praveena Michael, was admitted to 2nd Floor Room 209-1. Patient/family oriented to hospital policies and general routines including ID bracelet, bed and alarms, visiting hours, pain management, procedures, bathroom and other care routines, personal items, smoking policy, room service/diet, and visiting hours. Information on how to activate the Rapid Response Team has been discussed. Patient/Family are encouraged to report perceived risks to care and to ask questions if they do not understand what they are told or what they should do.
[2024-11-23 18:27] VITALS: PULSE 80; RESP 16; O2SAT 97
[2024-11-23] MEDS: MICONAZOLE NITRATE 2% CREAM 30 GM TUBE 1 APPLIC TOPICAL (21:27)
[2024-11-23] MEDS: INSULIN GLARGINE (*BKC) 1,000 UNITS/10 ML VIAL 16 UNITS SUB-Q (21:27)
[2024-11-23] MEDS: TOLNAFTATE 1% POWDER 45 GM BTL 1 APPLIC TOPICAL (21:27)
[2024-11-23] MEDS: MIRTAZAPINE 7.5 MG TABLET PO (21:28)
[2024-11-23] MEDS: PRAVASTATIN SODIUM 20 MG TABLET PO (21:28)
[2024-11-23] MEDS: SENNA/DOCUSATE SODIUM TABLET 1 TAB PO (21:28)
[2024-11-23] MEDS: IRBESARTAN 150 MG TABLET PO (21:28)
[2024-11-23] MEDS: SULFAMETHOXAZOLE/TRIMETHOPRIM 800/160 MG DS TABLET 1 TAB PO (21:28)
[2024-11-24] VITALS: BP 140/69; PULSE 93; RESP 16; TEMP 36.6; O2SAT 96
[2024-11-24 08:00] VITALS: BP 142/74; PULSE 80; RESP 17; TEMP 36.6; O2SAT 97
--- NOTE | 2024-11-24 09:18 | WNDPHOTO ---
PHOTO ONLY - See Nursing Notes and/ or assessments for documentation.
--- NOTE | 2024-11-24 09:19 | WNDPHOTO ---
PHOTO ONLY - See Nursing Notes and/ or assessments for documentation.
[2024-11-24] MEDS: MICONAZOLE NITRATE 2% CREAM 30 GM TUBE 1 APPLIC TOPICAL ×2 (10:10→20:12)
[2024-11-24] MEDS: metFORMIN HCL XR 500 MG TAB.SR.24H 1000 MG PO (10:10)
[2024-11-24] MEDS: FAMOTIDINE 20 MG TABLET 40 MG PO (10:11)
[2024-11-24] MEDS: TOLNAFTATE 1% POWDER 45 GM BTL 1 APPLIC TOPICAL ×2 (10:16→20:12)
[2024-11-24] MEDS: LINEZOLID 600 MG TABLET PO ×2 (10:40→20:12)
[2024-11-24] MEDS: CEFDINIR 300 MG CAPSULE PO ×2 (10:40→20:12)
[2024-11-24] MEDS: INSULIN HUMAN LISPRO (*BKC) 1,000 UNITS/10 ML VIAL SUB-Q ×2 (12:52→16:54)
--- NOTE | 2024-11-24 13:52 | P.HP_ITS ---
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 Per medical records patient was seen by Urology and General surgery due to implantable urina ry neuro stimulation device in perirectal abscess unsure if infection transmitter turn to perirectal abscess or perirectal abscess caused infection to Neuro transmission device. Patient's will cultures grew MRSA as well as Klebsiella oxytoca patient had initial drain placement but was removed prior to discharge from [facility] by surgery. Patient had consult to Infectious Disease to assist in proper antibiotic treatment per sensitivity reports both micro Gram-negative Gram-positive for sensitive to oral Bactrim. Patient was transition to oral Bactrim and transferred via EMS to [facility]. Upon my evaluation in assessment patient was found to have a maculpapular exanthema extending over her entire abdomen up to her chest likely allergic reaction to the initiation Bactrim. Patient with no other complaints denied any chest pain, shortness a breath dizziness, abdominal pain, vitals were stable. I immediately discontinued patient's oral Bactrim and gave her 1 time dose of Sydnee dryl methylprednisone 40 already oral Pepcid. I contacted Infectious Disease Dr. De La Paz regarding patient's reaction to sulfa medication at which time we discussed and agreed upon transition patient to oral linezolid and cefdinir for 19 more doses. Review of Systems Review of Systems: All systems reviewed & are unremarkable except as noted in HPI and below PMFSH Past Medical History Medical History Chronic kidney disease, stage 3b With baseline creatinine around 1.5 since 2023 Bilateral inguinal hernia Fat containing Insomnia Primary lateral sclerosis Overactive bladder Hypertension Depression Type 2 diabetes mellitus Hyperlipidemia Surgical History Surgical History Status post cataract extraction of both eyes with insertion of intraocular lens S/P implantation of urinary electronic stimulator device Family History Family History Other Unknown family medical history Social History Social History Social History: Patient has been for 32 years. She has 2 sons. She is a lifelong nonsmoker and does not drink alcohol. She is a retired banker. They have a small terrier at home. Code status: DNR/DNI Surrogate decision maker: Smoking status: Never smoker Second hand tobacco smoke exposure: No Alcohol intake: never Substance use: never Substance use type: does not use Lack of Transportation: No Lack of Food: Never True Current Housing: I Have Housing Concerned About Future Housing: No Difficulty Paying Gas/Electric Bills: No Difficulty Paying for Meds: No Currently Unemployed: No Education: Decline to Answer Difficulty w/ Childcare or Family Care: No Spiritual care concerns: No Meds Home Medications and Allergies Home Medications ?Medication ?Instructions ?Recorded ?Confirmed ?Type duloxetine 30 mg capsule,delayed 30 mg PO DAILY 07/04/23 11/23/24 History release irbesartan 150 mg tablet 150 mg PO HS 07/04/23 11/23/24 History oxybutynin chloride 5 mg tablet 5 mg PO HS 07/04/23 11/23/24 History oxybutynin chloride 5 mg tablet 10 mg PO DAILY 07/04/23 11/23/24 History pravastatin 20 mg tablet 20 mg PO HS 07/04/23 11/23/24 History amlodipine 5 mg tablet (Norvasc) 5 mg PO QAM #30 tabs 07/08/23 11/23/24 Rx mirtazapine 15 mg tablet (Remeron) 7.5 mg (1/2 x 15 mg) PO HS #30 tabs 07/08/23 11/23/24 Rx famotidine 40 mg tablet 40 mg PO DAILY 11/14/24 11/23/24 History metformin 500 mg tablet,extended 1,000 mg PO DAILY 11/14/24 11/23/24 History release 24 hr hydrocodone 5 mg-acetaminophen 325 1 tablet PO Q6H PRN Pain Rated 11/23/24 11/23/24 Rx mg tablet 4-10 #5 tabs insulin aspart U-100 100 unit/mL 3 - 6 unit subcut TIDWM #10 mL 11/23/24 11/23/24 Rx subcutaneous solution (Novolog U-100 Insulin aspart) insulin glargine 100 unit/mL 16 unit (0.16 mL) subcut HS #10 mL 11/23/24 11/23/24 Rx subcutaneous solution (Lantus U-100 Insulin) miconazole nitrate 2 % topical 1 applic topical Q12HR #15 grams 11/23/2411/23 Rx cream sennosides 8.6 mg-docusate sodium 1 tab-cap PO HS #7 tabs 11/23/24 11/23/24 Rx 50 mg tablet (Senokot-S) sulfamethoxazole 800 1 tab PO Q12HR #19 tabs 11/23/24 11/23/24 Rx mg-trimethoprim 160 mg tablet Allergies Allergy/AdvReac Type Severity Reaction Status Date / Time sulfamethoxazole (From Allergy Intermediate Rash Verified 11/24/24 10:19 Bactrim) trimethoprim (From Bactrim) Allergy Intermediate Rash Verified 11/24/24 10:19 Vital Signs Vital Signs - 24 hr 11/23/24 16:30 11/23/24 18:27 11/24/24 00:00 Temperature 96.3 F L 97.8 F Pulse Rate 89 80 93 Respiratory Rate 17 16 16 Blood Pressure 141/72 H 140/69 Pulse Oximetry 97 97 96 Oxygen Delivery Room Air Room Air Room Air 11/24/24 08:00 Temperature 98 F Pulse Rate 80 Respiratory Rate 17 Blood Pressure 142/74 H Pulse Oximetry 97 Oxygen Delivery Room Air Exam Const: General: comfortable and no acute distress HENMT: Ears: TM's normal bilaterally Face/Nose/Sinus: Normal nares present Mouth: Yes moist mucous membranes Eyes: General: appearance normal, both eyes and all related structures Sclera: sclerae normal Pupils: Equal, round and reactive pupils present EOM: EOMs intact bilaterally Neck: Neck: supple and no JVD Resp: Effort & Inspection: normal respiratory effort Auscultation: clear to auscultation bilaterally Cardio: Rate: regular rate Rhythm: regular rhythm GI: GI Palp: Yes Soft to palpation Auscultation: normal bowel sounds Skin: Rashes: rashes noted (Maculopapular exanthema) maculopapular rash abdomen Neuro: Sensory Exam: normal sensation Other: Patient with slurred speech secondary to SL at her baseline Extrem: General: normal to inspection Psych: Mental Status: mental status grossly normal Affect: normal affect Assessment and Plan Assessment and plan (1) Decreased functional mobility: Code(s): R26.89 - Other abnormalities of gait and mobility Status: Acute Assessment and Plan: Patient admitted [facility] swing bed for continued physical and occupational therapy after extended hospitalization at [facility] * PT/OT * up to chair with meals * Fall precautions (2) Abscess, perirectal: Code(s): K61.1 - Rectal abscess Status: Acute Assessment and Plan: Patient had hospitalization due to perirectal abscess and infected neurotransmitter which was removed drain was also removed before admission. Infectious Disease had been following at [facility] and continues to follow up this time if needed. Culture showed MRSA and Klebsiella oxytoca * Initially on oral Bactrim but developed an allergic reaction maculopapular rash * Per Infectious Disease physician patient to oral linezolid and cefdinir 19 more doses * Daily the changes or when soiled * Follow-up with urology need wound check in 2-3 weeks (3) Allergic reaction to sulfonamide: Code(s): T37.0X1A - Poisoning by sulfonamides, accidental (unintentional), initial encounter Status: Acute Assessment and Plan: Patient with acute [place] rash spreading from abdominal left chest area after initiation of oral Bactrim * Discontinued Bactrim * Gave Benadryl, methylprednisone, and Pepcid x1 (4) Hypertension: Code(s): I10 - Essential (primary) hypertension Status: Acute Assessment and Plan: * Continue patient's amlodipine and irbesartan * Monitor BP per unit protocol (5) Hyperlipidemia: Code(s): E78.5 - Hyperlipidemia, unspecified Status: Acute Assessment and Plan: * Continued patient's atorvastatin (6) Type 2 diabetes mellitus: Code(s): E11.9 - Type 2 diabetes mellitus without complications Status: Acute Assessment and Plan: * Continue patient's metformin, Lantus 16 units * Low-dose sliding scale * Accu-Cheks a.c. HS * Diabetic diet * Hypoglycemic protocol Plan Code status: Full code per patient DVT prophylaxis: scd Stress ulcer prophylaxis: Pepcid PT/OT notes: Swing bed Disposition: Patient admitted to [facility] for continued physical and occupational therapy due to deconditioned state after extended hospitalization plan will be to continue with strengthening and antibiotic therapy plans to return home when medically stable. Quality VTE Prophylaxis VTE prophylaxis: mechanical ordered -Patient's previous records reviewed on admission -ER notes reviewed in detail on admission -discussed all findings and current treatment plan with patient/Family/POA -Consultations reviewed for recommendations -Patient's disposition for safe discharge discussed with insurance case manager Dictation performed by [employer] direct speech recognition software, therefore sr risk management consultant variants and typographical errors may occur. Hospitalist MIPS Advance Care Plan I have confirmed that the patient's Advanced Care Plan is present, code status is documented, or surrogate decision maker is listed in patient medical record.: Yes Medication Reconciliation I have utilized all available resources to obtain, update and review the patients current medications (includes all prescriptions, OTC, herbals, cannabis, and nutritional supplements).: Yes The patient is not eligible for med reconciliation; the patient is in a emergent medical situation where delaying treatment would jeopardize the patients health.: No
[2024-11-24 16:00] VITALS: BP 130/67; PULSE 92; RESP 16; TEMP 36.8; O2SAT 98
[2024-11-24 20:00] VITALS: PULSE 92; RESP 16; O2SAT 98
[2024-11-24] MEDS: HYDROcodone/acetaminophen (*CRX) 5-325 MG TABLET 1 TAB PO (20:13)
[2024-11-24] MEDS: SENNA/DOCUSATE SODIUM TABLET 1 TAB PO (20:13)
[2024-11-24] MEDS: MIRTAZAPINE 7.5 MG TABLET PO (20:13)
[2024-11-24] MEDS: PRAVASTATIN SODIUM 20 MG TABLET PO (20:13)
[2024-11-24] MEDS: IRBESARTAN 150 MG TABLET PO (20:13)
[2024-11-24] MEDS: INSULIN GLARGINE (*BKC) 1,000 UNITS/10 ML VIAL 16 UNITS SUB-Q (20:19)
[2024-11-25] VITALS: BP 124/67; PULSE 96; RESP 17; TEMP 36.9; O2SAT 97
--- NOTE | 2024-11-25 03:18 | PC.NURSE ---
Turned to right side, yaw. well, adult brief dry. Education provided on need to turn.
[2024-11-25 07:43] VITALS: BP 124/58; PULSE 85; RESP 16; TEMP 36.8; O2SAT 93
[2024-11-25] MEDS: INSULIN HUMAN LISPRO (*BKC) 1,000 UNITS/10 ML VIAL SUB-Q ×3 (08:08→17:29)
[2024-11-25] MEDS: metFORMIN HCL XR 500 MG TAB.SR.24H 1000 MG PO (08:09)
[2024-11-25] MEDS: CEFDINIR 300 MG CAPSULE PO ×2 (08:10→20:41)
[2024-11-25] MEDS: FAMOTIDINE 20 MG TABLET 40 MG PO (08:10)
[2024-11-25] MEDS: TOLNAFTATE 1% POWDER 45 GM BTL 1 APPLIC TOPICAL ×2 (08:13→20:41)
[2024-11-25] MEDS: MICONAZOLE NITRATE 2% CREAM 30 GM TUBE 1 APPLIC TOPICAL ×2 (08:13→20:41)
[2024-11-25] MEDS: LINEZOLID 600 MG TABLET PO ×2 (08:13→20:40)
[2024-11-25 16:00] VITALS: BP 137/73; PULSE 81; RESP 16; TEMP 36.6; O2SAT 97
--- NOTE | 2024-11-25 16:48 | PC.NURSE ---
Wounds cleansed with wound cleanser, packed with idoform gauze and covered with 4x4 gauze pads. Patient tolerated fairly well.
[2024-11-25 20:00] VITALS: PULSE 78; RESP 16; O2SAT 96
[2024-11-25] MEDS: PRAVASTATIN SODIUM 20 MG TABLET PO (20:40)
[2024-11-25] MEDS: IRBESARTAN 150 MG TABLET PO (20:40)
[2024-11-25] MEDS: INSULIN GLARGINE (*BKC) 1,000 UNITS/10 ML VIAL 16 UNITS SUB-Q (20:40)
[2024-11-25] MEDS: MIRTAZAPINE 7.5 MG TABLET PO (20:40)
[2024-11-25] MEDS: SENNA/DOCUSATE SODIUM TABLET 1 TAB PO (20:40)
[2024-11-26] VITALS: BP 156/77; PULSE 78; RESP 16; TEMP 36.7; O2SAT 96
[2024-11-26 08:00] VITALS: BP 156/84; PULSE 73; RESP 16; TEMP 36.3; O2SAT 93
[2024-11-26] MEDS: metFORMIN HCL XR 500 MG TAB.SR.24H 1000 MG PO (08:22)
[2024-11-26] MEDS: FAMOTIDINE 20 MG TABLET 40 MG PO (08:22)
[2024-11-26] MEDS: LINEZOLID 600 MG TABLET PO ×2 (08:23→20:17)
[2024-11-26] MEDS: CEFDINIR 300 MG CAPSULE PO ×2 (08:23→20:17)
[2024-11-26] MEDS: TOLNAFTATE 1% POWDER 45 GM BTL 1 APPLIC TOPICAL ×2 (08:24→20:18)
[2024-11-26] MEDS: MICONAZOLE NITRATE 2% CREAM 30 GM TUBE 1 APPLIC TOPICAL ×2 (08:24→20:18)
[2024-11-26] MEDS: INSULIN HUMAN LISPRO (*BKC) 1,000 UNITS/10 ML VIAL SUB-Q (12:05)
--- NOTE | 2024-11-26 14:04 | PC.NURSE ---
Wounds cleansed and packing applied. Covered with 4x4 gauze and dated. Patient tolerated fairly.
[2024-11-26 16:00] VITALS: BP 137/81; PULSE 85; RESP 16; TEMP 36.6; O2SAT 96
[2024-11-26 19:57] VITALS: PULSE 85; RESP 16; O2SAT 96
[2024-11-26] MEDS: PRAVASTATIN SODIUM 20 MG TABLET PO (20:17)
[2024-11-26] MEDS: IRBESARTAN 150 MG TABLET PO (20:17)
[2024-11-26] MEDS: MIRTAZAPINE 7.5 MG TABLET PO (20:17)
[2024-11-26] MEDS: SENNA/DOCUSATE SODIUM TABLET 1 TAB PO (20:18)
[2024-11-26] MEDS: HYDROcodone/acetaminophen (*CRX) 5-325 MG TABLET 1 TAB PO (20:18)
[2024-11-26] MEDS: INSULIN GLARGINE (*BKC) 1,000 UNITS/10 ML VIAL 16 UNITS SUB-Q (20:20)
[2024-11-27] VITALS: BP 136/66; PULSE 89; RESP 17; TEMP 36.8; O2SAT 97
[2024-11-27 06:49] LABS: Hematocrit 33.8 % (35.0-42.0); Hemoglobin 10.4 g/dL (11.7-13.8); Mean Corpuscular HGB Conc 30.8 g/dL (32-36); Mean Corpuscular Hemoglobin 28.6 pg (27.0-31.0); Mean Corpuscular Volume 92.9 fL (78.0-102.0); Platelet Count Result 454 K/mm3 (150-420); Red Blood Count 3.64 M/mm3 (4.20-5.40); White Blood Count 7.2 K/mm3 (4.8-10.8)
[2024-11-27 07:02] LABS: Alanine Aminotransferase 20 U/L (6-35); Albumin Level 3.1 g/dL (3.5-5.1); Alkaline Phosphatase 119 U/L (38-126); Anion Gap 7 mmol/L (4-12); Aspartate Amino Transferase 23 U/L (14-36); Bilirubin,Total 0.4 mg/dL (0.2-1.3); Blood Urea Nitrogen 21 mg/dL (7-17); Calcium 10.3 mg/dL (8.4-10.2); Carbon Dioxide 26 mmol/L (22-30); Chloride 106 mmol/L (98-107); Estimated CRCL calculation 32 ml/min; Estimated Glomerular Filt Rate 41; Glucose 169 mg/dL (65-110); Magnesium 2.0 mg/dL (1.6-2.3); Osmolality Calculated 295 mOsm/kg (285-295); Potassium 4.6 mmol/L (3.4-5.0); Sodium 139 mmol/L (137-145); Total Protein 6.3 g/dL (6.3-8.2)
[2024-11-27 07:50] VITALS: BP 120/67; PULSE 75; RESP 16; TEMP 36.5; O2SAT 96
[2024-11-27 08:40] VITALS: PULSE 75; RESP 16; O2SAT 96
[2024-11-27] MEDS: metFORMIN HCL XR 500 MG TAB.SR.24H 1000 MG PO (09:12)
[2024-11-27] MEDS: CEFDINIR 300 MG CAPSULE PO ×2 (09:12→20:55)
[2024-11-27] MEDS: FAMOTIDINE 20 MG TABLET 40 MG PO (09:12)
[2024-11-27] MEDS: LINEZOLID 600 MG TABLET PO ×2 (09:12→20:54)
[2024-11-27] MEDS: TOLNAFTATE 1% POWDER 45 GM BTL 1 APPLIC TOPICAL ×2 (09:13→20:54)
[2024-11-27] MEDS: MICONAZOLE NITRATE 2% CREAM 30 GM TUBE 1 APPLIC TOPICAL ×2 (09:13→20:54)
[2024-11-27] MEDS: INSULIN HUMAN LISPRO (*BKC) 1,000 UNITS/10 ML VIAL SUB-Q (13:13)
[2024-11-27 16:45] VITALS: BP 132/88; PULSE 78; RESP 16; TEMP 36.3; O2SAT 99
[2024-11-27 19:36] VITALS: BP 118/77; PULSE 74; RESP 18; TEMP 36.8; O2SAT 95
[2024-11-27] MEDS: IRBESARTAN 150 MG TABLET PO (20:55)
[2024-11-27] MEDS: PRAVASTATIN SODIUM 20 MG TABLET PO (20:55)
[2024-11-27] MEDS: MIRTAZAPINE 7.5 MG TABLET PO (20:55)
[2024-11-27] MEDS: INSULIN GLARGINE (*BKC) 1,000 UNITS/10 ML VIAL 16 UNITS SUB-Q (20:56)
[2024-11-27] MEDS: SENNA/DOCUSATE SODIUM TABLET 1 TAB PO (20:56)
[2024-11-27] MEDS: HYDROcodone/acetaminophen (*CRX) 5-325 MG TABLET 1 TAB PO (22:36)
[2024-11-28] VITALS: BP 125/57; PULSE 73; RESP 17; TEMP 36.9; O2SAT 97
[2024-11-28 08:00] VITALS: BP 129/63; PULSE 78; RESP 16; TEMP 36.3; O2SAT 97
[2024-11-28 08:35] VITALS: O2SAT 97
[2024-11-28] MEDS: MICONAZOLE NITRATE 2% CREAM 30 GM TUBE 1 APPLIC TOPICAL ×2 (09:22→20:33)
[2024-11-28] MEDS: metFORMIN HCL XR 500 MG TAB.SR.24H 1000 MG PO (09:23)
[2024-11-28] MEDS: FAMOTIDINE 20 MG TABLET 40 MG PO (09:23)
[2024-11-28] MEDS: TOLNAFTATE 1% POWDER 45 GM BTL 1 APPLIC TOPICAL ×2 (09:23→20:34)
[2024-11-28] MEDS: LINEZOLID 600 MG TABLET PO ×2 (09:23→20:33)
[2024-11-28] MEDS: CEFDINIR 300 MG CAPSULE PO ×2 (09:24→20:33)
[2024-11-28] MEDS: INSULIN HUMAN LISPRO (*BKC) 1,000 UNITS/10 ML VIAL SUB-Q ×2 (11:52→17:35)
[2024-11-28 16:30] VITALS: BP 146/76; PULSE 99; RESP 16; TEMP 36.6; O2SAT 97
[2024-11-28] MEDS: SENNA/DOCUSATE SODIUM TABLET 1 TAB PO (20:33)
[2024-11-28] MEDS: MIRTAZAPINE 7.5 MG TABLET PO (20:33)
[2024-11-28] MEDS: IRBESARTAN 150 MG TABLET PO (20:33)
[2024-11-28] MEDS: PRAVASTATIN SODIUM 20 MG TABLET PO (20:33)
[2024-11-28] MEDS: INSULIN GLARGINE (*BKC) 1,000 UNITS/10 ML VIAL 16 UNITS SUB-Q (20:43)
[2024-11-29] VITALS: BP 138/75; PULSE 92; RESP 16; TEMP 36.8; O2SAT 97
[2024-11-29 08:00] VITALS: BP 121/69; PULSE 79; RESP 18; TEMP 36.6; O2SAT 95
[2024-11-29] MEDS: LINEZOLID 600 MG TABLET PO ×2 (08:46→20:38)
[2024-11-29] MEDS: metFORMIN HCL XR 500 MG TAB.SR.24H 1000 MG PO (08:46)
[2024-11-29] MEDS: CEFDINIR 300 MG CAPSULE PO ×2 (08:46→20:39)
[2024-11-29] MEDS: FAMOTIDINE 20 MG TABLET 40 MG PO (08:47)
[2024-11-29] MEDS: TOLNAFTATE 1% POWDER 45 GM BTL 1 APPLIC TOPICAL ×2 (08:48→20:40)
[2024-11-29] MEDS: MICONAZOLE NITRATE 2% CREAM 30 GM TUBE 1 APPLIC TOPICAL ×2 (08:48→20:40)
--- NOTE | 2024-11-29 08:55 | WNDPHOTO ---
PHOTO ONLY - See Nursing Notes and/ or assessments for documentation.
--- NOTE | 2024-11-29 09:02 | WNDPHOTO ---
PHOTO ONLY - See Nursing Notes and/ or assessments for documentation.
--- NOTE | 2024-11-29 09:03 | WNDPHOTO ---
PHOTO ONLY - See Nursing Notes and/ or assessments for documentation.
[2024-11-29] MEDS: INSULIN HUMAN LISPRO (*BKC) 1,000 UNITS/10 ML VIAL SUB-Q (12:12)
[2024-11-29 15:27] VITALS: BP 130/66; PULSE 92; RESP 18; TEMP 36.6; O2SAT 98
[2024-11-29 19:45] VITALS: PULSE 88; O2SAT 97
[2024-11-29] MEDS: PRAVASTATIN SODIUM 20 MG TABLET PO (20:38)
[2024-11-29] MEDS: SENNA/DOCUSATE SODIUM TABLET 1 TAB PO (20:38)
[2024-11-29] MEDS: IRBESARTAN 150 MG TABLET PO (20:39)
[2024-11-29] MEDS: MIRTAZAPINE 7.5 MG TABLET PO (20:39)
[2024-11-29] MEDS: INSULIN GLARGINE (*BKC) 1,000 UNITS/10 ML VIAL 16 UNITS SUB-Q (21:05)
[2024-11-30] VITALS: BP 128/60; PULSE 86; RESP 20; TEMP 36.8; O2SAT 96
--- NOTE | 2024-11-30 00:10 | PC.NURSE ---
Pt incontinent of a large amount of urine. Pt changed and positioned to comfort.
--- NOTE | 2024-11-30 02:00 | PC.NURSE ---
Pt asleep and no signs of discomfort noted.
--- NOTE | 2024-11-30 03:00 | PC.NURSE ---
Pt incontinent of a large amount of urine. Pt cleaned, changed and repositioned to comfort.
--- NOTE | 2024-11-30 04:20 | PC.NURSE ---
Pt asleep and no signs of discomfort noted.
[2024-11-30 07:51] VITALS: BP 136/71; PULSE 76; RESP 16; TEMP 36.7; O2SAT 95
[2024-11-30] MEDS: metFORMIN HCL XR 500 MG TAB.SR.24H 1000 MG PO (08:32)
[2024-11-30] MEDS: CEFDINIR 300 MG CAPSULE PO ×2 (08:33→21:02)
[2024-11-30] MEDS: FAMOTIDINE 20 MG TABLET 40 MG PO (08:33)
[2024-11-30] MEDS: LINEZOLID 600 MG TABLET PO ×2 (08:34→21:02)
[2024-11-30] MEDS: MICONAZOLE NITRATE 2% CREAM 30 GM TUBE 1 APPLIC TOPICAL ×2 (08:34→21:03)
[2024-11-30] MEDS: TOLNAFTATE 1% POWDER 45 GM BTL 1 APPLIC TOPICAL ×2 (08:34→21:04)
--- NOTE | 2024-11-30 10:29 | WPDPN ---
Subjective Date/time seen: 11/30/24 10:29 Interval history: Stopped by the patient's room today. She feels tired but is sleeping well and does not feel this is related to therapy. She denies any other complaints and feels she is doing well overall. Labs ordered for tomorrow and patient will need a PN for tomorrow. Objective Data Vital Signs Vital Signs: Vital Signs - 24 hr 11/29/24 15:27 11/29/24 19:45 11/30/24 00:00 Temperature 97.9 F 98.2 F Pulse Rate 92 88 86 Respiratory Rate 18 20 Blood Pressure 130/66 128/60 Pulse Oximetry 98 97 96 Oxygen Delivery Room Air Room Air Room Air 11/30/24 07:51 Temperature 98.0 F Pulse Rate 76 Respiratory Rate 16 Blood Pressure 136/71 Pulse Oximetry 95 Oxygen Delivery Room Air Intake/Output Intake/Output: Intake & Output 11/27/24 11/28/24 11/29/24 11/30/24 23:59 23:59 23:59 23:59 Intake Total 1770 1300 1217 850 Balance 1770 1300 1217 850 Meds/Results Medications: Active Medications Generic Name Dose Route Start Last Admin Trade Name Freq PRN Reason Stop Dose Admin Acetaminophen 650 mg 11/23/24 18:31 Acetaminophen 325 Mg Tablet PO Q6H PRN Mild Pain (1-3) or Fever Hydrocodone Bitart/Acetaminophen 1 tab 11/23/24 18:25 11/27/24 22:36 Hydrocodone/Acetaminophen (*Crx) 5-325 Mg Tablet PO 1 tab Q6H PRN Administration Pain Rated 4-10 Amlodipine Besylate 5 mg 11/24/24 09:00 11/30/24 08:32 Amlodipine Besylate 5 Mg Tablet PO 5 mg QAM INES Administration Cefdinir 300 mg 11/24/24 10:30 11/30/24 08:33 Cefdinir 300 Mg Capsule PO 12/03/24 09:01 300 mg Q12HR INES Administration Dextrose 12.5 gm 11/23/24 18:27 Dextrose 50% 25 Gm/50 Ml Syringe IV PUSH PRN PRN Hypoglycemia Protocol Duloxetine HCl 30 mg 11/24/24 09:00 11/30/24 08:33 Duloxetine Hcl 30 Mg Capsule.Dr PO 30 mg DAILY INES Administration Famotidine 40 mg 11/24/24 09:00 11/30/24 08:33 Famotidine 20 Mg Tablet PO 40 mg DAILY INES Administration Glucagon 1 mg 11/23/24 18:27 Glucagon For Inj 1 Mg Vial IM PRN PRN Hypoglycemia Protocol Glucose 15 gm 11/23/24 18:27 Glucose Oral Gel 15 Gm Of Glucse In 37.5 Gm Tube PO PRN PRN Hypoglycemia Protocol Dextrose 1,000 mls @ 100 mls/hr 11/23/24 18:27 Dextrose 5% 1,000 Ml IVPB PRN PRN Hypoglycemia Protocol Insulin Glargine 16 units 11/23/24 21:00 11/29/24 21:05 Insulin Glargine (*Bkc) 1,000 Units/10 Ml Vial SUB-Q 16 units HS INES Administration Insulin Human Lispro 2 - 5 units 11/24/24 08:00 11/30/24 08:32 Insulin Human Lispro (*Bkc) 1,000 Units/10 Ml Vial SUB-Q Not Given TIDWM INES Protocol Irbesartan 150 mg 11/23/24 21:00 11/29/24 20:39 Irbesartan 150 Mg Tablet PO 150 mg HS INES Administration Linezolid 600 mg 11/24/24 10:30 11/30/24 08:34 Linezolid 600 Mg Tablet PO 12/03/24 09:01 600 mg Q12HR INES Administration Metformin HCl 1,000 mg 11/24/24 09:00 11/30/24 08:32 Metformin Hcl Xr 500 Mg Tab.Sr.24h PO 1,000 mg DAILY INES Administration Miconazole Nitrate 1 applic 11/23/24 21:00 11/30/24 08:34 Miconazole Nitrate 2% Cream 30 Gm Tube TOPICAL 1 applic Q12HR INES Administration Mirtazapine 7.5 mg 11/23/24 21:00 11/29/24 20:39 Mirtazapine 7.5 Mg Tablet PO 7.5 mg HS INES Administration Ondansetron HCl 4 mg 11/23/24 18:31 Ondansetron Hcl Odt 4 Mg Tablet PO Q6H PRN Nausea And Vomiting Oxybutynin Chloride 5 mg 11/23/24 21:00 11/29/24 20:39 Oxybutynin Chloride 5 Mg Tablet PO 5 mg HS INES Administration Oxybutynin Chloride 10 mg 11/24/24 09:00 11/30/24 08:33 Oxybutynin Chloride 5 Mg Tablet PO 10 mg DAILY INES Administration Pravastatin Sodium 20 mg 11/23/24 21:00 11/29/24 20:38 Pravastatin Sodium 20 Mg Tablet PO 20 mg HS INES Administration Senna/Docusate Sodium 1 tab 11/23/24 21:00 11/29/24 20:38 Senna/Docusate Sodium Tablet PO 1 tab HS INES Administration Tolnaftate 1 applic 11/23/24 21:00 11/30/24 08:34 Tolnaftate 1% Powder 45 Gm Btl TOPICAL 1 applic Q12HR INES Administration Labs Labs: Laboratory Results - last 24 hr 11/29/24 11/29/24 11/29/24 07:48 11:37 16:44 POC Capillary Glucose 171 H 319 H 114 H 11/29/24 11/30/24 20:51 07:27 POC Capillary Glucose 212 H 155 H
[2024-11-30] MEDS: INSULIN HUMAN LISPRO (*BKC) 1,000 UNITS/10 ML VIAL SUB-Q (11:50)
[2024-11-30 13:10] VITALS: BP 135/69; PULSE 128; RESP 18; TEMP 36.7; O2SAT 97
[2024-11-30 16:00] VITALS: BP 128/60; PULSE 101; RESP 16; TEMP 36.7; O2SAT 99
--- NOTE | 2024-11-30 18:57 | PC.NURSE ---
Dressings changed. Wounds packed with idioform and covered with gauze. Patient tolerated well.
[2024-11-30 20:00] VITALS: PULSE 93; RESP 16; O2SAT 95
[2024-11-30] MEDS: MIRTAZAPINE 7.5 MG TABLET PO (21:02)
[2024-11-30] MEDS: IRBESARTAN 150 MG TABLET PO (21:03)
[2024-11-30] MEDS: PRAVASTATIN SODIUM 20 MG TABLET PO (21:03)
[2024-11-30] MEDS: SENNA/DOCUSATE SODIUM TABLET 1 TAB PO (21:03)
[2024-11-30] MEDS: HYDROcodone/acetaminophen (*CRX) 5-325 MG TABLET 1 TAB PO (21:04)
[2024-11-30] MEDS: INSULIN GLARGINE (*BKC) 1,000 UNITS/10 ML VIAL 16 UNITS SUB-Q (21:04)
[2024-12-01] VITALS: BP 126/59; PULSE 93; RESP 16; TEMP 36.6; O2SAT 95
[2024-12-01 07:33] LABS: Hematocrit 35.2 % (35.0-42.0); Hemoglobin 11.0 g/dL (11.7-13.8); Mean Corpuscular HGB Conc 31.3 g/dL (32-36); Mean Corpuscular Hemoglobin 28.9 pg (27.0-31.0); Mean Corpuscular Volume 92.6 fL (78.0-102.0); Platelet Count Result 385 K/mm3 (150-420); Red Blood Count 3.80 M/mm3 (4.20-5.40); White Blood Count 6.2 K/mm3 (4.8-10.8)
[2024-12-01 07:46] LABS: Alanine Aminotransferase 21 U/L (6-35); Albumin Level 3.4 g/dL (3.5-5.1); Alkaline Phosphatase 111 U/L (38-126); Anion Gap 9 mmol/L (4-12); Aspartate Amino Transferase 27 U/L (14-36); Bilirubin,Total 0.5 mg/dL (0.2-1.3); Blood Urea Nitrogen 28 mg/dL (7-17); Calcium 10.4 mg/dL (8.4-10.2); Carbon Dioxide 23 mmol/L (22-30); Chloride 105 mmol/L (98-107); Estimated CRCL calculation 26 ml/min; Estimated Glomerular Filt Rate 32; Glucose 139 mg/dL (65-110); Magnesium 2.0 mg/dL (1.6-2.3); Osmolality Calculated 291 mOsm/kg (285-295); Potassium 4.7 mmol/L (3.4-5.0); Sodium 137 mmol/L (137-145); Total Protein 6.6 g/dL (6.3-8.2)
[2024-12-01 08:00] VITALS: BP 115/62; PULSE 80; RESP 16; TEMP 36.4; O2SAT 97
[2024-12-01] MEDS: CEFDINIR 300 MG CAPSULE PO (08:29)
[2024-12-01] MEDS: metFORMIN HCL XR 500 MG TAB.SR.24H 1000 MG PO (08:29)
[2024-12-01] MEDS: FAMOTIDINE 20 MG TABLET 40 MG PO (08:30)
[2024-12-01] MEDS: LINEZOLID 600 MG TABLET PO (08:30)
[2024-12-01] MEDS: TOLNAFTATE 1% POWDER 45 GM BTL 1 APPLIC TOPICAL (08:31)
[2024-12-01] MEDS: MICONAZOLE NITRATE 2% CREAM 30 GM TUBE 1 APPLIC TOPICAL (08:31)
--- NOTE | 2024-12-01 08:59 | P.PNIM_ITS ---
Progress Note: A&P Assessment and Plan (1) Decreased functional mobility: Code(s): R26.89 - Other abnormalities of gait and mobility Status: Acute Assessment and Plan: Patient admitted [place] [facility] swing bed for continued physical and occupational therapy after extended hospitalization at [facility] * PT/OT * up to chair with meals * Fall precautions (2) Abscess, perirectal: Code(s): K61.1 - Rectal abscess Status: Acute Assessment and Plan: Patient had hospitalization due to perirectal abscess and infected neurotransmitter which was removed drain was also removed before admission. Infectious Disease had been following at [facility] and continues to follow up this time if needed. Culture showed MRSA and Klebsiella oxytoca * Initially on oral Bactrim but developed an allergic reaction maculopapular rash * Per Infectious Disease physician patient to oral linezolid and cefdinir 19 more doses * Daily the changes or when soiled * Follow-up with urology need wound check in 2-3 weeks (3) Allergic reaction to sulfonamide: Code(s): T37.0X1A - Poisoning by sulfonamides, accidental (unintentional), initial encounter Status: Acute Assessment and Plan: Patient with acute [place] rash spreading from abdominal left chest area after initiation of oral Bactrim * Discontinued Bactrim * Gave Benadryl, methylprednisone, and Pepcid x1 (4) Hypertension: Code(s): I10 - Essential (primary) hypertension Status: Acute Assessment and Plan: * Continue patient's amlodipine and irbesartan * Monitor BP per unit protocol (5) Hyperlipidemia: Code(s): E78.5 - Hyperlipidemia, unspecified Status: Acute Assessment and Plan: * Continued patient's atorvastatin (6) Type 2 diabetes mellitus: Code(s): E11.9 - Type 2 diabetes mellitus without complications Status: Acute Assessment and Plan: * Continue patient's metformin, Lantus 16 units * Low-dose sliding scale * Accu-Cheks a.c. HS * Diabetic diet * Hypoglycemic protocol (7) Acute kidney injury superimposed on stage 3a chronic kidney disease: Code(s): N17.9 - Acute kidney failure, unspecified; N18.31 - Chronic kidney disease, stage 3a Status: Acute Plan Code status: Full code per patient DVT prophylaxis: scd Stress ulcer prophylaxis: Pepcid PT/OT notes: Swing bed Disposition: Patient admitted to [facility] for continued physical and occupational therapy due to deconditioned state after extended hospitalization plan will be to continue with strengthening and antibiotic therapy plans to return home when medically stable. 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 from [facility] after treatment for perirectal abscess. 12/01/2024: Assumed Care Review of Systems Review of Systems: All systems reviewed & are unremarkable except as noted in HPI and below Exam Const: General: comfortable and no acute distress HENMT: Ears: TM's normal bilaterally Face/Nose/Sinus: Normal nares present Mouth: Yes moist mucous membranes Eyes: General: appearance normal, both eyes and all related structures Sclera: sclerae normal Pupils: Equal, round and reactive pupils present EOM: EOMs intact bilaterally Neck: Neck: supple and no JVD Resp: Effort & Inspection: normal respiratory effort Auscultation: clear to auscultation bilaterally Cardio: Rate: regular rate Rhythm: regular rhythm GI: Auscultation: normal bowel sounds Skin: General skin exam: rashes (Maculopapular exanthema) Rashes: rashes noted (Maculopapular exanthema) Neuro: Cranial nerves: Yes Equal, round and reactive pupils present Sensory Exam: normal sensation Other: Patient with slurred speech secondary to SL at her baseline Extrem: General: normal to inspection Psych: Mental Status: mental status grossly normal Affect: normal affect Objective Data Vital Signs Vital Signs: Vital Signs - 24 hr 11/30/24 13:10 11/30/24 16:00 11/30/24 20:00 Temperature 98.0 F 98.0 F Pulse Rate 128 H 101 H 93 Respiratory Rate 18 16 16 Blood Pressure 135/69 128/60 Pulse Oximetry 97 99 95 Oxygen Delivery Room Air Room Air Room Air 12/01/24 00:00 12/01/24 08:00 Temperature 97.8 F 97.6 F Pulse Rate 93 80 Respiratory Rate 16 16 Blood Pressure 126/59 L 115/62 Pulse Oximetry 95 97 Oxygen Delivery Room Air Room Air Intake/Output Intake/Output: Intake & Output 11/28/24 11/29/24 11/30/24 12/01/24 23:59 23:59 23:59 23:59 Intake Total 1300 1217 1700 900 Balance 1300 1217 1700 900 Meds/Results Medications: Active Medications Generic Name Dose Route Start Last Admin Trade Name Freq PRN Reason Stop Dose Admin Acetaminophen 650 mg 11/23/24 18:31 Acetaminophen 325 Mg Tablet PO Q6H PRN Mild Pain (1-3) or Fever Hydrocodone Bitart/Acetaminophen 1 tab 11/23/24 18:25 11/30/24 21:04 Hydrocodone/Acetaminophen (*Crx) 5-325 Mg Tablet PO 1 tab Q6H PRN Administration Pain Rated 4-10 Amlodipine Besylate 5 mg 11/24/24 09:00 12/01/24 08:29 Amlodipine Besylate 5 Mg Tablet PO 5 mg QAM INES Administration Cefdinir 300 mg 11/24/24 10:30 12/01/24 08:29 Cefdinir 300 Mg Capsule PO 12/03/24 09:01 300 mg Q12HR INES Administration Dextrose 12.5 gm 11/23/24 18:27 Dextrose 50% 25 Gm/50 Ml Syringe IV PUSH PRN PRN Hypoglycemia Protocol Duloxetine HCl 30 mg 11/24/24 09:00 12/01/24 08:29 Duloxetine Hcl 30 Mg Capsule.Dr PO 30 mg DAILY INES Administration Famotidine 40 mg 11/24/24 09:00 12/01/24 08:30 Famotidine 20 Mg Tablet PO 40 mg DAILY INES Administration Glucagon 1 mg 11/23/24 18:27 Glucagon For Inj 1 Mg Vial IM PRN PRN Hypoglycemia Protocol Glucose 15 gm 11/23/24 18:27 Glucose Oral Gel 15 Gm Of Glucse In 37.5 Gm Tube PO PRN PRN Hypoglycemia Protocol Dextrose 1,000 mls @ 100 mls/hr 11/23/24 18:27 Dextrose 5% 1,000 Ml IVPB PRN PRN Hypoglycemia Protocol Insulin Glargine 16 units 11/23/24 21:00 11/30/24 21:04 Insulin Glargine (*Bkc) 1,000 Units/10 Ml Vial SUB-Q 16 units HS INES Administration Insulin Human Lispro 2 - 5 units 11/24/24 08:00 12/01/24 08:27 Insulin Human Lispro (*Bkc) 1,000 Units/10 Ml Vial SUB-Q Not Given TIDWM INES Protocol Irbesartan 150 mg 11/23/24 21:00 11/30/24 21:03 Irbesartan 150 Mg Tablet PO 150 mg HS INES Administration Linezolid 600 mg 11/24/24 10:30 12/01/24 08:30 Linezolid 600 Mg Tablet PO 12/03/24 09:01 600 mg Q12HR INES Administration Metformin HCl 1,000 mg 11/24/24 09:00 12/01/24 08:29 Metformin Hcl Xr 500 Mg Tab.Sr.24h PO 1,000 mg DAILY INES Administration Miconazole Nitrate 1 applic 11/23/24 21:00 12/01/24 08:31 Miconazole Nitrate 2% Cream 30 Gm Tube TOPICAL 1 applic Q12HR INES Administration Mirtazapine 7.5 mg 11/23/24 21:00 11/30/24 21:02 Mirtazapine 7.5 Mg Tablet PO 7.5 mg HS [facility] Administration Ondansetron HCl 4 mg 11/23/24 18:31 Ondansetron Hcl Odt 4 Mg Tablet PO Q6H PRN Nausea And Vomiting Oxybutynin Chloride 5 mg 11/23/24 21:00 11/30/24 21:03 Oxybutynin Chloride 5 Mg Tablet PO 5 mg HS [facility] Administration Oxybutynin Chloride 10 mg 11/24/24 09:00 12/01/24 08:30 Oxybutynin Chloride 5 Mg Tablet PO 10 mg DAILY [facility] Administration Pravastatin Sodium 20 mg 11/23/24 21:00 11/30/24 21:03 Pravastatin Sodium 20 Mg Tablet PO 20 mg HS [facility] Administration Senna/Docusate Sodium 1 tab 11/23/24 21:00 11/30/24 21:03 Senna/Docusate Sodium Tablet PO 1 tab HS [facility] Administration Tolnaftate 1 applic 11/23/24 21:00 12/01/24 08:31 Tolnaftate 1% Powder 45 Gm Btl TOPICAL 1 applic Q12HR INES Administration Labs Labs: Laboratory Results - last 24 hr 11/30/24 11/30/24 11/30/24 11:41 16:54 20:59 WBC RBC Hgb Hct MCV MCH MCHC RDW Plt Count MPV Sodium Potassium Chloride Carbon Dioxide Anion Gap BUN Creatinine Estim Creat Clear Calc Estimated GFR Glucose POC Capillary Glucose 265 H 182 H 202 H Calculated Osmolality Calcium Magnesium Total Bilirubin AST ALT Alkaline Phosphatase Total Protein Albumin 12/01/24 07:28 WBC 6.2 RBC 3.80 L Hgb 11.0 L Hct 35.2 MCV 92.6 MCH 28.9 MCHC 31.3 L RDW 14.5 H Plt Count 385 MPV 10.0 Sodium 137 Potassium 4.7 Chloride 105 Carbon Dioxide 23 Anion Gap 9 BUN 28 H Creatinine 1.57 H Estim Creat Clear Calc 26 Estimated GFR 32 L Glucose 139 H POC Capillary Glucose Calculated Osmolality 291 Calcium 10.4 H Magnesium 2.0 Total Bilirubin 0.5 AST 27 ALT 21 Alkaline Phosphatase 111 Total Protein 6.6 Albumin 3.4 L Quality VTE Prophylaxis VTE prophylaxis: mechanical ordered
--- NOTE | 2024-12-01 09:46 | P.DS_ITS ---
DS: Admitting Diagnosis Discharge Date 12/01/2024 Admitting Diagnosis Rehab DS: Discharge Diagnosis Discharge Diagnosis (1) Decreased functional mobility: Code(s): R26.89 - Other abnormalities of gait and mobility Status: Acute (2) Abscess, perirectal: Code(s): K61.1 - Rectal abscess Status: Acute (3) Allergic reaction to sulfonamide: Code(s): T37.0X1A - Poisoning by sulfonamides, accidental (unintentional), initial encounter Status: Acute (4) Hypertension: Code(s): I10 - Essential (primary) hypertension Status: Acute (5) Hyperlipidemia: Code(s): E78.5 - Hyperlipidemia, unspecified Status: Acute (6) Type 2 diabetes mellitus: Code(s): E11.9 - Type 2 diabetes mellitus without complications Status: Acute (7) Acute kidney injury superimposed on stage 3a chronic kidney disease: Code(s): N17.9 - Acute kidney failure, unspecified; N18.31 - Chronic kidney disease, sta ge 3a Status: Acute DS: Summary Hospital Course Reason for hospitalization: Rehab Hospital Course: Patient was a 73-year-old female with a past medical medical history of depression, essential hypertension, overactive bladder with bladder stimulator, type 2 diabetes mellitus, chronic kidney disease stage 3 and 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 from [facility] after treatment for perirectal abscess. Per medical records patient was seen by Urology and General surgery due to implantable urinary neuro stimulation device in perirectal abscess unsure if infection transmitter turn to perirectal abscess or perirectal abscess caused infection to Neuro transmission device. Patient's will cultures grew MRSA as well as Klebsiella oxytoca patient had initial drain placement but was removed prior to discharge from [facility] by surgery. Patient had consult to Infectious Disease to assist in proper antibiotic treatment per sensitivity reports both micro Gram-negative Gram-positive for sensitive to oral Bactrim. Patient was transition to oral Bactrim and [facility]. Hospital Course: Patient was admitted and upon my evaluation in assessment patient was found to have a maculpapular exanthema extending over her entire abdomen up to her chest likely allergic reaction to the initiation Bactrim. Patient with no other complaints denied any chest pain, shortness a breath dizziness, abdominal pain, vitals were stable. I immediately discontinued patient's oral Bactrim and gave her 1 time dose of Benadryl methylprednisone 40 already oral Pepcid. I contacted Infectious Disease Dr. De La Paz regarding patient's reaction to sulfa medication at which time we discussed and agreed upon transition patient to oral linezolid and cefdinir for 19 more doses. Patient cotninued with PT/OT and was progressing however it was agreed between patient and her spouse that she may n eed longer rehab other then a swing bed and they wished to transition to a SNF for contiued PT/OT/ST. Patient seen and assessed day of discharge in no acute discharge, rash had resolved and she was tolerating all intake with no complaints. Patient was discharged to SNF. Status at Discharge Functional status at discharge: uses cane/walker Overall status at discharge: patient is progressing back to baseline Time Spent with Patient Time attestation: Total time spent providing and/or coordinating discharge services: Time spent: Greater than 30 minutes Exam Const: General: comfortable and no acute distress HENMT: Ears: TM's normal bilaterally Face/Nose/Sinus: Normal nares present Mouth: Yes moist mucous membranes Eyes: General: appearance normal, both eyes and all related structures Sclera: sclerae normal Pupils: Equal, round and reactive pupils present EOM: EOMs intact bilaterally Neck: Neck: supple and no JVD Resp: Effort & Inspection: normal respiratory effort Auscultation: clear to auscultation bilaterally Cardio: Rate: regular rate Rhythm: regular rhythm GI: Auscultation: normal bowel sounds Skin: General skin exam: normal color and no rashes or lesions noted Neuro: Cranial nerves: Yes Equal, round and reactive pupils present Sensory Exam: normal sensation Other: Patient with slurred speech secondary to SL at her baseline Extrem: General: normal to inspection Psych: Mental Status: mental status grossly normal Affect: normal affect DS: Data Data Completed and Pending Labs on day of discharge: Labs from last 24 hours 12/01/24 11/30/24 11/30/24 07:28 20:59 16:54 WBC 6.2 RBC 3.80 L Hgb 11.0 L Hct 35.2 MCV 92.6 MCH 28.9 MCHC 31.3 L RDW 14.5 H Plt Count 385 MPV 10.0 Sodium 137 Potassium 4.7 Chloride 105 Carbon Dioxide 23 Anion Gap 9 BUN 28 H Creatinine 1.57 H Estim Creat Clear Calc 26 Estimated GFR 32 L Glucose 139 H POC Capillary Glucose 202 H 182 H Calculated Osmolality 291 Calcium 10.4 H Magnesium 2.0 Total Bilirubin 0.5 AST 27 ALT 21 Alkaline Phosphatase 111 Total Protein 6.6 Albumin 3.4 L 11/30/24 11:41 WBC RBC Hgb Hct MCV MCH MCHC RDW Plt Count MPV Sodium Potassium Chloride Carbon Dioxide Anion Gap BUN Creatinine Estim Creat Clear Calc Estimated GFR Glucose POC Capillary Glucose 265 H Calculated Osmolality Calcium Magnesium Total Bilirubin AST ALT Alkaline Phosphatase Total Protein Albumin Discharge Plan Discharge Attending physician on discharge: Joselo Ansari Consulting providers: Robyn Bernstein; Joselo Ansari Discharging Clinician: Robyn Bernstein Anticipated Discharge Date/Time: 12/01/24 09:39 Patient Disposition: SNF Activity: may shower and as tolerated Diet: diabetic Discharge Instructions: 1). Abscess, perirectal * Initially on oral Bactrim but developed an allergic reaction maculopapular rash * Per Infectious Disease physician patient to oral linezolid and cefdinir complete as indicated * Daily the changes or when soiled * Follow-up with urology need wound check in 2-3 weeks 2). Decreased functional mobility * PT/OT * up to chair with meals * Fall precautions * Will also need assistance with eating recommend small meals and speech therapy 3). Chronic Kidney stage 3 * Encourage oral hydration * recommend follow-up renal function study outpatient for close monitoring How can you care for yourself at home? ? Keep track of any new symptoms or changes in your symptoms. ? Rest until you feel better. ? Be safe with medicines. Take your medicines exactly as prescribed. Call your doctor if you think you are having a problem with your medicine. ? Do not drive after taking a prescription pain medicine. ? Ensure to follow-up with primary care physician as indicated and provide updated medication list provided to you at discharge. When should you call for help? Call 911 anytime you think you may need emergency care. For example, call if: ? You passed out (lost consciousness). Call your doctor now or seek immediate medical care if: ? You have new symptoms like fever, difficulty breathing, Chest pain, vomiting, or rash. ? You have new or different pain. ? You are confused and are having trouble thinking clearly. ? Your symptoms are getting worse. Watch closely for changes in your health, and be sure to contact your doctor if: ? You do not get better as expected. Patient Instructions: Antibiotic Form, Cefdinir (By mouth), Linezolid (By mouth), Wound Infection (DC), Chronic Kidney Disease (DC), Fall Prevention for Children (DC), Fall Prevention (DC), Abscess Incision and Drainage (DC) Patient Language: Bahamian Stand Alone Forms: General Discharge Information, Senior Living Discharge Follow-up/Referrals: Sandra Martines, ANTONIO [Physician [employer], Urology] - 2 weeks Referral Note: call for appointment. Wound check in office. Discharge Medications: New linezolid 600 mg Tablet 600 mg PO Q12HR Qty: 4 0RF cefdinir 300 mg Capsule 300 mg PO Q12HR Qty: 4 0RF tolnaftate 1 % Powder 1 applic topical Q12HR Qty: 45 0RF Continued pravastatin 20 mg Tablet 20 mg PO HS irbesartan 150 mg Tablet 150 mg PO HS oxybutynin chloride 5 mg Tablet 5 mg PO HS oxybutynin chloride 5 mg Tablet 10 mg PO DAILY duloxetine 30 mg Capsule,Delayed Release(Dr/Ec) 30 mg PO DAILY mirtazapine [Remeron] 15 mg Tablet 7.5 mg PO HS Qty: 30 0RF amlodipine [Norvasc] 5 mg Tablet 5 mg PO QAM Qty: 30 0RF hydrocodone-acetaminophen 5-325 mg Tablet 1 tablet PO Q6H PRN (Reason: Pain Rated 4-10) Qty: 10 0RF famotidine 40 mg tablet 40 mg PO DAILY metformin 500 mg tablet extended release 24 hr 1,000 mg PO DAILY insulin aspart U-100 [Novolog U-100 Insulin aspart] 100 unit/mL Solution 3 - 6 unit subcut TIDWM Qty: 10 0RF Protocol: Insulin Corrective Moderate-Dose Condition: glucose < 70 mg/dl Dose/Route: Follow hypoglycemia orders Condition: glucose 70-200 mg/dl Dose/Route: No additional insulin Condition: glucose 201-250 mg/dl Dose/Route: 3 units sub-Q Condition: glucose 251-300 mg/dl Dose/Route: 4 units sub-Q Condition: glucose 301-350 mg/dl Dose/Route: 5 units sub-Q Condition: glucose 351-400 mg/dl Dose/Route: 6 units sub-Q Condition: glucose > 400 mg/dl Dose/Route: Call MD Protocol Text: *No Correction Dose at Bedtime* insulin glargine [Lantus U-100 Insulin] 100 unit/mL Solution 16 unit subcut HS Qty: 10 0RF miconazole nitrate 2 % Cream 1 applic topical Q12HR Qty: 15 0RF sennosides-docusate sodium [Senokot-S] 8.6-50 mg Tablet 1 tab-cap PO HS Qty: 7 0RF Discontinued sulfamethoxazole-trimethoprim 800-160 mg Tablet 1 tab PO Q12HR Qty: 19 0RF Date of admission: 11/23/24 16:14 Primary Care Provider: Yoav Mosley Admitting Provider: Joselo Ansari Attending physician on admission: Joselo Ansari Condition: Stable Quality VTE Prophylaxis VTE prophylaxis: mechanical ordered Hospitalist MIPS Heart Failure (Exclusion) Patient has history of Heart Transplant or Left Ventricular Assistive Device?: No IF YES, STOP HERE Heart Failure (Qualifier) Patient has current or prior documentation of LVEF less than or equal to 40%, or mod/servere depressed LVSF?: No IF NO, STOP HERE
--- NOTE | 2024-12-01 12:50 | PC.NURSE ---
Report called to Ramandeep at [facility] and rehab. Ramandeep expressed understanding. Patient's belongings gathered and paperwork faxed to [place]. Copy of discharge instructions given to patient's to give to Nurse at new facility. Patient will be dressed and discharged as soon as she is finished eating.
[2024-12-01 13:10] VITALS: BP 118/74; PULSE 84; RESP 16; TEMP 36.3; O2SAT 96
--- NOTE | 2024-12-01 13:20 | PC.NURSE ---
Patient dressed, assisted to w/c and assisted off unit by nurse, accompanied by patient's . Patient left hospital grounds with patient's belongings in privately owned vehicle. Nurse assisted patient into car.
--- NOTE | 2024-12-06 11:10 | PC.NURSE ---
Discharged to [facility], call to continues at [facility].
== END 2024-12-01 13:20 | DRG 948 ==
PROVIDERS: Nurse Practitioner Family; Admitting Provider Internal Medicine; PCP Internal Medicine; Visit Provider Internal Medicine
DX: R53.1 Weakness (principal); K61.1 Rectal abscess; N17.9 Acute kidney failure, unspecified; T36.8X5D Adverse effect of other systemic antibiotics, subsequent encounter; L27.0 Generalized skin eruption due to drugs and medicaments taken internally; E11.22 Type 2 diabetes mellitus with diabetic chronic kidney disease; E78.5 Hyperlipidemia, unspecified; F32.A Depression, unspecified; I12.9 Hypertensive chronic kidney disease with stage 1 through stage 4 chronic kidney disease, or unspecified chronic kidney disease; N18.32 Chronic kidney disease, stage 3b; N32.81 Overactive bladder; Z96.82 Presence of neurostimulator; Z98.41 Cataract extraction status, right eye; Z98.42 Cataract extraction status, left eye; Z96.1 Presence of intraocular lens; Z66 Do not resuscitate; Z79.4 Long term (current) use of insulin; Z79.84 Long term (current) use of oral hypoglycemic drugs
CPT/HCPCS: 36415; 80053; 82948; 83735; 85027; 97110; 97112; 97161; 97166; 97530; 97535; A9270; J1200; J1815; J2919